=== PATIENT | male | born 1960 | race Caucasian/White ===

== ENCOUNTER 2017-01-04 20:50 | Inpatient (IN) | payer BC ==
[~2017-01-04] VITALS: Ht 182.9 cm; Wt 79.7 kg
[~2017-01-04 20:50] MED LIST: AMIODARONE 360MG / 200ML D5W IV STA
[2017-01-04] MEDS ORDERED: FENTANYL CITRATE INJ 50 MCG/1 ML 2 ML VIAL ONE (21:02)
[2017-01-04] MEDS ORDERED: MIDAZOLAM HCL 1 MG/ML 2ML VIAL ONE (21:02)
[2017-01-04] MEDS ORDERED: HEPARIN SOD (PORCINE) 1000 UNIT/ML 10 ML VIAL ONE (21:02)
[2017-01-04] MEDS ORDERED: ONDANSETRON INJ 2 MG/ML 2 ML VIAL IV STA (21:03)
[2017-01-04] MEDS ORDERED: NiCARDipine HCL INJ 2.5 MG/ML 10 ML AMP ONE (21:03)
[2017-01-04] MEDS ORDERED: NITROGLYCERIN/D5W 100MCG/ML 20ML SYR ONE (21:03)
--- NOTE | 2017-01-04 21:03 | EMERGENCY ROOM VISIT NOTE ---
History Report prepared by Chris: Elton Dueñas Under the Supervision of: Dr. Naresh Huffman D.O. First contact with patient: 20:33 Stated Complaint: HEART ALERT History of Present Illness The patient is a 56 year old male who presents to the Emergency Room via [facility] with complaints of intermittent chest pain that started 4 days ago. Per EMS, the patient was having chest pain, so he called an ambulance. The patient was found sitting outside on his porch a bit short of breath and lightheaded. On the way in, the patient developed v-tach with a pulse, and then v-fib. He was shocked back to normal and had CPR. The patient was given 150 mg Amiodarone in the ambulance. He took 4 baby aspirin at home so EMS did not give the patient any aspirin. Per the patient, his current chest pain is a 3 out of 10 in severity, and not as bad as it was earlier today. He states that his current chest pain is a bit different than it was earlier, and feels like heartburn. He also currently feels nauseated. His chest pain started 4 days ago, and has been coming and going. The patient was seen at [facility] this morning, and had an EKG done. He denies any radiation of pain, abdominal pain, vomiting, neck pain, or current shortness of breath. He has never had a heart catheterization before. The patient did work out at the gym today. He takes daily medication for hypertension. He does have a family history of heart disease, with the earlier age of onset being 53 years of age. He does not use tobacco products, drink alcohol, or use any drugs. The patient is scheduled for a stress test here in 2 days. Source of History: patient, EMS Onset: 4 days ago Position: chest Symptom Intensity: currently a 3/10 in severity Timing: intermittent Modifying Factors (Relieving): other (Amiodarone 150 mg) Associated Symptoms: + SOB (denies current), + nausea, No neck pain, No vomiting Note: Associated symptoms: Lightheaded earlier. Denies any radiation of pain. Review of Systems See HPI for pertinent positives & negatives. A total of 10 systems reviewed and were otherwise negative. Past Medical & Surgical Medical Problems: (1) Acute IL, anterior wall (2) HTN (hypertension) Family History Heart disease Social History Smoking Status: Never Smoker Smokeless Tobacco Use: No Alcohol Use: none Drug Use: none Marital Status: Housing Status: lives with family Current/Historical Medications Scheduled Lansoprazole (Prevacid), 30 MG PO QPM Lisinopril (Zestril), 10 MG PO DAILY Scheduled PRN Aspirin (Aspirin Ec), 81 MG PO UD PRN for Pain Allergies Coded Allergies: No Known Allergies (Unverified , 01/04/17) Physical Exam Vital Signs Date Time Temp Pulse Resp B/P Pulse Ox O2 Delivery O2 Flow Rate FiO2 01/04/17 22:44 79 18 104/62 96 Mask 10 01/04/17 22:35 83 18 94/61 93 Mask 10 01/04/17 22:25 82 16 114/75 94 Mask 10 01/04/17 22:20 79 18 102/75 95 Mask 10 01/04/17 21:09 87 20 158/94 99 Nasal Cannula 3.0 01/04/17 21:04 100 Non-Rebreather 15.0 01/04/17 20:58 87 01/04/17 20:53 36.5 89 18 130/83 100 Non-Rebreather 15.0 01/04/17 20:53 100 Non-Rebreather 15.0 01/04/17 20:52 100 Non-Rebreather 15.0 Physical Exam GENERAL: Patient is awake, alert, very anxious appearing but does not appear uncomfortable. EYES: The conjunctivae are clear. The pupils are round and reactive. EARS, NOSE, MOUTH AND THROAT: The nose is without any evidence of any deformity. Mucous membranes are moist tongue is midline NECK: The neck is nontender and supple. RESPIRATORY: Normal respiratory effort is noted there is no evidence of wheezing rhonchi or rales CARDIOVASCULAR: Regular rate and rhythm noted there no murmurs rubs or gallops normal S1 normal S2 GASTROINTESTINAL: The abdomen is soft. Bowel sounds are present in all quadrants. Abdomen is nontender MUSCULOSKELETAL/EXTREMITIES: There is no evidence of gross deformity full range of motion is noted in the hips and shoulders SKIN: There is no obvious evidence of any rash. There are no petechiae, pallor or cyanosis noted. NEUROLOGIC: Patient is awake alert and oriented x3. Medical Decision & Procedures ER Provider Diagnostic Interpretation: X-ray results as stated below per interpretation by me and the radiologist. CHEST ONE VIEW PORTABLE CLINICAL HISTORY: CHEST PAIN dyspnea COMPARISON STUDY: No previous studies for comparison. FINDINGS: Interstitial change throughout both hemithoraces. This potentially is chronic although the absence of prior films and interstitial inflammatory process is not excluded. Diaphragms are smooth. No evidence for cardiac enlargement. IMPRESSION: Nonspecific interstitial prominence throughout both hemithoraces. Possibility of early interstitial edema, interstitial infiltrative change, versus chronic interstitial fibrotic change must be considered Electronically signed by: Yan Subramanian M.D. 01/04/2017 9:09 PM Dictated Date/Time: 01/04/2017 9:08 PM Laboratory Results Test 01/04/17 20:59 01/04/17 21:01 01/04/17 21:39 01/04/17 22:48 RDW Standard Deviation 40.7 fL (36.4-46.3) RDW Coefficient of Variation 12.7 % (11.5-14.5) White Blood Count 16.00 K/uL (4.8-10.8) Red Blood Count 5.09 M/uL (4.7-6.1) Hemoglobin 15.8 g/dL (14.0-18.0) Hematocrit 44.7 % (42-52) Mean Corpuscular Volume 87.8 fL (80-100) Mean Corpuscular Hemoglobin 31.0 pg (25-34) Mean Corpuscular Hemoglobin Concent 35.3 g/dl (32-36) Platelet Count 243 K/uL (130-400) Mean Platelet Volume 8.8 fL (7.4-10.4) Neutrophils (%) (Auto) 64.8 % Lymphocytes (%) (Auto) 22.9 % Monocytes (%) (Auto) 7.8 % Eosinophils (%) (Auto) 3.8 % Basophils (%) (Auto) 0.3 % Neutrophils # (Auto) 10.40 K/uL (1.4-6.5) Lymphocytes # (Auto) 3.66 K/uL (1.2-3.4) Monocytes # (Auto) 1.24 K/uL (0.11-0.59) Eosinophils # (Auto) 0.60 K/uL (0-0.5) Basophils # (Auto) 0.04 K/uL (0-0.2) Immature Granulocyte % (Auto) 0.4 % Immature Granulocyte # (Auto) 0.06 K/uL (0.00-0.02) Prothrombin Time 10.8 SECONDS (9.0-12.0) Prothromb Time International Ratio 1.0 (0.9-1.1) Activated Partial Thromboplast Time 29.8 SECONDS (21.0-31.0) Partial Thromboplastin Ratio 1.1 Est Creatinine Clear Calc Drug Dose 90.6 ml/min Magnesium Level 2.0 mg/dl (1.8-2.4) Total Bilirubin 0.4 mg/dl (0.2-1) Direct Bilirubin < 0.1 mg/dl (0-0.2) Aspartate Amino Transf (AST/SGOT) 28 U/L (15-37) Alanine Aminotransferase (ALT/SGPT) 35 U/L (12-78) Alkaline Phosphatase 65 U/L (45-117) Total Protein 7.0 gm/dl (6.4-8.2) Albumin 3.7 gm/dl (3.4-5.0) Lipase 151 U/L (73-393) Bedside Hemoglobin 16.0 g/dl (14.0-18.0) Bedside Hematocrit 47 % (42-52) Bedside Sodium 137 mEq/L (135-144) Bedside Potassium 3.5 mEq/L (3.3-5.0) Bedside Chloride 101 mEq/L (101-112) Bedside Total CO2 23 mEq/l (24-31) Bedside Blood Urea Nitrogen 25 mg/dl (7-18) Bedside Creatinine 0.8 mg/dl (0.6-1.3) Bedside Glucose (other) 134 mg/dl (70-99) Bedside Ionized Calcium (Ethel) 1.04 mmol/l (1.12-1.32) Kaolin Activated Coagulation Time 353 SECONDS (94-140) Creatine Kinase MB Ratio (0-3.0) Laboratory results per my review. Medications Administered Medications (Trade) Dose Ordered Sig/Matt Route Start Time Stop Time Status Last Admin Dose Admin Amiodarone HCL/ Dextrose (Nexterone / D5w) 360 mg UD STAT IV 01/04/17 20:45 01/04/17 20:47 DC 01/04/17 21:08 360 MG Heparin Sodium (Porcine) (Heparin Iv Bolus) 10,000 unit STK-MED ONCE .ROUTE 01/04/17 21:02 01/04/17 21:03 DC 01/04/17 21:02 10,000 UNIT Midazolam HCl (Versed Inj) 2 mg STK-MED ONCE .ROUTE 01/04/17 21:02 01/04/17 21:03 DC 01/04/17 21:02 1 MG Fentanyl Citrate (Fentanyl Inj) 100 mcg STK-MED ONCE .ROUTE 01/04/17 21:02 01/04/17 21:03 DC 01/04/17 21:02 50 MCG Ondansetron HCl (Zofran Inj) 4 mg NOW STAT IV 01/04/17 21:03 01/04/17 21:04 DC 01/04/17 21:05 4 MG Eptifibatide (Integrilin Inj) 75 mg STK-MED ONCE IV 01/04/17 21:37 01/04/17 21:38 DC 01/04/17 21:37 75 MG Eptifibatide (Integrilin Inj) 20 mg STK-MED ONCE IV 01/04/17 21:37 01/04/17 21:38 DC 01/04/17 21:37 20 MG Eptifibatide (Integrilin Inj) 20 mg STK-MED ONCE IV 01/04/17 21:49 01/04/17 21:50 DC 01/04/17 21:49 20 MG Clopidogrel Bisulfate (plAVix TAB) 600 mg STK-MED ONCE PO 01/04/17 22:43 01/04/17 22:44 DC 01/04/17 22:43 600 MG ECG Indication: chest pain Rate (beats per minute): 78 Rhythm: normal sinus Findings: no ectopy, other (apical ST segment elevation with peaked T wave) Comparison ECG Date: no prior available Change: Second ECG: Normal sinus rhythm at 78 bpm, frequent PVC's noted, minimal improved of previously noted ST elevation abnormalities. ECG here: Normal sinus rhythm at 83 bpm, no acute ST segment abnormalities, hyperacute T waves still noted in apical leads. ED Course 2044: Ordered Nexterone/D5w 360 mg IV. 2049: The patient was evaluated in room B1. A complete history and physical examination were performed. 2053: I discussed the patient with Dr. Schofield - [facility] cardiology - he is currently in the room with me. He will take the patient to the laborer brush clearing. The patient will be evaluated for further treatment. 2102: Ordered Zofran Inj 4 mg IV. Medical Decision Additional history obtained from EMS. The patient's history was concerning for chest pain. Differential diagnosis: Etiologies such as cardiac ischemia, aortic dissection, pulmonary embolism, pneumonia, pneumothorax, musculoskeletal, infections, pericarditis, myocarditis , esophageal rupture, gastrointestinal, as well as others were entertained. The patient is a 56-year-old male who presented to the emergency department by ambulance for an evaluation of chest pain. The patient has been noticing intermittent chest pain over the last few days. The patient was seen at the clinic this morning and was advised to schedule a stress test. He went to the gym this evening and afterward started having similar chest discomfort. He took 4 baby aspirin and then called the ambulance. I was alerted by the booker because the patient had an episode of ventricular tachycardia followed by ventricular fibrillation and was cardioverted into normal sinus rhythm. He did receive CPR. He was given a dose of amiodarone prior to arrival. The patient arrives in the emergency Department awake and alert with continued chest pain which is significantly improved. His prehospital EKG appeared to show apical ST segment and T-wave abnormalities consistent with acute process and ischemia. The patient was made a heart alert prior to arrival. He was felt to be a good candidate for cardiac catheterization. He was agreeable to this procedure and was evaluated by the original midwife and birth center owner. He was taken to cardiac Info Specialist. His EKG did reveal some improvement from his prehospital EKGs. I discussed the patient's presentation with himself as well as his significant other. They are aware of the severity of his disease process at this time. The patient was started on amiodarone drip while in the emergency department. He had some episodes of PVCs but no sustained ventricular dysrhythmia at this time. Consults Time Called: 2049 Consulting Physician: Dr. Chandu ELIAS cardiology Returned Call: -- I discussed the patient with Dr. Chandu ELIAS cardiology - he is currently in the room with me. He will take the patient to the laborer brush clearing. The patient will be evaluated for further treatment. Impression Primary Impression: Acute myocardial infarction of apical-lateral wall Additional Impressions: Chest pain Ventricular tachycardia Critical Care I have personally spent greater than 45 minutes of critical care time in the direct management of this patient. This includes bedside care, interpretation of diagnostic studies, and testing, discussion with consultants, patient, and family members, and other required patient management activities. This 45 minutes is in excess of all separately billable procedures. Scribe Attestation The scribe's documentation has been prepared under my direction and personally reviewed by me in its entirety. I confirm that the note above accurately reflects all work, treatment, procedures, and medical decision making performed by me. Departure Information Dispostion Being Evaluated By Hospitalist (to laborer brush clearing) Problem Qualifiers Additional Impressions: Chest pain Chest pain type: unspecified Qualified Codes: R07.9 - Chest pain, unspecified
[2017-01-04 21:09] LABS: HEMATOCRIT 44.7 % (42-52); MEAN CELL VOLUME 87.8 fL (80-100); MEAN CORPUSCULAR HGB CONC 35.3 g/dl (32-36); MEAN PLATELET VOLUME 8.8 fL (7.4-10.4); PLATELET COUNT 243 K/uL (130-400); RED BLOOD COUNT 5.09 M/uL (4.7-6.1)
[2017-01-04] MEDS ORDERED: ONDANSETRON INJ 2 MG/ML 2 ML VIAL ONE (21:10)
[2017-01-04] MEDS ORDERED: ASPI81TA28 PO (21:11)
[2017-01-04] MEDS ORDERED: LISI-461 PO (21:11)
[2017-01-04] MEDS ORDERED: LANS30CA12 PO (21:11)
--- NOTE | 2017-01-04 21:11 | DIAGNOSTIC IMAGING REPORT ---
CHEST ONE VIEW PORTABLE CLINICAL HISTORY: CHEST PAIN dyspnea COMPARISON STUDY: No previous studies for comparison. FINDINGS: Interstitial change throughout both hemithoraces. This potentially is chronic although the absence of prior films and interstitial inflammatory process is not excluded. Diaphragms are smooth. No evidence for cardiac enlargement. IMPRESSION: Nonspecific interstitial prominence throughout both hemithoraces. Possibility of early interstitial edema, interstitial infiltrative change, versus chronic interstitial fibrotic change must be considered Electronically signed by: Yan Subramanian M.D. 01/04/2017 9:09 PM Dictated Date/Time: 01/04/2017 9:08 PM
[2017-01-04 21:15] LABS: ISTAT CREATININE 0.8 mg/dl (0.6-1.3); ISTAT IONIZED CALCIUM 1.04 mmol/l (1.12-1.32)
[2017-01-04 21:17] LABS: PARTIAL THROMBOPLASTIN RATIO 1.1; PROTHROMBIN TIME (PATIENT) 10.8 SECONDS (9.0-12.0)
[2017-01-04 21:25] LABS: ALT/SGPT 35 U/L (12-78); BLOOD UREA NITROGEN 22 mg/dl (7-18); BUN/CREATININE RATIO 22.3 (10-20); CARBON DIOXIDE 24 mmol/L (21-32); CHLORIDE 102 mmol/L (98-107); GLUCOSE 133 mg/dl (70-99); POTASSIUM 3.4 mmol/L (3.5-5.1); SODIUM 137 mmol/L (136-145)
[2017-01-04 21:29] LABS: BASO % 0.3 %; BASO ABS # 0.04 K/uL (0-0.2); COMPLETE YES; EOS % 3.8 %; IG% 0.4 %; LYMPH % 22.9 %; LYMPH ABS # 3.66 K/uL (1.2-3.4); MONO % 7.8 %; NEUT % 64.8 %
[2017-01-04] MEDS ORDERED: EPTIFIBATIDE 2 MG/ML 10 ML VIAL IV ONE ×2 (21:37→21:49)
[2017-01-04] MEDS ORDERED: EPTIFIBATIDE 0.75 MG/ML 75MG VIAL IV ONE (21:37)
[2017-01-04 21:44] LABS: ALKALINE PHOSPHATASE 65 U/L (45-117); AST/SGOT 28 U/L (15-37); CKMB/CK RATIO 2.4 (0-3.0)
[2017-01-04 22:01] LABS: CALCIUM 8.9 mg/dl (8.5-10.1)
[2017-01-04] MEDS ORDERED: CLOPIDOGREL BISULFATE 300 MG TAB PO ONE (22:43)
[2017-01-04] MEDS ORDERED: LORAZEPAM INJ 0.5 MG in SYRINGE 0 ML IV PRN (23:00)
[2017-01-04] MEDS ORDERED: ATROPINE SULFATE 0.1 MG/ML 5ML SYR IV PRN (23:00)
[2017-01-04] MEDS ORDERED: ONDANSETRON INJ 2 MG/ML 2 ML VIAL IV PRN (23:00)
[2017-01-04] MEDS ORDERED: EPTIFIBATIDE BOLUS / DRIP IV ONE (23:00)
[2017-01-04] MEDS ORDERED: MoRPHine SULFATE 2 MG/ML CARP IV PRN (23:00)
[2017-01-04] MEDS ORDERED: ALUMINUM/MAGNESIUM/SIMETH (MAALOX MAX) 30 ML UDC PO PRN (23:00)
[2017-01-04] MEDS ORDERED: NITROGLYCERIN 0.4 MG SL PER TAB CHARGE SL PRN (23:00)
[2017-01-04] MEDS ORDERED: MAGNESIUM HYDROXIDE SUSP 30 ML UDC PO PRN (23:00)
[2017-01-04] MEDS ORDERED: ACETAMINOPHEN 325 MG TAB PO PRN (23:00)
[2017-01-04] MEDS ORDERED: SODIUM CHLORIDE 0.9% 1000ML 1,000 ML IV SCH (23:00)
--- NOTE | 2017-01-04 23:07 | Procedure Note ---
Pre-Mod Sedation Assessment General Date of Moderate Sedation: Jan 04, 2017. Vital Signs: Vital Signs Past 12 Hours Date Time Temp Pulse Resp B/P Pulse Ox O2 Delivery O2 Flow Rate FiO2 01/04/17 22:44 79 18 104/62 96 Mask 10 01/04/17 22:35 83 18 94/61 93 Mask 10 01/04/17 22:25 82 16 114/75 94 Mask 10 01/04/17 22:20 79 18 102/75 95 Mask 10 01/04/17 21:09 87 20 158/94 99 Nasal Cannula 3.0 01/04/17 21:04 100 Non-Rebreather 15.0 01/04/17 20:58 87 01/04/17 20:53 36.5 89 18 130/83 100 Non-Rebreather 15.0 01/04/17 20:53 100 Non-Rebreather 15.0 01/04/17 20:52 100 Non-Rebreather 15.0 Review Cardiovascular: regular rate, rhythm, no edema, no gallop, no JVD, no murmur, normal peripheral pulses Abdomen: non tender, soft, no organomegaly, no pulsatile mass Lungs: lungs clear Pre-Sedation Airway Assessment Oral Cavity: WNL Able to Visualize Vocal Cords: No Short Thick Neck: No Hx of Sleep Apnea: No Smoking Status: Never Smoker Mallampati Classification: Class III Procedure Planning Contraindications-for Mod Sed: None Yes Notes The planned sedation has been discussed with the patient and consent obtained. I have identified the patient, determined the appropriateness of sedation and have assessed the patient immediately prior to the procedure. All medicine(s) and interventions are by my order.
--- NOTE | 2017-01-04 23:08 | Procedure Note ---
Post-Mod Sedation Assessment General Date of Moderate Sedation Jan 04, 2017. Vital Signs: Vital Signs Past 12 Hours Date Time Temp Pulse Resp B/P Pulse Ox O2 Delivery O2 Flow Rate FiO2 01/04/17 22:44 79 18 104/62 96 Mask 10 01/04/17 22:35 83 18 94/61 93 Mask 10 01/04/17 22:25 82 16 114/75 94 Mask 10 01/04/17 22:20 79 18 102/75 95 Mask 10 01/04/17 21:09 87 20 158/94 99 Nasal Cannula 3.0 01/04/17 21:04 100 Non-Rebreather 15.0 01/04/17 20:58 87 01/04/17 20:53 36.5 89 18 130/83 100 Non-Rebreather 15.0 01/04/17 20:53 100 Non-Rebreather 15.0 01/04/17 20:52 100 Non-Rebreather 15.0 Review - Discharge Criteria Vital Signs Stable: Yes Alert/Oriented/Conversant: Yes Returned to Baseline Mental St: Yes Nausea Absent/Minimal: Yes Pain/Discomfort/Absent/Minimal: Yes Normal/Baseline Respirations: Yes Active Bleeding?: No Pt Received D/C Instructions: N/A Prescriptions Given: None Specific Proced. D/C Criteria Distal Pulses Present (Cardiac: Yes Groin site assessed-Card Cath: N/A Voided Prior To Discharge: N/A Discharged Patients Adult Escort/Transportation: N/A
[2017-01-04] MEDS ORDERED: ASPIRIN 81 MG ECTAB PO PRN (23:15)
--- NOTE | 2017-01-04 23:24 | Cardiac Catheterization ---
Procedure Note Procedure Date Jan 04, 2017. Pre-Procedure Diagnosis STEMI AUC Score 9 Post-Procedure Diagnosis Severe CAD, Successful PCI, Decreased LV Systolic Function, Elevated Intracardiac Pressures Procedure(s) Performed Coronary Angiography, Left Heart Cath, LV Angiography, PTCA, Drug Eluting Stent Book Jacket Cover Machine Operator Dr. Schofield Bone Cooking Operator(s) Klaudia Kearney RTArchana Estimated Blood Loss 35 ml Medication(s) Clopidogrel, Fentanyl, Heparin, Integrilin, Nicardipine, Versed, Lidocaine 1% Summary of Findings HISTORY, PROTOCOL, FINDINGS: The patient is a 56-year-old white male. No prior history of heart disease. CAD risk factors include hypertension, dyslipidemia, and family history of coronary artery disease. His father underwent CABG surgery when he was in his 50s. The patient presented with a 4-day history of intermittent chest discomfort. This evening while at home, he developed a severe episode of retrosternal pressure and burning, associated diaphoresis, nausea, weakness and dyspnea. He called 911. An electrocardiogram performed in the field revealed evidence of an anteroapical myocardial infarction. A heart alert was called based on this electrocardiogram. While being transported to [facility], he had an episode of ventricular tachycardia with a pulse. He then lost consciousness and had ventricular fibrillation. He was successfully defibrillated with 1 shock. He was also given 150 mg of amiodarone. The patient had taken 324 mg of aspirin at home. On arrival to the Emergency Department, the patient was still complaining of chest discomfort. However, the intensity had decreased compared to the intensity that he had experienced earlier at home. He was evaluated in the Emergency Department promptly after arrival by Dr. Naresh Huffman. He was then evaluated by me. After acquisition of informed consent, he was brought emergently to the cardiac catheterization laboratory for cardiac catheterization and probable coronary intervention. On arrival to the catheterization lab, he was still complaining of chest discomfort. However, it was of decreased intensity compared to earlier in the evening. His initial blood pressure was 121/82/100. Catheterization was performed via a 6-Uzbek Glidesheath Slender in the right radial artery. 6 Fr EBU 3.75 guide cathheter. This revealed a codominant circulation. There were mild coronary calcifications present. There was a total early mid LAD occlusion. There was collateral flow to an LAD diagonal from a small caliber first LAD diagonal as well as from a left circumflex marginal artery. GISELLE 0 flow in the LAD. Following passage of a [place] guidewire into the LAD, GISELLE 2 flow was established into the distal LAD. Following balloon angioplasty ( Medtronic Sprinter 2.5 X 12 mm balloon ) to the early mid LAD, GISELLE 3 flow was present in the distal LAD. Also, there was GISELLE 3 flow into the LAD diagonal which arose from the mid LAD. Following deployment of the stent ( kSARIAtronic Integrity Resolute 2.75 X 18 mm BENEDICTO) in the early mid LAD, the residual stenosis at the stent site was 0-10%. There was no evidence of dissection, thrombus, perforation, or distal embolic event. The proximal LAD had a 20-30% stenosis. The latter portion of the mid LAD had a 20-30% stenosis. There was GISELLE 3 flow in the LAD and the diagonal artery. The left circumflex had mild atherosclerotic disease. The right coronary artery was a small caliber codominant vessel giving rise to a long, small caliber posterior descending artery. The distal RCA had a 70% stenosis. The mid RCA had a 30% stenosis. Upon further review of the coronary angiograms, the mid left circumflex gave rise to a long medium caliber marginal artery which appeared to have at least a 50% ostial stenosis. Left ventricular angiography performed following completion of coronary intervention and coronary angiography revealed the posterior basal and diaphragmatic segments contracted normally. The anterobasal segments contracted normally. The anterolateral segment was severely hypokinetic. The apex was akinetic. Left ventricular angiography performed from the 44-degree SWAZI projection revealed the septum to be hypokinetic. The apex was akinetic. The lower posterolateral segment was hypokinetic. The estimated LV ejection fraction was 40%. No significant mitral regurgitation present. The patient was treated with intravenous Integrilin and heparin during the procedure. He was given 600 mg of oral clopidogrel at the completion of the procedure. He had no complaints of chest discomfort following completion of procedure. His final blood pressure was 89/61/75 mmHg. The left ventricular end-diastolic pressure was 21 mmHg. Hemostasis was obtained at the right radial catheterization site with application of a TerumTouchSpin Gaming AG TR band. Hemodynamics Rest Ao: 121/82/100 mm Hg Final Ao: 89/61/75 mm Hg LV: 86/21 mm Hg Recommendations Medical therapy and/or Counseling, PCI without planned CABG Specimens None Radiation Exposure (mGy) 1842 Contrast (mls) 290 ml Visipaque Fluids (cc crystalloids) 205 Drains none Anesthesia IV versed,fentanyl. Lidocaine 1% local Procedural Complication(s) None Disposition ICU ACC Data Cardiac Status Clinical evaluation leading to the procedure CAD Presntation: STEMI STEMI or Non-STEMI: Thrombolytics: No Anginal Classification: CCS IV Heart Failure: No Cardiogenic Shock w/in 24Hrs: No Cardiac Arrest w/in 24Hrs: Yes Imaging studies past 6 months: No Stress studies past 6 months: No Standard Exercise Stress Test: No Stress Echocardiogram: No Stress Testing w/SPECT MPI: No Cardiac CTA: No Coronary Anatomy Dominant: Co-dominant Left Main (% Stenosis): Normal LAD (% Stenosis): Proximal (30), Mid (100), Distal (20) RCA (% Stenosis): Distal (70) Left Ventricular Angiography EF (%): 45 Wall Motion: Inferior (Normal), Apical (Akinetic), Anterior (Hypokinetic) Mitral Regurgitation: None Diagnostic Physician's Name: Isidro Schofield M.D. Status: Emergency Closure Device Percutaneous Entry Location: Radial Closure Device: Radial Band Recommendations: Medical therapy and/or Counseling, PCI without planned CABG PCI Indication: Immediate PCI for STEMI First Noted: First EKG Lesion Segment Name: Early mid LAD Culprit Artery: Yes Stenosis Prior to Rx (%): 100 Chronic Total Occlusion: No IVUS: No FFR: No Pre-Procedure GISELLE Flow: 0 Previously Treated Lesion: No Lesion Complexity: Non-High/Non-C Lesion Length (mm): 12 Thrombus Present: Yes Bifurcation Lesion: No Guidewire Across Lesion: Yes Guidewire: Stenosis Post-Procedure (%): 0 Post-Procedure GISELLE Flow: 3 Device(s) Deployed: Yes Type of Device(s): Medtronic Resolute 2.75 X 18 mm BENEDICTO Intraprocedure Events Significant Dissection: No Perforation: No
[2017-01-04] MEDS ORDERED: ATORVASTATIN 40 MG TAB PO STA (23:29)
[2017-01-04 23:30] VITALS: PULSE 69; O2SAT 91
[2017-01-04] MEDS ORDERED: VANCOMYCIN INJ 1,000 MG in SODIUM CHLORIDE 0.9% 250ML 250 ML IV STA (23:32)
[2017-01-04 23:45] VITALS: BP 82/87; PULSE 65; O2SAT 90
[2017-01-04] MEDS ORDERED: PIPERACILL/TAZOBAC CONSULT ACTIVE PRN (23:45)
[2017-01-04] MEDS ORDERED: LEVALBUTEROL 1.25MG/0.5ML NEB INH PRN (23:45)
[2017-01-04] MEDS ORDERED: LORAZEPAM 2 MG/ML 1 ML VIAL IV PRN (23:45)
[2017-01-04] MEDS ORDERED: IPRATROPIUM BROMIDE NEB SOLN 0.02% 2.5 ML VIAL INH PRN (23:45)
[2017-01-04] MEDS ORDERED: PANTOprazole INJ 40 MG in SYRINGE 0 ML IV STA (23:50)
[2017-01-04 23:55] LABS: HEMATOCRIT 42.4 % (42-52); MEAN CELL VOLUME 87.4 fL (80-100); MEAN CORPUSCULAR HEMOGLOBIN 30.9 pg (25-34); MEAN PLATELET VOLUME 8.8 fL (7.4-10.4); PLATELET COUNT 260 K/uL (130-400); RED BLOOD COUNT 4.85 M/uL (4.7-6.1); WHITE BLOOD COUNT 20.67 K/uL (4.8-10.8)
[2017-01-05] VITALS (28 sets, daily range): BP systolic 82–123; BP diastolic 57–85; PULSE 62–84; TEMP 36.3–37.5; O2SAT 86–100; Ht 182.9 cm; Wt 79.7 kg
[2017-01-05] MEDS ORDERED: PIPERACILL/TAZOBAC IV 3.375 GM in DEXTROSE 5% 100ML IV ONE ×2
[2017-01-05 00:02] LABS: MEAN CORPUSCULAR HGB CONC 35.4 g/dl (32-36)
[2017-01-05] MEDS: NSS + 20MEQ KCL 1000ML 1,000 ML IV SCH ×2 (00:06→00:28)
[2017-01-05] MEDS: LEVOFLOXACIN / D5W 500 MG in PREMIXED IN D5W 100 ML IV SCH ×2 (00:07→23:47)
[2017-01-05 00:16] LABS: BASO % 0.1 %; BASO ABS # 0.03 K/uL (0-0.2); COMPLETE YES; ECHINOCYTES 1+; EOS % 0.2 %; IG% 0.4 %; LYMPH % 10.2 %; MONO % 6.7 %; NEUT % 82.4 %
[2017-01-05 00:19] LABS: BLOOD UREA NITROGEN 18 mg/dl (7-18); BUN/CREATININE RATIO 24.7 (10-20); CALCIUM 8.2 mg/dl (8.5-10.1); CARBON DIOXIDE 23 mmol/L (21-32); CHLORIDE 103 mmol/L (98-107); CREATININE 0.74 mg/dl (0.60-1.40); GLUCOSE 125 mg/dl (70-99); POTASSIUM 3.8 mmol/L (3.5-5.1); SODIUM 136 mmol/L (136-145)
[2017-01-05] MEDS ORDERED: CALCIUM GLUCONATE 10% 2,000 MG in SODIUM CHLORIDE 0.9% 50ML 50 ML IV STA (00:23)
[2017-01-05 00:36] LABS: CHOLESTEROL 141 mg/dl (0-200); CHOLESTEROL/HDL RATIO 4.4; CKMB/CK RATIO 8.4 (0-3.0); HDL CHOLESTEROL 32 mg/dl; TRIGLYCERIDES 55 mg/dl (0-150); VERY LOW DENSITY LIPOPROT CALC 11 mg/dl
--- NOTE | 2017-01-05 00:40 | HISTORY & PHYSICAL EXAMINATION ---
DATE OF ADMISSION: 01/04/2017 PRIMARY PHYSICIAN: Roseann Murphy MD. ADMITTING AND ATTENDING PHYSICIAN: Isidro Schofield MD. HISTORY: The patient is a 56-year-old white male. No prior history of heart disease. CAD risk factors include hypertension, dyslipidemia, and family history of coronary artery disease. His father underwent CABG surgery when he was in his 50s. The patient presented with a 4-day history of intermittent chest discomfort. This evening while at home, he developed a severe episode of retrosternal pressure and burning, associated diaphoresis, nausea, weakness and dyspnea. He called 911. An electrocardiogram performed in the field revealed evidence of an anteroapical myocardial infarction. A heart alert was called based on this electrocardiogram. While being transported to [facility], he had an episode of ventricular tachycardia with a pulse. He then lost consciousness and had ventricular fibrillation. He was successfully defibrillated with 1 shock. He was also given 150 mg of amiodarone. The patient had taken 324 mg of aspirin at home. On arrival to the Emergency Department, the patient was still complaining of chest discomfort. However, the intensity had decreased compared to the intensity that he had experienced earlier at home. He was evaluated in the Emergency Department promptly after arrival by Dr. Naresh Huffman. He was then evaluated by mo. After acquisition of informed consent, he was brought emergently to the cardiac catheterization laboratory for cardiac catheterization and probable coronary intervention. On arrival to the catheterization lab, he was still complaining of chest discomfort. However, it was of decreased intensity compared to earlier in the evening. His initial blood pressure was 121/82/100. Catheterization was performed via a 6-Ghanaian sheath in the right radial artery. This revealed a codominant circulation. There were mild coronary calcifications present. There was a total early mid LAD occlusion. There was collateral flow to an LAD diagonal from a small caliber first LAD diagonal as well as from a left circumflex marginal artery. GISELLE 0 flow in the LAD. Following passage of a guidewire into the LAD, GISELLE 2 flow was established into the distal LAD. Following balloon angioplasty to the early mid LAD, GISELLE 3 flow was present in the distal LAD. Also, there was GISELLE 3 flow into the LAD diagonal which arose from the mid LAD. Following deployment of the stent ( [employer] Integrity Resolute 2.75 X 18 mm BENEDICTO) in the early mid LAD, the residual stenosis at the stent site was 0-10%. There was no evidence of dissection, thrombus, perforation, or distal embolic event. The proximal LAD had a 20-30% stenosis. The latter portion of the mid LAD had a 20-30% stenosis. There was GISELLE 3 flow in the LAD and the diagonal artery. The left circumflex had mild atherosclerotic disease. The right coronary artery was a small caliber codominant vessel giving rise to a long, small caliber posterior descending artery. The distal RCA had a 70% stenosis. The mid RCA had a 30% stenosis. Upon further review of the coronary angiograms, the mid left circumflex gave rise to a long medium caliber marginal artery which appeared to have at least a 50% ostial stenosis. Left ventricular angiography performed following completion of coronary intervention and coronary angiography revealed the posterior basal and diaphragmatic segments contracted normally. The anterobasal segments contracted normally. The anterolateral segment was severely hypokinetic. The apex was akinetic. Left ventricular angiography performed from the 44-degree KYRGYZ projection revealed the septum to be hypokinetic. The apex was akinetic. The lower posterolateral segment was hypokinetic. The estimated LV ejection fraction was 40%. No significant mitral regurgitation present. The patient was treated with intravenous Integrilin and heparin during the procedure. He was given 600 mg of oral clopidogrel at the completion of the procedure. He had no complaints of chest discomfort following completion of procedure. His final blood pressure was 89/61/75 mmHg. The left ventricular end-diastolic pressure was 21 mmHg. Hemostasis was obtained at the right radial catheterization site with application of a Terumo TR band. PAST MEDICAL HISTORY: 1. Hypertension. 2. Dyslipidemia. PAST SURGICAL HISTORY: Status post umbilical hernia repair. SOCIAL HISTORY: The patient is and lives with his . 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 He has not smoked cigarettes. He does chew snuff. He does not drink alcohol. The patient and his have 3 daughters. FAMILY HISTORY: His father underwent CABG surgery in his early 50s. MEDICATIONS AT TIME OF ADMISSION: Prevacid 30 mg daily and lisinopril 10 mg daily. ALLERGIES: No known drug allergies. REVIEW OF SYSTEMS: 1. As above. 2. Nonproductive cough developing in the catheterization laboratory. 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 3. No bleeding complaints prior to cardiac catheterization. 4. No cerebrovascular or peripheral vascular complaints. 5. No urinary complaints. 6. He has recently had sensation of cold hands and feet. PHYSICAL EXAMINATION: VITAL SIGNS: On arrival to the farm laborer, his noninvasive blood pressure was 138/99 mmHg. His pulse rate was 86 beats per minute. Oxygen saturation was 98%. HEAD: Normal. EYES: Pupils equal and round. Anicteric. Conjunctivae normal. NECK: No jugular venous distension. Carotids 2/2 bilaterally. Normal upstroke. No bruits. LUNGS: Normal respiratory effort. Clear. No rales or wheezes. HEART: Regular rate and rhythm. S1, S2 normal. No S3 or S4. No murmur or rub. ABDOMEN: Soft. Nontender. No palpable masses or organomegaly. No bruits. EXTREMITIES: No pretibial edema. PULSES: Distal pulses in all extremities strongly palpable. NEUROLOGIC: Alert and oriented x3. Motor grossly intact. PSYCHIATRIC: Affect normal. DATA: Electrocardiogram performed in the Emergency Department revealed sinus rhythm, poor R-wave progression V1-V6. Predominantly Q-waves in V1-V6. Peaked T-waves in leads V3, V4 and V5. Chest x-ray performed in the Emergency Department revealed interstitial prominence in both lung barrios. Initial labs with WBC 16.0, hemoglobin 15.8, hematocrit 44.7, platelet count 243. INR 1.0. PTT 29.8. Metabolic profile with sodium 137, potassium 3.4, chloride 102, carbon dioxide 24, BUN 22, creatinine 1.0. Random glucose 133. Troponin I 0.172. CK total 219 with MB of 5.3. Magnesium 2.0. Calcium 8.9. Albumin 3.7. Lipase 151. ASSESSMENT: 1. Acute anteroapical myocardial infarction secondary to total early mid left anterior descending artery occlusion. 2. Successful intervention to left anterior descending artery occlusion with deployment of a 2.75 x 18 mm drug-eluting stent. Residual stenosis 0%. GISELLE 3 flow in the left anterior descending artery and left anterior descending artery diagonal arising from the mid left anterior descending artery following intervention. Mild atherosclerotic disease of the proximal left anterior descending artery and latter mid left anterior descending artery. 3. Moderate stenosis of left circumflex marginal. Moderate distal right coronary artery stenosis. Mild mid right coronary artery stenosis. 4. Moderate left ventricular systolic dysfunction. Anteroapical wall motion abnormalities of the left ventricle. 5. Moderately elevated left ventricular end-diastolic pressure. 6. Coronary artery disease risk factors include history of dyslipidemia, hypertension, and family history of premature coronary artery disease. PLAN: 1. Admit to intensive care unit. 2. Intravenous Integrilin for 18 hours. 3. Post-Integrilin CBC. Post-procedure metabolic profile. 4. Serial cardiac enzymes and electrocardiograms. 5. Echocardiogram on 01/05/2017. 6. Start beta ryan therapy with metoprolol tartrate 25 mg b.i.d. Continue lisinopril; however, we will reduce dose to 5 mg daily in light of the low pressure post-intervention. Aspirin and clopidogrel. We will start atorvastatin 80 mg daily. 7. Check lipid profile and direct LDL. Check hemoglobin A1c. 8. Medical consultation with Dr. Pj Kelly. 9. Hydrostatic Tester consultation with Dr. Karolina Quick. 10. Refer to cardiac rehabilitation. 11. Ranitidine 150 mg b.i.d. MTDD
[2017-01-05 00:48] LABS: IPAP 12; ISTAT ALLEN TEST Pass; ISTAT ARTERIAL BLOOD GAS HCO3 22 meq/L (19-24); ISTAT ARTERIAL BLOOD GAS PCO2 32 mmHg (35-46); ISTAT ARTERIAL BLOOD GAS PO2 104 mmHg (80-95); ISTAT ARTERIAL BLOOD GAS pH 7.45 (7.35-7.45); ISTAT CARBON DIOXIDE 23 mEq/l (24-31); ISTAT DELIVERY SYSTEM BIPAP; ISTAT FIO2 70 %; ISTAT RATE 10; ISTAT SITE L Radial
[2017-01-05] MEDS: POTASSIUM CHLR 10 MEQ / WTR 10 MEQ in PREMIXED WATER 100 ML IV SCH ×3 (01:00→02:18)
[2017-01-05] MEDS ORDERED: VANCOMYCIN INJ 2,100 MG in SODIUM CHLORIDE 0.9% 500ML 500 ML IV SCH (02:00)
[2017-01-05] MEDS ORDERED: AMIODARONE / D5W 200 ML IV SCH (02:30)
[2017-01-05] MEDS ORDERED: NURSING VERBAL MED ORDER ONE (02:30)
[2017-01-05] MEDS: IPRATROPIUM BROMIDE NEB SOLN 0.02% 2.5 ML VIAL INH SCH ×4 (02:32→20:14)
[2017-01-05] MEDS: LEVALBUTEROL 1.25MG/0.5ML NEB INH SCH ×4 (02:32→20:14)
[2017-01-05] MEDS ORDERED: LEVALBUTEROL/IPRATROPIUM NEB INH SCH (03:00)
[2017-01-05] MEDS ORDERED: VANCOMYCIN CONSULT ACTIVE PRN (03:30)
[2017-01-05] MEDS ORDERED: PIPERACILL/TAZOBAC IV 3.375 GM in DEXTROSE 5% 100ML 100 ML IV SCH (06:00)
[2017-01-05 06:14] LABS: BASO % 0.1 %; BASO ABS # 0.01 K/uL (0-0.2); COMPLETE YES; EOS % 0.1 %; IG% 0.2 %; LYMPH % 11.9 %; LYMPH ABS # 1.55 K/uL (1.2-3.4); MEAN CELL VOLUME 87.6 fL (80-100); MEAN CORPUSCULAR HEMOGLOBIN 31.2 pg (25-34); MEAN CORPUSCULAR HGB CONC 35.6 g/dl (32-36); MEAN PLATELET VOLUME 8.6 fL (7.4-10.4); MONO % 7.3 %; NEUT % 80.4 %; PLATELET COUNT 220 K/uL (130-400); RED BLOOD COUNT 4.68 M/uL (4.7-6.1); WHITE BLOOD COUNT 12.99 K/uL (4.8-10.8)
[2017-01-05] MEDS: PIPERACILL/TAZOBAC IV 3.375 GM in DEXTROSE 5% 100ML IV SCH ×3 (06:45→22:06)
[2017-01-05 06:56] LABS: BUN/CREATININE RATIO 18.6 (10-20); CALCIUM 8.4 mg/dl (8.5-10.1); CREATININE 0.73 mg/dl (0.60-1.40); POTASSIUM 4.4 mmol/L (3.5-5.1)
[2017-01-05 07:26] LABS: CKMB/CK RATIO 10.3 (0-3.0)
[2017-01-05 07:27] LABS: ESTIMATED AVERAGE GLUCOSE 108 mg/dl; HA1C FLAG Normal (Normal)
[2017-01-05] MEDS ORDERED: PERFLUTREN LIPID MICROSPHERE (DEFINITY) IV ONE (07:36)
--- NOTE | 2017-01-05 07:49 | DIAGNOSTIC IMAGING REPORT ---
CHEST ONE VIEW PORTABLE CLINICAL HISTORY: thornton dyspnea COMPARISON STUDY: 01/04/2017 FINDINGS: Slightly progressive interstitial changes throughout both hemithoraces. Diaphragms smooth. Calcific angles remain sharp. IMPRESSION: Mildly progressive interstitial edema. Electronically signed by: Yan Subraamnian M.D. 01/05/2017 7:47 AM Dictated Date/Time: 01/05/2017 7:46 AM
--- NOTE | 2017-01-05 08:17 | ECHOCARDIOGRAM REPORT ---
*NOTICE TO RECEIVING [employer] This information is strictly Confidential and protected under [place] law. [place] law prohibits you from making any further disclosure of this information unless further disclosure is expressly permitted by the written consent of the person to whom it pertains or is authorized by law. A general authorization for the release of medical or other information is not sufficient for this purpose. Hospital accepts no responsibility if the information is made available to any other person, INCLUDING THE PATIENT. Interpretation Summary * Name: BARB PAGAN Study Date: 01/05/2017 06:50 AM BP: 109/70 mmHg * Patient Location: .MSICU\S\E109\S\1 HR: 74 * : 1960 (M/d/yyyy) Gender: Male Height: 72 in * Age: 56 yrs Ethnicity: CA Weight: 187 lb * Ordering Physician: Isidro Schofield MD, [facility] * Performed By: Stacy Baxter * * Reason For Study: AMI * BSA: 2.1 m2 * -- Conclusions -- * There is borderline concentric left ventricular hypertrophy. * Left ventricular systolic function is moderate to severely reduced. * Grade I diastolic dysfunction, (abnormal relaxation pattern). * Apical echoes consistent with trabeculae are noted. Cannot rule out associated thrombi. * There are regional wall motion abnormalities as specified. * The inferior vena cava is mildly dilated. Procedure Details * A complete two-dimensional transthoracic echocardiogram was performed (2D, M-mode, Doppler and color flow Doppler). * A contrast injection of Definity was performed to improve assessment of LV function. * Contrast was injected into an intravenous site in the left arm. * One vial of Definity ultrasound contrast was diluted in normal saline to a total volume of 10 ml. A total of '4' ml of solution was administered during imaging. * Lot # [id number] of Definity utilized for procedure. * Expiration date 01/03. * The attending nurse who injected the contrast agent was PURNIMA ZUNIGA RN. Left Ventricle * The left ventricle is normal in size. * Apical echoes consistent with trabeculae are noted. Cannot rule out associated thrombi. * There is borderline concentric left ventricular hypertrophy. * Ejection Fraction = 25-30%. * Left ventricular systolic function is moderate to severely reduced. * Grade I diastolic dysfunction, (abnormal relaxation pattern). * There are regional wall motion abnormalities as specified. * The entire apex is akinetic. The entire septum appears akinetic. The remaining basilar segements are hyperkinetic. Right Ventricle * The right ventricle is grossly normal size. * The right ventricular systolic function is normal as assessed by tricuspid annular plane systolic excursion (TAPSE) (normal >1.5 cm). Atria * The left atrial size is normal. * Right atrial size is normal. Mitral Valve * The mitral valve anatomy is normal. * Significant mitral regurgitation is absent. Tricuspid Valve * The tricuspid valve is not well visualized, but is grossly normal. * Significant tricuspid regurgitation is absent. Aortic Valve * The aortic valve is normal in structure and function. * No hemodynamically significant valvular aortic stenosis. Pericardium/Pleural * There is no pericardial effusion. Great Vessels * The inferior vena cava is mildly dilated. MMode 2D Measurements and Calculations IVSd 1.2 cm IVSs 1.6 cm LVIDd 4.6 cm LVIDs 3.3 cm LVPWd 1.1 cm LVPWs 1.4 cm IVS/LVPW 1.1 FS 29.0 % EDV(Teich) 96.3 ml ESV(Teich) 42.5 ml EF(Teich) 55.8 % EDV(cubed) 96.0 ml ESV(cubed) 34.3 ml EF(cubed) 64.2 % % IVS thick 39.0 % % LVPW thick 26.4 % LV mass(C)d 187.9 grams LV mass(C)dI 90.7 grams/m\S\2 LV mass(C)s 176.7 grams LV mass(C)sI 85.4 grams/m\S\2 SV(Teich) 53.7 ml SI(Teich) 25.9 ml/m\S\2 SV(cubed) 61.6 ml SI(cubed) 29.8 ml/m\S\2 ACS 1.8 cm asc Aorta Diam 3.1 cm LVOT diam 1.7 cm LVOT area 2.4 cm\S\2 LVAd ap4 37.7 cm\S\2 LVLd ap4 8.6 cm EDV(MOD-sp4) 137.9 ml EDV(sp4-el) 140.4 ml LVAs ap4 26.9 cm\S\2 LVLs ap4 7.8 cm ESV(MOD-sp4) 75.1 ml ESV(sp4-el) 79.4 ml EF(MOD-sp4) 45.6 % EF(sp4-el) 43.4 % LVAd ap2 38.0 cm\S\2 LVLd ap2 9.1 cm EDV(MOD-sp2) 130.5 ml EDV(sp2-el) 135.0 ml LVAs ap2 25.6 cm\S\2 LVLs ap2 7.9 cm ESV(MOD-sp2) 68.1 ml ESV(sp2-el) 70.1 ml EF(MOD-sp2) 47.8 % EF(sp2-el) 48.1 % LVLd %diff 4.9 % EDV(MOD-bp) 136.8 ml LVLs %diff 2.3 % ESV(MOD-bp) 71.4 ml EF(MOD-bp) 47.8 % SV(MOD-sp4) 62.9 ml SI(MOD-sp4) 30.4 ml/m\S\2 SV(MOD-sp2) 62.4 ml SI(MOD-sp2) 30.1 ml/m\S\2 SV(MOD-bp) 65.4 ml SI(MOD-bp) 31.6 ml/m\S\2 SV(sp4-el) 60.9 ml SI(sp4-el) 29.4 ml/m\S\2 SV(sp2-el) 64.9 ml SI(sp2-el) 31.4 ml/m\S\2 Doppler Measurements and Calculations MV A max aretha 61.7 cm/sec MV dec time 0.31 sec Ao V2 max 100.4 cm/sec Ao max PG 4.0 mmHg Ao max PG (full) 1.7 mmHg JON(V,A) 1.8 cm\S\2 JON(V,D) 1.8 cm\S\2 LV V1 max PG 2.4 mmHg LV V1 max 76.7 cm/sec PA V2 max 100.8 cm/sec PA max PG 4.1 mmHg
[2017-01-05] MEDS ORDERED: LISINOPRIL 10 MG TAB PO SCH (09:00)
[2017-01-05] MEDS ORDERED: FUROSEMIDE INJ 20 MG in SYRINGE 0 ML IV ONE (09:00)
[2017-01-05] MEDS ORDERED: FUROSEMIDE INJ 40 MG in SYRINGE 0 ML IV ONE (09:00)
[2017-01-05] MEDS ORDERED: RANITIDINE HCL 150 MG TAB PO SCH (09:00)
[2017-01-05] MEDS: METOPROLOL TARTRATE 25 MG TAB PO SCH ×2 (09:09→21:06)
[2017-01-05] MEDS: LISINOPRIL 5 MG TAB PO SCH (09:09)
[2017-01-05] MEDS: RANITIDINE HCL 150 MG TAB PO SCH ×2 (09:10→21:04)
[2017-01-05] MEDS: CLOPIDOGREL BISULFATE 75 MG TAB PO SCH (09:10)
[2017-01-05] MEDS: ASPIRIN 81 MG ECTAB PO SCH (09:10)
[2017-01-05] MEDS: PANTOprazole INJ 40 MG in SYRINGE 0 ML IV SCH ×2 (09:12→21:03)
--- NOTE | 2017-01-05 09:26 | Medical Consult ---
Consultation Date of Consultation: Jan 05, 2017. Attending Physician: Isidro Schofield M.D. 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 The chest pain worsened and was associated with SOB, diaphoresis and nausea. EMS was called and EKG had revealed GA. En route to the hospital he had an episode of V tach followed by V fib and a brief loss of consciousness. He received a shock with the defibrillator and received amiodarone. while in the ER, he complained about chest pain which felt like a heart burn but was decreased in intensity as earlier. He had taken 4 baby aspirins at home. He was emergently taken to the cardiac catheterization lab. He underwent PCI which revealed Left Main (% Stenosis): Normal LAD (% Stenosis) : Proximal (30), Mid (100), Distal (20) RCA (% Stenosis): Distal (70). He had a drug eluting stent placed in the LAD. After the procedure , the patient coughed up moderate bloody sputum after which Integrilin was stopped and he was given a bolus of 250 cc fluid. He complained about nausea and was diaphoretic , he received zofran for nausea and was put on a BIPAP Past Medical/Surgical History Medical Problems: (1) Acute myocardial infarction of apical-lateral wall Status: Acute (2) Chest pain Status: Acute (3) Ventricular tachycardia Status: Acute Social History Smoking Status: Never Smoker Smokeless Tobacco Use: No Drug Use: none Marital Status: Housing Status: lives with family Allergies Coded Allergies: No Known Allergies (Unverified , 01/04/17) Current Inpatient Medications Current Inpatient Medications Medications (Trade) Dose Ordered Sig/Matt Route Start Time Stop Time Status Last Admin Dose Admin Atropine Sulfate (Atropine Sulfate 0.1MG/Ml Inj) 0.5 mg ONE PRN IV 01/04/17 23:00 02/03/17 22:59 Ondansetron HCl (Zofran Inj) 4 mg Q6H PRN IV 01/04/17 23:00 Aspirin (Ecotrin Tab) 81 mg QAM PO 01/05/17 09:00 02/04/17 08:59 Clopidogrel Bisulfate (plAVix TAB) 75 mg QAM PO 01/05/17 09:00 02/04/17 08:59 Atorvastatin Calcium (Lipitor Tab) 80 mg QAM PO 01/06/17 09:00 02/05/17 08:59 Metoprolol Tartrate (Lopressor Tab) 25 mg Q12 PO 01/05/17 09:00 02/04/17 08:59 Lisinopril (Zestril Tab) 5 mg QAM PO 01/05/17 09:00 02/04/17 08:59 Acetaminophen (Tylenol Tab) 650 mg Q4H PRN PO 01/04/17 23:00 02/03/17 22:59 Morphine Sulfate 2 mg 2 mg Q5M PRN IV 01/04/17 23:00 01/18/17 22:59 Lorazepam/Syringe (Ativan Inj/ Syringe) 0.25 ml @ 1 mls/min Q6H PRN IV 01/04/17 23:00 02/03/17 22:59 Nitroglycerin (Nitrostat Tab) 0.4 mg UD PRN SL 01/04/17 23:00 02/03/17 22:59 Al Hydrox/Mg Hydrox/Simethicone (Maalox Max Susp) 15 ml Q4H PRN PO 01/04/17 23:00 02/03/17 22:59 Magnesium Hydroxide (Milk Of Magnesia Susp) 30 ml Q12H PRN PO 01/04/17 23:00 02/03/17 22:59 Ranitidine HCl 150 mg 150 mg BID PO 01/05/17 09:00 02/04/17 08:59 Levofloxacin/Prmx (Levaquin / D5W/ Premixed D5W) 100 ml @ 100 mls/hr Q24H IV 01/05/17 00:00 01/12/17 00:00 01/05/17 00:07 100 MLS/HR Lorazepam 0.5 mg 0.5 mg Q6H PRN IV 01/04/17 23:45 02/03/17 23:44 Pantoprazole Sodium/Syringe (Protonix Inj/ Syringe) 10 ml @ 5 mls/min BID IV 01/05/17 09:00 02/04/17 08:59 Ipratropium [place] (Atrovent 0.02% 0.5MG/2.5ML Neb) 0.5 mg Q6R INH 01/05/17 03:00 02/04/17 02:59 01/05/17 07:27 0.5 MG Levalbuterol (Xopenex 1.25MG/ 0.5ML [facility]) 1.25 mg Q6R INH 01/05/17 03:00 02/04/17 02:59 01/05/17 07:28 1.25 MG Ipratropium [place] (Atrovent 0.02% 0.5MG/2.5ML [facility]) 0.5 mg Q2H PRN INH 01/04/17 23:45 02/03/17 23:44 01/05/17 00:30 0.5 MG Levalbuterol 1.25 mg 1.25 mg Q2H PRN INH 01/04/17 23:45 02/03/17 23:44 01/05/17 00:30 1.25 MG Piperacillin Sod/ Tazobactam Sod/ Dextrose (Zosyn Iv/D5 100ml) 115 ml @ 28.75 mls/ hr Q8H IV 01/05/17 06:00 01/12/17 05:59 01/05/17 06:45 28.75 MLS/HR Piperacillin Sod/ Tazobactam Sod 1 ea 1 ea UD PRN N/A 01/04/17 23:45 02/03/17 23:44 Amiodarone HCL/ Dextrose 200 ml @ 16.7 mls/hr [id number] IV 01/05/17 02:30 02/04/17 02:29 01/05/17 06:41 16.7 MLS/HR Furosemide/Syringe (Lasix Inj/ Syringe) 2 ml @ 4 mls/min TODAY@0900 ONCE IV 01/05/17 09:00 01/05/17 09:01 Review of Systems Constitutional: No chills, No fever Eyes: No worsening of vision ENT: No hearing loss Respiratory: + cough, + hemoptysis, No shortness of breath Abdomen: + nausea, No pain Musculoskeletal: No joint pain Genitourinary - Male: No hematuria Neurologic: No memory loss Psychiatric: No depression symptoms Endocrine: No fatigue Physical Exam Date Time Temp Pulse Resp B/P Pulse Ox O2 Delivery O2 Flow Rate FiO2 01/05/17 07:28 72 20 90 Nasal Cannula 5.0 01/05/17 05:30 36.5 70 17 108/67 92 Nasal Cannula 5.0 01/05/17 04:32 74 19 109/70 93 Nasal Cannula 5.0 01/05/17 04:17 73 19 109/73 94 Nasal Cannula 5.0 01/05/17 04:02 73 18 112/72 93 Nasal Cannula 5.0 01/05/17 04:00 Nasal Cannula 5.0 01/05/17 03:47 72 16 110/68 94 Nasal Cannula 5.0 01/05/17 03:32 70 16 100/66 92 Nasal Cannula 5.0 01/05/17 03:17 71 18 105/72 91 Nasal Cannula 5.0 01/05/17 03:02 74 19 102/66 89 Nasal Cannula 4.0 01/05/17 02:47 77 27 104/60 90 Nasal Cannula 4.0 01/05/17 02:32 71 20 96 Nasal Cannula 4.0 01/05/17 02:32 78 19 104/72 95 Nasal Cannula 4.0 01/05/17 02:15 72 18 116/83 100 BiPAP 70 01/05/17 01:45 36.7 69 18 123/85 100 BiPAP 70 01/05/17 00:52 36.3 84 26 90/57 90 BiPAP 10.0 01/05/17 00:31 71 96 70 01/05/17 00:30 71 14 89 Diffusion Mask 10.0 01/05/17 00:30 62 14 91/65 100 BiPAP 50 01/05/17 00:15 67 26 90/57 89 Mask 10.0 01/05/17 00:15 67 26 84/59 89 Mask 10.0 01/05/17 00:01 70 27 94/64 86 Mask 10.0 01/05/17 00:01 68 26 82/57 90 Mask 10.0 01/04/17 23:45 65 26 82/87 90 Mask 01/04/17 23:45 65 26 90 01/04/17 23:30 69 17 91 01/04/17 22:44 79 18 104/62 96 Mask 10 01/04/17 22:35 83 18 94/61 93 Mask 10 01/04/17 22:25 82 16 114/75 94 Mask 10 01/04/17 22:20 79 18 102/75 95 Mask 10 01/04/17 21:09 87 20 158/94 99 Nasal Cannula 3.0 01/04/17 21:04 100 Non-Rebreather 15.0 01/04/17 20:58 87 01/04/17 20:53 36.5 89 18 130/83 100 Non-Rebreather 15.0 01/04/17 20:53 100 Non-Rebreather 15.0 01/04/17 20:52 100 Non-Rebreather 15.0 Head: normocephalic Eyes: normal inspection ENT: hearing grossly normal Neck: supple Respiratory/Chest: chest non-tender, lungs clear Cardiovascular: regular rate, rhythm Abdomen/GI: normal bowel sounds, non tender, soft Extremities/Musculoskelatal: no pedal edema Neurologic/Psych: alert, normal mood/affect, oriented x 3 Laboratory Results Last 24 Hours Test 01/04/17 20:59 01/04/17 21:01 01/04/17 21:39 01/04/17 23:46 White Blood Count 16.00 K/uL 20.67 K/uL Red Blood Count 5.09 M/uL 4.85 M/uL Hemoglobin 15.8 g/dL 15.0 g/dL Hematocrit 44.7 % 42.4 % Mean Corpuscular Volume 87.8 fL 87.4 fL Mean Corpuscular Hemoglobin 31.0 pg 30.9 pg Mean Corpuscular Hemoglobin Concent 35.3 g/dl 35.4 g/dl Platelet Count 243 K/uL 260 K/uL Mean Platelet Volume 8.8 fL 8.8 fL Neutrophils (%) (Auto) 64.8 % 82.4 % Lymphocytes (%) (Auto) 22.9 % 10.2 % Monocytes (%) (Auto) 7.8 % 6.7 % Eosinophils (%) (Auto) 3.8 % 0.2 % Basophils (%) (Auto) 0.3 % 0.1 % Neutrophils # (Auto) 10.40 K/uL 17.02 K/uL Lymphocytes # (Auto) 3.66 K/uL 2.10 K/uL Monocytes # (Auto) 1.24 K/uL 1.39 K/uL Eosinophils # (Auto) 0.60 K/uL 0.05 K/uL Basophils # (Auto) 0.04 K/uL 0.03 K/uL RDW Standard Deviation 40.7 fL 40.9 fL RDW Coefficient of Variation 12.7 % 12.7 % Immature Granulocyte % (Auto) 0.4 % 0.4 % Immature Granulocyte # (Auto) 0.06 K/uL 0.08 K/uL Prothrombin Time 10.8 SECONDS Prothromb Time International Ratio 1.0 Activated Partial Thromboplast Time 29.8 SECONDS Partial Thromboplastin Ratio 1.1 Sodium Level 137 mmol/L 136 mmol/L Potassium Level 3.4 mmol/L 3.8 mmol/L Chloride Level 102 mmol/L 103 mmol/L Carbon Dioxide Level 24 mmol/L 23 mmol/L Anion Gap 11.0 mmol/L 18.0 mmol/L 10.0 mmol/L Blood Urea Nitrogen 22 mg/dl 18 mg/dl Creatinine 1.00 mg/dl 0.74 mg/dl Est Creatinine Clear Calc Drug Dose 90.6 ml/min 122.4 ml/min Estimated GFR () 97.1 119.5 Estimated GFR (Non- 83.8 103.1 BUN/Creatinine Ratio 22.3 24.7 Random Glucose 133 mg/dl 125 mg/dl Estimated Average Glucose 108 mg/dl Hemoglobin A1c 5.4 % Calcium Level 8.9 mg/dl 8.2 mg/dl Magnesium Level 2.0 mg/dl Total Bilirubin 0.4 mg/dl Direct Bilirubin < 0.1 mg/dl Aspartate Amino Transf (AST/SGOT) 28 U/L Alanine Aminotransferase (ALT/SGPT) 35 U/L Alkaline Phosphatase 65 U/L Total Creatine Kinase 219 U/L 3837 U/L Creatine Kinase MB 5.3 ng/ml 324.0 ng/ml Creatine Kinase MB Ratio 2.4 8.4 Troponin I 0.172 ng/ml 114.000 ng/ml Total Protein 7.0 gm/dl Albumin 3.7 gm/dl Lipase 151 U/L Bedside Hemoglobin 16.0 g/dl Bedside Hematocrit 47 % Bedside Sodium 137 mEq/L Bedside Potassium 3.5 mEq/L Bedside Chloride 101 mEq/L Bedside Total CO2 23 mEq/l Bedside Blood Urea Nitrogen 25 mg/dl Bedside Creatinine 0.8 mg/dl Bedside Glucose (other) 134 mg/dl Bedside Ionized Calcium (Ethel) 1.04 mmol/l Kaolin Activated Coagulation Time 353 SECONDS Echinocytes 1+ Triglycerides Level 55 mg/dl Cholesterol Level 141 mg/dl HDL Cholesterol 32 mg/dl LDL Cholesterol Direct 100 mg/dl LDL Cholesterol, Calculated mg/dl VLDL Cholesterol, Calculated 11 mg/dl Cholesterol/HDL Ratio 4.4 Chemistry Specimen Hemolysis Test 01/04/17 23:47 01/05/17 00:34 01/05/17 06:00 Bedside Glucose 116 mg/dl Blood Gas Sample Site L Radial Bedside Blood Gas pH (LAB) 7.45 Bedside Blood Gas pCO2 (LAB) 32 mmHg Bedside Blood Gas pO2 (LAB) 104 mmHg Bedside Blood Gas HCO3 (LAB) 22 meq/L Bedside Blood Gas Total CO2 23 mEq/l Bedside Blood Gas Base Excess (LAB) -2.0 meq/L Bedside Blood Gas O2 Saturation 98.0 % [place] Test Pass Oxygen Delivery Device BIPAP Bedside Oxygen Rate (breaths/min) 10 Bedside FiO2 70 % Blood Gas IPAP 12 White Blood Count 12.99 K/uL Red Blood Count 4.68 M/uL Hemoglobin 14.6 g/dL Hematocrit 41.0 % Mean Corpuscular Volume 87.6 fL Mean Corpuscular Hemoglobin 31.2 pg Mean Corpuscular Hemoglobin Concent 35.6 g/dl Platelet Count 220 K/uL Mean Platelet Volume 8.6 fL Neutrophils (%) (Auto) 80.4 % Lymphocytes (%) (Auto) 11.9 % Monocytes (%) (Auto) 7.3 % Eosinophils (%) (Auto) 0.1 % Basophils (%) (Auto) 0.1 % Neutrophils # (Auto) 10.45 K/uL Lymphocytes # (Auto) 1.55 K/uL Monocytes # (Auto) 0.95 K/uL Eosinophils # (Auto) 0.01 K/uL Basophils # (Auto) 0.01 K/uL RDW Standard Deviation 41.6 fL RDW Coefficient of Variation 13.0 % Immature Granulocyte % (Auto) 0.2 % Immature Granulocyte # (Auto) 0.02 K/uL Sodium Level 139 mmol/L Potassium Level 4.4 mmol/L Chloride Level 106 mmol/L Carbon Dioxide Level 23 mmol/L Anion Gap 10.0 mmol/L Blood Urea Nitrogen 14 mg/dl Creatinine 0.73 mg/dl Est Creatinine Clear Calc Drug Dose 124.0 ml/min Estimated GFR () 120.2 Estimated GFR (Non- 103.7 BUN/Creatinine Ratio 18.6 Random Glucose 120 mg/dl Calcium Level 8.4 mg/dl Total Creatine Kinase 3320 U/L Creatine Kinase MB 343.1 ng/ml Creatine Kinase MB Ratio 10.3 Troponin I 137.000 ng/ml Assessment & Plan 56 y/o M with PMH of HLD , HTN and a f/h of CAD in father in 50s presented to the ER with c/o intermittent chest discomfort 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 The chest pain worsened and was associated with SOB, diaphoresis and nausea. EMS was called and EKG had revealed GA. En route to the hospital he had an episode of V tach followed by V fib and a brief loss of consciousness. He received a shock with the defibrillator and received amiodarone. while in the ER, he complained about chest pain which felt like a heart burn but was decreased in intensity as earlier. He had taken 4 baby aspirins at home. He was emergently taken to the cardiac catheterization lab. He underwent PCI which revealed Left Main (% Stenosis): Normal LAD (% Stenosis) : Proximal (30), Mid (100), Distal (20) RCA (% Stenosis): Distal (70). He had a drug eluting stent placed in the LAD. After the procedure , the patient coughed up moderate bloody sputum after which Integrilin was stopped and he was given a bolus of 250 cc fluid. He complained about nausea and was diaphoretic , he received zofran for nausea and was put on a BIPAP STEMI s/p Cardiac cath with stent in LAD - Integrilin held sec to hempotysis - trend cardiac enzymes until peak - Echo - Start metoprolol 25 mg BID, lisinopril, atorvastatin, aspirin and plavix - amiodarone drip - Fasting lipid profile - HBa1c - referral to cardiac rehab Hemoptysis post cath: Integrilin held - BIPAP - Empiric treatment with vanc and Zosyn. Continue Levaquin - Continue inhalers HTN; - lisinopril reduced to 5 mg for now considering low BP GERD: - Protonix IV BID given - continue ranitidine DVT proph: SCDS Full code Disposition: Monitor in ICU for further hemoptysis, Resident Tracking Resident Involvement: Resident Care Provided Care Provided: Adult [facility] Medicine Assessment and Plan Attending Addendum: I have physically seen and examined this patient, have directed their medical care, have supervised the medical residents activities, and agree with the H&P as noted above, with the following changes: Acute respiratory failure status post cardiac catheterization with interventions as noted. The patient became hypoxic into the mid 80s, and stat chest x-ray showed significant aspiration pneumonia bilaterally, which was consistent with his course breath sounds throughout. Patient had been known to have undergone an episode of vomiting shortly after his process began prior to arrival to the ED. Patient was placed on vancomycin IV, Zosyn IV, Levaquin IV, and Xopenex with Atrovent nebulizers every 6 hours while awake and every 2 hours when necessary. He was placed on BiPAP 12/6 with FiO2 75%, which was later able to be tapered back to nasal cannula as his symptoms improved. His systolic blood pressure dropped to a low in the mid 80s, and responded to fluid boluses back to the mid 90s. He was then placed on maintenance IV fluids of normal saline with KCl 20 mEq at 100 mils per hour. His calcium was mildly low at 8.2, and he was given calcium gluconate 2 g IV. His nausea was treated with Zofran IV and Protonix IV. His hemoptysis consisted of about 2 tablespoons of bright red blood, and then he continue to have a non-bloody cough for approximately 20 minutes, which improved with the addition of nebulizers and Protonix IV and Zofran IV. Phone consult was made with machine load clerk Dr. Karolina Quick. Direct conversation in the ICU was made with interventionalist Dr. Acosta. The patient was able to respond during the ICU stay, but was lethargic with the first several hours. His and daughter were in attendance early on in his ICU stay, and his was kept informed proceedings. Later on in the morning, the patient was awake, alert and oriented 3, smiling and communicative. The total critical care time involved with this patient was 2 hours and 10 minutes.
[2017-01-05] MEDS ORDERED: VANCOMYCIN INJ 1,200 MG in SODIUM CHLORIDE 0.9% 250ML 250 ML IV SCH (10:00)
--- NOTE | 2017-01-05 10:43 | CARDIOLOGY PROGRESS NOTE ---
DATE: 01/05/2017 SUBJECTIVE: The patient was seen by me this morning in his intensive care unit room. He states he is feeling well this morning. He has mild chest soreness. He received chest compressions yesterday in the ambulance when he had a cardiac arrest secondary to ventricular fibrillation. He was defibrillated successfully with 1 shock. He did transiently receive chest compressions. He denies any of the anginal type chest discomfort, which he experienced in the 4 days prior to admission. He notes that the chest pain, which he experienced last evening, precipitated his call to 911. He denies any orthopnea or PND overnight. Currently, no dyspnea. He has had no further coughing. 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 No further hemoptysis. No other symptoms of bleeding. He has no fevers or chills. No wheezing. No abdominal pain. No urinary complaints. No cerebrovascular or peripheral vascular complaints. No pain at his right radial catheterization site. No pain in his right hand. CURRENT MEDICATIONS: Intravenous amiodarone, ranitidine 150 mg b.i.d., pantoprazole 40 mg IV b.i.d., metoprolol tartrate 25 mg q. 12 hours, levofloxacin 500 mg IV daily, piperacillin/tazobactam 3.375 grams IV q. 8 hours, aspirin 81 mg daily, clopidogrel 75 mg daily, atorvastatin 80 mg daily, lisinopril 5 mg daily, and several p.r.n. medications. ALLERGIES AND ADVERSE DRUG REACTIONS: None. Monitor history since admission to the intensive care unit reviewed by me. Sinus rhythm. Occasional premature ventricular beats. No ventricular tachycardia. Intake and output today reported to be 2115 intake and output 1525. OBJECTIVE: VITAL SIGNS: Most recent vital signs with pulse 76, pulse oximetry 95% on supplemental nasal cannula oxygen, and blood pressure 123/71. NECK: Jugular venous pressure approximately 7-8 cm. LUNGS: Normal respiratory effort. Bibasilar rales. These are scant. HEART: Regular rate and rhythm. S1 and S2 normal. No S3 or S4. No murmur or rub. ABDOMEN: Normal bowel sounds. Soft. Nontender. No palpable masses or organomegaly. No bruits. EXTREMITIES: Right radial catheterization site without bleeding or hematoma. No evidence of arterial insufficiency in the right hand. No pretibial edema. No calf tenderness. NEUROLOGIC: Alert and oriented x3. Motor grossly intact. PSYCHIATRIC: Affect is normal. DIAGNOSTIC DATA: Electrocardiogram performed this morning with sinus rhythm, evolving anterior myocardial infarction. Persistent ST segment elevations in the anterior leads. Inverted T waves. Predominantly QS complexes in V1-V6. Very small R waves in V1-V3. QT interval (corrected) 412 milliseconds. Echocardiogram performed this morning with additional imaging with contrast showed LV ejection fraction by my observation approximately 40%. Anteroseptal and apical akinesis. No significant valvular abnormalities. Left ventricular diastolic dysfunction. Minimal concentric left ventricular hypertrophy. LABORATORY DATA TODAY: WBC 12.99, hemoglobin 14.6, hematocrit 41.0, and platelet count 220. Metabolic profile -- sodium 139, potassium 4.4, chloride 106, carbon dioxide 23, BUN 14, creatinine 0.73, and random glucose 120. CK peak was at 23:46 last evening, it was 2837. This morning at 06:00 a.m., it is 3320. Peak CK-MB at 06:00 a.m. today at 343.1. Troponin I's since he arrived into the Emergency Department have been 0.172, 114, and 137.000. The peak value was from 06:00 a.m. this morning. Lipid profile with triglycerides 55, total cholesterol 141, direct LDL 100, and HDL 32. Hemoglobin A1c 5.4. ASSESSMENT: 1. Status post anterior septal and apical myocardial infarction, secondary to total early mid left anterior descending occlusion. 2. Successful intervention to left anterior descending occlusion last evening. Deployment of 2.75 x 18-mm Resolute Integrity drug-eluting stent. The stent was expanded to rated burst ____ of the balloon. 0% residual stenosis at the stent site. No evidence of dissection, thrombus, perforation, or distal embolic event. GISELLE-3 flow in the LAD in its diagonal branches following completion of procedure. Coronary angiography also revealed 20%-30% proximal left anterior descending and 20%-30% latter mid left anterior descending stenosis. The left circumflex marginal had an ostial 50% stenosis. Distal RCA with a 70% stenosis. The coronary circulation was codominant. 3. Moderate left ventricular systolic dysfunction on LV angiography post- percutaneous coronary intervention last night. Similar findings on echo today. 4. No post-percutaneous coronary intervention angina. He does have chest wall tenderness. Likely secondary to chest compressions that administered at the time of this cardiac arrest in the ambulance. 5. Cough and hemoptysis last night. Cannot exclude that he had had aspiration. He did vomit prior to arrival to the hospital. The call may have also been secondary to pulmonary edema. At that time, he was on Integrilin. Following the hemoptysis. His Integrilin was discontinued. His cough has resolved since last night. He has had no further hemoptysis. No other bleeding. 6. Hemoglobin is relatively stable from admission. Platelet count slightly decreased from admission. Still very adequate. 7. Stable renal function post-percutaneous coronary intervention. 8. No arrhythmias of any significance since admission to the hospital and following percutaneous coronary intervention. Outpatient cardiac arrest secondary to ventricular fibrillation. Successful defibrillation by the EMS crew. 9. Dyslipidemia. He has a low HDL. The LDL is mildly elevated. 10. Normal hemoglobin A1c. PLAN: 1. Discontinue amiodarone. 2. Continue aspirin, clopidogrel, atorvastatin, metoprolol, and lisinopril. His outpatient lisinopril dose was 10 mg. The dose has been decreased to 5 mg. If necessary to control his blood pressure, the dose can be increased back to 10 mg. 3. Antibiotic management by the hospitalist and diamond die maker teams. 4. The patient received a dose of intravenous furosemide this morning. He does have rales on exam consistent of heart failure. Monitor oxygen saturations and respiratory status closely. 5. Out of bed to chair today. 6. Repeat cardiac enzymes until the troponin has peaked. He has a repeat troponin ordered for this afternoon.
--- NOTE | 2017-01-05 10:55 | CRITICAL CARE CONSULTATION ---
DATE OF CONSULTATION: 01/05/2017 DATE OF CONSULTATION: 01/05/2017. HISTORY OF PRESENT ILLNESS: This is a 56-year-old gentleman with a history of hypertension and hyperlipidemia as well as family history of coronary artery disease who presented to the Emergency Department last evening with chest pain which had been intermittent for 4 days. He was seen at an urgent care center in [place] yesterday at which time he had an EKG and was told that he was not having a myocardial infarction. He subsequently went to the gym and then home at which time he started to have chest pain which was persistent. He had nausea and was in the center of his chest and was worse than previously. He called EMS and had an episode of ventricular tachycardia with a pulse which deteriorated into ventricular fibrillation, so he was shocked and given amiodarone bolus. He was seen in the Emergency Department and per the notes his prehospital EKG had apical ST segment and T-wave abnormalities. A heart alert was called prior to his arrival in the Emergency Department and he was taken to the cardiac catheterization lab where an LAD drug-eluting stent was placed. He vomited once in the Emergency Department and was given heparin as well as Integrilin. He also had a 600 mg Plavix load. After arrival to the intensive care unit he reports he had "wheezing." He felt like he had some kind of sputum to cough up when he did so and it was about 2 teaspoons of bright red blood. This has not recurred and the Integrilin and heparin have been discontinued. I was informed about the hemoptysis prior to a full evaluation by Dr. Kelly. I checked on the patient via phone last night and he had not had any further hemoptysis. He was on 5 liters nasal cannula. At some point he was placed on BiPAP last evening. He did not wear it throughout the night and he was started on Zosyn as well as vancomycin and Levaquin for possible pneumonia. PAST MEDICAL HISTORY: Hypertension, hyperlipidemia. PAST SURGICAL HISTORY: Status post umbilical hernia repair. ALLERGIES: No known drug allergies. OUTPATIENT MEDICATIONS: Aspirin 81 mg daily, Prevacid 30 mg in the evening and lisinopril 10 mg daily. 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 He has never smoked and he does not drink alcohol. He has 3 daughters, one of whom is a nurse practitioner in [place]. FAMILY HISTORY: Significant for father who had open heart surgery in his 50s. REVIEW OF SYSTEMS: Was obtained and is as per the history of present illness. A 12-point review of systems was obtained and is as per the history of present illness and otherwise negative. PHYSICAL EXAMINATION: GENERAL: This is a well-nourished man sitting in bed in no distress. VITAL SIGNS: Temperature 36.5, heart rate 70, respiratory rate 20, blood pressure 108/67, oxygen saturation 92% on 5 liters nasal cannula. Fluid balance since admission is positive 590 mL. HEAD, EYES, EARS, NOSE, AND THROAT: Pupils equally round and reactive to light. No facial droop, mildly elevated jugular venous pressures. LUNGS: Rales about fci up bilaterally, no rhonchi or wheezes. HEART: Regular rate and rhythm. No murmur. ABDOMEN: Flat, soft, nontender. EXTREMITIES: Warm. No edema. LABORATORY DATA: White blood cell count 12.99, hemoglobin 14.6, hematocrit 41, platelets 220. Sodium 139, potassium 4.4, chloride 106, CO2 23, BUN 14, creatinine 0.73, blood sugar 120, calcium 8.4. Troponin 137. Echocardiogram preliminary results from this morning shows grade 1 diastolic dysfunction, moderate to severely reduced left ventricular systolic function with an estimated ejection fraction of 25-30%, the entire apex is akinetic as well as the septum. The remaining basilar segments are hyperkinetic. No significant valvular abnormalities noted. EKG from this morning was reviewed and shows normal sinus rhythm with some ST segment elevations in V2 through V6. Portable chest x-ray from today shows interstitial edema diffusely. IMPRESSION: 1. Status post acute ST segment elevation myocardial infarction. 2. Status post left anterior descending drug-eluting stent. 3. Moderately to severe reduced left ventricular ejection fraction 25-30%. Hopefully, this is stunned myocardium. 4. Hemoptysis, seems to be resolved at this point. May have been secondary to the heparin, Plavix and Integrilin. 5. Pulmonary edema, I doubt aspiration pneumonia based on his history and chest x-ray. 6. History of hypertension. 7. History of hyperlipidemia. 8. Acute hypoxemic respiratory failure secondary to pulmonary edema. PLAN: 1. Continue aspirin, Plavix, statin, beta ryan, МАРИЯ inhibitor. 2. Lasix 20 mg IV x1 was given. I will follow with I\\Os and he may benefit from another dose this afternoon. 3. Wean the oxygen. 4. Discontinue vancomycin, but continue Zosyn for the time being. 5. Follow-up chest x-ray tomorrow and consider discontinuing Zosyn at that time. 6. Watch for any further hemoptysis. 7. I believe if he continues to do well that he is a candidate for transfer to step down or telemetry later today. Thank you for asking me to see this nice gentleman. Please call me with any questions or concerns. SHONNA
[2017-01-05 15:20] LABS: BUN/CREATININE RATIO 12.7 (10-20); MAGNESIUM 2.5 mg/dl (1.8-2.4)
[2017-01-05 15:41] LABS: CKMB/CK RATIO 7.5 (0-3.0)
[2017-01-06] VITALS (15 sets, daily range): BP systolic 81–100; BP diastolic 50–62; PULSE 65–75; TEMP 36.5–37.3; O2SAT 91–98
[2017-01-06] MEDS ORDERED: VANCOMYCIN TROUGH SCH (01:30)
[2017-01-06] MEDS: LEVALBUTEROL 1.25MG/0.5ML NEB INH SCH ×2 (02:17→07:39)
[2017-01-06] MEDS: IPRATROPIUM BROMIDE NEB SOLN 0.02% 2.5 ML VIAL INH SCH ×2 (02:17→07:39)
[2017-01-06] MEDS: PIPERACILL/TAZOBAC IV 3.375 GM in DEXTROSE 5% 100ML IV SCH (05:43)
[2017-01-06 06:08] LABS: BASO % 0.4 %; BASO ABS # 0.04 K/uL (0-0.2); COMPLETE YES; EOS % 3.9 %; HEMATOCRIT 39.8 % (42-52); IG% 0.3 %; LYMPH % 30.6 %; LYMPH ABS # 3.01 K/uL (1.2-3.4); MEAN CELL VOLUME 89.2 fL (80-100); MEAN CORPUSCULAR HEMOGLOBIN 30.5 pg (25-34); MEAN CORPUSCULAR HGB CONC 34.2 g/dl (32-36); MEAN PLATELET VOLUME 8.9 fL (7.4-10.4); MONO % 12.5 %; NEUT % 52.3 %; PLATELET COUNT 223 K/uL (130-400); RED BLOOD COUNT 4.46 M/uL (4.7-6.1); WHITE BLOOD COUNT 9.84 K/uL (4.8-10.8)
[2017-01-06 06:58] LABS: BUN/CREATININE RATIO 13.7 (10-20); CALCIUM 8.5 mg/dl (8.5-10.1); CREATININE 0.98 mg/dl (0.60-1.40); MAGNESIUM 2.4 mg/dl (1.8-2.4); POTASSIUM 4.1 mmol/L (3.5-5.1)
--- NOTE | 2017-01-06 07:05 | DIAGNOSTIC IMAGING REPORT ---
CHEST ONE VIEW PORTABLE CLINICAL HISTORY: Bony edema COMPARISON STUDY: 01/04/2017 FINDINGS: The cardiac and mediastinal contours remain stable. There are improving bilateral airspace opacities/edema. There are no significant pleural effusions.[ IMPRESSION: Improving bilateral pulmonary airspace opacities/edema. Electronically signed by: Garrett Marcum M.D. 01/06/2017 7:03 AM Dictated Date/Time: 01/06/2017 7:02 AM
[2017-01-06] MEDS: RANITIDINE HCL 150 MG TAB PO SCH ×2 (07:52→19:51)
[2017-01-06] MEDS: LISINOPRIL 5 MG TAB PO SCH (07:52)
--- NOTE | 2017-01-06 07:52 | Medical Consult ---
History General Date of Service: Jan 06, 2017. Stated Complaint: Acute Mi, Anterior Wall HPI The patient is a 56 year old male who presents to [facility] with complaints of Acute Mi, Anterior Wall. The patient's primary care provider is Roseann Murphy MD. Pt was seen without complaints or problems, cath site is not painful Review of Systems Constitutional: reports: no symptoms, denies: chills, diaphoresis Cardiovascular: denies: chest pain, chest pressure Respiratory: denies: cough, orthopnea Gastrointestinal: denies: abdominal pain, constipation Genitourinary - Male: denies: dysuria, hematuria Social History Smoking Status: Never Smoker Marital status: History of MDRO History of MDRO: No Allergies Coded Allergies: No Known Allergies (Unverified , 01/04/17) Current Medications Reported Home Medications Medications Dose Route/Sig Max Daily Dose Days Date Category Aspirin Ec (Aspirin) 81 Mg Tab 81 Mg PO UD PRN 01/04/17 Reported Prevacid (Lansoprazole) 30 Mg Capcr 30 Mg PO QPM 01/04/17 Reported Zestril (Lisinopril) 10 Mg Tab 10 Mg PO DAILY 01/04/17 Reported Physical Physical Exam Vital Signs: Date Time Temp Pulse Resp B/P Pulse Ox O2 Delivery O2 Flow Rate FiO2 01/06/17 07:39 65 16 94 Room Air 01/06/17 06:00 69 18 81/51 95 Nasal Cannula 2.0 01/06/17 04:00 36.7 70 20 100/59 94 Nasal Cannula 2.0 01/06/17 04:00 Nasal Cannula 2.0 01/06/17 02:17 68 18 98 Room Air 01/06/17 02:00 67 18 84/50 98 Nasal Cannula 2.0 01/06/17 00:01 36.6 71 18 90/57 92 Nasal Cannula 2.0 01/05/17 23:59 Nasal Cannula 2.0 01/05/17 22:00 72 20 86/61 95 Nasal Cannula 2.0 01/05/17 20:14 71 20 96 Room Air 01/05/17 20:00 36.8 75 12 105/57 93 Nasal Cannula 2.0 01/05/17 20:00 Nasal Cannula 2.0 01/05/17 16:30 93 Nasal Cannula 2.0 01/05/17 16:20 37.5 79 18 90/63 93 Nasal Cannula 1.5 01/05/17 14:23 67 20 93 Nasal Cannula 1.0 01/05/17 14:00 66 17 92/58 96 Nasal Cannula 1.5 01/05/17 12:00 93 Nasal Cannula 3.0 01/05/17 12:00 36.7 72 20 106/74 95 Nasal Cannula 3.0 01/05/17 10:00 36.7 72 20 121/75 95 Nasal Cannula 3.0 01/05/17 08:00 93 Nasal Cannula 5.0 01/05/17 08:00 37.2 76 24 106/78 93 Nasal Cannula 5.0 General Appearance: WELL-APPEARING, NO APPARENT DISTRESS Eyes: PERRLA, EOMI Respiratory: BREATH SOUNDS NORMAL, CLEAR TO AUSCULTATION, CLEAR TO PERCUSSION Cardiovasular: REGULAR RATE/RHYTHM, NORMAL S1S2 Abdomen: NON TENDER, NORMAL BOWEL SOUNDS, NO REBOUND Upper Extremities: NO EDEMA, NORMAL ROM Lower Extremities: NO EDEMA, NORMAL ROM Diagnostics Labs Results Past 24 Hours Test 01/05/17 11:26 01/05/17 14:40 01/05/17 21:11 01/06/17 05:53 Range/Units Bedside Glucose 127 102 70-99 mg/dl Sodium Level 139 139 136-145 mmol/L Potassium Level 4.0 4.1 3.5-5.1 mmol/L Chloride Level 102 104 98-107 mmol/L Carbon Dioxide Level 32 25 21-32 mmol/L Anion Gap 5.0 10.0 3-11 mmol/L Blood Urea Nitrogen 13 13 7-18 mg/dl Creatinine 1.00 0.98 0.60-1.40 mg/dl Est Creatinine Clear Calc Drug Dose 90.6 92.4 ml/min Estimated GFR () 97.1 99.5 Estimated GFR (Non- 83.8 85.8 BUN/Creatinine Ratio 12.7 13.7 10-20 Random Glucose 77 100 70-99 mg/dl Calcium Level 9.0 8.5 8.5-10.1 mg/dl Magnesium Level 2.5 2.4 1.8-2.4 mg/dl Total Creatine Kinase 2048 39-308 U/L Creatine Kinase MB 153.8 0.5-3.6 ng/ml Creatine Kinase MB Ratio 7.5 0-3.0 Troponin I 71.800 0-0.045 ng/ml White Blood Count 9.84 4.8-10.8 K/uL Red Blood Count 4.46 4.7-6.1 M/uL Hemoglobin 13.6 14.0-18.0 g/dL Hematocrit 39.8 42-52 % Mean Corpuscular Volume 89.2 80-100 fL Mean Corpuscular Hemoglobin 30.5 25-34 pg Mean Corpuscular Hemoglobin Concent 34.2 32-36 g/dl Platelet Count 223 130-400 K/uL Mean Platelet Volume 8.9 7.4-10.4 fL Neutrophils (%) (Auto) 52.3 % Lymphocytes (%) (Auto) 30.6 % Monocytes (%) (Auto) 12.5 % Eosinophils (%) (Auto) 3.9 % Basophils (%) (Auto) 0.4 % Neutrophils # (Auto) 5.15 1.4-6.5 K/uL Lymphocytes # (Auto) 3.01 1.2-3.4 K/uL Monocytes # (Auto) 1.23 0.11-0.59 K/uL Eosinophils # (Auto) 0.38 0-0.5 K/uL Basophils # (Auto) 0.04 0-0.2 K/uL RDW Standard Deviation 43.0 36.4-46.3 fL RDW Coefficient of Variation 13.1 11.5-14.5 % Immature Granulocyte % (Auto) 0.3 % Immature Granulocyte # (Auto) 0.03 0.00-0.02 K/uL Impression Assessment and Plan 56 y/o M s/p emergent left heart cath with LAD stent deployed, did have pre cath V fib with Defibrillation and post cath hemoptysis prompting antibiotic start for consideration of pneumonia( does have negative cxr currently) STEMI s/p Cardiac cath with stent in LAD - Integrilin held sec to hempotysis, metoprolol 25 mg BID, lisinopril, atorvastatin, aspirin and plavix - amiodarone drip fir V Fib, cardiology preference to convert to po or not Hemoptysis post cath:- BIPAP wss required temporarily for acute respiratory failure and cxr suggested some pulmonary edema from acute systolic heart failure - Empiric treatment with vanc and Zosyn. Continue Levaquin - Continue inhalers HTN;- lisinopril reduced to 5 mg for low BP GERD:- Protonix IV BID given, continue ranitidine DVT proph: SCDS Full code Disposition: Monitor in ICU for further hemoptysis,
[2017-01-06] MEDS: ATORVASTATIN 40 MG TAB PO SCH (07:53)
[2017-01-06] MEDS: CLOPIDOGREL BISULFATE 75 MG TAB PO SCH (07:53)
[2017-01-06] MEDS: ASPIRIN 81 MG ECTAB PO SCH (07:53)
[2017-01-06] MEDS: METOPROLOL TARTRATE 25 MG TAB PO SCH ×2 (07:53→19:51)
--- NOTE | 2017-01-06 09:39 | CARDIOLOGY PROGRESS NOTE ---
DATE: 01/06/2017 SUBJECTIVE: The patient was seen by me this morning in his intensive care unit room. He is feeling very well. He has been up and out of bed. He is walking in his room. He denies any chest pain of any sort. The musculoskeletal chest discomfort, which he had just this morning, has resolved. No anginal type pains. No orthopnea or PND overnight. No dyspnea walking about the room. No palpitations, lightheadedness, or syncope. No coughing. No further hemoptysis. He had the hemoptysis when he first arrived back from the cardiac catheterization lab after his emergency intervention. His appetite is good. No abdominal pain or nausea. He had a bowel movement this morning. No abnormalities reported by him. No symptoms of GI bleeding. No other bleeding complaints. No myalgias or muscle weakness. No skin rash complaints. No fevers or chills. No urinary, cerebrovascular, or peripheral vascular complaints. No pain at his right radial catheterization site. No right hand discomfort. CURRENT MEDICATIONS: Atorvastatin 80 mg daily, clopidogrel 75 mg daily, lisinopril 5 mg daily, aspirin 81 mg daily, metoprolol tartrate 25 mg b.i.d., ranitidine 150 mg b.i.d., and several p.r.n. medications. ALLERGIES: No known drug allergies. Intake and output yesterday 3841/6475. INR today is 560/950. Today's weight 80.9 kg. Yesterday's weight was 85.1 kg. Monitor history reviewed by me. Sinus rhythm. Rare premature ventricular beats. No ventricular tachycardia. PHYSICAL EXAMINATION: VITAL SIGNS: This morning with oral temperature 36.5, pulse 72, blood pressure 98/52, and pulse oximetry on room air 94%. GENERAL APPEARANCE: Shows him to be well. No distress. NECK: No jugular venous distention. LUNGS: Normal respiratory effort. Clear. No rales or wheezes. HEART: Regular rate and rhythm. S1 and S2 normal. No S3 or S4. No murmur or rub. ABDOMEN: Soft. Nontender. No palpable masses or organomegaly. No bruits. EXTREMITIES: Right radial catheterization site without bleeding. No hematoma. No evidence for arterial insufficiency in right hand. No pretibial edema. NEUROLOGIC: Alert and oriented x3. Motor grossly intact. PSYCHIATRIC: Affect is normal. Chest x-ray today reviewed by me reveals resolving alveolar infiltrates compared to last chest x-ray performed in late 01/04/2017. Electrocardiogram today with sinus rhythm, evolving anterolateral myocardial infarction. Deepening T-wave inversions in leads V2-V6. T-wave inversions in leads 2, 3, and aVF. Also, [address] segment elevations in the anterior leads compared to yesterday's electrocardiogram. Echocardiogram performed yesterday and reviewed by me shows anterior septal and apical akinesis. The calculated LV ejection fraction was 43%. LABORATORY DATA: Today with hemoglobin 13.6, hematocrit 39.8, platelet count 223, and WBC 9.84. Metabolic profile with sodium 139, potassium 4.1, chloride 104, carbon dioxide 25, BUN 13, creatinine 0.98, random glucose 100, and magnesium 2.4. Peak troponin I was 137.000. It was done on January 05 at 6 a.m. Repeat troponin I yesterday afternoon was 71.800. Peak CK-MB was 343.1. ASSESSMENT: 1. Status post anterior septal and apical myocardial infarction in January 04. Secondary to total early mid LAD occlusion. Prior to arrival to the Emergency Department, episode of ventricular fibrillation in the ambulance. Treated successfully with defibrillation. No further significant ventricular arrhythmias. 2. Hemoptysis immediately following arrival to the ICU after his intervention. He was coughing. At that time, he was on Integrilin and heparin. Suspect that the cough was secondary to development of pulmonary edema. He has had no further hemoptysis. His temperature is normal. His white blood cell count is normal today. There was a concern that he may have aspirated prior to admission. At this time, it does not appear that he has any evidence of aspiration pneumonia. Antibiotics were discontinued yesterday. He is afebrile. No current signs or symptoms of infection. 3. Asymptomatic borderline low blood pressure. 4. No vascular complications at the right radial catheterization site. 5. Minimally decreased hemoglobin today compared to yesterday. Platelet count is stable. 6. Stable renal function. 7. Dyslipidemia. PLAN: 1. Transfer to telemetry unit. 2. Increase activity. 3. Start spironolactone 25 mg daily. 4. Continue other medications as above. Prior to discharge, we will switch him to metoprolol succinate ER 50 mg daily. The above assessment and plan were discussed with the patient and nursing staff. Also with Dr. Karolina Quick.
--- NOTE | 2017-01-06 10:08 | CRITICAL CARE PROGRESS NOTE ---
DATE: 01/06/2017 SUBJECTIVE: There were no acute events overnight: The patient denies chest pain or shortness of breath. He had Lasix 20 mg IV x1 yesterday and had a 6.5 liter output of urine and 24-hour fluid balance is -2.6 liters. He denies cough, hemoptysis and nausea. He is eating well and is having bowel movements. PHYSICAL EXAMINATION: VITAL SIGNS: He has been afebrile, heart rate 65-70, respiratory rate 16-20, and blood pressure 86-100/50s-60s. Oxygen saturation 94% on room air. GENERAL: He is awake and alert, talkative and sitting in bed comfortably. LUNGS: Have some very faint bibasilar rales. No rhonchi or wheezes. HEART: Regular rate and rhythm. No murmurs. ABDOMEN: Benign. EXTREMITIES: No edema. LABORATORY DATA: White blood cell count 9.84, hemoglobin 13.6, hematocrit 39.8, and platelets 223. Sodium 139, potassium 4.1, chloride 104, CO2 of 25, BUN 13, creatinine 0.98, and blood sugar 100. Troponin peak at 137. Magnesium 2.4. MEDICATIONS: Acetaminophen, Maalox, aspirin, Lipitor, atropine, Plavix, Xopenex, Atrovent, lisinopril, Ativan, Lopressor, morphine, Nitrostat, Zofran, Zantac, spironolactone, Zosyn and Levaquin. IMAGING STUDIES: Portable chest x-ray from this morning shows improving bilateral pulmonary airspace opacities/edema. This film was reviewed by me. EKG this morning shows normal sinus rhythm with the corrected QT interval of 505 milliseconds. There were T-wave inversions in leads 1 2, V2 through V6. ASSESSMENT: 1. Status post acute ST segment elevation myocardial infarction, LAD stent was placed. 2. Moderately to severe reduced left ventricular ejection fraction 25%-30%. 3. Hemoptysis, resolved. 4. Concern for aspiration, this is less concerning to me given his history and the fact that he is not developing an infiltrate, he has not been febrile and he is not coughing. 5. Pulmonary edema secondary to #2, improved after Lasix yesterday. 6. History of hypertension. 7. History of hyperlipidemia. 8. Hypoxemia, improved with diuresis. PLAN: 1. Vancomycin was discontinued yesterday and I will discontinue both Levaquin and Zosyn today. 2. Continue aspirin, Plavix, statin, МАРИЯ inhibitor, and beta ryan. 3. Discontinue scheduled bronchodilators. 4. Discontinue IV Protonix. 5. Spironolactone has been added by Dr. Schofield. 6. Cardiopulmonary rehabilitation has been consulted. 7. Transfer to telemetry unit today. Please call me with any questions or concerns.
[2017-01-06] MEDS: SPIRONOLACTONE 25 MG TAB PO SCH (10:22)
[2017-01-06] MEDS ORDERED: LEVALBUTEROL 1.25MG/0.5ML NEB INH PRN (15:00)
[2017-01-07 03:30] VITALS: BP 95/57; PULSE 68; TEMP 36.7; O2SAT 95
[2017-01-07 06:52] LABS: BASO % 0.4 %; BASO ABS # 0.04 K/uL (0-0.2); COMPLETE YES; EOS % 5.7 %; HEMATOCRIT 40.5 % (42-52); IG% 0.4 %; LYMPH % 25.1 %; LYMPH ABS # 2.43 K/uL (1.2-3.4); MEAN CELL VOLUME 89.4 fL (80-100); MEAN CORPUSCULAR HEMOGLOBIN 29.8 pg (25-34); MEAN CORPUSCULAR HGB CONC 33.3 g/dl (32-36); MONO % 12.3 %; NEUT % 56.1 %; PLATELET COUNT 220 K/uL (130-400); RED BLOOD COUNT 4.53 M/uL (4.7-6.1)
[2017-01-07 07:20] LABS: BUN/CREATININE RATIO 16.2 (10-20); CALCIUM 8.8 mg/dl (8.5-10.1); CREATININE 0.87 mg/dl (0.60-1.40); POTASSIUM 4.1 mmol/L (3.5-5.1)
[2017-01-07 08:13] VITALS: BP 96/55; PULSE 66; TEMP 36.7; O2SAT 92
[2017-01-07] MEDS: METOPROLOL TARTRATE 25 MG TAB PO SCH (09:04)
[2017-01-07] MEDS: ATORVASTATIN 40 MG TAB PO SCH (09:04)
[2017-01-07] MEDS: ASPIRIN 81 MG ECTAB PO SCH (09:04)
[2017-01-07] MEDS: SPIRONOLACTONE 25 MG TAB PO SCH (09:04)
[2017-01-07] MEDS: LISINOPRIL 5 MG TAB PO SCH (09:04)
[2017-01-07] MEDS: CLOPIDOGREL BISULFATE 75 MG TAB PO SCH (09:04)
[2017-01-07] MEDS: RANITIDINE HCL 150 MG TAB PO SCH (10:01)
[2017-01-07 10:58] VITALS: BP 100/66; PULSE 62; TEMP 36.6; O2SAT 95
[2017-01-07] MEDS ORDERED: LSN5 PO (12:29)
[2017-01-07] MEDS ORDERED: SPR25 PO (12:29)
[2017-01-07] MEDS ORDERED: LPR25 PO (12:29)
[2017-01-07] MEDS ORDERED: NTRSLP4 SL (12:29)
[2017-01-07] MEDS ORDERED: LPT40 PO (12:29)
[2017-01-07] MEDS ORDERED: PLV75 PO (12:29)
--- NOTE | 2017-01-07 12:34 | Discharge Instructions ---
Discharge Instructions Date of Service Jan 07, 2017. Admission Reason for Admission: Acute Mi, Anterior Wall Discharge Discharge Diagnosis / Problem: Coronary artery disease, Anterior myocardial infarction. Discharge Goals Goal(s): Improve function, Improve disease control, Improve nutritional status , Learn about illness Activity Recommendations Activity Limitations: as noted below Lifting Limitations: no more than 25 pounds Exercise/Sports Limitations: gradually increase as tolerated May Resume Sexual Activity: after one week Shower/Bathe: may shower/bathe in 3 days Driving or Machine Use: no limitations . Instructions / Follow-Up Instructions / Follow-Up Home Care: * Take your medications exactly as directed. Don't skip doses. * Remember that recovery after a heart attack takes time. Plan to rest for at lease 4-8 weeks while you recover. Then return to normal activity when your doctor says it's okay. * Ask your doctor about joining a heart rehabilitation program. * Tell your doctor if you are feeling depressed. Feelings of sadness are common after a heart attack, but it is important that you speak to someone if you are feeling overwhelmed by these feelings. * If you are having chest pain, call 911 for an ambulance. Do NOT drive yourself to the hospital. * Ask your family members to learn CPR. * Learn to take your own blood pressure and pulse. Keep a record of your results. Ask your doctor when you should seek emergency medical attention. He or she will tell you which blood pressure reading is dangerous. Lifestyle Changes: * Maintain a healthy weight. Get help to lose any extra pounds. * Cut back on salt. * Limit canned, dried, packaged, and fast foods. * Don't add salt to your food. * Season foods with herbs instead of salt when you cook. * Break the smoking habit. Enroll in a stop-smoking program to improve your chances of success. * Limit fatty foods. * Check your lipid levels regularly. (Your doctor can show you how to do this.) * Build up your activity according to your doctor's recommendation. * Ask your doctor when it's okay to resume sexual activity. * Tell your doctor about any erectile dysfunction (ED) medication you are taking. Some ED medications are not safe if you take certain heart medications. * Try to manage stress. Follow Up: It is important for you to keep your follow up appointments with your medical provider. Follow-up with Dr. Schofield on January 19. Current Hospital Diet Patient's current hospital diet: AHA Diet (Heart Healthy) Discharge Diet Recommended Diet: AHA Diet (Heart Healthy) Procedures Procedures Performed: Cardiac catheterization Percutaneous Coronary intervention with stenting Pending Studies Studies pending at discharge: no Laboratory Results Hemoglobin A1c Test 01/04/17 20:59 Range/Units Estimated Average Glucose 108 mg/dl Hemoglobin A1c 5.4 4.5-5.6 % Lipid Panel Test 01/04/17 23:46 Range/Units Triglycerides Level 55 0-150 mg/dl Cholesterol Level 141 0-200 mg/dl HDL Cholesterol 32 mg/dl LDL Cholesterol Direct 100 mg/dl Cholesterol/HDL Ratio 4.4 LDL Cholesterol, Calculated mg/dl Work Instructions Return To Work: 3 days Lifting Limitations: no more than 20 pounds Medical Emergencies . Who to Call and When: Medical Emergencies: If at any time you feel your situation is an emergency, please call 911 immediately. Call 911 immediately or go to your nearest Emergency Room if you experience any of the following: Warning Signs and Symptoms of a Heart Attack * Chest pain that is not relieved by medication * Shortness of breath . Non-Emergent Contact Non-Emergency issues call your: Primary Care Provider, Surgical Dental Assistant Call Non-Emergent contact if: temperature is above 101.5, your pain is concerning you, wound has increased redness . . "Provider Documentation" section prepared by Won López. . AMI Core Measures Reason no ASA as I/P: Treatment provided - N/A Reason no ASA at D/C: Treatment provided - N/A Reason no statin as I/P: Treatment provided - N/A Reason no statin at D/C: Treatment provided - N/A VTE Core Measure Inpt VTE Proph given/why not?: SCD's
[2017-01-07] MEDS ORDERED: METO-452 PO (12:39)
--- NOTE | 2017-01-11 20:11 | DISCHARGE SUMMARY ---
PRIMARY PHYSICIAN: Roseann Murphy MD. ATTENDING PHYSICIAN: Isidro Schofield MD. DISCHARGE DIAGNOSES: 1. Status post anteroseptal and apical myocardial infarction 01/04/2017. Secondary to total early mid left anterior descending artery occlusion. 2. Successful intervention to left anterior descending artery occlusion with deployment of 2.75 x 18 mm Resolute Integrity drug-eluting stent. 0% residual stenosis at stent site. No dissection, thrombus, perforation, or distal embolic event. GISELEL 3 flow in left anterior descending artery and its diagonal branches following completion of the procedure. 3. Coronary artery disease. Cardiac catheterization also revealed 20-30% proximal left anterior descending artery stenosis and 20-30% latter mid left anterior descending artery stenosis. Left circumflex marginal with 50% ostial stenosis. Distal right coronary artery with 70% stenosis. Codominant coronary circulation. 4. Moderate left ventricular systolic dysfunction on LV angiography and echocardiography. The angiography revealed apical akinesis and anterior hypokinesis. LV ejection fraction 45%. Echocardiogram on 01/05/2017 revealed anteroseptal and apical akinesis. LV ejection fraction 40%. No significant valvular abnormalities. Left ventricular diastolic dysfunction. Minimal concentric LVH. 5. No post-procedure or MN angina or congestive heart failure. No significant arrhythmias post-coronary intervention. 6. Ventricular fibrillation complicating preadmission course. Successful defibrillation by the EMS crew. 7. Dyslipidemia. Direct LDL 100, HDL 32. 8. No history of diabetes mellitus. Hemoglobin A1c on this admission 5.4. 9. Coronary artery disease risk factors include dyslipidemia, hypertension, and family history of premature coronary artery disease. His father underwent CABG surgery in his early 50s. The patient does not smoke cigarettes. ALLERGIES AND ADVERSE DRUG REACTIONS: None. DISCHARGE CONDITION: Good. DISCHARGE ACTIVITY: No heavy or strenuous exertion for 1 week. DISCHARGE DIET: Low fat and low cholesterol. Low sodium. DISCHARGE FOLLOWUP: The patient will have followup in [facility] within 1-2 weeks of discharge. DISCHARGE MEDICATIONS: Atorvastatin 80 mg daily, clopidogrel 75 mg daily, aspirin 81 mg daily, lisinopril 5 mg daily, metoprolol succinate ER 50 mg daily, sublingual nitroglycerin 0.4 mg p.r.n. chest pain, spironolactone 25 mg daily, Prevacid 30 mg daily. HISTORY AND HOSPITAL COURSE: For history, please see dictated history and physical exam performed by Dr. Isidro Schofield on 01/04/2017. The patient presented to Emergency Room by emergency medical services with an acute anteroapical myocardial infarction on electrocardiogram. Subsequent emergency cardiac catheterization with total early mid LAD occlusion. Successful intervention to the LAD occlusion with a 2.75 x 18 mm drug-eluting stent. Residual stenosis at the stent site 0%. GISELLE 3 flow in the LAD and its branches. Moderate stenosis of left circumflex marginal. Moderate distal RCA stenosis. Mild mid RCA stenosis. Mild atherosclerotic disease in the proximal LAD and the latter mid LAD. Following admission and performance of successful coronary intervention, he had no further angina. He had no post-infarct congestive heart failure. Preadmission, he had an episode of ventricular fibrillation in the ambulance. This was treated successfully with defibrillation. He briefly received chest compressions. Following admission, he had mild chest discomfort which had resolved by the time of discharge. Following the procedure, he had no vascular complications at the right radial catheterization site. During the interventional procedure, the patient received heparin and Integrilin intravenously. On admission in the intensive care unit, he had an episode of coughing with associated hemoptysis. The Integrilin was discontinued. Thereafter, he had no further hemoptysis. In the intensive care unit, he had no significant ventricular arrhythmias. He had occasional premature ventricular beat. Within the first 24 hours of admission, he did have rales on exam. These were at the bases. Resolution with 1 dose of intravenous furosemide. His chest x-ray on admission did reveal evidence of increased interstitial edema consistent with congestive heart failure. Chest x-ray on 01/06/2017 revealed improvement in the interstitial edema. He received only 1 dose of intravenous furosemide during the admission. He had no symptoms of heart failure during the admission. He had no complaints of dyspnea. No orthopnea or PND. Good oxygen saturation on supplemental oxygen following admission. The patient was ultimately transferred from the Intensive Care Unit to the telemetry unit. With ambulation, he had no anginal symptoms. No symptoms of heart failure. No arrhythmias. His electrocardiogram on 01/07/2017 revealed normal sinus rhythm, evolving anterior myocardial infarction, T-wave inversions leads I, aVL, V2-V6. Labs on 01/07/2017 revealed hemoglobin 13.5, hematocrit 40.5, platelet count 220. Metabolic profile: Sodium 140, potassium 4.1, chloride 105, carbon dioxide 28, BUN 14, creatinine 0.87, random glucose 90. Magnesium on 01/06/2017 was 2.4. Hemoglobin A1c during admission was 5.4. Lipid profile revealed triglycerides 55, total cholesterol 141, direct LDL 100, HDL 32. The peak troponin I was 137. The peak CK total was 3837. The peak CK-MB was 343.1. DISCHARGE PLAN: The patient was discharged home. He will follow up with Dr. Isidro Schofield. He will be maintained on dual antiplatelet therapy for at least 1 year. Statin, beta ryan, МАРИЯ inhibitor, and aldosterone antagonist therapy. Repeat echocardiogram in approximately 45 days to reassess left ventricular systolic function ejection fraction. At this time, we will treat the RCA stenosis with medical therapy. If he has anginal symptoms despite medical therapy, would consider intervention to the RCA stenosis. Before intervention to the stenosis will be performed, would assess the physiologic significance of the lesion with FFR.
[2017-03-24] MEDS ORDERED: LISI-729 PO (13:42)
[2017-03-27] MEDS ORDERED: NTRGSL/4 UT (13:40)
[2017-03-27] MEDS ORDERED: CLOP1TAB15 PO (13:40)
[2017-03-27] MEDS ORDERED: METO25TA3 PO (13:40)
[2017-03-27] MEDS ORDERED: ATOR-26 PO (13:40)
[2017-03-27] MEDS ORDERED: SPIR25TA PO (13:40)
[2017-04-25] MEDS ORDERED: HYDR-5688 PO (08:21)
[2017-04-25] MEDS ORDERED: CIPR-255 PO (08:21)
[2017-04-25] MEDS ORDERED: PHEN-775 PO (08:21)
== END 2017-01-07 13:30 | disposition home or self-care (01) | DRG 246 ==
LOC: ENRESERVDT → ENRESERVTM → C.EDB 20:51 → C.MSICU 23:04 → C.2T 01-06 13:19
PROVIDERS: ADMIT Internal Medicine Cardiovascular Disease; ATTEND Internal Medicine Cardiovascular Disease
PROC: 4A023N7 Measurement of Cardiac Sampling and Pressure, Left Heart, Percutaneous Approach (ICD-10-PCS; principal; 2017-01-04 20:54)
PROC: 027034Z Dilation of Coronary Artery, One Artery with Drug-eluting Intraluminal Device, Percutaneous Approach (ICD-10-PCS; principal; 2017-01-04 20:54)
DX: I21.29 ST elevation (STEMI) myocardial infarction involving other sites (principal); J96.01 Acute respiratory failure with hypoxia; I50.21 Acute systolic (congestive) heart failure; R04.2 Hemoptysis; I10 Essential (primary) hypertension; E78.5 Hyperlipidemia, unspecified; K21.9 Gastro-esophageal reflux disease without esophagitis; I65.22 Occlusion and stenosis of left carotid artery; Z79.899 Other long term (current) drug therapy

== ENCOUNTER 2017-01-13 12:06 | Emergency (ER) | payer BC ==
[~2017-01-13] VITALS: Ht 182.9 cm; Wt 82.0 kg
[~2017-01-13 12:06] MED LIST changes: -AMIODARONE 360MG / 200ML D5W IV STA; +ASPI81TA28 PO; +LANS30CA12 PO; +LPT40 PO; +LSN5 PO; +METO-452 PO; +NTRSLP4 SL; +PLV75 PO; +SPR25 PO
[2017-01-13 12:12] VITALS: TEMP 36.6; Ht 182.9 cm; Wt 82.0 kg
[2017-01-13] MEDS ORDERED: SODIUM CHLORIDE 0.9% 500ML 500 ML IV STA (13:05)
[2017-01-13 13:26] LABS: BASO % 0.5 %; BASO ABS # 0.04 K/uL (0-0.2); COMPLETE YES; EOS % 3.4 %; HEMATOCRIT 38.2 % (42-52); IG% 0.4 %; LYMPH % 34.7 %; LYMPH ABS # 2.97 K/uL (1.2-3.4); MEAN CELL VOLUME 88.4 fL (80-100); MEAN CORPUSCULAR HEMOGLOBIN 30.8 pg (25-34); MEAN CORPUSCULAR HGB CONC 34.8 g/dl (32-36); MEAN PLATELET VOLUME 9.2 fL (7.4-10.4); MONO % 11.5 %; NEUT % 49.5 %; PLATELET COUNT 330 K/uL (130-400); RED BLOOD COUNT 4.32 M/uL (4.7-6.1); WHITE BLOOD COUNT 8.55 K/uL (4.8-10.8)
[2017-01-13 13:37] LABS: BUN/CREATININE RATIO 13.2 (10-20); CALCIUM 9.3 mg/dl (8.5-10.1); CREATININE 0.9 mg/dl (0.60-1.40); POTASSIUM 4.2 mmol/L (3.5-5.1)
[2017-01-13 14:00] LABS: URINE APPEARANCE CLEAR (CLEAR); URINE BILIRUBIN NEG (NEG); URINE COLOR YELLOW; URINE NITRITE NEG (NEG); UROBILINOGEN NEG (NEG)
[2017-01-13 14:06] LABS: MANUAL MICROSCOPIC REQUIRED? NO; REVIEW REQ? NO
[2017-01-13 15:05] VITALS: BP 95/65; PULSE 59; O2SAT 96
--- NOTE | 2017-01-13 15:47 | EMERGENCY ROOM VISIT NOTE ---
History Report prepared by Chris: Radha Redman Under the Supervision of: Dr. Lauren Medina D.O. First contact with patient: 12:30 Chief Complaint: CARDIAC ASSESSMENT Stated Complaint: BOTH ARMS ARE TINGLY - HEART ATTACK A WEEK AGO Nursing Triage Summary: Patient reports he was here on 01/04/17 with an acute IL and had a stent placed, patient went home on Monday and has felt well until today states that his hands felt cold and both arms tingly, patient denies any chest pain or shortness of breath. Patient also denies diaphoresis or nausea but states he did feel dizzy and then both arms felt heavy prior to arrival. History of Present Illness The patient is a 56 year old male who presents to the Emergency Room with complaints of an episode of lightheadedness PADDER. He has an IL 1 week ago and was discharged 6 days ago. He had 1 stent put in and placed on new medications. He had been feeling well since. He was being careful not to overexert himself. This morning he was driving to the hospital for his appointment when he noticed his hands were cold. Upon arrival here he started to feel off. His arms felt heavy and his hands were cold. While he was talking to the tile erector he began to get lightheaded. He decided to present to the ED over cardiac concerns. He denies any back pain or chest pain. He feels better now that he is lying down. He has been drinking a lot of water. He has been monitoring his blood pressure at home and it has been around 90/60. Source of History: patient Onset: PADDER Position: other (global) Quality: other (lightheadedness) Timing: other (episodic) Associated Symptoms: No chest pain Note: Pt reports cold hands, heavy arms. Pt denies back pain. Review of Systems See HPI for pertinent positives & negatives. A total of 10 systems reviewed and were otherwise negative. Past Medical & Surgical Medical Problems: (1) Acute IL, anterior wall (2) HTN (hypertension) Family History No pertinent family history stated. Social History Smoking Status: Never Smoker Alcohol Use: none Drug Use: none Marital Status: Housing Status: lives with family Current/Historical Medications Scheduled Atorvastatin (Atorvastatin Calcium), 80 MG PO QAM Clopidogrel Bisulfate (Clopidogrel), 75 MG PO QAM Lansoprazole (Prevacid), 30 MG PO QPM Lisinopril (Lisinopril), 5 MG PO QAM Metoprolol Succinate (Toprol Xl), 1 TAB PO DAILY Spironolactone (Spironolactone), 25 MG PO QAM Scheduled PRN Aspirin (Aspirin Ec), 81 MG PO UD PRN for Pain Nitroglycerin (Nitrostat), 0.4 MG SL UD PRN for Chest Pain Allergies Coded Allergies: No Known Allergies (Unverified , 01/13/17) Physical Exam Vital Signs Date Time Temp Pulse Resp B/P Pulse Ox O2 Delivery O2 Flow Rate FiO2 01/13/17 15:05 59 95/65 96 01/13/17 14:34 58 93 01/13/17 14:32 63 01/13/17 14:29 95/62 01/13/17 14:14 92/60 01/13/17 14:04 56 17 96 01/13/17 13:59 92/62 01/13/17 13:44 92/61 01/13/17 13:34 59 15 97 01/13/17 13:29 94/60 01/13/17 13:26 60 10 96 01/13/17 13:15 89/63 01/13/17 13:11 57 14 96 01/13/17 13:06 59 18 96 01/13/17 12:59 90/66 01/13/17 12:51 59 14 94 01/13/17 12:49 Room Air 01/13/17 12:44 98/67 01/13/17 12:43 62 01/13/17 12:36 95/63 01/13/17 12:35 66 15 90/59 94 Room Air 72 96/63 72 95/63 01/13/17 12:32 66 14 99/59 95 Room Air 01/13/17 12:24 98 Room Air 01/13/17 12:12 36.6 72 20 108/72 99 Room Air Physical Exam HEENT: Head - normocephalic and atraumatic Pupils are equal, round, and reactive to light. Extraocular eye muscles are intact, and sclera are anicteric. Nose - moist nasal mucosa without discharge. Mouth - moist buccal mucosa. Oropharynx is nonerythematous and there is no tonsillar exudate or edema noted. Neck: Supple; no JVD, nuchal rigidity, cervical lymphadenopathy, or auscultated bruits. Heart: Regular rate and rhythm. There is a normal S1 and S2 with no murmurs, clicks, or gallops appreciated. Lungs: Clear to auscultation bilaterally with no wheezes, rales, or rhonchi. Abdomen: Soft, completely nontender, nondistended, with good bowel sounds. There are no palpable pulsatile masses or hepatosplenomegaly. There is no guarding, rigidity, or rebound noted. Extremities: No evidence of cyanosis, clubbing, or edema. There are easily palpable peripheral pulses. Skin: warm and dry with good turgor and no rashes. Medical Decision & Procedures Laboratory Results 01/13/17 12:20 Red Blood Count 4.32, Mean Corpuscular Volume 88.4, Mean Corpuscular Hemoglobin 30.8, Mean Corpuscular Hemoglobin Concent 34.8, Mean Platelet Volume 9.2, Neutrophils (%) (Auto) 49.5, Lymphocytes (%) (Auto) 34.7, Monocytes (%) (Auto) 11.5, Eosinophils (%) (Auto) 3.4, Basophils (%) (Auto) 0.5, Neutrophils # (Auto ) 4.24, Lymphocytes # (Auto) 2.97, Monocytes # (Auto) 0.98, Eosinophils # (Auto ) 0.29, Basophils # (Auto) 0.04 01/13/17 12:20 Test 01/13/17 12:20 01/13/17 13:20 White Blood Count 8.55 K/uL (4.8-10.8) Red Blood Count 4.32 M/uL (4.7-6.1) Hemoglobin 13.3 g/dL (14.0-18.0) Hematocrit 38.2 % (42-52) Mean Corpuscular Volume 88.4 fL (80-100) Mean Corpuscular Hemoglobin 30.8 pg (25-34) Mean Corpuscular Hemoglobin Concent 34.8 g/dl (32-36) Platelet Count 330 K/uL (130-400) Mean Platelet Volume 9.2 fL (7.4-10.4) Neutrophils (%) (Auto) 49.5 % Lymphocytes (%) (Auto) 34.7 % Monocytes (%) (Auto) 11.5 % Eosinophils (%) (Auto) 3.4 % Basophils (%) (Auto) 0.5 % Neutrophils # (Auto) 4.24 K/uL (1.4-6.5) Lymphocytes # (Auto) 2.97 K/uL (1.2-3.4) Monocytes # (Auto) 0.98 K/uL (0.11-0.59) Eosinophils # (Auto) 0.29 K/uL (0-0.5) Basophils # (Auto) 0.04 K/uL (0-0.2) RDW Standard Deviation 41.6 fL (36.4-46.3) RDW Coefficient of Variation 12.9 % (11.5-14.5) Immature Granulocyte % (Auto) 0.4 % Immature Granulocyte # (Auto) 0.03 K/uL (0.00-0.02) Anion Gap 7.0 mmol/L (3-11) Est Creatinine Clear Calc Drug Dose 100.6 ml/min Estimated GFR () 110.3 Estimated GFR (Non- 95.1 BUN/Creatinine Ratio 13.2 (10-20) Calcium Level 9.3 mg/dl (8.5-10.1) Total Bilirubin 0.9 mg/dl (0.2-1) Direct Bilirubin 0.2 mg/dl (0-0.2) Aspartate Amino Transf (AST/SGOT) 26 U/L (15-37) Alanine Aminotransferase (ALT/SGPT) 59 U/L (12-78) Alkaline Phosphatase 66 U/L (45-117) Total Protein 7.0 gm/dl (6.4-8.2) Albumin 3.7 gm/dl (3.4-5.0) Urine Color YELLOW Urine Appearance CLEAR (CLEAR) Urine pH 7.0 (4.5-7.5) Urine Specific [place] 1.010 (1.000-1.030) Urine Protein NEG (NEG) Urine Glucose (UA) NEG (NEG) Urine Ketones NEG (NEG) Urine Occult Blood NEG (NEG) Urine Nitrite NEG (NEG) Urine Bilirubin NEG (NEG) Urine Urobilinogen NEG (NEG) Urine Leukocyte Esterase NEG (NEG) Laboratory results per my review. Medications Administered Medications (Trade) Dose Ordered Sig/Matt Route Start Time Stop Time Status Last Admin Dose Admin Sodium Chloride (Nss 500ml) 500 ml @ 999 mls/hr Q31M STAT IV 01/13/17 13:05 01/13/17 13:35 DC 01/13/17 13:09 999 MLS/HR Procedure Medications: NSS 500 ml @ 999 mls/hr IV. ECG Indication: weakness Rate (beats per minute): 67 Rhythm: normal sinus Findings: no ectopy, other (T-wave inversion in anterior and lateral leads) Comparison ECG Date: 07-Jan-2017 Change: no significant change ED Course 1230: The patient was evaluated in room A1. A complete history and physical examination were performed. Nursing notes and previous electronic medical records were reviewed. IV lock was established and labs were drawn as above. The patient was observed on the ekg monitor tech and pulse oximeter. He had orthostatic vital signs as described above. 1305: NSS 500 ml @ 999 mls/hr IV. 1320: I reevaluated the patient. He is resting comfortably. He informed me that nurses have been checking in on him by phone everyday and monitoring his vitals. They told him to call Dr. Schofield regarding his low blood pressure for the past 3 days, but he did not. 1423: I discussed the patient's case with Dr. Schofield, [facility] - cardiology. He suggest the patient decrease his lisinopril to 2.5 mg. 1441: Upon reevaluation, the patient is resting comfortably. I discussed findings and results with him. I told him to decrease his lisinopril to 2.[address] Schofield said. He verbalized agreement of the treatment plan. He was discharged home. Medical Decision The patient is a 56 year old male who presents to the ED with lightheadedness. Differential diagnosis includes hypotension, medication side effect, cardial ischemia, dehydration. Lab results show: no leukocytosis, mild anemia with hemoglobin 13.3, normal LFTs and glucose, normal renal function, negative urinalysis. This is a 56 her old male patient presents emergency department with lightheadedness and near-syncope approximate one week after having an IL with stent placement. The patient did remain moderately hypotensive while here in the emergency department. This was thought to be secondary to medications. I felt it necessary to reduce the patient's dosage of antihypertensives. I discussed with his electronics scale tester on plan to bring the lisinopril down to 2.5 mg daily. The patient will keep a close log of his blood pressures and follow up via phone with Dr. Eisenberg on Monday. Consults Time Called: 1418 Consulting Physician: Dr. Schofield, [facility] - cardiology Returned Call: [phone] I discussed the patient's case with him. He suggest the patient decrease his lisinopril to 2.5 mg. Impression Primary Impression: Hypotension Additional Impression: Medication side effects Scribe Attestation The scribe's documentation has been prepared under my direction and personally reviewed by me in its entirety. I confirm that the note above accurately reflects all work, treatment, procedures, and medical decision making performed by me. Departure Information Dispostion Home / Self-Care Referrals Roseann Murphy MD (PCP) Forms IMPORTANT VISIT INFORMATION Patient Instructions My [facility] Additional Instructions Decrease Lisinopril down to 2.5mg a day. Keep a BP log and follow up with Dr. Schofield on Monday Move slowly. Return to the ER if you have worsening symptoms Keep yourself well-hydrated Problem Qualifiers
[2017-03-24] MEDS ORDERED: LISI-729 PO (13:42)
[2017-03-27] MEDS ORDERED: SPIR25TA PO (13:40)
[2017-03-27] MEDS ORDERED: NTRGSL/4 UT (13:40)
[2017-03-27] MEDS ORDERED: CLOP1TAB15 PO (13:40)
[2017-03-27] MEDS ORDERED: ATOR-26 PO (13:40)
[2017-03-27] MEDS ORDERED: METO25TA3 PO (13:40)
[2017-04-25] MEDS ORDERED: PHEN-775 PO (08:21)
[2017-04-25] MEDS ORDERED: HYDR-5688 PO (08:21)
[2017-04-25] MEDS ORDERED: CIPR-255 PO (08:21)
== END 2017-01-13 15:06 | disposition home or self-care (01) ==
LOC: C.EDB 12:08 → C.ED 15:06
DX: I95.2 Hypotension due to drugs (principal); T50.905A Adverse effect of unspecified drugs, medicaments and biological substances, initial encounter; I10 Essential (primary) hypertension; I25.2 Old myocardial infarction; Z98.61 Coronary angioplasty status; Z79.02 Long term (current) use of antithrombotics/antiplatelets; Z79.899 Other long term (current) drug therapy

== ENCOUNTER → 2017-01-31 | Outpatient (CLI) | payer BC ==
[~2017-01-31] MED LIST changes: +ATOR-26 PO; +CIPR-255 PO; +CLOP1TAB15 PO; +DOCU-94 PO; +DTRSR5 PO; +FLM4 PO; +HYDR-5688 PO; +LISI-729 PO; +METO25TA3 PO; +NTRGSL/4 UT; +PHEN-775 PO; +SPIR25TA PO
== END | disposition home or self-care (01) ==
LOC: C.PATHSPEC 17:24
PROVIDERS: ATTEND Nurse Practitioner Adult Health
DX: R31.0 Gross hematuria (principal)

== ENCOUNTER → 2017-02-14 | Outpatient (CLI) | payer BC ==
[2017-02-14 17:45] LABS: CHOLESTEROL/HDL RATIO 2.6
== END | disposition home or self-care (01) ==
LOC: C.LABPBG 14:50
PROVIDERS: ATTEND Physician Assistant
DX: E78.5 Hyperlipidemia, unspecified (principal); I25.10 Atherosclerotic heart disease of native coronary artery without angina pectoris

== ENCOUNTER → 2017-03-06 | Outpatient (CLI) | payer BC ==
[~2017-03-06] MED LIST changes: +OPTIRAY 320 IV PRN
--- NOTE | 2017-03-06 13:16 | DIAGNOSTIC IMAGING REPORT ---
ABDOMEN AND PELVIS CT WITH AND WITHOUT IV CONTRAST, UROGRAM PROTOCOL CT DOSE: 1200.78 mGycm HISTORY: Gross hematuria. TECHNIQUE: Multiaxial CT images of the abdomen and pelvis were performed both before and after the use of intravenous contrast to evaluate the urinary system. Maximal intensity projection images were performed at the workstation by the radiologist. COMPARISON STUDY: None. FINDINGS: No renal or ureteral calculi. No hydronephrosis. The distal right ureter is not opacified. Otherwise, no suspicious filling defects seen within the bilateral renal collecting systems or ureters. There is 1.7 cm filling defect seen within the left posterior bladder. This favors a blood clot. However, a bladder mass could also have a similar appearance. Mild diffuse bladder wall thickening. Prostate gland is mildly enlarged. Left L5 pars defect. No bowel wall thickening or obstruction. Normal appendix. The liver, gallbladder, spleen, adrenal glands, pancreas are unremarkable. The left kidney enhances normally. There are 2 hypodense lesions within the right kidney with the largest measuring 9 mm. These are too small to characterize. No retroperitoneal lymphadenopathy. A single mildly enlarged mesenteric lymph node measuring 9 mm in short axis diameter. No bowel wall thickening or obstruction. Normal appendix. IMPRESSION: 1. No renal or ureteral stones. No hydronephrosis. 2. No suspicious filling defects seen within the opacified bilateral renal collecting systems or ureters. 3. Mild diffuse bladder wall thickening. 4. There is 1.7 cm filling defect within the left posterior bladder lumen. This favors a blood clot. However, a bladder mass could also have a similar appearance. Follow-up cystoscopy is recommended for further evaluation. 5. Additional findings as described above. Electronically signed by: Eliseo Mckinley M.D. 03/06/2017 1:14 PM Dictated Date/Time: 03/06/2017 1:04 PM
== END | disposition home or self-care (01) ==
LOC: C.CTS 11:59
PROVIDERS: ATTEND Nurse Practitioner Adult Health
DX: R31.0 Gross hematuria (principal); N32.9 Bladder disorder, unspecified

== ENCOUNTER → 2017-04-25 | Day surgery (SDC) | payer BC ==
[2017-03-27 13:42] VITALS: BMI 24.0
--- NOTE | 2017-03-27 14:17 | PAT Medication Instructions ---
Service Date Mar 27, 2017. Current Home Medication List Aspirin (Aspirin Ec), 81 MG PO QAM Atorvastatin (Lipitor), 80 MG PO QAM Clopidogrel (Plavix), 75 MG PO QAM Lansoprazole (Prevacid), 30 MG PO QPM Lisinopril (Zestril), 2.5 MG PO QAM Metoprolol Succ (Toprol Xl) (Toprol-Xl), 25 MG PO QAM Nitroglycerin (Nitrostat), 0.4 MG UT PRN Spironolactone (Aldactone), 25 MG PO QAM Medication Instructions For Your Scheduled Surgery - Hold the following medications the morning of surgery: Spironolactone (Aldactone), 25 MG PO QAM Lisinopril (Zestril), 2.5 MG PO QAM - Take the following medications the morning of surgery with a sip of water: Metoprolol Succ (Toprol Xl) (Toprol-Xl), 25 MG PO QAM Clopidogrel (Plavix), 75 MG PO QAM (okay to continue per surgeon/sql database developer) Aspirin (Aspirin Ec), 81 MG PO QAM (okay to continue per surgeon/sql database developer) Nitroglycerin (Nitrostat), 0.4 MG UT PRN (if needed) Atorvastatin (Lipitor), 80 MG PO QAM - Take the following medications as scheduled the night before surgery: Lansoprazole (Prevacid), 30 MG PO QPM Nitroglycerin (Nitrostat), 0.4 MG UT PRN (if needed) If you have any questions please call us at [phone] or [phone] or [phone]
[2017-03-27 14:50] LABS: BASO % 0.2 %; BASO ABS # 0.02 K/uL (0-0.2); COMPLETE YES; EOS % 2.6 %; HEMATOCRIT 44.2 % (42-52); IG% 0.2 %; LYMPH % 36.4 %; LYMPH ABS # 3.05 K/uL (1.2-3.4); MEAN CELL VOLUME 86.7 fL (80-100); MEAN CORPUSCULAR HEMOGLOBIN 29.8 pg (25-34); MEAN CORPUSCULAR HGB CONC 34.4 g/dl (32-36); MEAN PLATELET VOLUME 8.7 fL (7.4-10.4); MONO % 10.2 %; NEUT % 50.4 %; PLATELET COUNT 242 K/uL (130-400); WHITE BLOOD COUNT 8.37 K/uL (4.8-10.8)
[2017-03-27 14:53] LABS: MANUAL MICROSCOPIC REQUIRED? NO; REVIEW REQ? NO; URINE APPEARANCE CLEAR (CLEAR); URINE BILIRUBIN NEG (NEG); URINE COLOR YELLOW; URINE NITRITE NEG (NEG); URINE SPECIFIC GRAVITY 1.007 (1.000-1.030); UROBILINOGEN NEG (NEG)
[2017-03-27 15:59] LABS: BUN/CREATININE RATIO 12.8 (10-20); CALCIUM 9.2 mg/dl (8.5-10.1); CREATININE 0.91 mg/dl (0.60-1.40)
[~2017-04-25] VITALS: Ht 182.9 cm; Wt 80.4 kg
[~2017-04-25] MED LIST changes: +ACETAMINOPHEN 325 MG TAB PO PRN; +ATROPINE SULFATE 0.1 MG/ML 5ML SYR IV PRN; +CIPROFLOXACIN / D5W 400 MG IV SCH; +DEXAMETHASONE SOD INJ 4 MG/ML VIAL ONE; +EpHEDrine SULFATE 50MG/5ML SYR ONE; +FENTANYL CITRATE INJ 50 MCG/1 ML 2 ML VIAL IV PRN; +FENTANYL CITRATE INJ 50 MCG/1 ML 2 ML VIAL ONE; +GLYCOPYRROLATE INJ 0.2 MG/ML VIAL ONE; +LABETALOL HCL IV 5 MG/ML 20ML IV PRN; +LACTATED RINGER'S 1000ML 1,000 ML IV SCH; +LIDOCAINE HCL 2% 2 ML VIAL (20MG/ML) ONE; -LPT40 PO; -LSN5 PO; -METO-452 PO; +MIDAZOLAM HCL 1 MG/ML 2ML VIAL ONE; +NEOSTIGMINE METHYLSULFATE 5 MG/5 ML SYR ONE; -NTRSLP4 SL; +ONDANSETRON INJ 2 MG/ML 2 ML VIAL IV PRN; +ONDANSETRON INJ 2 MG/ML 2 ML VIAL ONE; -OPTIRAY 320 IV PRN; +OXYCODONE/ACETAMINOPHEN 5-325 TAB PO PRN; +PHENYLEPHRINE HCL INJ 10 MG/ML VIAL ONE; -PLV75 PO; +PROPOFOL IV EMULSION 10 MG/ML 20 ML VIAL IV ONE; +ROCURONIUM BROMIDE 10 MG/ML 5 ML VIAL ONE; +SODIUM CHLORIDE 0.9% 1000ML 1,000 ML IV SCH; -SPR25 PO; +SUCCINYLCHOLINE 100MG/5ML SYR IV ONE
[2017-04-25 05:40] VITALS: BP 107/69; PULSE 53; TEMP 36.4; O2SAT 97; Ht 182.9 cm; Wt 80.4 kg
--- NOTE | 2017-04-25 07:23 | History & Physical Bridge Note ---
H&P Re-Evaluation Bridge Note: I have examined the patient, reviewed the History & Physical and in the interval since the performance of the History & Physical I have noted the following changes of clinical significance: No changes noted Pt with bladder tumor, but also with recent NH. Discussed risks/benefits of stopping anticoagulation/anti-platelet therapy. We have elected to move forward with treating his bladder tumor while maintaining his anti-platelet therapy. He has expressed excellent understanding of the risks of bleeding.
--- NOTE | 2017-04-25 08:20 | [facility] Operative Report ---
Operative Report Operative Date Apr 25, 2017. 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 Complication(s) None Disposition Recovery Room / PACU (stable) Indications Papillary appearing bladder tumor identified after anticoagulation was started secondary to an MN Description of Procedure Dion Fitzpatrick is a benefit in the preoperative holding area appropriate informed consents were reviewed and completed and the patient was transported to the operating suite. No the patient is maintained on Plavix and aspirin secondary to relatively recent heart attack and stent placement. We have extensively reviewed the risks and benefits of continuing with this procedure and simultaneously continuing his antiplatelet therapy. He has expressed excellent understanding of the potential risk of bleeding. Upon arrival in the operative suite he received appropriate preoperative antibiotics in the form of ciprofloxacin. Adequate general anesthesia was achieved, and the patient was placed in dorsal lithotomy position where he was sterilely prepped and draped in standard fashion. I was able to begin the case utilizing a 24 Sami resectoscope with 30 lens and visual obturator. Inspection of the urethra revealed no evidence of stricture disease, prostate was moderately enlarged without significant obstruction, bladder was fully inspected. Inspection of the bladder again confirmed the tumor arising from the left lateral wall, several centimeters from the left UO. This was papillary and appearance in approximately 3-4 cm across in largest dimension. It appeared to arise from a relatively narrow stalk. There were no satellite tumors or other tumors appreciated. Following my inspection I exchanged visual stone lathe operator for resecting loop begin the sequential resection. The most lateral portion of this resection we did elicit obturator response however was able to successfully complete the resection without paralyzing the patient. Inspection of the resection site revealed full-thickness resection on the fat visible. I spent several extra moments obtaining meticulous hemostasis. The tumor was irrigated out of the bladder and passed off the table as a specimen. I reconfirmed excellent hemostasis. As a precaution and secondary to full-thickness resection I left a Uriostegui catheter in place. I elected not to administer mitomycin secondary to the full-thickness resection. Patient was subsequently reversible anesthesia and taken to the PACU in stable condition. I attest to the content of the Intraoperative Record and any orders documented therein. Any exceptions are noted below.
--- NOTE | 2017-04-25 08:24 | Discharge Instructions ---
Discharge Instructions Date of Service Apr 25, 2017. Admission Reason for Admission: Bladder Tumor Discharge Discharge Diagnosis / Problem: treatment bladder tumor Discharge Goals Goal(s): Decrease discomfort, Improve function, Increase independence, Improve disease control, Prevent Disease Progression Activity Recommendations Activity Limitations: resume your previous activity Lifting Limitations: none Exercise/Sports Limitations: none May Resume Sexual Activity: when tolerated Shower/Bathe: no limitations Driving or Machine Use: resume 1 day after discharge . Instructions / Follow-Up Instructions / Follow-Up Please come to Dr. Jorgensen's office tomorrow at 9:30 to have your catheter removed Discharge Diet Recommended Diet: Regular Diet Procedures Procedures Performed: Transurethral Resection Bladder Tumor Pending Studies Studies pending at discharge: no Laboratory Results Lipid Panel Test 02/14/17 14:55 Range/Units Triglycerides Level 80 0-150 mg/dl Cholesterol Level 88 0-200 mg/dl HDL Cholesterol 34 mg/dl Cholesterol/HDL Ratio 2.6 LDL Cholesterol, Calculated 38 mg/dl Medical Emergencies . Who to Call and When: Medical Emergencies: If at any time you feel your situation is an emergency, please call 911 immediately. . Non-Emergent Contact Non-Emergency issues call your: Urologist Call Non-Emergent contact if: you have a fever, temperature is above 101.5, your pain is not controlled, your pain is worsening . . "Provider Documentation" section prepared by Won Vu. . VTE Core Measure Inpt VTE Proph given/why not?: Treatment not indicated [place] Drug Monitoring Program Search Results: patient reviewed within database, no issues identified
--- NOTE | 2017-04-25 09:10 | Anesthesiology Progress Note ---
Anesthesia Post Op Note Date & Time Apr 25, 2017 at 09:10 Vital Signs Pain Intensity: 0 Vital Signs Past 12 Hours Date Time Temp Pulse Resp B/P (MAP) Pulse Ox O2 Delivery O2 Flow Rate FiO2 04/25/17 09:00 36.2 66 18 103/53 95 Room Air 04/25/17 08:50 71 18 102/43 (75) 96 Room Air 04/25/17 08:40 71 20 114/68 99 Mask 10 04/25/17 08:30 68 21 103/67 99 Mask 10 04/25/17 08:23 36.8 69 12 102/64 98 Mask 10 04/25/17 05:40 36.4 53 18 107/69 (82) 97 Room Air Notes Mental Status: alert / awake / arousable, participated in evaluation Pt Amnestic to Procedure: Yes Nausea / Vomiting: adequately controlled Pain: adequately controlled Airway Patency, RR, SpO2: stable & adequate BP & HR: stable & adequate Hydration State: stable & adequate Anesthetic Complications: no major complications apparent
[2017-04-25 09:12] VITALS: BP 120/60; PULSE 62; TEMP 36.4; O2SAT 94
[2017-04-25 09:42] VITALS: BP 117/58; PULSE 64; O2SAT 97
[2017-04-25 10:12] VITALS: BP 125/62; PULSE 60; O2SAT 97
== END | disposition home or self-care (01) ==
LOC: C.ACU 05:16
PROVIDERS: ATTEND Urology
DX: C67.9 Malignant neoplasm of bladder, unspecified (principal); N40.0 Benign prostatic hyperplasia without lower urinary tract symptoms; I25.10 Atherosclerotic heart disease of native coronary artery without angina pectoris; K21.9 Gastro-esophageal reflux disease without esophagitis; R31.0 Gross hematuria; Z85.828 Personal history of other malignant neoplasm of skin; E78.5 Hyperlipidemia, unspecified; I10 Essential (primary) hypertension; Z80.8 Family history of malignant neoplasm of other organs or systems; Z83.49 Family history of other endocrine, nutritional and metabolic diseases; Z82.49 Family history of ischemic heart disease and other diseases of the circulatory system; Z83.3 Family history of diabetes mellitus; Z79.82 Long term (current) use of aspirin; Z79.899 Other long term (current) drug therapy

== ENCOUNTER 2017-04-27 16:48 | Inpatient (IN) | payer BC ==
[~2017-04-27] VITALS: Ht 182.9 cm; Wt 81.0 kg
[~2017-04-27 16:48] MED LIST changes: -ACETAMINOPHEN 325 MG TAB PO PRN; -ATROPINE SULFATE 0.1 MG/ML 5ML SYR IV PRN; -CIPROFLOXACIN / D5W 400 MG IV SCH; -DEXAMETHASONE SOD INJ 4 MG/ML VIAL ONE; -DOCU-94 PO; -DTRSR5 PO; -EpHEDrine SULFATE 50MG/5ML SYR ONE; -FENTANYL CITRATE INJ 50 MCG/1 ML 2 ML VIAL IV PRN; -FENTANYL CITRATE INJ 50 MCG/1 ML 2 ML VIAL ONE; -FLM4 PO; -GLYCOPYRROLATE INJ 0.2 MG/ML VIAL ONE; -LABETALOL HCL IV 5 MG/ML 20ML IV PRN; -LACTATED RINGER'S 1000ML 1,000 ML IV SCH; -LIDOCAINE HCL 2% 2 ML VIAL (20MG/ML) ONE; -MIDAZOLAM HCL 1 MG/ML 2ML VIAL ONE; -NEOSTIGMINE METHYLSULFATE 5 MG/5 ML SYR ONE; -ONDANSETRON INJ 2 MG/ML 2 ML VIAL IV PRN; -ONDANSETRON INJ 2 MG/ML 2 ML VIAL ONE; -OXYCODONE/ACETAMINOPHEN 5-325 TAB PO PRN; -PHENYLEPHRINE HCL INJ 10 MG/ML VIAL ONE; -PROPOFOL IV EMULSION 10 MG/ML 20 ML VIAL IV ONE; -ROCURONIUM BROMIDE 10 MG/ML 5 ML VIAL ONE; -SODIUM CHLORIDE 0.9% 1000ML 1,000 ML IV SCH; -SUCCINYLCHOLINE 100MG/5ML SYR IV ONE
[2017-04-27] MEDS ORDERED: SODIUM CHLORIDE 0.9% 1000ML 1,000 ML IV STA ×2 (17:18→17:46)
[2017-04-27] MEDS ORDERED: ONDANSETRON INJ 2 MG/ML 2 ML VIAL IV STA (17:18)
[2017-04-27] MEDS ORDERED: HYDROmorphone INJ 1 MG/ML SYR IV STA ×2 (17:18→19:08)
--- NOTE | 2017-04-27 17:21 | EMERGENCY ROOM VISIT NOTE ---
History Report prepared by Chris: Martha Duran Under the Supervision of: Dr. Beka Scott M.D. First contact with patient: 17:06 Chief Complaint: UNABLE TO VOID Stated Complaint: S/P TUMOR REMOVAL FROM BLADDER,UNABLE TO VOID,WEAK History of Present Illness The patient is a 56 year old male who presents to the Emergency Room with complaints of persistent difficulty voiding for the past day. He had a bladder tumor removed by Dr. Jorgensen approximately 2 days ago and had his Uriostegui catheter removed yesterday. The patient reports he has still been voiding small amounts of urine since then. He complains of severe abdominal pain and nausea for the past day, rating his discomfort as a 9/10. He also notes he feels weak and has not had a bowel movement since Monday, 5 days ago. The patient has a history of an NM approximately 4 months ago, in December 2016. Source of History: patient Onset: yesterday Position: pelvis (urinary system) Timing: other (persistent) Associated Symptoms: + nausea, + abdominal pain, + weakness Review of Systems See HPI for pertinent positives & negatives. A total of 10 systems reviewed and were otherwise negative. Past Medical & Surgical Medical Problems: (1) Acute NM, anterior wall (2) HTN (hypertension) (3) Kidney stones Family History Cancer Diabetes mellitus Heart disease Hypertension Kidney stones Social History Smoking Status: Former Smoker Alcohol Use: none Drug Use: none Marital Status: Housing Status: lives with family Occupation Status: employed Current/Historical Medications Scheduled Aspirin (Aspirin Ec), 81 MG PO QAM Atorvastatin (Lipitor), 80 MG PO QAM Ciprofloxacin Hcl (Cipro), 500 MG PO BID Clopidogrel (Plavix), 75 MG PO QAM Lansoprazole (Prevacid), 30 MG PO QPM Lisinopril (Zestril), 2.5 MG PO QAM Metoprolol Succ (Toprol Xl) (Toprol-Xl), 25 MG PO QAM Nitroglycerin (Nitrostat), 0.4 MG UT PRN Phenazopyridine Hcl (Pyridium), 200 MG PO TID Spironolactone (Aldactone), 25 MG PO QAM Scheduled PRN Hydrocodone/Acetaminophen 5MG/325MG ([place] 5MG/325MG), 2 TABLETS PO Q6 PRN for Pain Allergies Coded Allergies: No Known Allergies (Unverified , 04/25/17) Physical Exam Vital Signs Date Time Temp Pulse Resp B/P (MAP) Pulse Ox O2 Delivery O2 Flow Rate FiO2 04/27/17 21:40 73 16 103/62 100 Mask 10 04/27/17 21:30 36 69 16 145/76 98 Mask 10 04/27/17 19:05 149/100 Room Air 04/27/17 18:30 69 17 134/89 95 04/27/17 17:51 73 20 115/74 93 Room Air 04/27/17 17:50 75 04/27/17 16:59 36.8 78 16 110/80 96 Room Air Physical Exam GENERAL: Patient is a healthy-appearing well-nourished 56 year old male HEAD: Normocephalic atraumatic EYES: Ocular movements intact pupils equal and react to light OROPHARYNX mucous membranes are moist no exudates present no erythema or edema present NECK: Supple no nuchal rigidity CHEST: Good equal expansion LUNGS: Clear and equal to auscultation CARDIAC: Normal S1 and S2 ABDOMEN: Abdomen is distended and diffusely tender, exquisitely tender to touch BACK: No CVA tenderness EXTREMITIES: No pain upon palpation normal muscle strength in all groups no clubbing cyanosis or edema NEURO: Patient is following commands is answering questions appropriately. Alert and oriented x3 Cranial Nerves 2-12 grossly intact Medical Decision & Procedures ER Provider Diagnostic Interpretation: Radiology results as stated below per my review and radiologist interpretation: ABD/PELVIS NO IV OR ORAL CONT CT DOSE: 444.71 mGy.cm HISTORY: Pain Pt c/o diffuse abd pain TECHNIQUE: Multiaxial CT images of the abdomen and pelvis were performed without contrast. A dose lowering technique was utilized adhering to the principles of ALARA. COMPARISON STUDY: 03/06/2017 FINDINGS: Mild bibasilar parenchymal infiltrative/atelectatic change. Interval development of upper abdominal ascites considered mild in terms of volume. Kidneys negative for hydronephrosis. Pancreas is uniform. Mild ascites within the paracolic gutter regions. significant free fluid within the soft tissue pelvis, primarily in a pericystic distribution. Given the patient's surgical history of the possibility of a bladder leak must be considered. There are no signs of free air.. This includes fluid within the cul-de-sac. Moderate bladder wall thickening. No signs of free air. Bowel pattern is nonobstructive. IMPRESSION: 1. Interval development of significant pelvic and to a lesser extent abdominal ascites. 2. Nonobstructive bowel pattern. 3. Considerable infiltrative and free fluid change surrounding the bladder. 4. Correlation with clinical and/or surgical history is required to evaluate the possibility of possible bladder or other structure perforation. 5. No evidence for free air.. 6. Bibasilar infiltrative/atelectatic change. The above report was generated using voice recognition software. It may contain grammatical, syntax or spelling errors. Electronically signed by: Yan Subramanian M.D. 04/27/2017 5:45 PM CHEST ONE VIEW PORTABLE CLINICAL HISTORY: Pt c/o diffuse abd pain HISTORY OF BLADDER TUMOR REMOVAL COMPARISON STUDY: 01/06/2017 FINDINGS: The heart is normal in size. There is no failure. There are increased basilar markings likely atelectatic. There is no lobar consolidation. There are no pleural effusions. There is no free intraperitoneal air.[ IMPRESSION: Increased basilar markings likely atelectatic. No evidence of free intraperitoneal air Electronically signed by: Garrett Marcum M.D. 04/27/2017 5:32 PM Laboratory Results Test 04/27/17 17:20 04/27/17 17:26 Urine Color ORANGE Urine Appearance CLEAR (CLEAR) Urine pH (4.5-7.5) Urine Specific [place] 1.014 (1.000-1.030) Urine Protein (NEG) Urine Glucose (UA) (NEG) Urine Ketones (NEG) Urine Occult Blood (NEG) Urine Nitrite (NEG) Urine Bilirubin (NEG) Urine Urobilinogen (NEG) Urine Leukocyte Esterase (NEG) Urine RBC >30 /hpf (0-4) Urine WBC >30 /hpf (0-5) Urine Epithelial Cells 0-5 /lpf (0-5) Urine Bacteria NEG (NEG) Total Bilirubin 1.9 mg/dl (0.2-1) Direct Bilirubin 0.3 mg/dl (0-0.2) Aspartate Amino Transf (AST/SGOT) 19 U/L (15-37) Alanine Aminotransferase (ALT/SGPT) 52 U/L (12-78) Alkaline Phosphatase 71 U/L (45-117) Total Creatine Kinase 84 U/L (39-308) Creatine Kinase MB 2.7 ng/ml (0.5-3.6) Creatine Kinase MB Ratio 3.2 (0-3.0) Troponin I < 0.015 ng/ml (0-0.045) Total Protein 7.8 gm/dl (6.4-8.2) Albumin 3.9 gm/dl (3.4-5.0) Lipase 113 U/L (73-393) Bedside Hemoglobin 17.7 g/dl (14.0-18.0) Bedside Hematocrit 52 % (42-52) Bedside Sodium 129 mEq/L (135-144) Bedside Potassium 4.2 mEq/L (3.3-5.0) Bedside Chloride 92 mEq/L (101-112) Bedside Total CO2 25 mEq/l (24-31) Bedside Blood Urea Nitrogen 36 mg/dl (7-18) Bedside Creatinine 3.4 mg/dl (0.6-1.3) Bedside Glucose (other) 122 mg/dl (70-99) Bedside Ionized Calcium (Ethel) 1.14 mmol/l (1.12-1.32) Labs reviewed by ED physician. Medications Administered Medications (Trade) Dose Ordered Sig/Matt Route Start Time Stop Time Status Last Admin Dose Admin Sodium Chloride 1,000 ml @ 999 mls/hr Q1H1M STAT IV 04/27/17 17:18 04/27/17 18:18 DC 04/27/17 17:45 999 MLS/HR Hydromorphone HCl (Dilaudid Inj) 1 mg NOW STAT IV 04/27/17 17:18 04/27/17 17:20 DC 04/27/17 17:46 1 MG Ondansetron HCl (Zofran Inj) 4 mg NOW STAT IV 04/27/17 17:18 04/27/17 17:20 DC 04/27/17 17:45 4 MG Piperacillin Sod/ Tazobactam Sod (Zosyn Iv) 4.5 gm NOW STAT IV 04/27/17 17:39 04/27/17 17:41 DC 04/27/17 17:47 4.5 GM Vancomycin HCl 1000 mg/Sodium Chloride 270 ml @ 125 mls/hr NOW STAT IV 04/27/17 17:39 04/27/17 19:48 DC 04/27/17 19:05 125 MLS/HR Sodium Chloride 1,000 ml @ 999 mls/hr Q1H1M STAT IV 04/27/17 17:46 04/27/17 18:46 DC 04/27/17 18:31 999 MLS/HR Hydromorphone HCl (Dilaudid Inj) 1 mg NOW STAT IV 04/27/17 19:08 04/27/17 19:09 DC 04/27/17 19:14 1 MG Bupivacaine HCl (Marcaine 0.5% MPF Inj) 30 ml STK-MED ONCE .ROUTE 04/27/17 19:53 04/27/17 19:54 DC 04/27/17 21:10 10 ML ECG Indication: abdominal pain Rate (beats per minute): 70 Rhythm: normal sinus Findings: no acute ischemic change, no ectopy, other (old anteriolateral infarct) ED Course 1714: Past medical records reviewed. The patient was evaluated in room B12. A complete history and physical examination was performed. 1718: Zofran 4 mg IV, Dilaudid 1 mg IV, NSS 1000 ml @ 999 mls/hr IV. 1739: Vancomycin HCl 1000 mg/NSS 270 ml @ 125 mls/hr IV, Zosyn 4.5 gm IV. 1745: I discussed the patients case with [facility]. The patient will be further evaluated. 1746: NSS 1000 ml @ 999 mls/hr IV. Medical Decision Prior records/ancillary studies reviewed. Triage Nursing notes reviewed. The patient's history was concerning for abdominal pain. Differential diagnosis: Etiologies such as appendicitis, diverticulitis, PUD, biliary pathology, UTI, pancreatitis, obstruction, mesenteric ischemia, aortic pathology, infections, inflammatory bowel disease, renal colic, as well as others were entertained. This is a 56-year-old male that presents emergency Department with a concerning abdominal examination. The patient recently had an operation on his bladder. He has free fluid on his CAT scan and is in acute renal failure. For this reason IV was established, the patient given normal saline bolus 2. The patient was started on broad-spectrum antibiotics. He was also given Dilaudid 2. I did discuss the case with urology who agreed to take the patient to the operating room. Medication Reconcilliation Current Medication List: was personally reviewed by me Blood Pressure Screening Patient's blood pressure: Normal blood pressure Blood pressure disposition: Did not require urgent referral Consults Time Called: 173 Consulting Physician: [facility] Returned Call: [phone] I discussed the patients case with Dr. Baxter, [facility]. The patient will be further evaluated. Impression Primary Impression: Abdominal pain Additional Impression: Perforation of bladder Critical Care I have personally spent greater than 90 minutes of critical care time in the direct management of this patient. This includes bedside care, interpretation of diagnostic studies, and testing, discussion with consultants, patient, and family members, and other required patient management activities. This 90 minutes is in excess of all separately billable procedures. Scribe Attestation The scribe's documentation has been prepared under my direction and personally reviewed by me in its entirety. I confirm that the note above accurately reflects all work, treatment, procedures, and medical decision making performed by me. Departure Information Dispostion Being Evaluated By Surgeon Referrals No Doctor, Assigned (PCP) Patient Instructions My [facility] Problem Qualifiers Primary Impression: Abdominal pain Abdominal location: generalized Qualified Codes: R10.84 - Generalized abdominal pain
[2017-04-27] MEDS ORDERED: OPTIRAY 320 IV PRN (17:30)
--- NOTE | 2017-04-27 17:34 | DIAGNOSTIC IMAGING REPORT ---
CHEST ONE VIEW PORTABLE CLINICAL HISTORY: Pt c/o diffuse abd pain HISTORY OF BLADDER TUMOR REMOVAL COMPARISON STUDY: 01/06/2017 FINDINGS: The heart is normal in size. There is no failure. There are increased basilar markings likely atelectatic. There is no lobar consolidation. There are no pleural effusions. There is no free intraperitoneal air.[ IMPRESSION: Increased basilar markings likely atelectatic. No evidence of free intraperitoneal air Electronically signed by: Garrett Marcum M.D. 04/27/2017 5:32 PM Dictated Date/Time: 04/27/2017 5:31 PM
[2017-04-27 17:37] LABS: BASO % 0.1 %; BASO ABS # 0.02 K/uL (0-0.2); COMPLETE YES; EOS % 0.7 %; HEMATOCRIT 47.7 % (42-52); IG% 0.5 %; LYMPH % 16.4 %; MEAN CELL VOLUME 86.7 fL (80-100); MEAN CORPUSCULAR HEMOGLOBIN 30.9 pg (25-34); MEAN CORPUSCULAR HGB CONC 35.6 g/dl (32-36); MEAN PLATELET VOLUME 8.9 fL (7.4-10.4); MONO % 11.5 %; NEUT % 70.8 %; PLATELET COUNT 276 K/uL (130-400); WHITE BLOOD COUNT 17.63 K/uL (4.8-10.8)
[2017-04-27 17:39] LABS: ISTAT CREATININE 3.4 mg/dl (0.6-1.3); ISTAT HEMOGLOBIN 17.7 g/dl (14.0-18.0); ISTAT IONIZED CALCIUM 1.14 mmol/l (1.12-1.32)
[2017-04-27] MEDS ORDERED: PIPERACILLIN/TAZOBACTAM 4.5 GM/100ML D5W IV STA (17:39)
[2017-04-27] MEDS ORDERED: VANCOMYCIN INJ 1,000 MG in SODIUM CHLORIDE 0.9% 250ML 250 ML IV STA (17:39)
--- NOTE | 2017-04-27 17:46 | DIAGNOSTIC IMAGING REPORT ---
ABD/PELVIS NO IV OR ORAL CONT CT DOSE: 444.71 mGy.cm HISTORY: Pain Pt c/o diffuse abd pain TECHNIQUE: Multiaxial CT images of the abdomen and pelvis were performed without contrast. A dose lowering technique was utilized adhering to the principles of ALARA. COMPARISON STUDY: 03/06/2017 FINDINGS: Mild bibasilar parenchymal infiltrative/atelectatic change. Interval development of upper abdominal ascites considered mild in terms of volume. Kidneys negative for hydronephrosis. Pancreas is uniform. Mild ascites within the paracolic gutter regions. significant free fluid within the soft tissue pelvis, primarily in a pericystic distribution. Given the patient's surgical history of the possibility of a bladder leak must be considered. There are no signs of free air.. This includes fluid within the cul-de-sac. Moderate bladder wall thickening. No signs of free air. Bowel pattern is nonobstructive. IMPRESSION: 1. Interval development of significant pelvic and to a lesser extent abdominal ascites. 2. Nonobstructive bowel pattern. 3. Considerable infiltrative and free fluid change surrounding the bladder. 4. Correlation with clinical and/or surgical history is required to evaluate the possibility of possible bladder or other structure perforation. 5. No evidence for free air.. 6. Bibasilar infiltrative/atelectatic change. The above report was generated using voice recognition software. It may contain grammatical, syntax or spelling errors. Electronically signed by: Yan Subramanian M.D. 04/27/2017 5:45 PM Dictated Date/Time: 04/27/2017 5:38 PM
[2017-04-27 17:53] LABS: ALT/SGPT 52 U/L (12-78); BLOOD UREA NITROGEN 34 mg/dl (7-18); BUN/CREATININE RATIO 9.7 (10-20); CALCIUM 9.2 mg/dl (8.5-10.1); CARBON DIOXIDE 25 mmol/L (21-32); CHLORIDE 93 mmol/L (98-107); GLUCOSE 118 mg/dl (70-99); POTASSIUM 4.1 mmol/L (3.5-5.1); SODIUM 129 mmol/L (136-145)
[2017-04-27 17:59] LABS: ALKALINE PHOSPHATASE 71 U/L (45-117); AST/SGOT 19 U/L (15-37); CKMB/CK RATIO 3.2 (0-3.0)
[2017-04-27 18:04] LABS: MANUAL MICROSCOPIC REQUIRED? YES; REVIEW REQ? NO
[2017-04-27 18:05] LABS: SULFASALICYLIC ACID NEG (NEG); URINE APPEARANCE CLEAR (CLEAR); URINE COLOR ORANGE; URINE SPECIFIC GRAVITY 1.014 (1.000-1.030)
[2017-04-27 18:07] LABS: URINE RBC >30 /hpf (0-4); URINE WBC >30 /hpf (0-5)
[2017-04-27 18:08] LABS: URINE BACTERIA NEG (NEG)
[2017-04-27] MEDS ORDERED: FENTANYL CITRATE INJ 50 MCG/1 ML 2 ML VIAL IV PRN (19:15)
[2017-04-27] MEDS ORDERED: EpHEDrine SULFATE INJ 50 MG/ML AMP IV PRN (19:15)
[2017-04-27] MEDS ORDERED: ONDANSETRON INJ 2 MG/ML 2 ML VIAL IV PRN ×2 (19:15→21:45)
[2017-04-27] MEDS ORDERED: ATROPINE SULFATE 0.1 MG/ML 5ML SYR IV PRN (19:15)
[2017-04-27] MEDS ORDERED: HYDROmorphone INJ 1 MG/ML SYR IV PRN (19:15)
[2017-04-27] MEDS ORDERED: LABETALOL HCL IV 5 MG/ML 20ML IV PRN (19:15)
--- NOTE | 2017-04-27 19:42 | Urology Consultation ---
History General Date of Service: Apr 27, 2017. Chief Complaint: Abdominal distension after TURBT Primary Care Physician: Roseann Murphy MD Pt seen a urologist before?: Yes If yes, why?: Dr. Jorgensen for CAB History of Present Illness 56 yo male POD#2 s/p TURBT for CAB. His history of CAD and MN on antiplatelet therapy is noted. He underwent a TOV 1 day postop and subsequently noted malaise , anorexia, abdominal distension and poor UOP. Due to his worsening symptoms he presented to the ER for evaluation, showing that he was in renal failure. CT scan shows intraperitoneal fluid, no hydro, no bladder distension. Clinically his presentation is consistent with intraperitoneal bladder rupture. Patient NPO since breakfast. Care discussed with Dr. Jorgensen, findings reviewed, urgent urology consultation sought out. Inpatient and outpatient records reviewed. Imaging Imaging: CT Laboratory Last 24 Hours Test 04/27/17 17:20 04/27/17 17:26 White Blood Count 17.63 K/uL Red Blood Count 5.50 M/uL Hemoglobin 17.0 g/dL Hematocrit 47.7 % Mean Corpuscular Volume 86.7 fL Mean Corpuscular Hemoglobin 30.9 pg Mean Corpuscular Hemoglobin Concent 35.6 g/dl Platelet Count 276 K/uL Mean Platelet Volume 8.9 fL Neutrophils (%) (Auto) 70.8 % Lymphocytes (%) (Auto) 16.4 % Monocytes (%) (Auto) 11.5 % Eosinophils (%) (Auto) 0.7 % Basophils (%) (Auto) 0.1 % Neutrophils # (Auto) 12.48 K/uL Lymphocytes # (Auto) 2.90 K/uL Monocytes # (Auto) 2.02 K/uL Eosinophils # (Auto) 0.12 K/uL Basophils # (Auto) 0.02 K/uL RDW Standard Deviation 42.6 fL RDW Coefficient of Variation 13.3 % Immature Granulocyte % (Auto) 0.5 % Immature Granulocyte # (Auto) 0.09 K/uL Urine Color ORANGE Urine Appearance CLEAR Urine pH Urine Specific [place] 1.014 Urine Protein Urine Glucose (UA) Urine Ketones Urine Occult Blood Urine Nitrite Urine Bilirubin Urine Urobilinogen Urine Leukocyte Esterase Urine RBC >30 /hpf Urine WBC >30 /hpf Urine Epithelial Cells 0-5 /lpf Urine Bacteria NEG Sodium Level 129 mmol/L Potassium Level 4.1 mmol/L Chloride Level 93 mmol/L Carbon Dioxide Level 25 mmol/L Anion Gap 11.0 mmol/L 18.0 mmol/L Blood Urea Nitrogen 34 mg/dl Creatinine 3.50 mg/dl Est Creatinine Clear Calc Drug Dose 25.9 ml/min Estimated GFR () 21.3 Estimated GFR (Non- 18.4 BUN/Creatinine Ratio 9.7 Random Glucose 118 mg/dl Calcium Level 9.2 mg/dl Total Bilirubin 1.9 mg/dl Direct Bilirubin 0.3 mg/dl Aspartate Amino Transf (AST/SGOT) 19 U/L Alanine Aminotransferase (ALT/SGPT) 52 U/L Alkaline Phosphatase 71 U/L Total Creatine Kinase 84 U/L Creatine Kinase MB 2.7 ng/ml Creatine Kinase MB Ratio 3.2 Troponin I < 0.015 ng/ml Total Protein 7.8 gm/dl Albumin 3.9 gm/dl Lipase 113 U/L Bedside Hemoglobin 17.7 g/dl Bedside Hematocrit 52 % Bedside Sodium 129 mEq/L Bedside Potassium 4.2 mEq/L Bedside Chloride 92 mEq/L Bedside Total CO2 25 mEq/l Bedside Blood Urea Nitrogen 36 mg/dl Bedside Creatinine 3.4 mg/dl Bedside Glucose (other) 122 mg/dl Bedside Ionized Calcium (Ethel) 1.14 mmol/l Problem List Medical Problems: (1) Abdominal pain Status: Acute (2) Acute myocardial infarction of apical-lateral wall Status: Acute (3) Hypotension Status: Acute (4) Medication side effects Status: Acute (5) Perforation of bladder Status: Acute (6) Ventricular tachycardia Status: Acute Past History BPH, cancer, coronary artery disease, GERD, hypertension, kidney stones Past Surgical History: cardiac catheterization (stent placed), colonoscopy, tonsillectomy, other (hernia repair, TURBT) Family History Cancer Diabetes mellitus Heart disease Hypertension Kidney stones Social History Hx Tobacco Use In Past Year?: No Smoking: other (smokeless tobacco) Alcohol: occasional Marital status: Occupation status: employed History of MDRO No Allergies Coded Allergies: No Known Allergies (Unverified , 04/25/17) Medications Home Medications: Home Meds and Scripts Medications Dose Route/Sig Max Daily Dose Days Date Category Pyridium (Phenazopyridine Hcl) 200 Mg Tab 200 Mg PO TID 04/25/17 Rx [place] 5MG/325MG (Acetaminophen/Hydrocodone Bitart) Tab 2 Tablets PO Q6 PRN 04/25/17 Rx Cipro (Ciprofloxacin Hcl) 500 Mg Tab 500 Mg PO BID 04/25/17 Rx Plavix (Clopidogrel Bisulfate) 75 Mg Tab 75 Mg PO QAM 03/27/17 Reported Toprol-Xl (Metoprolol Succinate) 25 Mg Tabcr 25 Mg PO QAM 03/27/17 Reported Aldactone (Spironolactone) 25 Mg Tab 25 Mg PO QAM 03/27/17 Reported Lipitor (Atorvastatin Calcium) 80 Mg Tab 80 Mg PO QAM 03/27/17 Reported Nitrostat (Nitroglycerin) 0.4 Mg Tab 0.4 Mg UT PRN 03/27/17 Reported Zestril (Lisinopril) 5 Mg Tab 2.5 Mg PO QAM 03/24/17 Reported Aspirin Ec (Aspirin) 81 Mg Tab 81 Mg PO QAM 01/04/17 Reported Prevacid (Lansoprazole) 30 Mg Capcr 30 Mg PO QPM 01/04/17 Reported Inpatient Medications: Current Inpatient Medications Medications (Trade) Dose Ordered Sig/Matt Route Start Time Stop Time Status Last Admin Dose Admin Ioversol (Optiray 320) 100 ml UD PRN IV 04/27/17 17:30 05/01/17 17:29 Vancomycin HCl 1000 mg/Sodium Chloride 270 ml @ 125 mls/hr NOW STAT IV 04/27/17 17:39 04/27/17 19:48 04/27/17 19:05 125 MLS/HR Fentanyl Citrate (Fentanyl Inj) 25 mcg Q5M PRN IV 04/27/17 19:15 04/27/17 23:59 Hydromorphone HCl (Dilaudid Inj) 0.25 mg Q5M PRN IV 04/27/17 19:15 04/28/17 19:14 UNV Ondansetron HCl (Zofran Inj) 4 mg ONE PRN IV 04/27/17 19:15 04/27/17 23:59 Labetalol HCl (Normodyne IV) 5 mg Q5M PRN IV 04/27/17 19:15 04/27/17 23:59 Ephedrine Sulfate (EpHEDrine SULFATE INJ) 5 mg Q5M PRN IV 04/27/17 19:15 04/27/17 23:59 Atropine Sulfate (Atropine Sulfate 0.1MG/Ml Inj) 0.5 mg Q1M PRN IV 04/27/17 19:15 04/28/17 19:14 UNV Review of Systems Review of Systems Constitutional: No fever, No chills Eyes: No double vision, No eye pain Neurological: + dizzy, No passing out Endocrine: + tired/sluggish Gastrointestinal: + abdominal pain, + nausea, + constipation Cardiovascular: No irregular heartbeat, No palpitations Respiratory: No coughing up blood Skin: No boils Musculoskeletal: + back pain Ears / Nose / Throat: No hearing loss, No hoarse voice Psychologic / Mental: + trouble remembering (somnolent) Male : + see HPI Physical Exam Vital Signs: Vital Signs Past 12 Hours Date Time Temp Pulse Resp B/P (MAP) Pulse Ox O2 Delivery O2 Flow Rate FiO2 04/27/17 19:05 149/100 Room Air 04/27/17 18:30 69 17 134/89 95 04/27/17 17:51 73 20 115/74 93 Room Air 04/27/17 17:50 75 04/27/17 16:59 36.8 78 16 110/80 96 Room Air Physical Exam: General Appearance: WD/WN, no apparent distress ENT: hearing grossly normal Neck: supple, no adenopathy Respiratory/Chest: no respiratory distress Cardiovascular: no JVD Gastrointestinal: Abdomen: pertinent finding (firmly distended, mildly tender) Renal: normal renal Hernia: absent hernia Liver: normal liver Spleen: normal spleen Extremities: non-tender Neurologic/Psychiatric: + pertinent finding (somnolent) Skin: normal color Assessment & Plan Assessment & Plan A/P 56 yo male with suspected intraperitoneal bladder rupture. Findings reviewed, discussed with Dr. Jorgensen. We will bring the patient urgently to the OR for ex lap, drainage and attempt a bladder repair. Risks and benefits reviewed, consent obtained. Vanco provided by hospitalists.
--- NOTE | 2017-04-27 19:46 | Progress Note ---
Progress Note Date of Service Apr 27, 2017. Progress Note Discussed Mr. Fitzpatrick's current status with his and daughters, explaining that he appears to have a perforation of his bladder. I have reviewed our anticipated surgical plan and expected recovery, as well as the risks. They have expressed excellent understanding of the situation.
[2017-04-27] MEDS ORDERED: BUPIVACAINE 0.5 % 5 MG/1 ML MPF 30ML VIAL ONE (19:53)
[2017-04-27] MEDS ORDERED: MoRPHine SULFATE 2 MG/ML CARP IV PRN (21:45)
[2017-04-27] MEDS ORDERED: OXYCODONE/ACETAMINOPHEN 5-325 TAB PO PRN (21:45)
[2017-04-27] MEDS ORDERED: NITROGLYCERIN 0.4 MG SL PER TAB CHARGE UT SCH (21:45)
[2017-04-27] MEDS ORDERED: ACETAMINOPHEN 325 MG TAB PO PRN (21:45)
--- NOTE | 2017-04-27 21:54 | [facility] Operative Report ---
Operative Report Operative Date Apr 27, 2017. Pre-Operative Diagnosis suspected bladder perforation Post-Operative Diagnosis bladder perforation Procedure(s) Performed Exploratory Laparotomy, Bladder repair, peritoneal drainage Surgeon Dr. Rick Jorgensen [employer] Professional Surgeon(s) Dr. Casey Baxter Estimated Blood Loss 50ml Findings Perforation of the bladder at the site of the prior TURBT Specimens #1 Micro: Intraperitoneal Urine-gram stain, culture and sensitivity, anaerobic Drains DONNIE 2; Uriostegui catheter Anesthesia Gen. 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 He went home with a Uriostegui catheter data surgery but shortly after removal of Uriostegui catheter started to experience significant abdominal pain. He presented back to the emergency room with acute change in creatinine and CT evidence of bladder perforation with signs of mixed intra-and extra peritoneal fluid. Description of Procedure Dion Fitzpatrick was identified in the preoperative holding area, appropriate informed consents were reviewed and completed, and the patient was transported to the operating suite. Upon arrival he received appropriate preoperative antibiotics the form of vancomycin as ordered by the ED. Gen. anesthesia was achieved and he was placed in supine position with that slightly flexed. A low midline incision was made beginning at the pubic symphysis extending two thirds of the way towards the umbilicus. Incision was carried through skin and Ivon' s fascia for identifying midline splitting the bellies of the rectus muscle. Incision was carried down to the pubic symphysis itself in the extraperitoneal space of Retzius was opened. There is significant fluid in this area with saturated tissues. As his fluid was drained, we are better able to clarify anatomy and identified the bladder as well as the superior aspect of her incision the peritoneum. Peritoneum seem to be filled with fluid, but was not leaking actively into our field. We focused our attention first on the bladder. Catheter was palpable through the wall of the bladder. A stay suture was placed distal to our anticipated opening site. A Second stay suture was placed adjacent to this, and between the 2 we opened the bladder using Bovie electrocautery. This anterior cystotomy was initially approximately 4 cm in length, and we inspected through it and were able to easily identify the site of TURBT on the left lateral bladder wall. After examining this area, I extended the incision slightly towards the dome and further explored and identified the area of the TURBT. Full inspection of the remaining aspects of the bladder revealed no other defects concerning for perforation. The TURBT defect was approximately 1 cm x 1 cm. I was able to dissect the extravesical space around the lateral aspect of the bladder and by palpating both intra-and extravesically I was able to define the exact location of the injury. A right angle clamp was passed through the injury. Utilizing this to help marked exact location of injury, we' re able to close the detrusor muscle utilizing 2 [id number] 0 Vicryl stitches. A second layer was then imbricated over this. Turning attention back to the intravesical aspect of the injury, I was able to reapproximate the mucosa utilizing a 3-0 chromic stitch in [id number] fashion. Visual inspection revealed a good closure. Ureteral orifice was located adjacent to the closure but not involved with the closure. Immediately upon our closure we' re able to visualize excellent urine flow from the left ureteral orifice. Before closing the bladder we turned our attention to the peritoneal collection of fluid. Above the dome of the bladder we entered the peritoneum sharply. We drained approximately 1 L of yellow urine from the abdomen. We then position a DONNIE drain within the peritoneum and parotid through the skin and a separate stab incision to the right and our main incision. The peritoneum was closed utilizing a 0 Vicryl stitch. The drain was sutured in place utilizing a 3-0 silk stitch. Then turned our attention back to closure of the bladder. Our anterior cystotomy was closed in 2 layers. The first layer was closed utilizing a 2-0 chromic stitch in running fashion. A second layer was an imbricating layer of 0 Vicryl over the top of the previously closed mucosa. We then inspected for hemostasis. Hemostasis was excellent. For beginning her fascial closure, a DONNIE drain was placed in the extravesical space of Retzius. This was brought through separate skin incision to the left of our midline incision. We then closed the fascia utilizing a running 0 Vicryl stitch. This fascia and subcutaneous tissues were reapproximated using a second 0 Vicryl. Fascia, muscle, and skin were all anesthetized with half percent Marcaine. Skin was then closed utilizing percy. Dressings were placed, and the patient was extubated. He was taken to the PACU with a Uriostegui catheter and [address] I attest to the content of the Intraoperative Record and any orders documented therein. Any exceptions are noted below.
[2017-04-27 22:08] LABS: HEMATOCRIT 42.7 % (42-52); MEAN CELL VOLUME 87.5 fL (80-100); MEAN CORPUSCULAR HEMOGLOBIN 29.7 pg (25-34); MEAN PLATELET VOLUME 8.5 fL (7.4-10.4); PLATELET COUNT 220 K/uL (130-400); RED BLOOD COUNT 4.88 M/uL (4.7-6.1); WHITE BLOOD COUNT 19.91 K/uL (4.8-10.8)
--- NOTE | 2017-04-27 22:14 | Anesthesiology Progress Note ---
Anesthesia Post Op Note Date & Time Apr 27, 2017 at 22:14 Vital Signs Pain Intensity: 1 Vital Signs Past 12 Hours Date Time Temp Pulse Resp B/P (MAP) Pulse Ox O2 Delivery O2 Flow Rate FiO2 04/27/17 22:00 36.2 67 16 100/65 97 Nasal Cannula 2 04/27/17 21:50 72 16 105/64 97 Mask 10 04/27/17 21:40 73 16 103/62 100 Mask 10 04/27/17 21:30 36 69 16 145/76 98 Mask 10 04/27/17 19:05 149/100 Room Air 04/27/17 18:30 69 17 134/89 95 04/27/17 17:51 73 20 115/74 93 Room Air 04/27/17 17:50 75 04/27/17 16:59 36.8 78 16 110/80 96 Room Air Notes Mental Status: alert / awake / arousable, participated in evaluation Pt Amnestic to Procedure: Yes Nausea / Vomiting: adequately controlled Pain: adequately controlled Airway Patency, RR, SpO2: stable & adequate BP & HR: stable & adequate Hydration State: stable & adequate Anesthetic Complications: no major complications apparent
[2017-04-27 22:28] LABS: BUN/CREATININE RATIO 10.8 (10-20); CALCIUM 7.9 mg/dl (8.5-10.1); CREATININE 3.1 mg/dl (0.60-1.40); POTASSIUM 4.6 mmol/L (3.5-5.1)
[2017-04-27 22:40] VITALS: BP 105/68; PULSE 69; TEMP 37; O2SAT 93
[2017-04-27] MEDS ORDERED: LACTATED RINGER'S 1000ML 1,000 ML IV SCH (22:45)
[2017-04-27 22:53] LABS: BASO % 0.1 %; BASO ABS # 0.01 K/uL (0-0.2); COMPLETE YES; EOS % 0.4 %; IG% 0.5 %; LYMPH % 8.7 %; LYMPH ABS # 1.73 K/uL (1.2-3.4); MONO % 5.4 %; NEUT % 84.9 %
[2017-04-27 23:15] VITALS: BP 109/68; PULSE 72; TEMP 37; O2SAT 96
[2017-04-27 23:45] VITALS: BP 108/66; PULSE 72; TEMP 36.4; O2SAT 99
[2017-04-28] VITALS (8 sets, daily range): BP systolic 99–144; BP diastolic 67–93; PULSE 66–97; TEMP 36.5–37.4; O2SAT 93–97; Ht 182.9 cm; Wt 81.0 kg
[2017-04-28] MEDS: CEFAZOLIN IV 1,000 MG in DEXTROSE 5% 50ML 50 ML IV SCH ×2 (00:23→08:01)
[2017-04-28 08:17] LABS: COMPLETE YES; HEMATOCRIT 43.4 % (42-52); IG% 0.3 %; LYMPH % 11.9 %; LYMPH ABS # 1.82 K/uL (1.2-3.4); MEAN CORPUSCULAR HEMOGLOBIN 30.2 pg (25-34); MEAN CORPUSCULAR HGB CONC 34.3 g/dl (32-36); MEAN PLATELET VOLUME 8.8 fL (7.4-10.4); MONO % 9.3 %; NEUT % 78.5 %; PLATELET COUNT 233 K/uL (130-400); RED BLOOD COUNT 4.93 M/uL (4.7-6.1); WHITE BLOOD COUNT 15.29 K/uL (4.8-10.8)
[2017-04-28 08:24] LABS: BUN/CREATININE RATIO 12.1 (10-20); CALCIUM 8.8 mg/dl (8.5-10.1); CREATININE 1.3 mg/dl (0.60-1.40); POTASSIUM 4.7 mmol/L (3.5-5.1)
--- NOTE | 2017-04-28 08:51 | Progress Note ---
Subjective Date of Service: Apr 28, 2017. Subjective Pt evaluation today including: conversation w/ patient, physical exam, lab review Voiding: ortiz catheter in place Progressing very well - pain is very tolerable, far better than when he came in - tolerating a diet - some GERD like symptoms - no nausea Vital Signs Past 12 Hours Date Time Temp Pulse Resp B/P (MAP) Pulse Ox O2 Delivery O2 Flow Rate FiO2 04/28/17 07:50 36.9 66 16 114/72 (86) 95 Nasal Cannula 04/28/17 07:50 95 Nasal Cannula 2.0 04/28/17 03:15 36.8 76 20 124/74 (91) 96 Nasal Cannula 2.0 04/28/17 01:45 36.5 71 16 99/67 (78) 95 Nasal Cannula 4.0 04/28/17 00:45 36.6 76 16 105/67 (80) 96 Nasal Cannula 4.0 04/28/17 00:13 Nasal Cannula 3.0 04/28/17 00:00 Nasal Cannula 3.0 04/27/17 23:45 36.4 72 14 108/66 (80) 99 Room Air 04/27/17 23:15 37.0 72 18 109/68 (82) 96 Nasal Cannula 4.0 04/27/17 23:15 Nasal Cannula 3.0 04/27/17 22:40 37.0 69 16 105/68 (80) 93 Nasal Cannula 3.0 04/27/17 22:15 36.2 73 16 100/66 96 Nasal Cannula 2 04/27/17 22:00 36.2 67 16 100/65 97 Nasal Cannula 2 04/27/17 21:50 72 16 105/64 97 Mask 10 04/27/17 21:40 73 16 103/62 100 Mask 10 04/27/17 21:30 36 69 16 145/76 98 Mask 10 04/28/17 07:36 Red Blood Count 4.93, Mean Corpuscular Volume 88.0, Mean Corpuscular Hemoglobin 30.2, Mean Corpuscular Hemoglobin Concent 34.3, Mean Platelet Volume 8.8, Neutrophils (%) (Auto) 78.5, Lymphocytes (%) (Auto) 11.9, Monocytes (%) (Auto) 9.3, Eosinophils (%) (Auto) 0.0, Basophils (%) (Auto) 0.0, Neutrophils # (Auto) 12.00, Lymphocytes # (Auto) 1.82, Monocytes # (Auto) 1.42, Eosinophils # (Auto) 0.00, Basophils # (Auto) 0.00 04/28/17 07:36 Test 04/27/17 17:20 04/27/17 17:26 04/28/17 07:36 Urine Color ORANGE Urine Appearance CLEAR (CLEAR) Urine pH (4.5-7.5) Urine Specific [place] 1.014 (1.000-1.030) Urine Protein (NEG) Urine Glucose (UA) (NEG) Urine Ketones (NEG) Urine Occult Blood (NEG) Urine Nitrite (NEG) Urine Bilirubin (NEG) Urine Urobilinogen (NEG) Urine Leukocyte Esterase (NEG) Urine RBC >30 /hpf (0-4) Urine WBC >30 /hpf (0-5) Urine Epithelial Cells 0-5 /lpf (0-5) Urine Bacteria NEG (NEG) Total Bilirubin 1.9 mg/dl (0.2-1) Direct Bilirubin 0.3 mg/dl (0-0.2) Aspartate Amino Transf (AST/SGOT) 19 U/L (15-37) Alanine Aminotransferase (ALT/SGPT) 52 U/L (12-78) Alkaline Phosphatase 71 U/L (45-117) Total Creatine Kinase 84 U/L (39-308) Creatine Kinase MB 2.7 ng/ml (0.5-3.6) Creatine Kinase MB Ratio 3.2 (0-3.0) Troponin I < 0.015 ng/ml (0-0.045) Total Protein 7.8 gm/dl (6.4-8.2) Albumin 3.9 gm/dl (3.4-5.0) Lipase 113 U/L (73-393) Bedside Hemoglobin 17.7 g/dl (14.0-18.0) Bedside Hematocrit 52 % (42-52) Bedside Sodium 129 mEq/L (135-144) Bedside Potassium 4.2 mEq/L (3.3-5.0) Bedside Chloride 92 mEq/L (101-112) Bedside Total CO2 25 mEq/l (24-31) Bedside Blood Urea Nitrogen 36 mg/dl (7-18) Bedside Creatinine 3.4 mg/dl (0.6-1.3) Bedside Glucose (other) 122 mg/dl (70-99) Bedside Ionized Calcium (Ethel) 1.14 mmol/l (1.12-1.32) White Blood Count 15.29 K/uL (4.8-10.8) Red Blood Count 4.93 M/uL (4.7-6.1) Hemoglobin 14.9 g/dL (14.0-18.0) Hematocrit 43.4 % (42-52) Mean Corpuscular Volume 88.0 fL (80-100) Mean Corpuscular Hemoglobin 30.2 pg (25-34) Mean Corpuscular Hemoglobin Concent 34.3 g/dl (32-36) Platelet Count 233 K/uL (130-400) Mean Platelet Volume 8.8 fL (7.4-10.4) Neutrophils (%) (Auto) 78.5 % Lymphocytes (%) (Auto) 11.9 % Monocytes (%) (Auto) 9.3 % Eosinophils (%) (Auto) 0.0 % Basophils (%) (Auto) 0.0 % Neutrophils # (Auto) 12.00 K/uL (1.4-6.5) Lymphocytes # (Auto) 1.82 K/uL (1.2-3.4) Monocytes # (Auto) 1.42 K/uL (0.11-0.59) Eosinophils # (Auto) 0.00 K/uL (0-0.5) Basophils # (Auto) 0.00 K/uL (0-0.2) RDW Standard Deviation 43.2 fL (36.4-46.3) RDW Coefficient of Variation 13.3 % (11.5-14.5) Immature Granulocyte % (Auto) 0.3 % Immature Granulocyte # (Auto) 0.05 K/uL (0.00-0.02) Anion Gap 5.0 mmol/L (3-11) Est Creatinine Clear Calc Drug Dose 69.7 ml/min Estimated GFR () 70.7 Estimated GFR (Non- 61.0 BUN/Creatinine Ratio 12.1 (10-20) Calcium Level 8.8 mg/dl (8.5-10.1) NAD AAOx3 no resp distress RRR abd soft - drains appropriate (Peritoneal drain - clear/yellow; ortiz clear; extra-peritoneal drain serosang) A/P: POD #1 s/p ex-lap abd bladder closure for iatrogenic perforation during TURBT - recovering well - cont drains until outputs substantially decreased - HL IVF - continue ortiz catheter for 10d - cystogram prior to voiding trial Problem List Medical Problems: (1) Abdominal pain Status: Acute (2) Acute myocardial infarction of apical-lateral wall Status: Acute (3) Hypotension Status: Acute (4) Medication side effects Status: Acute (5) Perforation of bladder Status: Acute (6) Ventricular tachycardia Status: Acute Objective Vital Signs Date Time Temp Pulse Resp B/P (MAP) Pulse Ox O2 Delivery O2 Flow Rate FiO2 04/28/17 07:50 36.9 66 16 114/72 (86) 95 Nasal Cannula 04/28/17 07:50 95 Nasal Cannula 2.0 04/28/17 03:15 36.8 76 20 124/74 (91) 96 Nasal Cannula 2.0 04/28/17 01:45 36.5 71 16 99/67 (78) 95 Nasal Cannula 4.0 04/28/17 00:45 36.6 76 16 105/67 (80) 96 Nasal Cannula 4.0 04/28/17 00:13 Nasal Cannula 3.0 04/28/17 00:00 Nasal Cannula 3.0 04/27/17 23:45 36.4 72 14 108/66 (80) 99 Room Air 04/27/17 23:15 37.0 72 18 109/68 (82) 96 Nasal Cannula 4.0 04/27/17 23:15 Nasal Cannula 3.0 04/27/17 22:40 37.0 69 16 105/68 (80) 93 Nasal Cannula 3.0 04/27/17 22:15 36.2 73 16 100/66 96 Nasal Cannula 2 04/27/17 22:00 36.2 67 16 100/65 97 Nasal Cannula 2 04/27/17 21:50 72 16 105/64 97 Mask 10 04/27/17 21:40 73 16 103/62 100 Mask 10 04/27/17 21:30 36 69 16 145/76 98 Mask 10 04/27/17 19:05 149/100 Room Air 04/27/17 18:30 69 17 134/89 95 04/27/17 17:51 73 20 115/74 93 Room Air 04/27/17 17:50 75 04/27/17 16:59 36.8 78 16 110/80 96 Room Air Laboratory Results Last 24 Hours Test 04/27/17 17:20 04/27/17 17:26 04/27/17 21:56 04/28/17 07:36 White Blood Count 17.63 K/uL 19.91 K/uL 15.29 K/uL Red Blood Count 5.50 M/uL 4.88 M/uL 4.93 M/uL Hemoglobin 17.0 g/dL 14.5 g/dL 14.9 g/dL Hematocrit 47.7 % 42.7 % 43.4 % Mean Corpuscular Volume 86.7 fL 87.5 fL 88.0 fL Mean Corpuscular Hemoglobin 30.9 pg 29.7 pg 30.2 pg Mean Corpuscular Hemoglobin Concent 35.6 g/dl 34.0 g/dl 34.3 g/dl Platelet Count 276 K/uL 220 K/uL 233 K/uL Mean Platelet Volume 8.9 fL 8.5 fL 8.8 fL Neutrophils (%) (Auto) 70.8 % 84.9 % 78.5 % Lymphocytes (%) (Auto) 16.4 % 8.7 % 11.9 % Monocytes (%) (Auto) 11.5 % 5.4 % 9.3 % Eosinophils (%) (Auto) 0.7 % 0.4 % 0.0 % Basophils (%) (Auto) 0.1 % 0.1 % 0.0 % Neutrophils # (Auto) 12.48 K/uL 16.94 K/uL 12.00 K/uL Lymphocytes # (Auto) 2.90 K/uL 1.73 K/uL 1.82 K/uL Monocytes # (Auto) 2.02 K/uL 1.07 K/uL 1.42 K/uL Eosinophils # (Auto) 0.12 K/uL 0.07 K/uL 0.00 K/uL Basophils # (Auto) 0.02 K/uL 0.01 K/uL 0.00 K/uL RDW Standard Deviation 42.6 fL 42.5 fL 43.2 fL RDW Coefficient of Variation 13.3 % 13.3 % 13.3 % Immature Granulocyte % (Auto) 0.5 % 0.5 % 0.3 % Immature Granulocyte # (Auto) 0.09 K/uL 0.09 K/uL 0.05 K/uL Urine Color ORANGE Urine Appearance CLEAR Urine pH Urine Specific [place] 1.014 Urine Protein Urine Glucose (UA) Urine Ketones Urine Occult Blood Urine Nitrite Urine Bilirubin Urine Urobilinogen Urine Leukocyte Esterase Urine RBC >30 /hpf Urine WBC >30 /hpf Urine Epithelial Cells 0-5 /lpf Urine Bacteria NEG Sodium Level 129 mmol/L 134 mmol/L 137 mmol/L Potassium Level 4.1 mmol/L 4.6 mmol/L 4.7 mmol/L Chloride Level 93 mmol/L 103 mmol/L 104 mmol/L Carbon Dioxide Level 25 mmol/L 25 mmol/L 28 mmol/L Anion Gap 11.0 mmol/L 18.0 mmol/L 6.0 mmol/L 5.0 mmol/L Blood Urea Nitrogen 34 mg/dl 33 mg/dl 16 mg/dl Creatinine 3.50 mg/dl 3.10 mg/dl 1.30 mg/dl Est Creatinine Clear Calc Drug Dose 25.9 ml/min 29.2 ml/min 69.7 ml/min Estimated GFR () 21.3 24.7 70.7 Estimated GFR (Non- 18.4 21.3 61.0 BUN/Creatinine Ratio 9.7 10.8 12.1 Random Glucose 118 mg/dl 137 mg/dl 118 mg/dl Calcium Level 9.2 mg/dl 7.9 mg/dl 8.8 mg/dl Total Bilirubin 1.9 mg/dl Direct Bilirubin 0.3 mg/dl Aspartate Amino Transf (AST/SGOT) 19 U/L Alanine Aminotransferase (ALT/SGPT) 52 U/L Alkaline Phosphatase 71 U/L Total Creatine Kinase 84 U/L Creatine Kinase MB 2.7 ng/ml Creatine Kinase MB Ratio 3.2 Troponin I < 0.015 ng/ml Total Protein 7.8 gm/dl Albumin 3.9 gm/dl Lipase 113 U/L Bedside Hemoglobin 17.7 g/dl Bedside Hematocrit 52 % Bedside Sodium 129 mEq/L Bedside Potassium 4.2 mEq/L Bedside Chloride 92 mEq/L Bedside Total CO2 25 mEq/l Bedside Blood Urea Nitrogen 36 mg/dl Bedside Creatinine 3.4 mg/dl Bedside Glucose (other) 122 mg/dl Bedside Ionized Calcium (Ethel) 1.14 mmol/l
[2017-04-28] MEDS ORDERED: MAGNESIUM HYDROXIDE SUSP 30 ML UDC PO PRN (09:00)
[2017-04-28] MEDS: SPIRONOLACTONE 25 MG TAB PO SCH (09:25)
[2017-04-28] MEDS: OXYBUTYNIN CHLORIDE 5 MG TABCR PO SCH (09:26)
[2017-04-28] MEDS: ASPIRIN 81 MG ECTAB PO SCH (09:29)
[2017-04-28] MEDS: ATORVASTATIN 40 MG TAB PO SCH (09:30)
[2017-04-28] MEDS: CLOPIDOGREL BISULFATE 75 MG TAB PO SCH (09:30)
[2017-04-28] MEDS ORDERED: NURSING VERBAL MED ORDER ONE (09:30)
[2017-04-28] MEDS: LISINOPRIL 2.5 MG TAB PO SCH (09:33)
[2017-04-28] MEDS: METOPROLOL SUCC 25MG EXT REL TAB PO SCH (09:33)
[2017-04-28] MEDS: OXYCODONE/ACETAMINOPHEN 5-325 TAB PO PRN ×2 (12:10→16:48)
[2017-04-28] MEDS: MoRPHine SULFATE 2 MG/ML CARP IV PRN ×2 (15:16→23:27)
[2017-04-28] MEDS: BELLADONNA/OPIUM SUPP 60 MG SUPP PR PRN (18:40)
[2017-04-28] MEDS ORDERED: PANTOprazole SOD 40 MG TAB PO SCH (21:00)
[2017-04-29] MEDS: BELLADONNA/OPIUM SUPP 60 MG SUPP PR PRN ×2 (00:50→07:13)
[2017-04-29] MEDS: OXYCODONE/ACETAMINOPHEN 5-325 TAB PO PRN ×2 (03:55→13:27)
[2017-04-29] MEDS: MoRPHine SULFATE 2 MG/ML CARP IV PRN (05:49)
[2017-04-29 06:59] VITALS: BP 134/94; PULSE 104; TEMP 36.6; O2SAT 92
[2017-04-29 08:00] VITALS: PULSE 90
[2017-04-29] MEDS: CLOPIDOGREL BISULFATE 75 MG TAB PO SCH (08:48)
[2017-04-29] MEDS: OXYBUTYNIN CHLORIDE 5 MG TABCR PO SCH (08:48)
[2017-04-29] MEDS: ASPIRIN 81 MG ECTAB PO SCH (08:49)
[2017-04-29] MEDS: METOPROLOL SUCC 25MG EXT REL TAB PO SCH (08:49)
[2017-04-29] MEDS: SPIRONOLACTONE 25 MG TAB PO SCH (08:49)
[2017-04-29] MEDS: LISINOPRIL 2.5 MG TAB PO SCH (08:49)
[2017-04-29] MEDS: ATORVASTATIN 40 MG TAB PO SCH (08:50)
[2017-04-29] MEDS ORDERED: NURSING VERBAL MED ORDER ONE ×4 (10:30→22:00)
[2017-04-29] MEDS ORDERED: PROMETHAZINE HCL INJ 25 MG in SODIUM CHLORIDE 0.9% 50ML 50 ML IV PRN ×2 (10:30→17:30)
--- NOTE | 2017-04-29 10:46 | Progress Note ---
Subjective Date of Service: Apr 29, 2017. Subjective Pt evaluation today including: conversation w/ patient Pain: Improved with B&O suppository PO Intake: Low desire for food. Has been belching and distended Patient POD2 s/p urgent bladder repair. Pain improved with medication. No BM since admission with low appetite. Patient has had some mild gas pains and belching. Also feels distended. Problem List Medical Problems: (1) Abdominal pain Status: Acute (2) Acute myocardial infarction of apical-lateral wall Status: Acute (3) Hypotension Status: Acute (4) Medication side effects Status: Acute (5) Perforation of bladder Status: Acute (6) Ventricular tachycardia Status: Acute Review of Systems All Other Systems: Reviewed and Negative (See HPI for pertinent positives and negatives. ) Objective Vital Signs Date Time Temp Pulse Resp B/P (MAP) Pulse Ox O2 Delivery O2 Flow Rate FiO2 04/29/17 08:00 90 04/29/17 06:59 36.6 104 17 134/94 (107) 92 Room Air 04/28/17 23:30 Room Air 04/28/17 23:15 36.9 97 18 140/93 (109) 94 Room Air 04/28/17 15:30 Room Air 04/28/17 14:56 37.4 85 18 144/87 (106) 93 Room Air 04/28/17 12:00 36.7 70 14 130/78 (95) 97 Nasal Cannula 2.0 Physical Exam General Appearance: WD/WN, no apparent distress Eyes: normal inspection ENT: normal ENT inspection Neck: no JVD Respiratory/Chest: no accessory muscle use Cardiovascular: regular rate, rhythm Abdomen: + distended Extremities: normal range of motion 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 Draining well with no clots. DONNIE#1 has scant serosang fluid. DONNIE#2 has approx 100cc of straw yellow serous fluid. Assessment and Plan 1POD 2 s/p Repair 2 Questionable development of Ileus 3 Abd pain Will monitor closely. Discussed ileus with patient and oral intake. Will take patient to clears and patient will hold back. Will continue IV hydration. Patient has been OOB, but not ambulating in mathur. encouraged walking and activity. Will monitor output. Continue all drains. Will have antiemetics PRN.
[2017-04-29 15:02] VITALS: BP 119/82; PULSE 97; TEMP 36.6; O2SAT 93
--- NOTE | 2017-04-29 18:26 | DIAGNOSTIC IMAGING REPORT ---
ABDOMINAL SERIES CLINICAL HISTORY: Vomiting stool. Status post exploratory laparotomy for bladder perforation. COMPARISON STUDY: CT of the abdomen and pelvis April 27, 2017. FINDINGS: Skin percy of the lower abdomen and a surgical drain are in place. There is no free air. There has been interval development of moderate dilatation of numerous small bowel loops, measuring up to 5.5 cm in caliber. The ascending colon and transverse colon are not collapsed. There is a paucity of gas within the descending colon, sigmoid colon and rectum. IMPRESSION: Interval development of moderate small bowel dilatation with gas within the ascending and transverse colon. Paucity of gas within the descending colon, sigmoid colon and rectum. Given recent surgery, the findings favor an ileus. A bowel obstruction could appear similar although is considered less likely. Electronically signed by: Alban Emmanuel M.D. 04/29/2017 6:25 PM Dictated Date/Time: 04/29/2017 6:18 PM
[2017-04-29] MEDS ORDERED: NURSING VERBAL MED ORDER SCH (19:00)
[2017-04-29] MEDS ORDERED: D5W AND 1/2NSS + 20MEQ KCL 1000 ML IV SCH (19:30)
[2017-04-29 20:19] LABS: HEMATOCRIT 51.5 % (42-52); MEAN CELL VOLUME 86.4 fL (80-100); MEAN CORPUSCULAR HGB CONC 33.6 g/dl (32-36); PLATELET COUNT 336 K/uL (130-400); RED BLOOD COUNT 5.96 M/uL (4.7-6.1); WHITE BLOOD COUNT 18.18 K/uL (4.8-10.8)
[2017-04-29] MEDS ORDERED: PIPERACILL/TAZOBAC CONSULT ACTIVE PRN (20:30)
[2017-04-29] MEDS ORDERED: PIPERACILL/TAZOBAC IV 3.375 GM in DEXTROSE 5% 100ML IV ONE (20:30)
--- NOTE | 2017-04-29 20:57 | DIAGNOSTIC IMAGING REPORT ---
ABDOMEN 2 VIEWS CLINICAL HISTORY: Confirm NG placement COMPARISON STUDY: Abdominal series performed April 29, 2017 5:39 PM. FINDINGS: Skin percy and surgical drains within the lower abdomen and pelvis are noted. The tip of the nasogastric tube is within the mid body of the stomach. There is no free air. Moderate small bowel dilatation persists. There is gas and stool within the ascending and transverse colon. IMPRESSION: 1. Tip of nasogastric tube within the body of the stomach. 2. No free air. 3. Persistent small bowel dilatation. Given recent surgery, the findings likely reflect an ileus although a bowel obstruction could appear similar. Electronically signed by: Alban Emmanuel M.D. 04/29/2017 8:56 PM Dictated Date/Time: 04/29/2017 8:55 PM
[2017-04-29 21:08] LABS: ALB/GLOB RATIO 0.8 (0.9-2); BUN/CREATININE RATIO 27.7 (10-20); CALCIUM 8.9 mg/dl (8.5-10.1); CREATININE 0.83 mg/dl (0.60-1.40); POTASSIUM 4.4 mmol/L (3.5-5.1)
[2017-04-29] MEDS ORDERED: BISACODYL 10 MG SUPP PR PRN (21:30)
[2017-04-29] MEDS: SODIUM CHLORIDE 0.9% 1000ML 1,000 ML IV SCH (21:57)
[2017-04-29] MEDS: PANTOprazole INJ 40 MG in SYRINGE 0 ML IV SCH (22:10)
[2017-04-29 23:00] VITALS: BP 100/64; PULSE 105; TEMP 36.4; O2SAT 93
[2017-04-30] MEDS: PIPERACILL/TAZOBAC IV 3.375 GM in DEXTROSE 5% 100ML 100 ML IV SCH ×3 (02:15→18:54)
[2017-04-30] MEDS: SODIUM CHLORIDE 0.9% 1000ML 1,000 ML IV SCH ×3 (05:29→21:35)
[2017-04-30 06:40] LABS: HEMATOCRIT 46.9 % (42-52); MEAN CORPUSCULAR HEMOGLOBIN 30.4 pg (25-34); MEAN PLATELET VOLUME 8.9 fL (7.4-10.4); PLATELET COUNT 313 K/uL (130-400); RED BLOOD COUNT 5.39 M/uL (4.7-6.1); WHITE BLOOD COUNT 14.22 K/uL (4.8-10.8)
[2017-04-30 06:52] VITALS: BP 120/77; PULSE 100; TEMP 36.7; O2SAT 93
--- NOTE | 2017-04-30 07:08 | Progress Note ---
Subjective Date of Service: Apr 30, 2017. Subjective Pt evaluation today including: conversation w/ patient, conversation w/ family Pain: Improved. Did not require pain meds since yesterday PO Intake: NPO with NG in place to intermittent suction Voiding: ortiz catheter in place Patient improved since NG placement. Developed significant ileus with N/V. NG in place confirmed on xray No flatus this AM. Amb yesterday AM. Tolerating Ice chips. Drain output decreased from JP1. Continued dark hematuria from ortiz. Problem List Medical Problems: (1) Abdominal pain Status: Acute (2) Acute myocardial infarction of apical-lateral wall Status: Acute (3) Hypotension Status: Acute (4) Medication side effects Status: Acute (5) Perforation of bladder Status: Acute (6) Ventricular tachycardia Status: Acute Review of Systems All Other Systems: Reviewed and Negative (All reviewed. Pertinent postives and negatives in HPI) Objective Vital Signs Date Time Temp Pulse Resp B/P (MAP) Pulse Ox O2 Delivery O2 Flow Rate FiO2 04/30/17 06:52 36.7 100 16 120/77 (91) 93 Room Air 04/30/17 00:05 Room Air 04/29/17 23:00 36.4 105 18 100/64 (76) 93 Room Air 04/29/17 16:00 Room Air 04/29/17 15:02 36.6 97 16 119/82 (94) 93 Room Air 04/29/17 08:00 90 04/29/17 07:35 Room Air 04/29/17 06:59 36.6 104 17 134/94 (107) 92 Room Air Physical Exam General Appearance: WD/WN, no apparent distress Eyes: normal inspection ENT: normal ENT inspection (NG in place draining dark bilious fluid) Neck: no JVD Respiratory/Chest: no respiratory distress, no accessory muscle use Cardiovascular: regular rate, rhythm Abdomen: + distended (distension less since yesterday NG placement) Extremities: normal range of motion 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 Decreased overnight. DONNIE Left - scant serosang fluid 50cc overnight Ortiz - dark red urine with mild clot. draining well. Laboratory Results Last 24 Hours Test 04/29/17 19:58 04/30/17 06:02 White Blood Count 18.18 K/uL 14.22 K/uL Red Blood Count 5.96 M/uL 5.39 M/uL Hemoglobin 17.3 g/dL 16.4 g/dL Hematocrit 51.5 % 46.9 % Mean Corpuscular Volume 86.4 fL 87.0 fL Mean Corpuscular Hemoglobin 29.0 pg 30.4 pg Mean Corpuscular Hemoglobin Concent 33.6 g/dl 35.0 g/dl RDW Standard Deviation 41.9 fL 42.9 fL RDW Coefficient of Variation 13.2 % 13.5 % Platelet Count 336 K/uL 313 K/uL Mean Platelet Volume 9.0 fL 8.9 fL Sodium Level 129 mmol/L Potassium Level 4.4 mmol/L Chloride Level 95 mmol/L Carbon Dioxide Level 27 mmol/L Anion Gap 7.0 mmol/L Blood Urea Nitrogen 23 mg/dl Creatinine 0.83 mg/dl Est Creatinine Clear Calc Drug Dose 109.1 ml/min Estimated GFR () 114.0 Estimated GFR (Non- 98.4 BUN/Creatinine Ratio 27.7 Random Glucose 143 mg/dl Calcium Level 8.9 mg/dl Total Bilirubin 0.9 mg/dl Aspartate Amino Transf (AST/SGOT) 17 U/L Alanine Aminotransferase (ALT/SGPT) 31 U/L Alkaline Phosphatase 57 U/L Total Protein 6.8 gm/dl Albumin 3.0 gm/dl Globulin 3.8 gm/dl Albumin/Globulin Ratio 0.8 Assessment and Plan 1POD 2 s/p Repair 2 Ileus 3 Abd pain, improved NPO except ice chips and meds. NG in place to intermittent low suction. Tolerating well. Patient to ambulate today. monitor for flatus or bowel function. Long discussion of monitoring and observation. Medications as need, but avoiding narcotics and anticholenergics as possible. Discussed need for ambulation. Continued management with drains and ortiz. Decreased output from right DONNIE drain, which had been increased. Continued minimal drainage from Left DONNIE. Patient pain and distension significantly improved. Will monitor closely and await return of bowel function. Continued [facility] stay due to: other (Ileus development)
[2017-04-30 07:20] LABS: BUN/CREATININE RATIO 25.7 (10-20); CALCIUM 8.7 mg/dl (8.5-10.1); CREATININE 0.95 mg/dl (0.60-1.40); POTASSIUM 4.2 mmol/L (3.5-5.1)
[2017-04-30] MEDS ORDERED: NURSING VERBAL MED ORDER ONE (08:00)
[2017-04-30] MEDS: OXYBUTYNIN CHLORIDE 5 MG TABCR PO SCH (09:00)
[2017-04-30] MEDS: SPIRONOLACTONE 25 MG TAB PO SCH (09:00)
[2017-04-30] MEDS: ATORVASTATIN 40 MG TAB PO SCH (09:00)
[2017-04-30] MEDS: LISINOPRIL 2.5 MG TAB PO SCH (09:00)
[2017-04-30] MEDS: ASPIRIN 81 MG ECTAB PO SCH (09:00)
[2017-04-30] MEDS: PANTOprazole INJ 40 MG in SYRINGE 0 ML IV SCH (11:21)
[2017-04-30] MEDS: METOPROLOL SUCC 25MG EXT REL TAB PO SCH (12:57)
[2017-04-30] MEDS: CLOPIDOGREL BISULFATE 75 MG TAB PO SCH (12:57)
[2017-04-30 14:50] VITALS: BP 114/74; PULSE 96; TEMP 36.7; O2SAT 94
--- NOTE | 2017-04-30 16:16 | CARDIOLOGY CONSULTATION ---
DATE OF CONSULTATION: 04/30/2017 PERTINENT HISTORY: Mr. Fitzpatrick is a 56-year-old male admitted on 04/27/2017 for an emergent surgery because of a perforated bladder. This consultation was ordered to assist in his management. Of note, he typically follows with Dr. Schofield in our office. The patient was in his usual state of health until 04/25/2017 when he underwent transurethral resection of a bladder tumor. Unfortunately, following the surgery, the patient became quite ill, had abdominal distention and minimal urine output. It was discovered that he had a perforated bladder he was emergently taken to the operating room on 04/27/2017 for exploratory laparotomy and closure of an iatrogenic perforated bladder. There have been no cardiac issues during the patient's postoperative period. He was restarted on his cardiac medications today. The patient's cardiac history began on 01/04/2017 when he was admitted to this institution with an acute anterior myocardial infarction, complicated by sudden cardiac . Dr. Schofield placed a 2.75 x 18 mm Resolute drug-eluting stent in the mid LAD. Other disease included a 30% proximal LAD, 20% distal LAD, 70% distal right coronary, 30% mid right coronary, and 30% obtuse marginal branch stenosis. The patient also carries a history of ischemic cardiomyopathy. Ejection fraction on an echocardiogram performed in February 2017 ejection fraction of 40-45% with an anteroapical wall motion abnormality. The patient participated in cardiac rehabilitation following his event. He has done well since that time and has not experienced any exertional anginal pectoris or limiting dyspnea. He further denies syncope, presyncope, PND, orthopnea, palpitations, lower extremity edema, and claudication. PAST MEDICAL HISTORY: 1. Coronary artery disease - see above. 2. Acute anterior myocardial infarction with sudden cardiac - 12/2016. 3. Drug-eluting stent in the mid LAD - 12/2016. 4. Hypertension. 5. Hypercholesterolemia. 6. Left ventricular hypertrophy. 7. GERD. 8. Ischemic cardiomyopathy - 40-45%. 9. BPH. 10. Nephrolithiasis. 11. Tonsillectomy. 12. Inguinal hernia repair. MEDICATIONS: 1. Toprol-XL 25 mg b.i.d. 2. Zestril 2.5 mg daily. 3. Spironolactone 25 mg daily. 4. Aspirin 81 mg per day. 5. Plavix 75 mg per day. 6. Lipitor 80 mg at bedtime. 7. Ditropan XL 5 mg daily. 8. Piperacillin/tazobactam 3.375 g IV q. 8 hours. 9. Protonix 40 mg IV daily. ALLERGIES: None. SOCIAL HISTORY: The patient is and lives with his and children. 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 Admits to chewing smokeless tobacco. Does not use alcohol. FAMILY HISTORY: Father had bypass surgery performed at the age of 49. Another brother had an SC at age 42. REVIEW OF SYSTEMS: A 10-point review of systems is negative except for that described above. PHYSICAL EXAMINATION: GENERAL: This is a well-developed, well-nourished, white male lying supine in bed without complaints. VITAL SIGNS: Blood pressure 120/77 with a regular pulse of 90. Respiratory rate is 16. The patient is afebrile at 36.7 degrees Celsius. Saturation is 93% on room air. HEENT: Significant for an NG tube in place. NECK: Supple with full carotid upstrokes. No carotid bruits. Jugular venous pressure is flat at 90 degrees. There is no thyromegaly. CARDIOVASCULAR: Reveals a regular rhythm with normal S1 and S2. No S3, S4, or murmurs are noted. LUNGS: Clear without rales, rhonchi, or wheezes. ABDOMEN: Soft with is a dressing across the lower abdomen. EXTREMITIES: Reveal intact radial artery and posterior tibial pulses bilaterally. There is no peripheral edema. LABORATORY DATA: CBC notes hemoglobin of 16.4, hematocrit 46.9, white count 14.2, and platelet count 313,000. Electrolytes note a sodium of 130, potassium 4.2, chloride 95, bicarbonate 27, BUN 24, creatinine 0.95, and glucose 132. EKG notes a subacute pattern of anteroseptal myocardial infarction. Chest x-ray shows no acute disease. IMPRESSION: Mr. Fitzpatrick is recovering well from his emergent surgical procedure. There have been no cardiac issues, and he is now back on his usual cardiac medications. PLAN: 1. Agree with restarting all cardiac medications. 2. Follow laboratories closely as you are. 3. Further recommendation pending on his clinical course. SHONNA
[2017-04-30 23:17] VITALS: BP 102/67; PULSE 85; TEMP 36.9; O2SAT 93
[2017-05-01] MEDS: PIPERACILL/TAZOBAC IV 3.375 GM in DEXTROSE 5% 100ML 100 ML IV SCH ×2 (02:06→10:07)
[2017-05-01] MEDS: SODIUM CHLORIDE 0.9% 1000ML 1,000 ML IV SCH ×3 (05:21→21:25)
[2017-05-01 06:46] VITALS: BP 108/66; PULSE 81; TEMP 36.8; O2SAT 92
--- NOTE | 2017-05-01 08:20 | Progress Note ---
Subjective Date of Service: May 01, 2017. Subjective Pt evaluation today including: conversation w/ patient, physical exam, chart review, lab review Voiding: ortiz catheter in place Doing ok overall - maintaining a good demeanor - NG in place - bowel movement this AM - no abdominal pain Problem List Medical Problems: (1) Abdominal pain Status: Acute (2) Acute myocardial infarction of apical-lateral wall Status: Acute (3) Hypotension Status: Acute (4) Medication side effects Status: Acute (5) Perforation of bladder Status: Acute (6) Ventricular tachycardia Status: Acute Review of Systems Constitutional: No see HPI, No fever, No chills, No sweats, No weight loss, No weakness, No fatigue, No problem reported Eyes: No see HPI, No worsening of vision, No eye pain, No redness, No discharge , No diplopia, No problem reported ENT: No see HPI, No hearing loss, No unusual epistaxis, No nasal symptoms, No sore throat, No tinnitus, No dental problems, No trouble swallowing, No problem reported Respiratory: No see HPI, No cough, No sputum, No wheezing, No shortness of breath, No dyspnea on exertion, No dyspnea at rest, No hemoptysis, No problem reported Abdomen: No pain, No nausea Male : + hematuria Neurologic: No see HPI, No memory loss, No paralysis, No weakness, No numbness/ tingling, No vertigo, No balance problems, No problem reported Psychiatric: No see HPI, No depression symptoms, No anhedonism, No anxiety, No insomnia, No substance abuse, No problem reported Objective Vital Signs Date Time Temp Pulse Resp B/P (MAP) Pulse Ox O2 Delivery O2 Flow Rate FiO2 05/01/17 06:46 36.8 81 18 108/66 (80) 92 Room Air 04/30/17 23:50 Room Air 04/30/17 23:17 36.9 85 18 102/67 (79) 93 Room Air 04/30/17 19:35 Room Air 04/30/17 14:50 36.7 96 18 114/74 (87) 94 Room Air Physical Exam General Appearance: no apparent distress (NG in place; moderately uncomfortable appearing) Eyes: normal inspection ENT: hearing grossly normal Neck: no adenopathy Respiratory/Chest: no respiratory distress, no accessory muscle use Cardiovascular: regular rate, rhythm Abdomen: soft (no rebound, no guarding - NG with dark/output; incision without evidence of infection. Drains - serosang) Extremities: normal inspection, no pedal edema Neurologic/Psychiatric: alert, normal mood/affect, oriented x 3 Skin: warm/dry Lymphatic: no adenopathy Assessment and Plan s/p open bladder repair - ng in place after severe nausea/vomiting over the weekend - BM this AM - try to clamp NG tube now - if he tolerates this well through the morning - pull tube later today - DONNIE outputs decreasing appropriately - potential drain removal tomorrow morning - ortiz for several more days (modest hematuria now) - will check cystogram prior to removal Continued [facility] stay due to: other (Ileus development)
[2017-05-01] MEDS: ASPIRIN 81 MG ECTAB PO SCH (08:32)
[2017-05-01] MEDS: ATORVASTATIN 40 MG TAB PO SCH (08:32)
[2017-05-01] MEDS: LISINOPRIL 2.5 MG TAB PO SCH (08:33)
[2017-05-01] MEDS: CLOPIDOGREL BISULFATE 75 MG TAB PO SCH (08:33)
[2017-05-01] MEDS: OXYBUTYNIN CHLORIDE 5 MG TABCR PO SCH (08:33)
[2017-05-01] MEDS: METOPROLOL SUCC 25MG EXT REL TAB PO SCH (08:33)
[2017-05-01] MEDS: SPIRONOLACTONE 25 MG TAB PO SCH (08:34)
--- NOTE | 2017-05-01 10:33 | PROGRESS NOTE ---
DATE: 05/01/2017 HISTORY: The patient was seen in his surgical unit room today. He is lying in bed. No distress. He denies any chest pain or other anginal-type pains. No dyspnea, orthopnea, or PND. No palpitations, lightheadedness, syncope, or leg pain. He had 2 bowel movements since yesterday. He has mild abdominal discomfort. His appetite is improving. He tolerated clear liquids this morning well. No nausea. His NG tube is now clamped. CURRENT MEDICATIONS: Piperacillin/tazobactam 3.375 g IV q. 8 hours, pantoprazole 40 mg IV daily, aspirin 81 mg daily, atorvastatin 80 mg daily, clopidogrel 75 mg daily, lisinopril 2.5 mg daily, metoprolol succinate ER 25 mg daily, spironolactone 25 mg daily, oxybutynin 5 mg daily, and several p.r.n. medications. ALLERGIES AND ADVERSE DRUG REACTIONS: None. PHYSICAL EXAMINATION: GENERAL: The patient is lying in his bed. No distress. VITAL SIGNS: Oral temperature this morning 36.8, pulse 81, blood pressure 108/66, and pulse oximetry on room air 92%. NECK: No jugular venous distention. LUNGS: Normal respiratory effort. Clear. No rales or wheezes. HEART: Regular rate and rhythm. S1 and S2 normal. No S3 or S4. No murmur or rub. ABDOMEN: Weak bowel sounds. Mild tenderness. EXTREMITIES: No pretibial edema. No calf tenderness. NEUROLOGIC: Alert and oriented x3. Motor grossly intact. PSYCHIATRIC: Affect is normal. LABORATORY DATA: No new labs today. Yesterday, BUN was 24 and creatinine 0.95. Yesterday, hemoglobin was 16.4 with hematocrit of 46.9. ASSESSMENT: 1. Status post exploratory laparotomy, bladder repair, and peritoneal drainage in April 27. Performed for bladder perforation. This occurred at the site of prior transurethral resection of a bladder tumor. 2. History of coronary artery disease, status post acute anterior myocardial infarction, 01/04/2017. Initial presentation complicated by cardiac arrest. Successful resuscitation. Subsequent 2.75 x 18 mm drug-eluting stent in the mid LAD. No other significant coronary artery disease other than a 70% distal right coronary artery stenosis. Left ventricular ejection fraction on echocardiogram, February 2017 with the EF 40%-45%. Anteroapical wall motion abnormality. The patient is doing well from a cardiac standpoint since his interventional procedure. No anginal-type symptoms. No signs or symptoms of congestive heart failure or arrhythmia. 3. Blood pressure and heart rate well controlled. RECOMMENDATIONS: 1. Continue current cardiac medications. 2. Continue dual antiplatelet therapy. I feel, he should be on dual antiplatelet therapy for at least 1 year following his acute event in December. 3. Resume cardiac rehabilitation when he has recovered from his recent surgical procedure. We will leave this up to urology when he can return to perform in cardiac rehab. Cardiac rehabilitation involves treadmill exercise as well as light weight lifting.
[2017-05-01] MEDS: PANTOprazole INJ 40 MG in SYRINGE 0 ML IV SCH (11:18)
[2017-05-01 15:28] VITALS: BP 98/63; PULSE 81; TEMP 36.9; O2SAT 92
[2017-05-01 23:50] VITALS: BP 108/63; PULSE 72; TEMP 36.8; O2SAT 94
[2017-05-02] MEDS: SODIUM CHLORIDE 0.9% 1000ML 1,000 ML IV SCH ×2 (04:45→14:00)
[2017-05-02 07:46] VITALS: BP 130/72; PULSE 76; TEMP 36.7; O2SAT 95
[2017-05-02 07:50] VITALS: O2SAT 95
--- NOTE | 2017-05-02 08:16 | Progress Note ---
Subjective Date of Service: May 02, 2017. (Anne Marie Underwood CRNP) Subjective Pt evaluation today including: conversation w/ patient, chart review, lab review Voiding: ortiz catheter in place (patent, draining dark bills colored urine ) 56 yo male s/p ex lap and bladder repair. Clinical course complicated with post-op ileus. Pt has had several BMs since yesterday. Denies n/v. Tolerating full liquids. Cr has normalized since surgery. White count remains elevated at 14.22. I&Os acceptable. DONNIE output trending down. (Anne Marie Underwood CRNP) Problem List Medical Problems: (1) Abdominal pain Status: Acute (2) Acute myocardial infarction of apical-lateral wall Status: Acute (3) Hypotension Status: Acute (4) Medication side effects Status: Acute (5) Perforation of bladder Status: Acute (6) Ventricular tachycardia Status: Acute (Anne Marie Underwood CRNP) Review of Systems Constitutional: No fever, No chills Respiratory: No shortness of breath Cardiac: No chest pain Abdomen: No pain, No nausea, No vomiting Male : + hematuria Heme: No abnormal bleeding/bruising (Anne Marie Underwood CRNP) Objective Vital Signs Date Time Temp Pulse Resp B/P (MAP) Pulse Ox O2 Delivery O2 Flow Rate FiO2 05/02/17 07:50 95 Room Air 05/02/17 07:46 36.7 76 14 130/72 (91) 95 Room Air 05/02/17 00:30 Room Air 05/01/17 23:50 36.8 72 16 108/63 (78) 94 Room Air 05/01/17 15:30 Room Air 05/01/17 15:28 36.9 81 18 98/63 (75) 92 Room Air 05/01/17 08:30 Room Air (Anne Marie Underwood CRNP) Physical Exam General Appearance: no apparent distress Eyes: normal inspection ENT: hearing grossly normal Neck: no JVD Respiratory/Chest: no respiratory distress, no accessory muscle use Cardiovascular: no JVD Abdomen: + pertinent finding (abdominal incision c/d/i; JPs draining serosanguinous fluid) Extremities: normal inspection Neurologic/Psychiatric: alert, normal mood/affect, oriented x 3 Skin: normal color (Anne Marie Underwood CRNP) Assessment and Plan POD #5 s/p ex lap with bladder repair AFVSS. Pt clinically improving. Will try advancing to a soft mechanical diet today as tolerated. Encourage ambulation to hallway. Continue ASA and Plavix per cardiology. Will resume cardiac rehab as an outpatient when able; hopefully 3-4 weeks. Possible drain removal and d/c home later this afternoon once seen by Dr. Jorgensen if the pt continues to do well. Continued [facility] stay due to: other (Ileus development) (Anne Marie Underwood CRNP) Addendum: Clinically improving. Tolerated a solid diet this morning. Drain outputs appropriate. Plan for drain removal this a.m. Continue ambulation. If all goes well home after lunch, with Ortiz catheter. (Rick Jorgensen
[2017-05-02] MEDS ORDERED: DOCU-94 PO (08:22)
[2017-05-02] MEDS ORDERED: DTRSR5 PO (08:22)
[2017-05-02] MEDS ORDERED: HYDR-5688 PO (08:22)
[2017-05-02] MEDS ORDERED: CIPR-255 PO (08:22)
--- NOTE | 2017-05-02 08:24 | Discharge Instructions ---
Discharge Instructions Date of Service May 02, 2017. Admission Reason for Admission: Perforation Of Bladder Discharge Discharge Diagnosis / Problem: Perforation of Bladder Discharge Goals Goal(s): Decrease discomfort, Increase independence, Improve disease control, Improve nutritional status, Therapeutic intervention Activity Recommendations Activity Limitations: as noted below Lifting Limitations: no more than 25 pounds (x 6 weeks) Exercise/Sports Limitations: until after follow-up appointment (Light activity x 4-6 weeks) May Resume Sexual Activity: after follow-up appointment (when cleared by Dr. Jorgensen) Shower/Bathe: tomorrow Driving or Machine Use: Do not drive x [address] while taking narcotics. . Current Hospital Diet Hospital Diet(s): Regular Diet Discharge Diet Recommended Diet: Regular Diet Procedures Procedures Performed: Exploratory Laparotomy, Bladder repair, peritoneal drainage Pending Studies Studies pending at discharge: no Laboratory Results Lipid Panel Test 02/14/17 14:55 Range/Units Triglycerides Level 80 0-150 mg/dl Cholesterol Level 88 0-200 mg/dl HDL Cholesterol 34 mg/dl Cholesterol/HDL Ratio 2.6 LDL Cholesterol, Calculated 38 mg/dl Medical Emergencies . Who to Call and When: Medical Emergencies: If at any time you feel your situation is an emergency, please call 911 immediately. . Non-Emergent Contact Non-Emergency issues call your: Urologist Call Non-Emergent contact if: temperature is above 101.5, your pain is not controlled, your pain is worsening, your pain is unusual for you, your pain is concerning you, you have any medication questions . . "Provider Documentation" section prepared by Anne Marie Underwood. . VTE Core Measure Inpt VTE Proph given/why not?: Other Anticoagulation, SCD's [place] Drug Monitoring Program Search Results: patient reviewed within database, no issues identified
[2017-05-02] MEDS: SPIRONOLACTONE 25 MG TAB PO SCH (08:31)
[2017-05-02] MEDS: OXYBUTYNIN CHLORIDE 5 MG TABCR PO SCH (08:31)
[2017-05-02] MEDS: ATORVASTATIN 40 MG TAB PO SCH (08:33)
[2017-05-02] MEDS: ASPIRIN 81 MG ECTAB PO SCH (08:33)
[2017-05-02] MEDS: METOPROLOL SUCC 25MG EXT REL TAB PO SCH (08:40)
[2017-05-02] MEDS: LISINOPRIL 2.5 MG TAB PO SCH (08:41)
[2017-05-02] MEDS: CLOPIDOGREL BISULFATE 75 MG TAB PO SCH (08:45)
[2017-05-02] MEDS: PANTOprazole INJ 40 MG in SYRINGE 0 ML IV SCH (10:40)
--- NOTE | 2017-05-02 11:56 | Progress Note ---
Progress Note Date of Service May 02, 2017. Progress Note Pt continues to do relatively well after his drain removal. No pain Some flatus. Has not yet ambulated. Plan for ambulation now. If he tolerates lunch and feels well - I will offer d/c home today.
[2017-05-02 12:16] VITALS: BP 130/72; PULSE 76; TEMP 36.7; O2SAT 95
--- NOTE | 2017-05-11 09:07 | Discharge Summary ---
Discharge Summary Date of Service May 11, 2017. Discharge Summary Admission Date: Apr 27, 2017 at 21:41 Discharge Date: May 02, 2017 Discharge Disposition: Home Principal Diagnosis: Bladder perforation Secondary Diagnoses/Problems: Bladder cancer Procedures: Exploratory laparotomy with repair of bladder Consultations: Cardiology Medication Reconciliation New Medications: Docusate Sodium (Colace) 100 Mg Cap 1 CAP PO BID PRN for Constipation for 30 Days, #60 CAP Oxybutynin Chloride (Oxybutynin Chloride ER) 5 Mg Tabcr 5 MG PO BID PRN for bladder spasms, #20 0 Refills Continued Medications: Aspirin (Aspirin Ec) 81 Mg Tab 81 MG PO QAM Atorvastatin (Lipitor) 80 Mg Tab 80 MG PO QAM, TAB Ciprofloxacin Hcl (Cipro) 500 Mg Tab 500 MG PO BID, #14 TAB 0 Refills (This prescription has been renewed) Clopidogrel (Plavix) 75 Mg Tab 75 MG PO QAM, TAB Hydrocodone/Acetaminophen 5MG/325MG ([place] 5MG/325MG) Tab 2 TABLETS PO Q6 PRN for Pain, #30 TAB 0 Refills (This prescription has been renewed) Lansoprazole (Prevacid) 30 Mg Capcr 30 MG PO QPM, CAP Lisinopril (Zestril) 5 Mg Tab 2.5 MG PO QAM, TAB Metoprolol Succ (Toprol Xl) (Toprol-Xl) 25 Mg Tabcr 25 MG PO QAM, #30 TAB Nitroglycerin (Nitrostat) 0.4 Mg Tab 0.4 MG UT PRN, BTL Spironolactone (Aldactone) 25 Mg Tab 25 MG PO QAM, TAB Hospital Course Dion Fitzpatrick presented to the emergency room with acute discomfort 48 hours after recent TURBT. He was found have a perforated bladder at that time with urinary ascites - and CT imaging concerning for a combined intra an extraperitoneal bladder perforation. He was subsequently taken to the operating room for exploration and closure. Details of the procedure as dictated previously in operative report however in summary tolerated the procedure well and had adequate closure. He was sent to the floor with [address] 1 in the intraperitoneal cavity and 1 in the extraperitoneal space. He additionally had a Uriostegui catheter in place. He progressed well for the 1st 24 hours after the surgery, but then began to develop abdominal bloating and nausea and vomiting. An NG tube placed secondary to this postoperative ileus, this relieved his symptoms and over the course of the next 24-48 hours he had good improvement in his overall being. Laboratory examinations remain normal. His NG tube was removed 24 hours prior to her discharge home. He was gradually advanced on a diet, which he tolerated well. He was ambulatory, his drains were removed with exception of the Uriostegui catheter , and he was in stable condition for discharge home on May 02, 2017. He remained on his Plavix throughout with stable hemoglobin/hematocrit. Total time spent on discharge = This includes examination of the patient, discharge planning, medication reconciliation, and communication with other providers. Discharge Instructions Please see previously written discharge instructions
== END 2017-05-02 15:14 | disposition home or self-care (01) | DRG 908 ==
LOC: C.EDB 16:50 → C.MSW 21:41 → ENRESERV 22:07 → C.MSW 04-29 20:33
PROVIDERS: ADMIT Urology; ATTEND Urology
PROC: 0TBB8ZZ Excision of Bladder, Via Natural or Artificial Opening Endoscopic (ICD-10-PCS; 2017-04-25)
PROC: 0TQB0ZZ Repair Bladder, Open Approach (ICD-10-PCS; principal; 2017-04-27 19:30)
PROC: 0D9W00Z Drainage of Peritoneum with Drainage Device, Open Approach (ICD-10-PCS; principal; 2017-04-27 19:30)
DX: N99.71 Accidental puncture and laceration of a genitourinary system organ or structure during a genitourinary system procedure (principal); S37.29XA Other injury of bladder, initial encounter; R18.8 Other ascites; K91.3 Postprocedural intestinal obstruction; I25.2 Old myocardial infarction; I10 Essential (primary) hypertension; Z79.82 Long term (current) use of aspirin; I25.5 Ischemic cardiomyopathy; I25.10 Atherosclerotic heart disease of native coronary artery without angina pectoris; E78.5 Hyperlipidemia, unspecified; K21.9 Gastro-esophageal reflux disease without esophagitis; Z87.891 Personal history of nicotine dependence; Y83.8 Other surgical procedures as the cause of abnormal reaction of the patient, or of later complication, without mention of misadventure at the time of the procedure; Y92.234 Operating room of hospital as the place of occurrence of the external cause; Z83.3 Family history of diabetes mellitus; C67.9 Malignant neoplasm of bladder, unspecified; N40.0 Benign prostatic hyperplasia without lower urinary tract symptoms; R31.0 Gross hematuria; Z85.828 Personal history of other malignant neoplasm of skin; Z80.8 Family history of malignant neoplasm of other organs or systems; Z83.49 Family history of other endocrine, nutritional and metabolic diseases; Z82.49 Family history of ischemic heart disease and other diseases of the circulatory system; Z79.899 Other long term (current) drug therapy

== ENCOUNTER → 2017-05-10 | Outpatient (CLI) | payer BC ==
[~2017-05-10] MED LIST changes: +DOCU-94 PO; +DTRSR5 PO; +FLM4 PO; -PHEN-775 PO
--- NOTE | 2017-05-10 12:07 | DIAGNOSTIC IMAGING REPORT ---
Radiology CYSTOGRAM CLINICAL HISTORY: 56 years-old Male presenting with intraoperative bladder injury. TECHNIQUE: Video fluoroscopic evaluation of the bladder was performed with injection of 250 mL of Cysto-Conray contrast. 9 fluoroscopic spot image(s) were obtained during the dynamic evaluation. Pre and post void imaging was obtained. COMPARISON: CT from 04/27/2017. FINDINGS/IMPRESSION: Midline surgical percy in place. The bladder fills normally without evidence of leak, wall irregularity, or diverticular outpouching. No apparent intraluminal filling defect apart from the Uriostegui catheter. The bladder distends normally. No reflux into the distal ureters. Post void imaging demonstrates complete bladder emptying. Please see surgical report for further details. Fluoroscopy dosage (mGy): Not available. Fluoroscopy time: 1.3 minutes. Number of fluoroscopic spot images: 9. Electronically signed by: Damian Lechuga M.D. 05/10/2017 12:06 PM Dictated Date/Time: 05/10/2017 12:03 PM
== END | disposition home or self-care (01) ==
LOC: C.RAD 11:40
PROVIDERS: ATTEND Urology
DX: N99.81 Other intraoperative complications of genitourinary system (principal); Y84.9 Medical procedure, unspecified as the cause of abnormal reaction of the patient, or of later complication, without mention of misadventure at the time of the procedure

== ENCOUNTER 2017-05-24 17:53 | Inpatient (IN) | payer BC ==
[~2017-05-24] VITALS: Ht 182.9 cm; Wt 78.3 kg
[~2017-05-24 17:53] MED LIST changes: -FLM4 PO
--- NOTE | 2017-05-24 18:24 | EMERGENCY ROOM VISIT NOTE ---
History Report prepared by Chris: Becca Nuno Under the Supervision of: Dr. Cole Burr M.D. First contact with patient: 18:03 Chief Complaint: URINARY SYMPTOMS Stated Complaint: BLADDER BLEEDING, BLOOD CLOTS History of Present Illness The patient is a 56 year old male who presents to the Emergency Room with complaints of blood clots in his urine starting yesterday. The patient notes that he had a bladder tumor removed on April 25 and went home with Uriostegui catheter post surgery. The patient when to Dr. Jorgensen-Urology to get his Uriostegui removed on April 26 and his bladder ruptured. He was seen in the ED April 27 and his stomach was swollen and filled with urine. The patient had surgery on April 27 to repair his bladder. Yesterday morning, the patient had blood in his urine. Last night, the patient started to have blood clots in urine and was unable to urinate today. The patient was referred to the ED today by his PCP. The patient called EMS, and just prior to their arrival his blood clots broke loose and he was able to urinate. He denies any fevers or nausea. He notes some pain when peeing. The patient is on Plavix for heart attack and he has a stent in place. Source of History: patient, family, treating provider, spouse/significant other Onset: yesterday Timing: constant Associated Symptoms: + urinary symptoms, No fevers, No nausea Review of Systems See HPI for pertinent positives & negatives. A total of 10 systems reviewed and were otherwise negative. Past Medical & Surgical Medical Problems: (1) Acute PA, anterior wall (2) Bladder outlet obstruction (3) Hematuria (4) HTN (hypertension) (5) Kidney stones Old medical records were reviewed. Nurse's notes were reviewed and I agree with. Family History Cancer Diabetes mellitus Heart disease Hypertension Kidney stones Social History Smoking Status: Never Smoker Alcohol Use: none Drug Use: none Marital Status: Housing Status: lives with family Occupation Status: employed Current/Historical Medications Scheduled Aspirin (Aspirin Ec), 81 MG PO QAM Atorvastatin (Lipitor), 80 MG PO QAM Clopidogrel (Plavix), 75 MG PO QAM Lansoprazole (Prevacid), 30 MG PO QPM Lisinopril (Zestril), 2.5 MG PO QAM Metoprolol Succ (Toprol Xl) (Toprol-Xl), 25 MG PO QAM Nitroglycerin (Nitrostat), 0.4 MG UT PRN Spironolactone (Aldactone), 25 MG PO QAM Scheduled PRN Docusate Sodium (Colace), 1 CAP PO BID PRN for Constipation Allergies Coded Allergies: No Known Allergies (Unverified , 05/24/17) Physical Exam Vital Signs Date Time Temp Pulse Resp B/P (MAP) Pulse Ox O2 Delivery O2 Flow Rate FiO2 05/24/17 20:41 117 20 174/68 98 Room Air 05/24/17 18:00 36.6 81 18 106/72 97 Room Air Physical Exam General: Well developed well appearing middle aged male in no acute distress, breathing comfortably on room air. Normal speech HEENT: Normal cephalic atraumatic. Pupils are equal round and reactive to light. Extraocular movements are intact. Oropharynx is pink with moist mucous membranes. No swelling of the mouth lips or tongue. Neck: Supple with a midline trachea. No meningeal signs or stiffness, no JVD or bruits. No Stridor. Chest: Clear to auscultation bilaterally. No wheezes or rhonchi. No increased work of breathing. Heart: regular rate and rhythm. Abdomen: Soft nontender, nondistended without rebound guarding or rigidity. Well healing Suprapubic incision no erythema or warmth. Small blood at meatus. Extremities: No cyanosis clubbing or edema. No calf tenderness or assymetry Spine/Back. Non tender to palpation. No CVA tenderness Skin: Good turgor without rashes. Neurologic exam: Cranial nerves two through 12 are intact. Motor and sensation are intact and symmetrical throughout. Medical Decision & Procedures ER Provider Diagnostic Interpretation: Radiology results as stated below per my review and radiologist interpretation: CT OF THE ABDOMEN AND PELVIS WITHOUT CONTRAST, STONE PROTOCOL FINDINGS: No renal, ureteral or bladder calculi are present. There is no hydronephrosis or hydroureter. A Uriostegui balloon is noted within the bladder as well as a small amount of gas. A 6.5 x 5 cm hyperdensity within the left posterior aspect of the bladder reflects a blood clot. Evaluation for an underlying lesion is suboptimal on this unenhanced exam but no definite lesion is noted. There is mild bladder wall thickening. There is minimal adjacent infiltration. Postsurgical findings consistent with a recent laparotomy are noted. There is minimal infiltration within the operative bed without fluid collection to suggest hematoma or abscess. There is no significant ascites. There is no bowel obstruction. No lymphadenopathy is present. There are no suspicious osseous lesions. IMPRESSION: 1. 6.5 x 5 cm blood clot within the left posterior aspect of the bladder. Mild bladder wall thickening and minimal adjacent infiltration which may be postsurgical. Uriostegui balloon within the bladder. 2. No hydronephrosis. No urinary calculi. Electronically signed by: Alban Emmanuel M.D. Laboratory Results 05/24/17 18:28 Red Blood Count 4.73, Mean Corpuscular Volume 89.0, Mean Corpuscular Hemoglobin 29.2, Mean Corpuscular Hemoglobin Concent 32.8, Mean Platelet Volume 8.8, Neutrophils (%) (Auto) 53.4, Lymphocytes (%) (Auto) 30.2, Monocytes (%) (Auto) 12.7, Eosinophils (%) (Auto) 3.1, Basophils (%) (Auto) 0.2, Neutrophils # (Auto ) 5.27, Lymphocytes # (Auto) 2.98, Monocytes # (Auto) 1.25, Eosinophils # (Auto ) 0.31, Basophils # (Auto) 0.02 05/24/17 18:28 Test 05/24/17 18:28 05/24/17 18:40 White Blood Count 9.87 K/uL (4.8-10.8) Red Blood Count 4.73 M/uL (4.7-6.1) Hemoglobin 13.8 g/dL (14.0-18.0) Hematocrit 42.1 % (42-52) Mean Corpuscular Volume 89.0 fL (80-100) Mean Corpuscular Hemoglobin 29.2 pg (25-34) Mean Corpuscular Hemoglobin Concent 32.8 g/dl (32-36) Platelet Count 321 K/uL (130-400) Mean Platelet Volume 8.8 fL (7.4-10.4) Neutrophils (%) (Auto) 53.4 % Lymphocytes (%) (Auto) 30.2 % Monocytes (%) (Auto) 12.7 % Eosinophils (%) (Auto) 3.1 % Basophils (%) (Auto) 0.2 % Neutrophils # (Auto) 5.27 K/uL (1.4-6.5) Lymphocytes # (Auto) 2.98 K/uL (1.2-3.4) Monocytes # (Auto) 1.25 K/uL (0.11-0.59) Eosinophils # (Auto) 0.31 K/uL (0-0.5) Basophils # (Auto) 0.02 K/uL (0-0.2) RDW Standard Deviation 43.6 fL (36.4-46.3) RDW Coefficient of Variation 13.4 % (11.5-14.5) Immature Granulocyte % (Auto) 0.4 % Immature Granulocyte # (Auto) 0.04 K/uL (0.00-0.02) Anion Gap 6.0 mmol/L (3-11) Est Creatinine Clear Calc Drug Dose 119.1 ml/min Estimated GFR () 118.2 Estimated GFR (Non- 102.0 BUN/Creatinine Ratio 13.2 (10-20) Calcium Level 8.9 mg/dl (8.5-10.1) Urine Color RED Urine Appearance TURBID (CLEAR) Urine pH 7.0 (4.5-7.5) Urine Specific [place] 1.020 (1.000-1.030) Urine Protein 3+ (NEG) Urine Glucose (UA) NEG (NEG) Urine Ketones NEG (NEG) Urine Occult Blood 3+ (NEG) Urine Nitrite NEG (NEG) Urine Bilirubin NEG (NEG) Urine Urobilinogen NEG (NEG) Urine Leukocyte Esterase NEG (NEG) Urine RBC >30 /hpf (0-4) Urine WBC 10-30 /hpf (0-5) Urine Epithelial Cells 10-20 /lpf (0-5) Urine Bacteria NEG (NEG) Laboratory studies as stated above per my review. Medications Administered Medications (Trade) Dose Ordered Sig/Matt Route Start Time Stop Time Status Last Admin Dose Admin Morphine Sulfate (MoRPHine SULFATE INJ) 4 mg STK-MED ONCE .ROUTE 05/24/17 21:38 05/24/17 21:39 DC 05/24/17 21:42 4 MG Pantoprazole Sodium (Protonix Tab) 40 mg NOW STAT PO 05/24/17 21:50 05/24/17 21:58 DC 05/24/17 22:21 40 MG ED Course 1804: Past medical records reviewed. The patient was evaluated in room B7, and a complete history and physical examination were performed. 183: the patient just got blood work and is trying for urine. 1857: Discussed the patient's case with Dr. Jorgensen-Urology. He advised to put a Uriostegui catheter in the patient and gentle irrigate him. 1906: I updated the to nurse and patient on what Dr. Jorgensen advised regarding the Uriostegui. 1954: Uriostegui catheter is in place. The patient was able to pass urine. The urine was bloody. the patient feels better. 2120: Discussed the patient's case with Dr. Kelly-[facility] [place]. The patient will be evaluated for further management. 2129: Upon reevaluation, the patient is resting. I discussed the results and treatment plan with the patient. He verbalized agreement of the treatment plan. The patient will be evaluated for further management. Medical Decision Differential diagnosis includes but is not limited to: hematuria, urinary obstruction, infection, electrolyte metabolic abnormality. This patient comes in as described above. He started having hematuria yesterday said complicated history and lately he had a bladder rupture repair about a month ago he is on chronic anticoagulation due to having a cardiac stent earlier this year is had no chest pain or shortness of breath. No fever or chills or back pain. Prior to coming here, he was able urinate does feel a lot better. He still passing clots but feels better after he passes them. He looks well on exam. I did a bladder scan after he passed a small amount of urine and he had about 350 mL. He has no white count or fever to suggest infection. He has no significant anemic his urinalysis thus far does not suggest infection. I did discuss case with Dr. Jorgensen on the phone he does feel safe to place a catheter and recommended we try to use a larger catheter. The nurse was unable to pass a larger catheter initially and did get a 14 [place]. He was able to be irrigated and got some bloody urine out the patient felt better. It is grossly bloody. I did further discuss case with Dr. Jorgensen, the patient and his are concerned about going Home and feel he will likely clot. I spoke to Dr. Jorgensen who felt that the 14 [place] catheter will likely exacerbate the problem at this point because it's so small and will be harder to pass clots and recommended we remove it. This was removed in the ER. The patient was seen by Dr. Greene. If the patient is a further problems tonight, Dr. Jorgensen may need to come in and place a larger catheter or potentially three-way catheter. The patient will be admitted for further treatment and evaluation. Dr. Greene did want a CAT scan .I ordered it and he does have a large clot seen in the bladder with a Uriostegui catheter in place. He will be observed for further treatment and evaluation. Medication Reconcilliation Current Medication List: was personally reviewed by me Blood Pressure Screening Patient's blood pressure: Normal blood pressure Consults Time Called: 1856 Consulting Physician: Dr. Jorgensen-Urology Returned Call: 1857 Discussed the patient's case. He advised to put a Uriostegui catheter in the patient and gentle irrigate him. Additional Consults: Time Called: 2119 Consulted Physician: Dr. Kelly-[facility] [place] Returned Call: 2120 Additional Comments: Discussed the patient's case. The patient will be evaluated for further management. Impression Primary Impression: Urinary obstruction Additional Impressions: Hematuria Anticoagulated Scribe Attestation The scribe's documentation has been prepared under my direction and personally reviewed by me in its entirety. I confirm that the note above accurately reflects all work, treatment, procedures, and medical decision making performed by me. Departure Information Dispostion Being Evaluated By Hospitalist Referrals Roseann Murphy MD (PCP) Patient Instructions My [facility] Problem Qualifiers
[2017-05-24 18:43] LABS: BASO % 0.2 %; BASO ABS # 0.02 K/uL (0-0.2); COMPLETE YES; EOS % 3.1 %; HEMATOCRIT 42.1 % (42-52); IG% 0.4 %; LYMPH % 30.2 %; LYMPH ABS # 2.98 K/uL (1.2-3.4); MEAN CORPUSCULAR HEMOGLOBIN 29.2 pg (25-34); MEAN CORPUSCULAR HGB CONC 32.8 g/dl (32-36); MEAN PLATELET VOLUME 8.8 fL (7.4-10.4); MONO % 12.7 %; NEUT % 53.4 %; PLATELET COUNT 321 K/uL (130-400); RED BLOOD COUNT 4.73 M/uL (4.7-6.1); WHITE BLOOD COUNT 9.87 K/uL (4.8-10.8)
[2017-05-24 19:02] LABS: MANUAL MICROSCOPIC REQUIRED? YES; URINE APPEARANCE TURBID (CLEAR); URINE BILIRUBIN NEG (NEG); URINE COLOR RED; URINE NITRITE NEG (NEG); UROBILINOGEN NEG (NEG)
[2017-05-24 19:04] LABS: BUN/CREATININE RATIO 13.2 (10-20); CALCIUM 8.9 mg/dl (8.5-10.1); CREATININE 0.76 mg/dl (0.60-1.40); POTASSIUM 3.7 mmol/L (3.5-5.1)
[2017-05-24 19:05] LABS: REVIEW REQ? NO
[2017-05-24 19:07] LABS: URINE RBC >30 /hpf (0-4)
[2017-05-24 19:15] LABS: URINE BACTERIA NEG (NEG)
[2017-05-24] MEDS ORDERED: MoRPHine SULFATE 4 MG/ML 1 ML CARP\\VIAL ONE (21:38)
[2017-05-24] MEDS ORDERED: ONDANSETRON INJ 2 MG/ML 2 ML VIAL IV PRN (21:45)
[2017-05-24] MEDS ORDERED: MoRPHine SULFATE 2 MG/ML CARP IV PRN (21:45)
[2017-05-24] MEDS ORDERED: PANTOprazole SOD 40 MG TAB PO STA (21:50)
[2017-05-24] MEDS ORDERED: TAMSULOSIN HCL 0.4 MG CAP PO STA (21:58)
[2017-05-24] MEDS ORDERED: NITROGLYCERIN 0.4 MG SL PER TAB CHARGE UT PRN (22:00)
[2017-05-24] MEDS ORDERED: DOCUSATE SODIUM 100 MG CAP PO PRN (22:00)
[2017-05-24] MEDS ORDERED: ACETAMINOPHEN 325 MG TAB PO PRN (22:00)
--- NOTE | 2017-05-24 22:53 | DIAGNOSTIC IMAGING REPORT ---
CT OF THE ABDOMEN AND PELVIS WITHOUT CONTRAST, STONE PROTOCOL CLINICAL HISTORY: Hematuria. History of bladder perforation status post repair. History of bladder tumor. COMPARISON STUDY: CT of the abdomen and pelvis April 27, 2017 and cystogram May 10, 2017. TECHNIQUE: Helical axial images of the abdomen and pelvis were obtained without IV or oral contrast according to renal stone protocol. A dose lowering technique was utilized adhering to the principles of ALARA. FINDINGS: No renal, ureteral or bladder calculi are present. There is no hydronephrosis or hydroureter. A Uriostegui balloon is noted within the bladder as well as a small amount of gas. A 6.5 x 5 cm hyperdensity within the left posterior aspect of the bladder reflects a blood clot. Evaluation for an underlying lesion is suboptimal on this unenhanced exam but no definite lesion is noted. There is mild bladder wall thickening. There is minimal adjacent infiltration. Postsurgical findings consistent with a recent laparotomy are noted. There is minimal infiltration within the operative bed without fluid collection to suggest hematoma or abscess. There is no significant ascites. There is no bowel obstruction. No lymphadenopathy is present. There are no suspicious osseous lesions. IMPRESSION: 1. 6.5 x 5 cm blood clot within the left posterior aspect of the bladder. Mild bladder wall thickening and minimal adjacent infiltration which may be postsurgical. Uriostegui balloon within the bladder. 2. No hydronephrosis. No urinary calculi. Electronically signed by: Alban Emmanuel M.D. 05/24/2017 10:51 PM Dictated Date/Time: 05/24/2017 10:42 PM
[2017-05-24 22:55] VITALS: BP 102/69; PULSE 67; TEMP 36.8; O2SAT 96
[2017-05-24 23:15] VITALS: BP 102/69; PULSE 67; TEMP 36.8; O2SAT 96; Ht 182.9 cm; Wt 78.3 kg
--- NOTE | 2017-05-24 23:36 | History and Physical ---
History & Physical Date & Time of Service: May 24, 2017 at 23:36 Chief Complaint: Bladder Outlet Obstruction, Hematuria Primary Care Physician: Roseann Murphy MD History of Present Illness Source: patient, spouse The patient is a 56-year-old male with a past medical history significant for bladder tumor removal on April 25, discharged to home with Uriostegui catheter post surgery, removal of Uriostegui catheter on April 26 with subsequent bladder rupture, and then bladder repair surgery on April 27. Patient began developing blood clots in urine earlier in the day prior to arrival and was unable to urinate. He was then referred to the ED by his PCP, but upon arrival of EMS, it was reported the blood clots broke loose and he was able to urinate again. In the emergency department he's had episodes of severe paroxysmal bladder spasms and genitourinary pain. He presently is on Plavix and aspirin for history of [place] and coronary artery stent placement. Past Medical/Surgical History Medical Problems: (1) HTN (hypertension) Status: Chronic Family History Cancer Diabetes mellitus Heart disease Hypertension Kidney stones Social History Smoking Status: Never Smoker Smokeless Tobacco Use: No Alcohol Use: none Drug Use: none Marital Status: Housing status: lives with family Occupational Status: employed Immunizations History of Influenza Vaccine: Unknown History of Tetanus Vaccine?: Unknown History of Pneumococcal: Unknown History of Hepatitis B Vaccine: Unknown Multi-Drug Resistant Organisms History of MDRO: No Allergies Coded Allergies: No Known Allergies (Unverified , 05/24/17) Home Medications Scheduled Aspirin (Aspirin Ec), 81 MG PO QAM Atorvastatin (Lipitor), 80 MG PO QAM Clopidogrel (Plavix), 75 MG PO QAM Lansoprazole (Prevacid), 30 MG PO QPM Lisinopril (Zestril), 2.5 MG PO QAM Metoprolol Succ (Toprol Xl) (Toprol-Xl), 25 MG PO QAM Nitroglycerin (Nitrostat), 0.4 MG UT PRN Spironolactone (Aldactone), 25 MG PO QAM Scheduled PRN Docusate Sodium (Colace), 1 CAP PO BID PRN for Constipation Review of Systems The patient denies chest pain, palpitations, shortness of breath, cough, lower extremity swelling, vision change, hearing change, sore throat, fevers, chills, sweats, weight change, fatigue, nausea, vomiting, diarrhea or constipation, abdominal pain, pelvic pain, blood in stool, lightheadedness, dizziness, headache, memory loss, rash, abnormal bruising or bleeding, imbalance, focal or generalized weakness, numbness or tingling in arms or legs, generalized arthralgias or myalgias, neck pain, night sweats, or allergy symptoms. The review of systems is otherwise negative other than for that already noted above, and at least 10 systems have been reviewed. Physical Exam Vital Signs Date Time Temp Pulse Resp B/P (MAP) Pulse Ox O2 Delivery O2 Flow Rate FiO2 05/24/17 23:15 36.8 67 18 102/69 96 Room Air 05/24/17 22:55 36.8 67 18 102/69 (80) 96 Room Air 05/24/17 22:12 36.6 117 20 174/68 98 05/24/17 20:41 117 20 174/68 98 Room Air 05/24/17 18:00 36.6 81 18 106/72 97 Room Air The patient is awake, well-developed and adequately nourished, alert and oriented 3, normocephalic and atraumatic, lying in bed and in severe distress during episodes of bladder spasms and genitourinary pain. HEENT--PERRL, EOMI, mucous membranes and oropharynx normal. Neck--supple, no JVD or bruits, thyroid normal, trachea midline, no adenopathy. Heart--normal S1 and S2, no extra beats, no murmurs, rubs or gallops. Lungs--clear bilaterally with good air movement, no respiratory distress, no accessory muscle use. Abdomen--normal bowel sounds and soft, nontender and nondistended, no hernias or masses, no organomegaly. Extremities--no cyanosis, clubbing or edema. There are good distal pulses b/l. Dermatologic--normal skin turgor, normal color, warm and dry, no abnormal lymph nodes, no rash. Neurologic--cranial nerves II through XII grossly intact. Rheumatologic--normal range of motion, nontender, muscles and joints. Psychiatric--normal affect. Diagnostics Laboratory Results Results Past 24 Hours Test 05/24/17 18:28 05/24/17 18:40 Range/Units White Blood Count 9.87 4.8-10.8 K/uL Red Blood Count 4.73 4.7-6.1 M/uL Hemoglobin 13.8 14.0-18.0 g/dL Hematocrit 42.1 42-52 % Mean Corpuscular Volume 89.0 80-100 fL Mean Corpuscular Hemoglobin 29.2 25-34 pg Mean Corpuscular Hemoglobin Concent 32.8 32-36 g/dl Platelet Count 321 130-400 K/uL Mean Platelet Volume 8.8 7.4-10.4 fL Neutrophils (%) (Auto) 53.4 % Lymphocytes (%) (Auto) 30.2 % Monocytes (%) (Auto) 12.7 % Eosinophils (%) (Auto) 3.1 % Basophils (%) (Auto) 0.2 % Neutrophils # (Auto) 5.27 1.4-6.5 K/uL Lymphocytes # (Auto) 2.98 1.2-3.4 K/uL Monocytes # (Auto) 1.25 0.11-0.59 K/uL Eosinophils # (Auto) 0.31 0-0.5 K/uL Basophils # (Auto) 0.02 0-0.2 K/uL RDW Standard Deviation 43.6 36.4-46.3 fL RDW Coefficient of Variation 13.4 11.5-14.5 % Immature Granulocyte % (Auto) 0.4 % Immature Granulocyte # (Auto) 0.04 0.00-0.02 K/uL Sodium Level 139 136-145 mmol/L Potassium Level 3.7 3.5-5.1 mmol/L Chloride Level 106 98-107 mmol/L Carbon Dioxide Level 27 21-32 mmol/L Anion Gap 6.0 3-11 mmol/L Blood Urea Nitrogen 10 7-18 mg/dl Creatinine 0.76 0.60-1.40 mg/dl Est Creatinine Clear Calc Drug Dose 119.1 ml/min Estimated GFR () 118.2 Estimated GFR (Non- 102.0 BUN/Creatinine Ratio 13.2 10-20 Random Glucose 89 70-99 mg/dl Calcium Level 8.9 8.5-10.1 mg/dl Urine Color RED Urine Appearance TURBID CLEAR Urine pH 7.0 4.5-7.5 Urine Specific [place] 1.020 1.000-1.030 Urine Protein 3+ NEG Urine Glucose (UA) NEG NEG Urine Ketones NEG NEG Urine Occult Blood 3+ NEG Urine Nitrite NEG NEG Urine Bilirubin NEG NEG Urine Urobilinogen NEG NEG Urine Leukocyte Esterase NEG NEG Urine RBC >30 0-4 /hpf Urine WBC 10-30 0-5 /hpf Urine Epithelial Cells 10-20 0-5 /lpf Urine Bacteria NEG NEG Microbiology Results 05/24/17 Urine Culture, Received Pending Diagnostic Radiology Patient Name: BARB PAGAN JR Unit Number: [id number] Dictated: 05/24/172241 Transcribed: 05/24/172241 GEOVANNA Printed Date/Time: [~ rep prt dt]/[~ rep prt tm] [~ rep ct labl] - [~ rep ct ivnm] [facility] Radiology Department [place] [id number] Dictated: 05/24/172241 Transcribed: 05/24/172241 GEOVANNA Printed Date/Time: [~ rep prt dt]/[~ rep prt tm] [~ rep ct labl] - [~ rep ct ivnm] [~ rep ct add3]] CT OF THE ABDOMEN AND PELVIS WITHOUT CONTRAST, STONE PROTOCOL CLINICAL HISTORY: Hematuria. History of bladder perforation status post repair. History of bladder tumor. COMPARISON STUDY: CT of the abdomen and pelvis April 27, 2017 and cystogram May 10, 2017. TECHNIQUE: Helical axial images of the abdomen and pelvis were obtained without IV or oral contrast according to renal stone protocol. A dose lowering technique was utilized adhering to the principles of ALARA. FINDINGS: No renal, ureteral or bladder calculi are present. There is no hydronephrosis or hydroureter. A Uriostegui balloon is noted within the bladder as well as a small amount of gas. A 6.5 x 5 cm hyperdensity within the left posterior aspect of the bladder reflects a blood clot. Evaluation for an underlying lesion is suboptimal on this unenhanced exam but no definite lesion is noted. There is mild bladder wall thickening. There is minimal adjacent infiltration. Postsurgical findings consistent with a recent laparotomy are noted. There is minimal infiltration within the operative bed without fluid collection to suggest hematoma or abscess. There is no significant ascites. There is no bowel obstruction. No lymphadenopathy is present. There are no suspicious osseous lesions. IMPRESSION: 1. 6.5 x 5 cm blood clot within the left posterior aspect of the bladder. Mild bladder wall thickening and minimal adjacent infiltration which may be postsurgical. Uriostegui balloon within the bladder. 2. No hydronephrosis. No urinary calculi. Electronically signed by: Alban Emmanuel M.D. 05/24/2017 10:51 PM Dictated Date/Time: 05/24/2017 10:42 PM The status of this report is Signed. Draft = Not yet reviewed or approved by Radiologist. Signed = Reviewed and approved by Radiologist. <AttendingPhy>Pj Kelly M.D.</AttendingPhy> <FamilyPhy>Roseann Murphy MD</FamilyPhy> <PrimaryPhy>Roseann Murphy MD</PrimaryPhy> <UnitNumber> [id number]</UnitNumber> <VisitNumber>[id number]</VisitNumber> <PatientName> LATASHABARBEZEKIEL Nesbitt JR</PatientName> <DateOfBirth>1960</DateOfBirth> < Location>[facility]</Location> <ServiceDate>05/24/17</ServiceDate> <MNE>ESINDI</MNE> < OrderingPhy>Cole Burr M.D.</OrderingPhy> <OrderingPhyMNE>f rep ord dr xavier</OrderingPhyMNE> <DictatingPhyMNE>f rep dict dr xavier</DictatingPhyMNE> < CCListMNE>f rep ct duc</CCListMNE> <AdmittingPhyMNE>f pt admit dr xavier</ AdmittingPhyMNE> <AttendingPhyMNE>f pt attend dr xavier</AttendingPhyMNE> <ConsultingPhyMNE>f pt consult dr xavier</ConsultingPhyMNE> <FamilyPhyMNE>f pt fam dr xavier</FamilyPhyMNE> <OtherPhyMNE>f pt other dr xavier</OtherPhyMNE> < PrimaryPhyMNE>f pt prim care dr xavier</PrimaryPhyMNE> <ReferringPhyMNE>f pt referring dr xavier</ReferringPhyMNE> Impression Assessment and Plan Bladder tumor removal/status post bladder rupture/status post bladder rupture repair surgery/presentation to the ED with severe bladder spasms and passage of blood clots-- Patient is admitted to the medical surgical floor. A 14 Uriostegui catheter had been placed in the ED, which Dr. Jorgensen, his urologist , has requested be removed and is being done after 4 mg of IV morphine administered. Empiric ceftriaxone 1 g IV daily. Ordered CT of the abdomen and pelvis which shows a 6.5 x 5 cm area of blood clot in the bladder. We'll hold aspirin and Plavix. Start tamsulosin 0.4 mg by mouth at bedtime with first dose now. Nothing by mouth except medications for possible procedure. Morphine sulfate 2-4 mg IV every 4 hours when necessary moderate to severe pain. CAD/Hypertension--continue clopidogrel 75 mg by mouth every morning, metoprolol succinate 25 mg by mouth every morning. Continue spironolactone 25 mg by mouth every morning. Hold lisinopril 2.5 mg by mouth every morning. Hyperlipidemia--continue atorvastatin 80 mg by mouth every morning. GERD--change lansoprazole to pantoprazole Level of Care Med/Surg Advanced Directives Existing Advance Directive: No Existing Living Will: No Existing Power of Store Consultant: No Resuscitation Status FULL RESUSCITATION VTE Prophylaxis VTE Risk Assessment Done? Y/N: Yes Risk Level: Moderate Given or contraindicated: SCD's
[2017-05-25] MEDS ORDERED: FAMOTIDINE IV INJ 20 MG in DEXTROSE 5% 100ML 100 ML IV SCH ×2
[2017-05-25] MEDS: CEFTRIAXONE SOD INJ 1 GM in DEXTROSE 5% ADD-VANTAGE 50ML 50 ML IV SCH ×2 (00:05→23:36)
[2017-05-25] MEDS: MoRPHine SULFATE 4 MG/ML 1 ML CARP\\VIAL IV PRN ×3 (02:47→07:15)
[2017-05-25 07:52] LABS: BASO % 0.2 %; BASO ABS # 0.02 K/uL (0-0.2); COMPLETE YES; EOS % 1.9 %; HEMATOCRIT 37.6 % (42-52); IG% 0.5 %; LYMPH % 26.1 %; LYMPH ABS # 2.85 K/uL (1.2-3.4); MEAN CELL VOLUME 88.3 fL (80-100); MEAN CORPUSCULAR HEMOGLOBIN 30.5 pg (25-34); MEAN CORPUSCULAR HGB CONC 34.6 g/dl (32-36); MEAN PLATELET VOLUME 8.6 fL (7.4-10.4); MONO % 7.7 %; NEUT % 63.6 %; PLATELET COUNT 268 K/uL (130-400); RED BLOOD COUNT 4.26 M/uL (4.7-6.1); WHITE BLOOD COUNT 10.94 K/uL (4.8-10.8)
[2017-05-25] MEDS ORDERED: SPIRONOLACTONE 25 MG TAB PO SCH (08:00)
[2017-05-25] MEDS: METOPROLOL SUCC 25MG EXT REL TAB PO SCH (08:04)
[2017-05-25 08:06] VITALS: BP 104/66; PULSE 73
--- NOTE | 2017-05-25 08:13 | Urology Consultation ---
History General Date of Service: May 25, 2017. Chief Complaint: hematuria, clot retention Primary Care Physician: Roseann Murphy MD Pt seen a urologist before?: Yes History of Present Illness 56-year-old male well-known to our service status post recent bladder perforation and open repair He had an ME in the spring and is chronically on Plavix-unable stop her 1 year At the recovering very well from his open bladder repair until 4 days ago when he started to express mild hematuria This gradually progressed until yesterday when he started to experience clots passing and gradually became unable to urinate Was evaluated in the ER and 14 B[place]udian catheter inserted which immediately clotted He was admitted and able to urinate overnight This morning, he had increasing pressure was found to have 600+ cc in his bladder on ultrasound CT overnight revealed what appears to be a clot in the posterior aspect of the bladder; no evidence perforation or fluid within the abdomen Imaging Imaging: CT Laboratory Labs were reviewed and are within normal limits unless listed below. Labs are available in the chart and at [facility] Problem List Medical Problems: (1) Abdominal pain Status: Acute (2) Acute myocardial infarction of apical-lateral wall Status: Acute (3) Anticoagulated Status: Acute (4) Hypotension Status: Acute (5) Medication side effects Status: Acute (6) Perforation of bladder Status: Acute (7) Urinary obstruction Status: Acute (8) Ventricular tachycardia Status: Acute Past History BPH, cancer, coronary artery disease, GERD, hypertension, kidney stones Past Surgical History: cardiac catheterization, colonoscopy, tonsillectomy, other Family History Cancer Diabetes mellitus Heart disease Hypertension Kidney stones Social History Hx Tobacco Use In Past Year?: No Smoking: other Alcohol: occasional Marital status: Housing status: lives with family Occupation status: employed Immunizations History of Influenza Vaccine: Unknown History of Tetanus Vaccine?: Unknown History of Pneumococcal: Unknown History of Hepatitis B Vaccine: Unknown History of MDRO No Allergies Coded Allergies: No Known Allergies (Unverified , 05/24/17) Medications Home Medications: Home Meds and Scripts Medications Dose Route/Sig Max Daily Dose Days Date Category Colace (Docusate Sodium) 100 Mg Cap 1 Cap PO BID PRN 30 05/02/17 Rx Plavix (Clopidogrel Bisulfate) 75 Mg Tab 75 Mg PO QAM 03/27/17 Reported Toprol-Xl (Metoprolol Succinate) 25 Mg Tabcr 25 Mg PO QAM 03/27/17 Reported Aldactone (Spironolactone) 25 Mg Tab 25 Mg PO QAM 03/27/17 Reported Lipitor (Atorvastatin Calcium) 80 Mg Tab 80 Mg PO QAM 03/27/17 Reported Nitrostat (Nitroglycerin) 0.4 Mg Tab 0.4 Mg UT PRN 03/27/17 Reported Zestril (Lisinopril) 5 Mg Tab 2.5 Mg PO QAM 03/24/17 Reported Aspirin Ec (Aspirin) 81 Mg Tab 81 Mg PO QAM 01/04/17 Reported Prevacid (Lansoprazole) 30 Mg Capcr 30 Mg PO QPM 01/04/17 Reported Inpatient Medications: Current Inpatient Medications Medications (Trade) Dose Ordered Sig/Matt Route Start Time Stop Time Status Last Admin Dose Admin Ondansetron HCl (Zofran Inj) 4 mg Q6H PRN IV 05/24/17 21:45 06/23/17 21:44 Morphine Sulfate (MoRPHine SULFATE INJ) 2 mg Q2H PRN IV 05/24/17 21:45 06/07/17 21:44 Morphine Sulfate (MoRPHine SULFATE INJ) 4 mg Q2H PRN IV 05/24/17 21:45 06/07/17 21:44 05/25/17 07:15 4 MG Famotidine 20 mg/ Dextrose 102 ml @ 200 mls/hr Q12H IV 05/25/17 00:00 06/24/17 00:00 05/25/17 00:43 200 MLS/HR Tamsulosin HCl (Flomax Cap) 0.4 mg HS PO 05/25/17 21:00 06/24/17 20:59 Acetaminophen (Tylenol Tab) 650 mg Q4H PRN PO 05/24/17 22:00 06/23/17 21:59 Atorvastatin Calcium (Lipitor Tab) 80 mg QAM PO 05/25/17 08:00 06/24/17 08:59 Docusate Sodium (coLACE CAP) 100 mg BID PRN PO 05/24/17 22:00 06/23/17 21:59 Metoprolol Succinate (Toprol Xl Tab) 25 mg QAM PO 05/25/17 08:00 06/24/17 08:59 05/25/17 08:04 25 MG Nitroglycerin (Nitrostat Tab) 0.4 mg UD PRN UT 05/24/17 22:00 06/23/17 21:59 Spironolactone (Aldactone Tab) 25 mg QAM PO 05/25/17 08:00 06/24/17 08:59 05/25/17 08:05 25 MG Pantoprazole Sodium (Protonix Tab) 40 mg HS PO 05/25/17 21:00 06/24/17 20:59 Ceftriaxone Sodium 1 gm/ Dextrose 50 ml @ 100 mls/hr Q24H IV 05/24/17 23:00 06/03/17 22:59 05/25/17 00:05 100 MLS/HR Review of Systems Review of Systems Constitutional: No see HPI, No fever, No chills, No frequent headaches, No weight loss, No problem reported Eyes: No see HPI, No blurred vision, No double vision, No eye pain, No loss of night vision, No problem reported Neurological: No see HPI, No dizzy, No passing out, No numbness/tingling, No seizures, No problem reported Endocrine: No see HPI, No excessive thirst, No too hot, No too cold, No tired/ sluggish, No problem reported Gastrointestinal: + abdominal pain Cardiovascular: No see HPI, No heart murmur, No chest pain, No angina, No irregular heartbeat, No palpitations, No swelling ankles/feet, No problem reported Respiratory: No see HPI, No shortness of breath, No wheezing, No coughing up blood, No chronic cough, No problem reported Skin: No see HPI, No rash, No boils, No dry skin, No problem reported Musculoskeletal: No see HPI, No joint pain, No neck pain, No back pain, No arthritis, No problem reported Blood / Lymphatic: No see HPI, No bleed easily, No bruise easily, No swollen glands, No problem reported Ears / Nose / Throat: No see HPI, No hearing loss, No sinus, No hoarse voice, No sore throat, No problem reported Psychologic / Mental: No see HPI, No nervous, No trouble remembering, No difficulty sleeping, No problem reported Male : + blood in urine All Other Systems: Reviewed and Negative Physical Exam Vital Signs: Vital Signs Past 12 Hours Date Time Temp Pulse Resp B/P (MAP) Pulse Ox O2 Delivery O2 Flow Rate FiO2 05/25/17 08:06 73 104/66 (79) 9/6/17 23:59 Room Air 05/24/17 23:15 36.8 67 18 102/69 96 Room Air 05/24/17 22:55 36.8 67 18 102/69 (80) 96 Room Air 05/24/17 22:12 36.6 117 20 174/68 98 05/24/17 20:41 117 20 174/68 98 Room Air Physical Exam: General Appearance: WD/WN, no apparent distress ENT: normal ENT inspection, hearing grossly normal Neck: no adenopathy Respiratory/Chest: no respiratory distress, no accessory muscle use Cardiovascular: no edema Gastrointestinal: Abdomen: normal abdomen Bladder: palpable, tender Renal: normal renal Extremities: no pedal edema, no calf tenderness Neurologic/Psychiatric: alert, normal mood/affect, oriented x 3 Skin: warm/dry Lymphatic: no adenopathy Assessment & Plan Assessment & Plan Hematuria; clot retention; recent bladder repair secondary to perforation I suspect this is a simple rebleed secondary to his recent procedure and his Plavix use Unable to stop his Plavix secondary to his recent ME and stenting On CT it appears that he has a large clot within the bladder He 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
[2017-05-25 08:19] LABS: BUN/CREATININE RATIO 13.6 (10-20); CALCIUM 9.3 mg/dl (8.5-10.1); CREATININE 0.83 mg/dl (0.60-1.40); MAGNESIUM 1.9 mg/dl (1.8-2.4); POTASSIUM 3.8 mmol/L (3.5-5.1)
[2017-05-25] MEDS: ATORVASTATIN 40 MG TAB PO SCH (08:32)
--- NOTE | 2017-05-25 11:01 | Hospitalist Progress Note ---
Hospitalist Progress Note Date of Service May 25, 2017. (Ginger Pearl PA-C) Subjective Pt evaluation today including: conversation w/ patient, physical exam, chart review, lab review, review of studies Pain: None PO Intake: NPO Voiding: ortiz catheter in place The patient was seen and examined this morning. Pt reports doing fairly well currently. He states he's not having any bladder spasm or pain currently. Pt is expecting to have cystoscopy later today by Dr. Jorgensen for clot evacuation. Constitutional: No fever, No chills, No sweats Eyes: No redness, No diplopia ENT: No hearing loss, No nasal symptoms Respiratory: No cough, No sputum, No wheezing, No shortness of breath Cardiovascular: No chest pain, No edema Abdomen: No pain, No nausea Musculoskeletal: No joint pain, No muscle pain, No swelling Male : + hematuria Neurologic: No weakness, No numbness/tingling Endo: No fatigue Skin: No rash, No itch (Ginger Pearl PA-C) Objective Vital Signs Date Time Temp Pulse Resp B/P (MAP) Pulse Ox O2 Delivery O2 Flow Rate FiO2 05/25/17 09:20 Room Air 05/25/17 08:06 73 104/66 (79) 05/24/17 23:59 Room Air 05/24/17 23:15 36.8 67 18 102/69 96 Room Air 05/24/17 22:55 36.8 67 18 102/69 (80) 96 Room Air 05/24/17 22:12 36.6 117 20 174/68 98 05/24/17 20:41 117 20 174/68 98 Room Air 05/24/17 18:00 36.6 81 18 106/72 97 Room Air (Ginger Pearl PA-C) Physical Exam General Appearance: WD/WN, no apparent distress, + thin Eyes: PERRL, EOMI ENT: hearing grossly normal, pharynx normal Neck: supple, no JVD Respiratory/Chest: lungs clear, no respiratory distress, no accessory muscle use Cardiovascular: regular rate, rhythm, no murmur Abdomen: normal bowel sounds, non tender, + pertinent finding (tenderness in the suprapubic region, + ortiz catheter draining dark red urine + clots) Extremities: non-tender, no pedal edema, no calf tenderness Neurologic/Psychiatric: alert, normal mood/affect, oriented x 3 Skin: normal color, warm/dry (Ginger Pearl PA-C) Laboratory Results Last 24 Hours Test 05/24/17 18:28 05/24/17 18:40 05/25/17 07:34 05/25/17 07:39 White Blood Count 9.87 K/uL 10.94 K/uL Red Blood Count 4.73 M/uL 4.26 M/uL Hemoglobin 13.8 g/dL 13.0 g/dL Hematocrit 42.1 % 37.6 % Mean Corpuscular Volume 89.0 fL 88.3 fL Mean Corpuscular Hemoglobin 29.2 pg 30.5 pg Mean Corpuscular Hemoglobin Concent 32.8 g/dl 34.6 g/dl Platelet Count 321 K/uL 268 K/uL Mean Platelet Volume 8.8 fL 8.6 fL Neutrophils (%) (Auto) 53.4 % 63.6 % Lymphocytes (%) (Auto) 30.2 % 26.1 % Monocytes (%) (Auto) 12.7 % 7.7 % Eosinophils (%) (Auto) 3.1 % 1.9 % Basophils (%) (Auto) 0.2 % 0.2 % Neutrophils # (Auto) 5.27 K/uL 6.96 K/uL Lymphocytes # (Auto) 2.98 K/uL 2.85 K/uL Monocytes # (Auto) 1.25 K/uL 0.84 K/uL Eosinophils # (Auto) 0.31 K/uL 0.21 K/uL Basophils # (Auto) 0.02 K/uL 0.02 K/uL RDW Standard Deviation 43.6 fL 43.5 fL RDW Coefficient of Variation 13.4 % 13.5 % Immature Granulocyte % (Auto) 0.4 % 0.5 % Immature Granulocyte # (Auto) 0.04 K/uL 0.06 K/uL Sodium Level 139 mmol/L 139 mmol/L Potassium Level 3.7 mmol/L 3.8 mmol/L Chloride Level 106 mmol/L 104 mmol/L Carbon Dioxide Level 27 mmol/L 27 mmol/L Anion Gap 6.0 mmol/L 8.0 mmol/L Blood Urea Nitrogen 10 mg/dl 11 mg/dl Creatinine 0.76 mg/dl 0.83 mg/dl Est Creatinine Clear Calc Drug Dose 119.1 ml/min 109.1 ml/min Estimated GFR () 118.2 114.0 Estimated GFR (Non- 102.0 98.4 BUN/Creatinine Ratio 13.2 13.6 Random Glucose 89 mg/dl 111 mg/dl Calcium Level 8.9 mg/dl 9.3 mg/dl Urine Color RED Urine Appearance TURBID Urine pH 7.0 Urine Specific [place] 1.020 Urine Protein 3+ Urine Glucose (UA) NEG Urine Ketones NEG Urine Occult Blood 3+ Urine Nitrite NEG Urine Bilirubin NEG Urine Urobilinogen NEG Urine Leukocyte Esterase NEG Urine RBC >30 /hpf Urine WBC 10-30 /hpf Urine Epithelial Cells 10-20 /lpf Urine Bacteria NEG Magnesium Level 1.9 mg/dl Hepatitis C Antibody Screen NEG (Ginger Pearl PA-C) Assessment and Plan 56 yo M with PMHX of CAD/HTN s/p 1 BENEDICTO to LAD on January 04, 2017. Pt underwent blader tumor removal by Dr. Jorgensen Apr 27 2017, after procedure the pts ortiz was removed in office along with bladder irrigation, and subsequently had bladder rupture. He underwent bladder repair ~ 2 weeks ago, and now presents with dysuria/inability to urinate/hematuria and CT findings of large bladder clot formation. Bladder tumor removal/status post bladder rupture/status post bladder rupture repair surgery - Pathology from 04/25/17 reviewed: non-invasive low grade papillary urothelial carcinoma. - Urology on board- planning for cystoscopy and clot evacuation today. - Continue on ceftriaxone 1 g daily, day #2 - CT of the abd/pel reviewed which shows a 6.5 x 5 cm area of blood clot in the bladder. - Resume asa and Plavix - discussed with anesthesiology, Dr. Jorgensen and Dr. López was held and decided this was appropriate. Pt received ASA 81 preop, and Plavix 75 will be dosed in the PACU. - Cont tamsulosin 0.4 mg QHS - NPO- regular diet after procedure. Analgesia with MS 2-4 mg Q4H prn. CAD Hypertension - continue Plavix 75 mg QAM, metoprolol succinate 25 mg QAM, spironolactone 25 QAM - Hold lisinopril 2.5 mg QAM - Pt has lost ~ 20 lbs since heart attack with diet and exercise. Hyperlipidemia -continue atorvastatin 80 mg QAM GERD- -pantoprazole Hx Tobacco Abuse - Pt reports chewing tobacco x 40 years, stopped this past December with heart attack. DVT ppx: teds, scds, no chemical anticoagulation in anticipation of procedure later today FREDIS STATUS: Full CODE Disposition: From home, discharge when medically stable, likely within 1-2 days. (Ginger Pearl, LÓPEZ) PA Physician Supervision Note: I interviewed and examined the patient. Discussed with Gingre Pearl PAC and agree with findings and plan as documented in the note. Any exceptions or clarifications are listed here: None see attending note, patient taken to cystoscopy clot evacuated bleeding area stopped clear urine afterwards will anticipate discharge if no problems on 05/26 Documented By: Hugh Johnson (Hugh Johnson M.D.)
--- NOTE | 2017-05-25 11:53 | Clinical Documentation Query ---
Ms. VALDIVIAANA : CLINICAL DOCUMENTATION QUERY Patient is a 56 year old male admitted for evaluation and treatment of hematuria and clot retention in the setting of recent open bladder repair. H&P documentation includes "severe bladder spasms and passage of blood clots". Urologic progress note documentation includes "I suspect this is a simple rebleed secondary to his recent procedure and his Plavix use". Consider the diagnostic options as presented below and as appropriate, consider clarification so as to avoid leather tacker uncertainty at time of discharge. Thank you. In your clinical opinion is this patient being managed for: ( x ) Postoperative bleeding due to Plavix use, a complication of care ( ) Postoperative bleeding due to Plavix use, not a complication of care ( ) Not Agree ( ) Other explanation of clinical findings (Please Explain) ( ) Unable to determine (Please Define) ( ) Need to Discuss The medical record reflects the following clinical findings, treatment, and risk factors. Clinical Indicators: As above Treatment: Urologic consultation, CT abdomen, bladder irrigation, cystoscopy. Risk Factors: Please clarify and document your clinical opinion in the progress notes and discharge summary. Terms such as "probable", "suspected", "likely", "questionable", "possible", or "still to be ruled out" are acceptable. IF IN AGREEMENT, YOU MUST DOCUMENT ABOVE DIAGNOSTIC STATEMENT IN DAILY PROGRESS NOTES AND DISCHARGE SUMMARY. This document is not part of the patient's record. Thank You, Cole Sprague, LIGIA [phone]
[2017-05-25] MEDS ORDERED: FLUMAZENIL 0.1 MG/1 ML 10 ML VIAL IV PRN (12:45)
[2017-05-25] MEDS ORDERED: ONDANSETRON INJ 2 MG/ML 2 ML VIAL IV PRN (12:45)
[2017-05-25] MEDS ORDERED: NALOXONE HCL 0.4 MG/1 ML VIAL/CARP IV PRN (12:45)
[2017-05-25] MEDS ORDERED: HYDROmorphone INJ 2 MG/ML SYR/VIAL IV PRN (12:45)
[2017-05-25] MEDS ORDERED: LABETALOL HCL IV 5 MG/ML 20ML IV PRN (12:45)
[2017-05-25] MEDS ORDERED: PHENYLEPHRINE 100MCG/ML 5ML SYR IV PRN (12:45)
[2017-05-25] MEDS ORDERED: ATROPINE SULFATE 0.1 MG/ML 5ML SYR IV PRN (12:45)
[2017-05-25] MEDS ORDERED: EpHEDrine SULFATE INJ 50 MG/ML AMP IV PRN (12:45)
[2017-05-25] MEDS ORDERED: MEPERIDINE HCL 25 MG/ML CARP IV PRN (12:45)
[2017-05-25] MEDS ORDERED: FENTANYL CITRATE INJ 50 MCG/1 ML 2 ML VIAL IV PRN (12:45)
[2017-05-25] MEDS ORDERED: MIDAZOLAM HCL 1 MG/ML 2ML VIAL ONE (13:38)
[2017-05-25] MEDS ORDERED: FENTANYL CITRATE INJ 50 MCG/1 ML 2 ML VIAL ONE (13:38)
[2017-05-25] MEDS ORDERED: CIPROFLOXACIN 400MG / 200ML D5W ONE (13:46)
[2017-05-25] MEDS ORDERED: ASPIRIN 81 MG ECTAB PO ONE (13:51)
[2017-05-25] MEDS ORDERED: ASPIRIN 81 MG CHEW PO ONE (14:00)
[2017-05-25] MEDS ORDERED: PHENYLEPHRINE 100MCG/ML 5ML SYR ONE (14:14)
[2017-05-25] MEDS ORDERED: BELLADONNA/OPIUM SUPP 60 MG SUPP PR ONE ×2 (14:14→14:22)
[2017-05-25] MEDS ORDERED: LIDOCAINE HCL 2% 2 ML VIAL (20MG/ML) ONE (14:20)
[2017-05-25] MEDS ORDERED: PROPOFOL IV EMULSION 10 MG/ML 20 ML VIAL IV ONE (14:20)
[2017-05-25] MEDS ORDERED: ONDANSETRON INJ 2 MG/ML 2 ML VIAL ONE (14:20)
[2017-05-25] MEDS ORDERED: DEXAMETHASONE SOD INJ 4 MG/ML VIAL ONE (14:20)
[2017-05-25] MEDS ORDERED: CLOPIDOGREL BISULFATE 75 MG TAB PO ONE (14:30)
--- NOTE | 2017-05-25 14:53 | [facility] Operative Report ---
Operative Report Operative Date May 25, 2017. Pre-Operative Diagnosis Hematuria, clot retention, recent bladder repair Post-Operative Diagnosis Hematuria, clot retention, recent bladder repair Procedure(s) Performed Cystoscopy, Clot Evacuation, and Bladder Fulguration Surgeon Dr. Jorgensen Copy Center Specialist Surgeon(s) NONE Estimated Blood Loss 10 ml Findings 500cc+ of clot within the bladder - single bleeding vessel from the location of one his previously placed mucosal stitches Specimens NONE Drains 22F [address] ort[address] catheter Anesthesia Gen Complication(s) None Disposition Recovery Room / PACU (stable) Indications Gross hematuria; clot retention; prior bladder perforation and open repair Description of Procedure Patient was identified in the preoperative holding area, appropriate informed consents were reviewed and completed, and the patient was transported to the operating suite. Upon arrival he received appropriate preoperative antibiotics the form of ciprofloxacin. Adequate general anesthesia was achieved, and the patient was placed in dorsal lithotomy position where he was sterilely prepped and draped in standard fashion. Again the case by dilating his distal urethra as he has a known fossa navicularis narrowing I preferred to avoid traumatizing this. Using sequential male sound dilators, I was able to dilate 28 Bahamian without difficulty. I then passed a 24 Bahamian resectoscope inspected the urethra. There is no evidence of trauma to the urethra nor stricture disease. His prostate is moderately enlarged with lateral lobe hypertrophy. Upon entry into the bladder, visualization was immediately compromised secondary to copious amounts of clot. Utilizing an Ellik evacuator I was able to evacuate a significant amount of the clot. Between uses of the Ellik, I would inspect with the cystoscope and use a resecting loop to help free the clot from where it was adherent to the bladder wall. After proximally 20 minutes of intermittent Ellik use and manual evacuation utilizing the resectoscope, I was able to free the bladder of clot entirely. That time I performed a full inspection of the bladder. I noted one bleeding vessel at the most dependent portion of his previous bladder closure. It appeared to be bleeding from a single vessel at the site of a previous stitch. I touch this with a cautery loop and immediately controlled the bleeding. I did treat the surrounding areas were proximally half a centimeter in all directions to try to prevent rebleeding. I then proceeded to observe for several minutes and saw no active or continued bleeding. Of note his prior bladder closure appears to be healing completely appropriately. No mucosal stitches are still visible as I suspect that the previously placed chromic stitches have already dissolved. He has no evidence of recurrent tumor. Before concluding the case I left the bladder full and withdrew the cystoscope. I then placed a 22 Bahamian three-way Ortiz catheter and I will plan to run slow continuous bladder irrigation overnight to ensure adequate hemostasis. He was subsequently reversed from anesthesia and taken to the PACU in stable condition. Were no complications, he tolerated the procedure very well. I attest to the content of the Intraoperative Record and any orders documented therein. Any exceptions are noted below.
--- NOTE | 2017-05-25 15:03 | Anesthesiology Progress Note ---
Anesthesia Post Op Note Date & Time May 25, 2017 at 15:02 Vital Signs Pain Intensity: 3 Vital Signs Past 12 Hours Date Time Temp Pulse Resp B/P (MAP) Pulse Ox O2 Delivery O2 Flow Rate FiO2 05/25/17 14:51 36.4 74 16 110/69 100 Oxymask 10 05/25/17 09:20 Room Air 05/25/17 08:06 73 104/66 (79) Notes Mental Status: alert / awake / arousable, participated in evaluation Pt Amnestic to Procedure: Yes Nausea / Vomiting: adequately controlled Pain: adequately controlled Airway Patency, RR, SpO2: stable & adequate BP & HR: stable & adequate Hydration State: stable & adequate Anesthetic Complications: no major complications apparent The patient received ASA preoperatively and will receive Plavix in the PACU.
[2017-05-25 16:40] VITALS: BP 103/67; PULSE 62; TEMP 36.4; O2SAT 98
--- NOTE | 2017-05-25 19:30 | Progress Note ---
Subjective Date of Service: May 25, 2017. Subjective Patient is resting post procedure doing quite well bleeding had stopped after cystoscopy and fulguration of a bleeding bladder artery or vein Problem List Medical Problems: (1) Abdominal pain Status: Acute (2) Acute myocardial infarction of apical-lateral wall Status: Acute (3) Anticoagulated Status: Acute (4) Hypotension Status: Acute (5) Medication side effects Status: Acute (6) Perforation of bladder Status: Acute (7) Urinary obstruction Status: Acute (8) Ventricular tachycardia Status: Acute Review of Systems Constitutional: + weakness, No fever, No chills Respiratory: No cough, No shortness of breath, No dyspnea on exertion Cardiac: No chest pain, No orthopnea, No edema, No claudication Abdomen: No pain, No nausea, No vomiting, No diarrhea, No constipation Musculoskeletal: No joint pain, No muscle pain Male : + hematuria, No dysuria Neurologic: No memory loss, No paralysis Objective Vital Signs Date Time Temp Pulse Resp B/P (MAP) Pulse Ox O2 Delivery O2 Flow Rate FiO2 05/25/17 08:06 73 104/66 (79) 05/24/17 23:59 Room Air 05/24/17 23:15 36.8 67 18 102/69 96 Room Air 05/24/17 22:55 36.8 67 18 102/69 (80) 96 Room Air 05/24/17 22:12 36.6 117 20 174/68 98 05/24/17 20:41 117 20 174/68 98 Room Air 05/24/17 18:00 36.6 81 18 106/72 97 Room Air Physical Exam General Appearance: WD/WN, no apparent distress Neck: supple, no JVD Respiratory/Chest: chest non-tender, lungs clear, normal breath sounds Cardiovascular: regular rate, rhythm, no murmur Abdomen: normal bowel sounds, non tender, soft Extremities: no pedal edema, no calf tenderness Neurologic/Psychiatric: + pertinent finding (patient was slightly sedate post procedure he was able to be aroused and spontaneously move all extremities) Laboratory Results Last 24 Hours Test 05/24/17 18:28 05/24/17 18:40 05/25/17 07:34 05/25/17 07:57 White Blood Count 9.87 K/uL 10.94 K/uL Red Blood Count 4.73 M/uL 4.26 M/uL Hemoglobin 13.8 g/dL 13.0 g/dL Hematocrit 42.1 % 37.6 % Mean Corpuscular Volume 89.0 fL 88.3 fL Mean Corpuscular Hemoglobin 29.2 pg 30.5 pg Mean Corpuscular Hemoglobin Concent 32.8 g/dl 34.6 g/dl Platelet Count 321 K/uL 268 K/uL Mean Platelet Volume 8.8 fL 8.6 fL Neutrophils (%) (Auto) 53.4 % 63.6 % Lymphocytes (%) (Auto) 30.2 % 26.1 % Monocytes (%) (Auto) 12.7 % 7.7 % Eosinophils (%) (Auto) 3.1 % 1.9 % Basophils (%) (Auto) 0.2 % 0.2 % Neutrophils # (Auto) 5.27 K/uL 6.96 K/uL Lymphocytes # (Auto) 2.98 K/uL 2.85 K/uL Monocytes # (Auto) 1.25 K/uL 0.84 K/uL Eosinophils # (Auto) 0.31 K/uL 0.21 K/uL Basophils # (Auto) 0.02 K/uL 0.02 K/uL RDW Standard Deviation 43.6 fL 43.5 fL RDW Coefficient of Variation 13.4 % 13.5 % Immature Granulocyte % (Auto) 0.4 % 0.5 % Immature Granulocyte # (Auto) 0.04 K/uL 0.06 K/uL Sodium Level 139 mmol/L Potassium Level 3.7 mmol/L Chloride Level 106 mmol/L Carbon Dioxide Level 27 mmol/L Anion Gap 6.0 mmol/L Blood Urea Nitrogen 10 mg/dl Creatinine 0.76 mg/dl Est Creatinine Clear Calc Drug Dose 119.1 ml/min Estimated GFR () 118.2 Estimated GFR (Non- 102.0 BUN/Creatinine Ratio 13.2 Random Glucose 89 mg/dl Calcium Level 8.9 mg/dl Urine Color RED Urine Appearance TURBID Urine pH 7.0 Urine Specific [place] 1.020 Urine Protein 3+ Urine Glucose (UA) NEG Urine Ketones NEG Urine Occult Blood 3+ Urine Nitrite NEG Urine Bilirubin NEG Urine Urobilinogen NEG Urine Leukocyte Esterase NEG Urine RBC >30 /hpf Urine WBC 10-30 /hpf Urine Epithelial Cells 10-20 /lpf Urine Bacteria NEG Assessment and Plan Bladder tumor removal/status post bladder rupture/status post bladder rupture repair surgery/presentation to the ED with severe bladder spasms and passage of blood clots-- Bladder pain, retained clot, Urology has been consulted CT of the abdomen and pelvis which shows a 6.5 x 5 cm area of blood clot in the bladder. hold aspirin and Plavix, ceftriaxone 1 g IV daily..tamsulosin 0.4 mg Morphine sulfate 2-4 mg IV every 4 hours when necessary moderate to severe pain. CAD/Hypertension--, metoprolol succinate 25 mg spironolactone 25 mg by mouth every morning. Hold lisinopril 2.5 mg by mouth every morning. Hyperlipidemia--continue atorvastatin 80 mg by mouth every morning. GERD--change lansoprazole to pantoprazole
[2017-05-25] MEDS ORDERED: PANTOprazole SOD 40 MG TAB PO SCH (21:00)
[2017-05-25] MEDS ORDERED: TAMSULOSIN HCL 0.4 MG CAP PO SCH (21:00)
[2017-05-25 23:41] VITALS: BP 95/56; PULSE 70; TEMP 36.5; O2SAT 95
[2017-05-26 05:43] LABS: BASO % 0.1 %; BASO ABS # 0.01 K/uL (0-0.2); COMPLETE YES; HEMATOCRIT 31.2 % (42-52); IG% 0.4 %; LYMPH % 14.1 %; LYMPH ABS # 2.07 K/uL (1.2-3.4); MEAN CELL VOLUME 88.6 fL (80-100); MEAN CORPUSCULAR HEMOGLOBIN 30.7 pg (25-34); MEAN CORPUSCULAR HGB CONC 34.6 g/dl (32-36); MEAN PLATELET VOLUME 8.7 fL (7.4-10.4); MONO % 5.4 %; PLATELET COUNT 254 K/uL (130-400); RED BLOOD COUNT 3.52 M/uL (4.7-6.1); WHITE BLOOD COUNT 14.72 K/uL (4.8-10.8)
[2017-05-26 06:09] LABS: BUN/CREATININE RATIO 12.3 (10-20); CALCIUM 8.8 mg/dl (8.5-10.1); CREATININE 0.87 mg/dl (0.60-1.40); MAGNESIUM 2.1 mg/dl (1.8-2.4); POTASSIUM 4.2 mmol/L (3.5-5.1)
[2017-05-26 07:21] VITALS: BP 98/56; PULSE 68; TEMP 36.6; O2SAT 97
[2017-05-26] MEDS: ATORVASTATIN 40 MG TAB PO SCH (07:59)
[2017-05-26] MEDS: METOPROLOL SUCC 25MG EXT REL TAB PO SCH (07:59)
--- NOTE | 2017-05-26 08:05 | Anesthesiology Progress Note ---
Anesthesia Post Op Note Date & Time May 26, 2017 at 08:04 Vital Signs Pain Intensity: 0.0 Vital Signs Past 12 Hours Date Time Temp Pulse Resp B/P (MAP) Pulse Ox O2 Delivery O2 Flow Rate FiO2 05/26/17 07:21 36.6 68 18 98/56 (70) 97 Room Air 05/26/17 00:00 Room Air 05/25/17 23:41 36.5 70 20 95/56 (69) 95 Room Air Notes Mental Status: alert / awake / arousable, participated in evaluation Pt Amnestic to Procedure: Yes Nausea / Vomiting: adequately controlled Pain: adequately controlled Airway Patency, RR, SpO2: stable & adequate BP & HR: stable & adequate Hydration State: stable & adequate Anesthetic Complications: no major complications apparent
--- NOTE | 2017-05-26 08:20 | Hospitalist Progress Note ---
Hospitalist Progress Note Date of Service May 26, 2017. Subjective Pt evaluation today including: conversation w/ patient Objective Vital Signs Date Time Temp Pulse Resp B/P (MAP) Pulse Ox O2 Delivery O2 Flow Rate FiO2 05/26/17 07:21 36.6 68 18 98/56 (70) 97 Room Air 05/26/17 00:00 Room Air 05/25/17 23:41 36.5 70 20 95/56 (69) 95 Room Air 05/25/17 16:40 36.4 62 18 103/67 (79) 98 Room Air 05/25/17 15:40 64 16 93/58 96 Room Air 05/25/17 15:30 36.6 64 16 90/59 96 Room Air 05/25/17 15:20 61 16 100/57 96 Room Air 05/25/17 15:10 63 16 98/71 100 Oxymask 10 05/25/17 15:00 63 16 98/65 100 Oxymask 10 05/25/17 14:51 36.4 74 16 110/69 100 Oxymask 10 05/25/17 09:20 Room Air Laboratory Results Last 24 Hours Test 05/26/17 05:11 White Blood Count 14.72 K/uL Red Blood Count 3.52 M/uL Hemoglobin 10.8 g/dL Hematocrit 31.2 % Mean Corpuscular Volume 88.6 fL Mean Corpuscular Hemoglobin 30.7 pg Mean Corpuscular Hemoglobin Concent 34.6 g/dl Platelet Count 254 K/uL Mean Platelet Volume 8.7 fL Neutrophils (%) (Auto) 80.0 % Lymphocytes (%) (Auto) 14.1 % Monocytes (%) (Auto) 5.4 % Eosinophils (%) (Auto) 0.0 % Basophils (%) (Auto) 0.1 % Neutrophils # (Auto) 11.79 K/uL Lymphocytes # (Auto) 2.07 K/uL Monocytes # (Auto) 0.79 K/uL Eosinophils # (Auto) 0.00 K/uL Basophils # (Auto) 0.01 K/uL RDW Standard Deviation 41.9 fL RDW Coefficient of Variation 13.1 % Immature Granulocyte % (Auto) 0.4 % Immature Granulocyte # (Auto) 0.06 K/uL Sodium Level 136 mmol/L Potassium Level 4.2 mmol/L Chloride Level 102 mmol/L Carbon Dioxide Level 28 mmol/L Anion Gap 6.0 mmol/L Blood Urea Nitrogen 11 mg/dl Creatinine 0.87 mg/dl Est Creatinine Clear Calc Drug Dose 104.1 ml/min Estimated GFR () 111.8 Estimated GFR (Non- 96.5 BUN/Creatinine Ratio 12.3 Random Glucose 130 mg/dl Calcium Level 8.8 mg/dl Magnesium Level 2.1 mg/dl Assessment and Plan 56 yo M with PMHX of CAD/HTN s/p 1 BENEDICTO to LAD on January 04, 2017. Pt underwent blader tumor removal by Dr. Jorgensen Apr 27 2017, after procedure the pts ortiz was removed in office along with bladder irrigation, and subsequently had bladder rupture. He underwent bladder repair ~ 2 weeks ago, and now presents with dysuria/inability to urinate/hematuria and CT findings of large bladder clot formation. Bladder tumor removal/status post bladder rupture/status post bladder rupture repair surgery Rebleed secondary to Plavix, complication of care - Pathology from 04/25/17 reviewed: non-invasive low grade papillary urothelial carcinoma. - Urology on board- planning for cystoscopy and clot evacuation today. - Continue on ceftriaxone 1 g daily, day #2 - CT of the abd/pel reviewed which shows a 6.5 x 5 cm area of blood clot in the bladder. - Resume asa and Plavix - discussed with anesthesiology, Dr. Jorgensen and Dr. López was held and decided this was appropriate. Pt received ASA 81 preop, and Plavix 75 will be dosed in the PACU. - Cont tamsulosin 0.4 mg QHS - NPO- regular diet after procedure. Analgesia with MS 2-4 mg Q4H prn. CAD Hypertension - continue Plavix 75 mg QAM, metoprolol succinate 25 mg QAM, spironolactone 25 QAM - Hold lisinopril 2.5 mg QAM - Pt has lost ~ 20 lbs since heart attack with diet and exercise. Hyperlipidemia -continue atorvastatin 80 mg QAM GERD- -pantoprazole Hx Tobacco Abuse - Pt reports chewing tobacco x 40 years, stopped this past December with heart attack. DVT ppx: teds, scds, no chemical anticoagulation in anticipation of procedure later today FREDIS STATUS: Full CODE Disposition: From home, discharge when medically stable, likely within 1-2 days.
[2017-05-26] MEDS ORDERED: FLM4 PO (08:45)
--- NOTE | 2017-05-26 08:52 | Discharge Instructions ---
Discharge Instructions Date of Service May 26, 2017. Admission Reason for Admission: Bladder Outlet Obstruction, Hematuria Discharge Discharge Diagnosis / Problem: Bladder outlet obstruction, s/p clot evacuation Discharge Goals Goal(s): Decrease discomfort, Improve function, Increase independence, Improve disease control Activity Recommendations Activity Limitations: resume your previous activity Lifting Limitations: none Exercise/Sports Limitations: rest today, gradually increase as tolerated May Resume Sexual Activity: when tolerated Shower/Bathe: no limitations Driving or Machine Use: no limitations . Instructions / Follow-Up Instructions / Follow-Up You were admitted to [facility] with bladder outlet obstruction secondary to clot retention. During your stay here you were seen by Urology and underwent clot evacuation by Dr. Jorgensen on 05/25/17. Imaging studies which were completed include CT of abd/pelvis, and was abnormal showing a 6.5 x 5 cm blood clot within the left posterior aspect of the bladder. Mild bladder wall thickening and minimal adjacent infiltration which may be postsurgical. Uriostegui balloon within the bladder. No hydronephrosis. No urinary calculi. Medications: You should resume plavix and aspirin without any changes. This was started after urological procedure. A new prescription for flomax was given, take this as directed. Appointments: Follow up with your Primary Care Provider within 1 week. Follow up with urology within 1-2 weeks. Current Hospital Diet Patient's current hospital diet: Regular Diet Discharge Diet Recommended Diet: Regular Diet Procedures Procedures Performed: Cystoscopy, Clot Evacuation, and Bladder Fulguration Pending Studies Studies pending at discharge: no Medical Emergencies . Who to Call and When: Medical Emergencies: If at any time you feel your situation is an emergency, please call 911 immediately. . Non-Emergent Contact Non-Emergency issues call your: Primary Care Provider, Urologist Call Non-Emergent contact if: you have a fever, temperature is above 100.5, your pain is not controlled, your pain is worsening, your pain is unusual for you, your pain is concerning you, you have any medication questions other concerns with your health. Call 911 or go directly to the Emergency Department if you experience any of the following: Chest pain, chest tightness, shortness of breath, abdominal pain , lightheadedness, dizziness, gastrointestinal bleeding, or have any other concerns regarding your health. . Past History Medical & Surgical History: (1) Bladder outlet obstruction (2) Urinary obstruction (3) Anticoagulated (4) HTN (hypertension) (5) Kidney stones (6) Hematuria . "Provider Documentation" section prepared by Gaby Pearl. . VTE Core Measure Inpt VTE Proph given/why not?: Other Anticoagulation, SCD's
--- NOTE | 2017-05-26 08:58 | Progress Note ---
Subjective Date of Service: May 26, 2017. Subjective Pt evaluation today including: conversation w/ patient, physical exam, chart review, lab review Voiding: ortiz catheter in place No issues overnight He maintained clear urine output with extremely slow CBI No pain Problem List Medical Problems: (1) Abdominal pain Status: Acute (2) Acute myocardial infarction of apical-lateral wall Status: Acute (3) Anticoagulated Status: Acute (4) Hypotension Status: Acute (5) Medication side effects Status: Acute (6) Perforation of bladder Status: Acute (7) Urinary obstruction Status: Acute (8) Ventricular tachycardia Status: Acute Review of Systems Constitutional: No see HPI, No fever, No chills, No sweats, No weight loss, No weakness, No fatigue, No problem reported Abdomen: No see HPI, No pain, No nausea, No vomiting, No diarrhea, No constipation, No GI bleeding, No problem reported Musculoskeletal: No see HPI, No joint pain, No muscle pain, No swelling, No calf pain, No problem reported Objective Vital Signs Date Time Temp Pulse Resp B/P (MAP) Pulse Ox O2 Delivery O2 Flow Rate FiO2 05/26/17 07:21 36.6 68 18 98/56 (70) 97 Room Air 05/26/17 00:00 Room Air 05/25/17 23:41 36.5 70 20 95/56 (69) 95 Room Air 05/25/17 16:40 36.4 62 18 103/67 (79) 98 Room Air 05/25/17 15:40 64 16 93/58 96 Room Air 05/25/17 15:30 36.6 64 16 90/59 96 Room Air 05/25/17 15:20 61 16 100/57 96 Room Air 05/25/17 15:10 63 16 98/71 100 Oxymask 10 05/25/17 15:00 63 16 98/65 100 Oxymask 10 05/25/17 14:51 36.4 74 16 110/69 100 Oxymask 10 05/25/17 09:20 Room Air Physical Exam General Appearance: no apparent distress Eyes: normal inspection ENT: hearing grossly normal Respiratory/Chest: no respiratory distress Cardiovascular: no edema Extremities: no pedal edema Neurologic/Psychiatric: alert, normal mood/affect, oriented x 3 Laboratory Results Last 24 Hours Test 05/26/17 05:11 White Blood Count 14.72 K/uL Red Blood Count 3.52 M/uL Hemoglobin 10.8 g/dL Hematocrit 31.2 % Mean Corpuscular Volume 88.6 fL Mean Corpuscular Hemoglobin 30.7 pg Mean Corpuscular Hemoglobin Concent 34.6 g/dl Platelet Count 254 K/uL Mean Platelet Volume 8.7 fL Neutrophils (%) (Auto) 80.0 % Lymphocytes (%) (Auto) 14.1 % Monocytes (%) (Auto) 5.4 % Eosinophils (%) (Auto) 0.0 % Basophils (%) (Auto) 0.1 % Neutrophils # (Auto) 11.79 K/uL Lymphocytes # (Auto) 2.07 K/uL Monocytes # (Auto) 0.79 K/uL Eosinophils # (Auto) 0.00 K/uL Basophils # (Auto) 0.01 K/uL RDW Standard Deviation 41.9 fL RDW Coefficient of Variation 13.1 % Immature Granulocyte % (Auto) 0.4 % Immature Granulocyte # (Auto) 0.06 K/uL Sodium Level 136 mmol/L Potassium Level 4.2 mmol/L Chloride Level 102 mmol/L Carbon Dioxide Level 28 mmol/L Anion Gap 6.0 mmol/L Blood Urea Nitrogen 11 mg/dl Creatinine 0.87 mg/dl Est Creatinine Clear Calc Drug Dose 104.1 ml/min Estimated GFR () 111.8 Estimated GFR (Non- 96.5 BUN/Creatinine Ratio 12.3 Random Glucose 130 mg/dl Calcium Level 8.8 mg/dl Magnesium Level 2.1 mg/dl Assessment and Plan Hematuria Stop CBI this morning remove catheter this morning Presuming he voids without too much blood in his urine, recommend discharge home Follow-up as outpatient
[2017-05-26 09:43] VITALS: BP 98/56; PULSE 68; TEMP 36.6; O2SAT 97
--- NOTE | 2017-05-26 12:59 | Discharge Summary ---
Discharge Summary Date of Service May 26, 2017. (Ginger Pearl PA-C) Discharge Summary Admission Date: May 24, 2017 at 21:54 Discharge Date: May 26, 2017 Discharge Disposition: Home Principal Diagnosis: Acute bladder outlet obstruction, hematuria Problems/Secondary Diagnoses: CAD s/p 1 BENEDICTO to LAD on January 04, 2017 HTN non-invasive low grade papillary urothelial carcinoma bladder tumor removal by Dr. Jorgensen Apr 27 2017 bladder rupture s/p repair Large bladder clot s/p cystoscopy and evacuation on 05/25/17 Immunizations: Have You Had Influenza Vaccine: Unknown History of Tetanus Vaccine?: Unknown History of Pneumococcal: Unknown History of Hepatitis B Vaccine: Unknown Procedures: CT OF THE ABDOMEN AND PELVIS WITHOUT CONTRAST, STONE PROTOCOL 05/24/17 IMPRESSION: 1. 6.5 x 5 cm blood clot within the left posterior aspect of the bladder. Mild bladder wall thickening and minimal adjacent infiltration which may be postsurgical. Ortiz balloon within the bladder. 2. No hydronephrosis. No urinary calculi. Consultations: Urology (Ginger Pearl PA-C) Medication Reconciliation New Medications: Tamsulosin HCl (Tamsulosin HCl) 0.4 Mg Cap 0.4 MG PO HS for 30 Days, #30 CAP Continued Medications: Aspirin (Aspirin Ec) 81 Mg Tab 81 MG PO QAM Atorvastatin (Lipitor) 80 Mg Tab 80 MG PO QAM, TAB Clopidogrel (Plavix) 75 Mg Tab 75 MG PO QAM, TAB Docusate Sodium (Colace) 100 Mg Cap 1 CAP PO BID PRN for Constipation for 30 Days, #60 CAP Lansoprazole (Prevacid) 30 Mg Capcr 30 MG PO QPM, CAP Lisinopril (Zestril) 5 Mg Tab 2.5 MG PO QAM, TAB Metoprolol Succ (Toprol Xl) (Toprol-Xl) 25 Mg Tabcr 25 MG PO QAM, #30 TAB Nitroglycerin (Nitrostat) 0.4 Mg Tab 0.4 MG UT PRN, BTL Spironolactone (Aldactone) 25 Mg Tab 25 MG PO QAM, TAB Discharge Exam The patient was seen and examined this morning. Pt reports doing very well today , he has no acute complaints. He had ortiz removed this morning, which was nonpainful. He is anticipating discharge today. Review of Systems: Constitutional: No fever, No chills, No sweats Eyes: No redness ENT: No nasal symptoms, No trouble swallowing Respiratory: No cough, No shortness of breath, No dyspnea on exertion Cardiovascular: No chest pain, No orthopnea, No edema, No claudication Abdomen: No pain, No nausea, No vomiting, No diarrhea, No constipation Musculoskeletal: No joint pain, No swelling Genitourinary - Male: + hematuria, + dysuria, No urinary frequency, No urinary urgency, No urinary hesitancy, No urinary retention Neurologic: No weakness, No numbness/tingling Psychiatric: No depression symptoms Endocrine: No fatigue Integumentary: No rash, No itch (Ginger Pearl, LÓPEZ) Hospital Course History of Present Illness Source: patient, spouse The patient is a 56-year-old male with a past medical history significant for bladder tumor removal on April 25, discharged to home with Ortiz catheter post surgery, removal of Ortiz catheter on April 26 with subsequent bladder rupture, and then bladder repair surgery on April 27. Patient began developing blood clots in urine earlier in the day prior to arrival and was unable to urinate. He was then referred to the ED by his PCP, but upon arrival of EMS, it was reported the blood clots broke loose and he was able to urinate again. In the emergency department he's had episodes of severe paroxysmal bladder spasms and genitourinary pain. He presently is on Plavix and aspirin for history of PA and coronary artery stent placement. Physical Exam Vital Signs The patient is awake, well-developed and adequately nourished, alert and oriented 3, normocephalic and atraumatic, lying in bed and in severe distress during episodes of bladder spasms and genitourinary pain. HEENT--PERRL, EOMI, mucous membranes and oropharynx normal. Neck--supple, no JVD or bruits, thyroid normal, trachea midline, no adenopathy. Heart--normal S1 and S2, no extra beats, no murmurs, rubs or gallops. Lungs--clear bilaterally with good air movement, no respiratory distress, no accessory muscle use. Abdomen--normal bowel sounds and soft, nontender and nondistended, no hernias or masses, no organomegaly. Extremities--no cyanosis, clubbing or edema. There are good distal pulses b/l. Dermatologic--normal skin turgor, normal color, warm and dry, no abnormal lymph nodes, no rash. Neurologic--cranial nerves II through XII grossly intact. Rheumatologic--normal range of motion, nontender, muscles and joints. Psychiatric--normal affect. Hospital Course: 56 yo M with PMHX of CAD/HTN s/p 1 BENEDICTO to LAD on January 04, 2017. Pt underwent blader tumor removal by Dr. Jorgensen Apr 27 2017, after procedure the pts ortiz was removed in office along with bladder irrigation, and subsequently had bladder rupture. He underwent bladder repair ~ 2 weeks ago, and now presents with dysuria/inability to urinate/hematuria and CT findings of large bladder clot formation. Bladder tumor removal/status post bladder rupture/status post bladder rupture repair surgery Rebleed secondary to Plavix, complication of care - Pathology from 04/25/17 reviewed: non-invasive low grade papillary urothelial carcinoma. - Urology consulted- underwent cystoscopy and clot evacuation on 05/[address] Jorgensen - Was on IV ceftriaxone 1 g daily prophylactically x 48 hours. - Resume asa and Plavix - discussed with anesthesiology, Dr. Jorgensen and Dr. López was held and decided this was appropriate. Pt received ASA 81 preop, and Plavix 75 will be dosed in the PACU. - Cont tamsulosin 0.4 mg QHS - Analgesia with MS 2-4 mg Q4H prn. CAD Hypertension - continue Plavix 75 mg QAM, metoprolol succinate 25 mg QAM, spironolactone 25 QAM - Hold lisinopril 2.5 mg QAM - Pt has lost ~ 20 lbs since heart attack with diet and exercise. Hyperlipidemia -continue atorvastatin 80 mg QAM GERD- -pantoprazole Hx Tobacco Abuse - Pt reports chewing tobacco x 40 years, stopped this past December with heart attack. DVT ppx: teds, scds, plavix/asa FREDIS STATUS: Full CODE Disposition: From home, discharge today Total Time Spent: Greater than 30 minutes This includes examination of the patient, discharge planning, medication reconciliation, and communication with other providers. (Ginger Pearl, LÓPEZ) PA Physician Supervision Note: I interviewed and examined the patient. Discussed with Ginger Pearl PAC and agree with findings and plan as documented in the note. Any exceptions or clarifications are listed here: None Patient with bladder clot after being on aspirin and Plavix. Was taken to cystoscopy as he's recently had a TURB. A small vessel was cauterized by Dr. Jorgensen no recurrence of bleeding even after restarting aspirin and Plavix patient is discharged home after being able to urinate once Ortiz removed Vitals have been stable his exam is unremarkable he is awake alert and appropriate and agreeable to go home he will follow up Dr. Jorgnesen Documented By: Hugh Johnson (Hugh Johnson M.D.) Discharge Instructions Please refer to the electronic Patient Visit Report (Discharge Instructions) for additional information. (Ginger Pearl PA-C) Follow-Up Follow up with your Primary Care Provider within 1 week. Follow up with urology within 1-2 weeks. (Ginger Pearl PA-C) Additional Copies To Roseann Murphy M.D.
[2017-05-27] MEDS ORDERED: ASPIRIN 81 MG ECTAB PO SCH (08:00)
[2017-05-27] MEDS ORDERED: CLOPIDOGREL BISULFATE 75 MG TAB PO SCH (08:00)
== END 2017-05-26 11:42 | disposition home or self-care (01) | DRG 988 ==
LOC: C.EDB 17:56 → C.4E 21:54 → ENRESERV 22:04
PROVIDERS: ADMIT Hospitalist; ATTEND Internal Medicine
PROC: 0T5B8ZZ Destruction of Bladder, Via Natural or Artificial Opening Endoscopic (ICD-10-PCS; principal; 2017-05-25 14:15)
DX: N99.820 Postprocedural hemorrhage of a genitourinary system organ or structure following a genitourinary system procedure (principal); D68.9 Coagulation defect, unspecified; K21.9 Gastro-esophageal reflux disease without esophagitis; E78.5 Hyperlipidemia, unspecified; I10 Essential (primary) hypertension; Z79.82 Long term (current) use of aspirin; Z80.9 Family history of malignant neoplasm, unspecified; Z83.3 Family history of diabetes mellitus; Z82.49 Family history of ischemic heart disease and other diseases of the circulatory system; I25.2 Old myocardial infarction

== ENCOUNTER → 2017-06-02 | Outpatient (CLI) | payer BC ==
[~2017-06-02] MED LIST changes: -CIPR-255 PO; -DTRSR5 PO; +FLM4 PO; -HYDR-5688 PO
[2017-06-02 17:48] LABS: URINE APPEARANCE CLEAR (CLEAR); URINE BILIRUBIN NEG (NEG); URINE COLOR YELLOW; URINE NITRITE NEG (NEG); URINE SPECIFIC GRAVITY 1.011 (1.000-1.030); UROBILINOGEN NEG (NEG)
[2017-06-02 17:51] LABS: MANUAL MICROSCOPIC REQUIRED? NO; REVIEW REQ? NO
== END | disposition home or self-care (01) ==
LOC: C.LABSPEC 17:04
PROVIDERS: ATTEND Nurse Practitioner Family
DX: R31.9 Hematuria, unspecified (principal); R35.0 Frequency of micturition

== ENCOUNTER 2017-10-31 15:53 | Emergency (ER) | payer BC ==
[~2017-10-31] VITALS: Ht 182.9 cm; Wt 89.4 kg
[~2017-10-31 15:53] MED LIST changes: -ASPI81TA28 PO; -DOCU-94 PO; -LANS30CA12 PO
[2017-10-31 16:13] VITALS: TEMP 36.4; Ht 182.9 cm; Wt 89.4 kg
[2017-10-31 17:20] LABS: BASO % 0.3 %; BASO ABS # 0.03 K/uL (0-0.2); EOS % 4.5 %; EOS ABS # 0.44 K/uL (0-0.5); HEMATOCRIT 40.9 % (42-52); HEMOGLOBIN 14.4 g/dL (14.0-18.0); IG# 0.03 K/uL (0.00-0.02); LYMPH % 39.1 %; LYMPH ABS # 3.82 K/uL (1.2-3.4); MEAN CELL VOLUME 85.6 fL (80-100); MEAN CORPUSCULAR HEMOGLOBIN 30.1 pg (25-34); MEAN CORPUSCULAR HGB CONC 35.2 g/dl (32-36); MEAN PLATELET VOLUME 8.5 fL (7.4-10.4); MONO % 10.8 %; MONO ABS # 1.06 K/uL (0.11-0.59); NEUT ABS # 4.39 K/uL (1.4-6.5); PLATELET COUNT 238 K/uL (130-400); RED CELL DISTRIBUTION WIDTH CV 13.5 % (11.5-14.5); RED CELL DISTRIBUTION WIDTH SD 42.5 fL (36.4-46.3); WHITE BLOOD COUNT 9.77 K/uL (4.8-10.8)
--- NOTE | 2017-10-31 17:37 | DIAGNOSTIC IMAGING REPORT ---
ABD/PELVIS WITHOUT FOR STONE HISTORY: 56 years-old Male left sided pain eval for stone/divertic acute left-sided abdominal pain with concern for possible acute diverticulitis COMPARISON: CT abdomen and pelvis 05/24/2017. TECHNIQUE: Multiple axial CT images of the abdomen and pelvis were obtained without contrast. A dose lowering technique was used consistent with the principals of VALENT[facility]N. FINDINGS: Mild dependent bibasilar atelectasis. 4 mm fissural lymph node is seen adjacent to the lingula. No pneumatosis or pneumoperitoneum identified. Coronary arterial disease. Gallbladder is contracted. Liver, spleen, pancreas and adrenal glands are within normal limits. Minimal nonspecific bilateral perinephric stranding. No renal calculi or obstructive uropathy. Ureters are within normal limits. There is mild wall thickening about the bladder. Prostate is unremarkable. Mild atherosclerosis of the aorta without aneurysm. No pathologic adenopathy identified. Minimal sliding type hiatal hernia. There is nonspecific mild stranding of the mesenteric root. No bowel structure. Moderate stool volume of the rectosigmoid. There is an ovoid fatty attenuating 1.2 x 0.8 cm structure seen on image 346 series 3 adjacent to the distal portion of the descending colon which demonstrates mild surrounding inflammatory stranding and mild wall thickening of the adjacent colon. There is mild colonic diverticulosis without definite inflamed diverticulum identified. No evidence of perforation or abscess. No evidence of acute appendicitis. Left gynecomastia. Bones appear intact 6 mm sclerotic focus of the right inferior pubic ramus suggests bone island. IMPRESSION: 1. Mild wall thickening of the distal descending colon with mild surrounding inflammatory stranding and adjacent ovoid inflamed centrally fatty attenuating structure suggests acute epiploic appendagitis. There is also mild colonic diverticulosis without definite evidence of acute diverticulitis. No evidence of perforation or abscess. 2. No renal calculi or hydronephrosis. 3. Additional findings as above. The above report was generated using voice recognition software. It may contain grammatical, syntax or spelling errors. Electronically signed by: James Ochoa M.D. 10/31/2017 5:36 PM Dictated Date/Time: 10/31/2017 5:26 PM
[2017-10-31 17:40] LABS: CALCIUM 9.5 mg/dl (8.5-10.1); CREATININE 1.02 mg/dl (0.60-1.40); POTASSIUM 3.7 mmol/L (3.5-5.1)
[2017-10-31 17:43] LABS: TOTAL PROTEIN 7.5 gm/dl (6.4-8.2)
[2017-10-31] MEDS ORDERED: TAMS0.4C38 PO (17:59)
[2017-10-31 18:25] VITALS: BP 105/76; PULSE 56; O2SAT 98
--- NOTE | 2017-10-31 19:36 | EMERGENCY ROOM VISIT NOTE ---
History Report prepared by Chris: Gibran Davis Under the Supervision of: Dr. Hugh Mott M.D. First contact with patient: 16:43 Chief Complaint: ABDOMINAL PAIN Stated Complaint: ABDOMINAL PAIN L SIDE Nursing Triage Summary: Patient ambulatory to triage with an upright and steady gait, states "I have a pain in my left lower abdomen. In April, I had my bladder rupture. The pain is similar. I had to have surgery. I started having dull pain on Monday evening. The pain was hardly noticeable yesterday. Today, the pain is much worse. I thought it was a kidney stone but the pain is all in the front." History of Present Illness The patient is a 56 year old male who presents to the Emergency Room with complaints of worsening LLQ abdominal pain beginning two days ago. He has a history of bladder rupture occurring six months ago due to bladder cancer. The rupture was surgically repaired by Dr. Jorgensen. The patient's current pain became more prominent yesterday which he described as feeling "dull". His pain became "sharp" today. He denies fevers, vomiting, diarrhea, bloody stool, hematuria, or pain with urination. The patient notes that his current pain is along his previous surgical site. He notes that he had a myocardial infarction last year as well. Source of History: patient Onset: two days ago Position: abdomen (LLQ) Quality: sharp (today), dull (yesterday) Timing: worsening Associated Symptoms: No fevers, No chest pain, No vomiting, No hematochezia , No diarrhea, No urinary symptoms (hematuria, or pain with urination) Review of Systems See HPI for pertinent positives & negatives. A total of 10 systems reviewed and were otherwise negative. Past Medical & Surgical Medical Problems: (1) Acute [place], anterior wall (2) Bladder outlet obstruction (3) Hematuria (4) HTN (hypertension) (5) Kidney stones Family History Cancer Diabetes mellitus Heart disease Hypertension Kidney stones Social History Smoking Status: Never Smoker Alcohol Use: none Drug Use: none Marital Status: Housing Status: lives with family Occupation Status: employed Current/Historical Medications Scheduled Aspirin (Aspirin Ec), 81 MG PO QAM Atorvastatin (Lipitor), 80 MG PO QAM Clopidogrel (Plavix), 75 MG PO QAM Lansoprazole (Prevacid), 30 MG PO QPM Lisinopril (Zestril), 2.5 MG PO QAM Metoprolol Succ (Toprol Xl) (Toprol-Xl), 25 MG PO QAM Spironolactone (Aldactone), 25 MG PO QAM Tamsulosin Hcl (Flomax), 0.4 MG PO HS Scheduled PRN Nitroglycerin (Nitrostat), 0.4 MG UT UD PRN for Chest Pain Allergies Coded Allergies: No Known Allergies (Unverified , 10/31/17) Physical Exam Vital Signs Date Time Temp Pulse Resp B/P (MAP) Pulse Ox O2 Delivery O2 Flow Rate FiO2 10/31/17 18:25 56 18 105/76 98 Room Air 10/31/17 17:36 59 18 105/76 98 Room Air 10/31/17 17:07 59 10/31/17 16:13 36.4 61 18 116/73 96 Room Air Physical Exam Constitutional: Vital signs reviewed. Eyes: Pupils are equal round reactive to light. Conjunctiva are noninjected. ENT: Pharynx is clear without erythema or exudate. Mucous membranes are moist. Neck supple without meningeal signs. Respiratory: Clear to auscultation bilaterally. Breath sounds are equal bilaterally. Cardiovascular: Regular rate and rhythm. No rubs or gallops. GI: Soft, nondistended. Bowel sounds are present. LLQ tenderness. No guarding. Musculoskeletal: No peripheral edema. No lower extremity tenderness. No CVA tenderness. Integumentary: No cyanosis. Neurological: The patient is awake and alert. No focal deficits. Psychiatric: Normal affect. Medical Decision & Procedures ER Provider Diagnostic Interpretation: Radiology results as stated below per my review and the radiologist's interpretation: ABD/PELVIS WITHOUT FOR STONE FINDINGS: Mild dependent bibasilar atelectasis. 4 mm fissural lymph node is seen adjacent to the lingula. No pneumatosis or pneumoperitoneum identified. Coronary arterial disease. Gallbladder is contracted. Liver, spleen, pancreas and adrenal glands are within normal limits. Minimal nonspecific bilateral perinephric stranding. No renal calculi or obstructive uropathy. Ureters are within normal limits. There is mild wall thickening about the bladder. Prostate is unremarkable. Mild atherosclerosis of the aorta without aneurysm. No pathologic adenopathy identified. Minimal sliding type hiatal hernia. There is nonspecific mild stranding of the mesenteric root. No bowel structure. Moderate stool volume of the rectosigmoid. There is an ovoid fatty attenuating 1.2 x 0.8 cm structure seen on image 346 series 3 adjacent to the distal portion of the descending colon which demonstrates mild surrounding inflammatory stranding and mild wall thickening of the adjacent colon. There is mild colonic diverticulosis without definite inflamed diverticulum identified. No evidence of perforation or abscess. No evidence of acute appendicitis. Left gynecomastia. Bones appear intact 6 mm sclerotic focus of the right inferior pubic ramus suggests bone island. IMPRESSION: 1. Mild wall thickening of the distal descending colon with mild surrounding inflammatory stranding and adjacent ovoid inflamed centrally fatty attenuating structure suggests acute epiploic appendagitis. There is also mild colonic diverticulosis without definite evidence of acute diverticulitis. No evidence of perforation or abscess. 2. No renal calculi or hydronephrosis. 3. Additional findings as above. The above report was generated using voice recognition software. It may contain grammatical, syntax or spelling errors. Electronically signed by: James Ochoa M.D. 10/31/2017 5:36 PM Laboratory Results 10/31/17 17:05 Red Blood Count 4.78, Mean Corpuscular Volume 85.6, Mean Corpuscular Hemoglobin 30.1, Mean Corpuscular Hemoglobin Concent 35.2, Mean Platelet Volume 8.5, Neutrophils (%) (Auto) 45.0, Lymphocytes (%) (Auto) 39.1, Monocytes (%) (Auto) 10.8, Eosinophils (%) (Auto) 4.5, Basophils (%) (Auto) 0.3, Neutrophils # (Auto ) 4.39, Lymphocytes # (Auto) 3.82, Monocytes # (Auto) 1.06, Eosinophils # (Auto ) 0.44, Basophils # (Auto) 0.03 10/31/17 17:05 Test 10/31/17 17:05 White Blood Count 9.77 K/uL (4.8-10.8) Red Blood Count 4.78 M/uL (4.7-6.1) Hemoglobin 14.4 g/dL (14.0-18.0) Hematocrit 40.9 % (42-52) Mean Corpuscular Volume 85.6 fL (80-100) Mean Corpuscular Hemoglobin 30.1 pg (25-34) Mean Corpuscular Hemoglobin Concent 35.2 g/dl (32-36) Platelet Count 238 K/uL (130-400) Mean Platelet Volume 8.5 fL (7.4-10.4) Neutrophils (%) (Auto) 45.0 % Lymphocytes (%) (Auto) 39.1 % Monocytes (%) (Auto) 10.8 % Eosinophils (%) (Auto) 4.5 % Basophils (%) (Auto) 0.3 % Neutrophils # (Auto) 4.39 K/uL (1.4-6.5) Lymphocytes # (Auto) 3.82 K/uL (1.2-3.4) Monocytes # (Auto) 1.06 K/uL (0.11-0.59) Eosinophils # (Auto) 0.44 K/uL (0-0.5) Basophils # (Auto) 0.03 K/uL (0-0.2) RDW Standard Deviation 42.5 fL (36.4-46.3) RDW Coefficient of Variation 13.5 % (11.5-14.5) Immature Granulocyte % (Auto) 0.3 % Immature Granulocyte # (Auto) 0.03 K/uL (0.00-0.02) Urine Color YELLOW Urine Appearance CLEAR (CLEAR) Urine pH 7.0 (4.5-7.5) Urine Specific [place] 1.014 (1.000-1.030) Urine Protein NEG (NEG) Urine Glucose (UA) NEG (NEG) Urine Ketones NEG (NEG) Urine Occult Blood TRACE (NEG) Urine Nitrite NEG (NEG) Urine Bilirubin NEG (NEG) Urine Urobilinogen NEG (NEG) Urine Leukocyte Esterase NEG (NEG) Urine WBC (Auto) 0 /hpf (0-5) Urine RBC (Auto) 0-4 /hpf (0-4) Urine Hyaline Casts (Auto) 0 /lpf (0-5) Urine Epithelial Cells (Auto) 0-5 /lpf (0-5) Urine Bacteria (Auto) 1+ (NEG) Urine Crystals AMORPHOUS SEDIMENT (NONE Anion Gap 7.0 mmol/L (3-11) Est Creatinine Clear Calc Drug Dose 88.8 ml/min Estimated GFR () 94.8 Estimated GFR (Non- 81.8 BUN/Creatinine Ratio 16.3 (10-20) Calcium Level 9.5 mg/dl (8.5-10.1) Total Bilirubin 0.4 mg/dl (0.2-1) Direct Bilirubin 0.1 mg/dl (0-0.2) Aspartate Amino Transf (AST/SGOT) 17 U/L (15-37) Alanine Aminotransferase (ALT/SGPT) 35 U/L (12-78) Alkaline Phosphatase 71 U/L (45-117) Total Protein 7.5 gm/dl (6.4-8.2) Albumin 4.0 gm/dl (3.4-5.0) Lipase 175 U/L (73-393) Laboratory results as reviewed by me. ED Course 1645: The patient was evaluated in room A4B. A complete history and physical exam was performed. 1809: Upon reevaluation, the patient appeared to have improvement of his symptoms. I discussed milan's findings with him. He verbalized agreement of the treatment plan. The patient was discharged home. Medical Decision This is a 56-year-old male who presents with left-sided lower abdominal pain. Differential diagnosis includes renal colic, hydronephrosis, straining, diverticulitis, colitis, UTI. I did perform a limited focused review of portions of the patient's old chart on the electronic medical record. The patient was admitted in May 2017 for a bladder tumor with bladder rupture. Rupture was surgically repaired by Dr. Jorgensen. I did evaluate the patient as noted above. IV access was established. The patient declined any pain medication. I did order and personally review the patient's urine analysis as described above. A urine culture was sent. I did order and review the patient's blood work as noted in the electronic medical record. His white blood cell count is not elevated. I did order a CT of the abdomen and pelvis. I did review the images myself as well as the radiology report as described above. The patient has evidence of epiploic appendagitis. He does have colonic diverticulosis without signs of diverticulitis. Medication Reconcilliation Current Medication List: was personally reviewed by me Blood Pressure Screening Patient's blood pressure: Normal blood pressure Blood pressure disposition: Did not require urgent referral Impression Primary Impression: Epiploic appendagitis Additional Impression: Diverticulosis Scribe Attestation The scribe's documentation has been prepared under my direct and personally reviewed by me in its entirety. I confirm that the note above accurately reflects all work, treatment, procedures, and medical decision making performed by me. Departure Information Dispostion Home / Self-Care Referrals Roseann Murphy MD (PCP) Forms Call Back Authorization, HOME CARE DOCUMENTATION FORM, IMPORTANT VISIT INFORMATION Patient Instructions ED Diverticulosis, My [facility] Additional Instructions You have been examined and treated today on an emergency basis only. This is not a substitute for, or an effort to provide, complete comprehensive medical care. It is impossible to recognize and treat all injuries or illnesses in a single emergency department visit. It is therefore important that you follow up closely with your physician. Call as soon as possible for an appointment. Return for worsening symptoms or if you develop fever, vomiting, rectal bleeding or any other concerning symptoms. Problem Qualifiers Additional Impression: Diverticulosis Diverticulosis site: unspecified location Diverticulosis bleeding: diverticulosis without bleeding Qualified Codes: K57.90 - Diverticulosis of intestine, part unspecified, without perforation or abscess without bleeding
[2017-10-31] MEDS ORDERED: ASPI81TA28 PO (21:11)
[2017-10-31] MEDS ORDERED: LANS30CA12 PO (21:11)
== END 2017-10-31 18:36 | disposition home or self-care (01) ==
LOC: C.EDB 15:56 → C.EDA 18:36
DX: K63.89 Other specified diseases of intestine (principal); Q43.8 Other specified congenital malformations of intestine; K57.90 Diverticulosis of intestine, part unspecified, without perforation or abscess without bleeding; I25.2 Old myocardial infarction; Z85.51 Personal history of malignant neoplasm of bladder; I10 Essential (primary) hypertension; Z87.442 Personal history of urinary calculi; Z80.9 Family history of malignant neoplasm, unspecified; Z83.3 Family history of diabetes mellitus; Z82.49 Family history of ischemic heart disease and other diseases of the circulatory system; Z84.1 Family history of disorders of kidney and ureter; Z79.82 Long term (current) use of aspirin; Z79.02 Long term (current) use of antithrombotics/antiplatelets; Z79.899 Other long term (current) drug therapy

== ENCOUNTER → 2017-12-02 | Outpatient (CLI) | payer BC ==
[~2017-12-02] MED LIST changes: +ASPI81TA28 PO; -FLM4 PO; +LANS30CA12 PO; +TAMS0.4C38 PO
[2017-12-02 09:14] LABS: ALT/SGPT 41 U/L (12-78); AST/SGOT 20 U/L (15-37); BLOOD UREA NITROGEN 15 mg/dl (7-18); CALCIUM 8.9 mg/dl (8.5-10.1); CARBON DIOXIDE 29 mmol/L (21-32); CHOLESTEROL 110 mg/dl (0-200); CREATININE 0.88 mg/dl (0.60-1.40); GLUCOSE 89 mg/dl (70-99); POTASSIUM 4.2 mmol/L (3.5-5.1); SODIUM 139 mmol/L (136-145)
[2017-12-02 09:17] LABS: LDL CHOLESTEROL CALCULATED 49 mg/dl
== END | disposition home or self-care (01) ==
LOC: C.LAB 07:56
PROVIDERS: ATTEND Physician Assistant
DX: Z72.0 Tobacco use (principal); E78.5 Hyperlipidemia, unspecified

== ENCOUNTER → 2018-04-18 | Outpatient (CLI) | payer BC ==
[~2018-04-18] MED LIST changes: -TAMS0.4C38 PO
== END | disposition home or self-care (01) ==
LOC: C.PATHSPEC 11:41
PROVIDERS: ATTEND Plastic Surgery
DX: D23.5 Other benign neoplasm of skin of trunk (principal)

== ENCOUNTER 2018-11-16 10:13 | Observation (INO) ==
[2018-11-16] MEDS ORDERED: ASPIRIN CHEW 324 MG PO STA (10:33)
[2018-11-16] MEDS ORDERED: NITROGLYCERIN SL 0.4 MG/TAB TAB SL PRN ×2 (10:33→12:39)
--- NOTE | 2018-11-16 10:35 | Emergency Department Note ---
Entered by Steph Valverde acting as a scribe for Naresh Huffman DO History of Present Illness General Chief complaint: Cardiac Assessment Stated complaint: NUMBNESS IN LT ARM, PAIN IN ARM AND NECK, HX OF [place] Time Seen by Provider: 11/16/18 10:27 Source: patient Mode of arrival: ambulatory Limitations: no limitations History of Present Illness Maximum Pain Intensity: 4 The patient is a 58 year old male with a history of heart attack and stent who presents to the ED with complaints of an episode of numbness in his left arm that onset this morning. 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 He notes that the nurse said that his blood pressure was elevated. The patient states that he then developed pain in his left arm and a feeling of heaviness in his right arm. He notes that he took his normal baby aspirin this morning. Home Medications Home Medications Medication Instructions Recorded Confirmed Type aspirin 81 mg PO QAM 10/30/18 11/16/18 History clopidogrel 75 mg PO QAM 10/30/18 11/16/18 History lansoprazole 30 mg PO HS 10/30/18 11/16/18 History lisinopril 2.5 mg PO QAM 10/30/18 11/16/18 History metoprolol succinate 25 mg PO QAM 10/30/18 11/16/18 History nitroglycerin 1 dose SUBLINGUAL UD PRN 10/30/18 11/16/18 History atorvastatin 80 mg PO DAILY 11/16/18 11/16/18 History spironolactone 25 mg PO QAM 11/16/18 11/16/18 History Allergies Allergy/AdvReac Type Severity Reaction Status Date / Time No Known Allergies Allergy Verified 11/16/18 11:55 Past Med/Surg History Medical History Cigar smoker Bladder cancer Presence of stent in LAD coronary artery HLD (hyperlipidemia) CAD (coronary artery disease), [place] coronary artery Chest pain (Acute) HTN (hypertension) (Chronic) Acute [place], anterior wall Basal cell carcinoma of nose GERD (gastroesophageal reflux disease) Hyperlipidemia Hypertension Myocardial Infarction 01/04/2017--follows with dr. fitzpatrick On anticoagulant therapy Surgical History History of bladder surgery repair after bladder tumor removal--bladder ruptured History of cardiac cath 12/2016 History of colonoscopy History of cystoscopy removal of benign bladder tumor History of heart artery stent 12/2016 History of tonsillectomy History of umbilical hernia repair History of wisdom tooth extraction Status post Mohs surgery for basal cell carcinoma x2 Family History Daughter Family history of diabetes mellitus Grandmother (Maternal) Family hx of colon cancer Brother Heart attack Sister Heart attack Father Heart attack Other No family history of adverse response to anesthesia Social History Preferred Language: [place] Communication Ability: Effective Maintenance Superintendent Required: No Beliefs That Will Affect Care: None Current Living Situation: Spouse Current Living Situation Comment: Lives with and special needs daughter Other Information That Helps Us Care for You: No Feels Safe at Home: Yes Safety Concerns: Feels Safe At This Time Smoking Status: Current some day smoker Hx Alcohol Use: No Hx Substance Use: No Review of Systems See HPI for pertinent positives & negatives. and A total of 10 systems reviewed and were otherwise negative Physical Exam Vital Signs Vital Signs - 24 hr 11/16/18 10:21 11/16/18 10:37 11/16/18 11:28 Temperature 36.8 C Temperature Source Oral Sepsis Recent Fever Within 48 Hours No Sepsis Action Taken by Nursing No Action Required Pulse Rate 63 Pulse Rate [Left Finger] 57 L Respiratory Rate 20 18 Respiratory Effort / Characteristics Non-Labored Spontaneous Respiratory Depth Normal Respiratory Pattern Regular Blood Pressure 116/73 Blood Pressure [Left Arm] 111/79 Blood Pressure Mean 87 Blood Pressure Mean [Left Arm] 89 Blood Pressure Position [Left Arm] Pulse Oximetry 96 96 95 Oxygen Delivery Method Room Air Room Air Room Air 11/16/18 12:55 11/16/18 14:00 11/16/18 16:00 Temperature 36.4 C L Temperature Source Oral Sepsis Recent Fever Within 48 Hours Sepsis Action Taken by Nursing Pulse Rate 57 L Pulse Rate [Left Finger] 57 L 63 Respiratory Rate 16 18 Respiratory Effort / Characteristics Respiratory Depth Respiratory Pattern Blood Pressure Blood Pressure [Left Arm] 127/91 119/70 Blood Pressure Mean Blood Pressure Mean [Left Arm] 103 86 Blood Pressure Position [Left Arm] Lying Pulse Oximetry 96 97 Oxygen Delivery Method Room Air Room Air 11/16/18 17:52 Temperature Temperature Source Sepsis Recent Fever Within 48 Hours Sepsis Action Taken by Nursing Pulse Rate 61 Pulse Rate [Left Finger] Respiratory Rate Respiratory Effort / Characteristics Respiratory Depth Respiratory Pattern Blood Pressure Blood Pressure [Left Arm] Blood Pressure Mean Blood Pressure Mean [Left Arm] Blood Pressure Position [Left Arm] Pulse Oximetry Oxygen Delivery Method GENERAL: Patient is awake alert in no acute distress patient is resting comfortably and showing no signs of anxiety EYES: The conjunctivae are clear. The pupils are round and reactive. EARS, NOSE, MOUTH AND THROAT: The nose is without any evidence of any deformity. Mucous membranes are moist tongue is midline NECK: The neck is nontender and supple. RESPIRATORY: Normal respiratory effort is noted there is no evidence of wheezing rhonchi or rales CARDIOVASCULAR: Regular rate and rhythm noted there no murmurs rubs or gallops normal S1 normal S2 GASTROINTESTINAL: The abdomen is soft. Bowel sounds are present in all quad rants. Abdomen is nontender MUSCULOSKELETAL/EXTREMITIES: There is no evidence of gross deformity full range of motion is noted in the hips and shoulders SKIN: There is no obvious evidence of any rash. There are no petechiae, pallor or cyanosis noted. NEUROLOGIC: Patient is awake alert and oriented x3. Course 1030: Past medical records reviewed. The patient was evaluated in room A9, and a complete history and physical examination were performed. 1208: I reviewed the patient's case with Gaby Pearl PA-C. She states that Dr. Husain will evaluate the patient. Administered Medications Enoxaparin Sodium (Lovenox) 40 mg SQ DAILY@1400 [facility] Stop: 12/16/18 14:14 Last Admin: 11/16/18 15:33 Dose: Not Given Documented by: [id number] Discontinued Medications Aspirin (Aspirin) 162 mg PO NOW STA Stop: 11/16/18 10:34 Last Admin: 11/16/18 11:22 Dose: 162 mg Documented by: [id number] Aspirin (Aspirin Chew) Confirm Administered Dose 243 mg .ROUTE .STK-MED ONE Stop: 11/16/18 11:21 Last Admin: 11/16/18 11:22 Dose: Not Given Documented by: [id number] Sodium Chloride (Nss) 500 mls @ 999 mls/hr IV .Q31M [facility] Stop: 11/16/18 11:15 Last Infusion: 11/16/18 12:00 Dose: 0 mls/hr Documented by: [id number] Admin: 11/16/18 11:23 Dose: 999 mls/hr Documented by: [id number] Perflutren Lipid Microsphere (Definity) 2 ml IV ONCE ONE Stop: 11/16/18 15:08 Last Admin: 11/16/18 15:07 Dose: 2 ml Documented by: [id number] Medical Decision Making Differential Diagnosis Differential diagnosis: Etiologies such as shingles, musculoskeletal pain, pericarditis, myocarditis, cardiac ischemia, pericardial tamponade, pneumonia, pneumothorax, pleural effu ambika, hemothorax, pleurisy, aortic pathology, pulmonary embolism, intra- abdominal process, as well as others were considered. Medical Records Attestation: I reviewed the patient's medical records. Home Medications Current Medication List: was personally reviewed by me Laboratory Data Attestation: I reviewed the patient's lab results. Result diagrams: 11/16/18 10:37 11/16/18 10:37 Lab Results 11/16/18 11/16/18 11/16/18 Range/Units 10:37 10:37 10:37 WBC 7.85 (4.8-10.8) K/uL RBC 5.59 (4.7-6.1) M/uL Hgb 17.3 (14.0-18.0) g/dL Hct 49.4 (42-52) % MCV 88.4 (80-100) fL MCH 30.9 (25-34) pg MCHC 35.0 (32-36) g/dL RDW Std Deviation 42.7 (36.4-46.3) fL RDW Coeff of Laura 13.2 (11.5-14.5) % Plt Count 229 (130-400) K/uL MPV 8.9 (7.4-10.4) fL Immature Gran % (Auto) 0.1 % Neut % (Auto) 55.6 % Lymph % (Auto) 30.8 % Angelina % (Auto) 8.8 % Eos % (Auto) 4.3 % Baso % (Auto) 0.4 % Immature Gran # (Auto) 0.01 (0.00-0.02) K/uL Neut # (Auto) 4.36 (1.4-6.5) K/uL Lymph # (Auto) 2.42 (1.2-3.4) K/uL Angelina # (Auto) 0.69 H (0.11-0.59) K/uL Eos # (Auto) 0.34 (0-0.5) K/uL Baso # (Auto) 0.03 (0-0.2) K/uL PT 10.5 (9.0-12.0) Seconds INR 1.0 (0.9-1.1) APTT 29.9 (21.0-31.0) Seconds PTT Ratio 1.1 Sodium 136 (136-145) mmol/L Potassium 3.9 (3.5-5.1) mmol/L Chloride 105 (98-107) mmol/L Carbon Dioxide 25 (21-32) mmol/L Anion Gap 6.0 (3-11) BUN 10 (7-18) mg/dl Creatinine 0.88 (0.6-1.4) mg/dl Est Cr Clr Drug Dosing 100.4 ml/min Est GFR ( Amer) 109.7 Est GFR (Non-Af Amer) 94.7 BUN/Creatinine Ratio 11.7 (10-20) Glucose 104 H (70-99) mg/dl Calcium 8.6 (8.5-10.1) mg/dl Total Bilirubin 0.6 (0.2-1) mg/dl AST 18 (15-37) U/L ALT 28 (12-78) U/L Alkaline Phosphatase 66 (45-117) U/L POC Troponin I (0-0.045) ng/ml Troponin I < 0.015 (0-0.045) ng/ml Total Protein 7.6 (6.4-8.2) gm/dl Albumin 3.9 (3.4-5.0) gm/dl Globulin 3.7 (2.5-4.0) gm/dl Albumin/Globulin Ratio 1.1 (0.9-2) Lipase 153 (73-393) U/L 11/16/18 Range/Units 11:28 WBC (4.8-10.8) K/uL RBC (4.7-6.1) M/uL Hgb (14.0-18.0) g/dL Hct (42-52) % MCV (80-100) fL MCH (25-34) pg MCHC (32-36) g/dL RDW Std Deviation (36.4-46.3) fL RDW Coeff of Laura (11.5-14.5) % Plt Count (130-400) K/uL MPV (7.4-10.4) fL Immature Gran % (Auto) % Neut % (Auto) % Lymph % (Auto) % Angelina % (Auto) % Eos % (Auto) % Baso % (Auto) % Immature Gran # (Auto) (0.00-0.02) K/uL Neut # (Auto) (1.4-6.5) K/uL Lymph # (Auto) (1.2-3.4) K/uL Angelina # (Auto) (0.11-0.59) K/uL Eos # (Auto) (0-0.5) K/uL Baso # (Auto) (0-0.2) K/uL PT (9.0-12.0) Seconds INR (0.9-1.1) APTT (21.0-31.0) Seconds PTT Ratio Sodium (136-145) mmol/L Potassium (3.5-5.1) mmol/L Chloride (98-107) mmol/L Carbon Dioxide (21-32) mmol/L Anion Gap (3-11) BUN (7-18) mg/dl Creatinine (0.6-1.4) mg/dl Est Cr Clr Drug Dosing ml/min Est GFR ( Amer) Est GFR (Non-Af Amer) BUN/Creatinine Ratio (10-20) Glucose (70-99) mg/dl Calcium (8.5-10.1) mg/dl Total Bilirubin (0.2-1) mg/dl AST (15-37) U/L ALT (12-78) U/L Alkaline Phosphatase (45-117) U/L POC Troponin I < 0.03 (0-0.045) ng/ml Troponin I (0-0.045) ng/ml Total Protein (6.4-8.2) gm/dl Albumin (3.4-5.0) gm/dl Globulin (2.5-4.0) gm/dl Albumin/Globulin Ratio (0.9-2) Lipase (73-393) U/L Imaging Data Radiologist's Impression: Radiology results as stated below per my review and the radiologist's interpretation: XR chest 1V portable CLINICAL HISTORY: Chest Pain COMPARISON STUDY: Chest radiograph April 27, 2017. FINDINGS: There is no pneumothorax or pleural effusion. Linear left basilar opacity favors atelectasis. There is no evidence for pulmonary edema. Cardiac size is normal. Mediastinal contours are normal. IMPRESSION: No acute cardiopulmonary findings. Electronically signed by: Alban Emmanuel M.D. 11/16/2018 11:01 AM Dictated: 11/16/18 1100 ECG Data Attestation: I personally reviewed and interpreted this ECG as follows: Indication: chest pain Rate (beats per minute): 57 Findings: + other (Poor R wave progression) and + T-wave inversion (Anterior T- wave inversion); no ectopy Comparison ECG Date: from (04/27/17) Change: no significant change Blood Pressure Blood Pressure Findings: Normal blood pressure MDM Narrative The patient is a 58-year-old male who presented to the emergency department for an evaluation of left-sided chest pain. The patient describes left-sided chest pain with went to his left arm. He does have a history of coronary artery disease which was treated with stenting in the past. The patient states that the pain was not completely exertional in nature. He was treated with aspirin and nitroglycerin in the emergency department with good results. I discussed the patient's laboratory and radiographic studies with him. He was reevaluated multiple times. Given the patient's history and comorbidities I discussed his case with the on-call [facility] hospitalist group. They have agreed to evaluate the patient in the emergency department for further management and disposition. Impression & Plan Chest pain, Abnormal EKG Discharge Plan Visit Data *Final* Discharge Date/Time: 11/16/18 13:20 Chief Complaint: Cardiac Assessment Stated Complaint: NUMBNESS IN LT ARM, PAIN IN ARM AND NECK, HX OF [place] ED Provider: Naresh Huffman Discharge Problem: Chest pain, Abnormal EKG Patient Disposition: Admitted As Inpatient Discharge Instructions Interventions: ED Discharge Assessment Last Done: 11/16/18 13:20 Discharge Problem: Chest pain Qualifiers: Chest pain type: unspecified Qualified Code(s): R07.9 - Chest pain, unspecified The scribe's documentation has been prepared under my direction and personally reviewed by me in its entirety. I confirm that the note above accurately reflects all work, treatment, procedures, and medical decision making performed by me.
[2018-11-16] MEDS ORDERED: SODIUM CHLORIDE 0.9% 500 ML IV SCH (10:45)
[2018-11-16 10:50] LABS: Basophils # (auto) 0.03 K/uL (0-0.2); Basophils % (auto) 0.4 %; Eosinophils # (auto) 0.34 K/uL (0-0.5); Eosinophils % (auto) 4.3 %; Hematocrit (blood only) 49.4 % (42-52); Hemoglobin 17.3 g/dL (14.0-18.0); Immature Granulocytes # (auto) 0.01 K/uL (0.00-0.02); Immature Granulocytes % (auto) 0.1 %; Lymphocytes # (auto) 2.42 K/uL (1.2-3.4); Lymphocytes % (auto) 30.8 %; Mean Corpuscular Volume 88.4 fL (80-100); Mean Platelet Volume 8.9 fL (7.4-10.4); Monocytes # (auto) 0.69 K/uL (0.11-0.59); Monocytes % (auto) 8.8 %; Neutrophils # (auto) 4.36 K/uL (1.4-6.5); Neutrophils % (auto) 55.6 %; Platelet Count 229 K/uL (130-400); RDW Coefficient of Variation 13.2 % (11.5-14.5); RDW Standard Deviation 42.7 fL (36.4-46.3); Red Blood Count 5.59 M/uL (4.7-6.1); White Blood Count 7.85 K/uL (4.8-10.8)
--- NOTE | 2018-11-16 11:02 | XRay Report ---
XR chest 1V portable CLINICAL HISTORY: Chest Pain COMPARISON STUDY: Chest radiograph April 27, 2017. FINDINGS: There is no pneumothorax or pleural effusion. Linear left basilar opacity favors atelectasi s. There is no evidence for pulmonary edema. Cardiac size is normal. Mediastinal contours are normal. IMPRESSION: No acute cardiopulmonary findings. Electronically signed by: Alban Emmanuel M.D. 11/16/2018 11:01 AM
[2018-11-16 11:09] LABS: Partial Thromboplastin Ratio 1.1; Partial Thromboplastin Time 29.9 Seconds (21.0-31.0); Prothrombin Time 10.5 Seconds (9.0-12.0)
[2018-11-16 11:10] LABS: Alanine Aminotransferase 28 U/L (12-78); Albumin Level 3.9 gm/dl (3.4-5.0); BUN Creatinine Ratio 11.7 (10-20); Blood Urea Nitrogen 10 mg/dl (7-18); Calcium 8.6 mg/dl (8.5-10.1); Carbon Dioxide 25 mmol/L (21-32); Chloride 105 mmol/L (98-107); Creatinine Clr Calc Pharmacy 100.4 ml/min; Est GFR (African American) 109.7; Est GFR (Non-African American) 94.7; Glucose 104 mg/dl (70-99); Potassium 3.9 mmol/L (3.5-5.1); Sodium 136 mmol/L (136-145)
[2018-11-16 11:15] LABS: Albumin Globulin Ratio 1.1 (0.9-2); Alkaline Phosphatase 66 U/L (45-117); Aspartate Aminotransferase 18 U/L (15-37); Bilirubin,Total 0.6 mg/dl (0.2-1); Globulin 3.7 gm/dl (2.5-4.0); Total Protein 7.6 gm/dl (6.4-8.2); Troponin I < 0.015 ng/ml (0-0.045)
[2018-11-16] MEDS ORDERED: ASPIRIN 81 MG CHEW ONE (11:20)
--- NOTE | 2018-11-16 12:54 | History & Physical Report ---
Date of Service November 16, 2018 Assessment & Plan (1) Chest pain: - Admit to tele for observation for r/o - Trend cardiac biomarkers, initial set was negative - Check fasting lipid profile and A1C - EKG reviewed as above - Check 2 D echo - Cardiology consult due to significant PMHx and family history. - If negative enzymes can consider a stress test - note stress test likely cannot be done over the weekend. - Pt educated on cigar smoking cessation. (2) CAD (coronary artery disease), [place] coronary artery: - Continue on plavix, asa, atorvastatin, metoprolol succinate, lisinopril, spironolactone (3) Acute [place], anterior wall: - Hx of such, January 04, 2017 - Checking echo as above - Follows with Dr. Schofield as an outpatinet, cardiology consulted (4) HTN (hypertension): - Continue antihypertensives as above, BP well controlled upon admission (5) HLD (hyperlipidemia): - Cont statin therapy (6) Presence of stent in LAD coronary artery: - Medtronic 2.75 x 18 mm BENEDICTO, placed due to total early mid LAD occlusion. (7) Bladder cancer: - Hx of such, stable (8) Cigar smoker: - Recently started smoking one cigar daily in the beginning of September. Pt denies the need for nicotine patch. He reports history of chewing tobacco use but that he quit this about 2 years ago after IL. - Cessation was encouraged, at bedside also supportive, pt is willing to quit. (9) DVT prophylaxis: - lovenox subq. History of Present Illness Primary Care Provider: Roseann Murphy MD This is a 58 yo M with PMHx of CAD, left eye/P anterior septal [place] on 01/04/17, 1 BENEDICTO to the LAD, HTN, HLD, GERD, BPH, bladder cancer, tobacco use. Patient presents with a feeling which occurred this morning around approximately 8:45 AM. 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 He then visited the school nurse because he felt somewhat lightheaded while he was standing up. BP was checked at that time was reportedly 117/78. She requested an EMS be called however patient refused this and brought him to the ER. Patient notes left-sided arm "hotness"as well as bilateral arm heaviness. This sensation in his arms lasted for approximately 1-1/2 hours. He chewed two baby aspirin once getting to the ER. Pt reports heaviness in arms is now gone. No hot/burning sensation in the left arm now. He denies any chest pain, shortness of breath, palpitations, flutter at any time today. No further lightheadedness. Pertinent Social Hx: Patient's notes he has recently starting to smoke cigars on a daily basis for the last 3 months. Patient gave up chewing tobacco about 2 years ago after his first heart attack. He cut out all soda from his diet on September 18 and has subsequently lost about ~17 lbs. Pt does not exercise routinely but leads a very active lifestyle. Patient typically drinks 5 cups of coffee every morning, and did so this morning. He has not had any alcohol for 3 years. Initial troponin is negative. EKG is reviewed and shows possible anterior T wave inversions however this is very similar to previous EKG done in December 2016. Allergies Allergy/AdvReac Type Severity Reaction Status Date / Time No Known Allergies Allergy Verified 11/16/18 11:55 Home Medications Home Medications Medication Instructions Recorded Confirmed Type aspirin 81 mg PO QAM 10/30/18 11/16/18 History clopidogrel 75 mg PO QAM 10/30/18 11/16/18 History lansoprazole 30 mg PO HS 10/30/18 11/16/18 History lisinopril 2.5 mg PO QAM 10/30/18 11/16/18 History metoprolol succinate 25 mg PO QAM 10/30/18 11/16/18 History nitroglycerin 1 dose SUBLINGUAL UD PRN 10/30/18 11/16/18 History atorvastatin 80 mg PO DAILY 11/16/18 11/16/18 History spironolactone 25 mg PO QAM 11/16/18 11/16/18 History Past Med/Surg History Medical History Cigar smoker Bladder cancer Presence of stent in LAD coronary artery HLD (hyperlipidemia) CAD (coronary artery disease), [place] coronary artery Chest pain (Acute) HTN (hypertension) (Chronic) Acute [place], anterior wall Basal cell carcinoma of nose GERD (gastroesophageal reflux disease) Hyperlipidemia Hypertension Myocardial Infarction 01/04/2017--follows with dr. schofield On anticoagulant therapy Surgical History History of bladder surgery repair after bladder tumor removal--bladder ruptured History of cardiac cath 12/2016 History of colonoscopy History of cystoscopy removal of benign bladder tumor History of heart artery stent 12/2016 History of tonsillectomy History of umbilical hernia repair History of wisdom tooth extraction Status post Mohs surgery for basal cell carcinoma x2 Family History Daughter Family history of diabetes mellitus Grandmother (Maternal) Family hx of colon cancer Brother Heart attack Sister Heart attack Father Heart attack Other No family history of adverse response to anesthesia Social History Preferred Language: Ethiopian Beliefs That Will Affect Care: None Current Living Situation: Spouse Current Living Situation Comment: Lives with and special needs daughter Other Information That Helps Us Care for You: No Feels Safe at Home: Yes Safety Concerns: Feels Safe At This Time Smoking Status: Current some day smoker Hx Alcohol Use: No Hx Substance Use: No Review of Systems Constitutional: No fever, sweats or chills Eyes: No diplopia, no worsening or blurred vision ENT: normal hearing, no trouble swallowing Respiratory: No cough, sputum, dyspnea at rest or on exertion Cardiovascular: No chest pain, no tightness or palpitations Abdomen: No pain, nausea, vomiting, diarrhea or constipation Musculoskeletal: No joint pain, calf pain, swelling Neurologic: Arm heaviness is described per HPI. No weakness, numbness/tingling, or balance problems Psychiatric: No anxiety or depression Skin: No rash or itch Physical Exam Vital Signs (Past 24 Hours): Last Vital Signs Temp 36.8 C 11/16/18 10:21 Pulse 57 L 11/16/18 11:28 Resp 18 11/16/18 11:28 BP 111/79 11/16/18 11:28 Pulse Ox 95 11/16/18 11:28 Physical Exam: General: awake, alert, no apparent distress Head: Normocephalic, atraumatic ENT: PERRL, EOMI, no pharyngeal exudate, mucous membranes moist Chest: Nontender to palpation, clear to auscultation, on room air, no adventitious breath sounds Cardiac: Regular rate and rhythm, no murmur, no JVD, normal peripheral pulses, good capillary refill Abdominal: NABS x 4 quadrants, soft, nontender to palpation, no rebound, guarding or tenderness Extremities: Normal inspection, no peripheral edema or erythema, calfs nontender to palpation Psych: Normal mood and affect Neuro: AAO x 3, strength intact bilaterally and related 5/5, no motor deficits, speech is clear, no peripheral sensory deficits Results & Data Diagnostic Findings XR chest 1V portable CLINICAL HISTORY: Chest Pain COMPARISON STUDY: Chest radiograph April 27, 2017. FINDINGS: There is no pneumothorax or pleural effusion. Linear left basilar opacity favors atelectasis. There is no evidence for pulmonary edema. Cardiac size is normal. Mediastinal contours are normal. IMPRESSION: No acute cardiopulmonary findings. ECG Additional Comments: 16-NOV-2018 10:30:46 [facility] Sinus bradycardia Anterior infarct (cited on or before 16-NOV-2018) Abnormal ECG When compared with ECG of 27-APR-2017 17:42, No significant change was found Vent. rate 57 BPM IN interval 168 ms QRS duration 90 ms QT/QTc 430/418 ms P-R-T axes 75 74 90 Code Status & VTE Plan Code Status Full code Supervising Physician Co-Signing Physician Notes Patient was seen and examined at bedside by myself. I examined and interrogated the patient. My physical exam and history did not defer from above. I answered all of the patient's questions. Will be admitted under OBS. Will recheck troponin. If negative, will discharge as chest pain does not appear to be cardiac in nature. (1) Chest pain Chest pain type: unspecified Qualified Code(s): R07.9 - Chest pain, unspecified
[2018-11-16] MEDS ORDERED: ACETAMINOPHEN 325 MG TAB PO PRN (13:53)
[2018-11-16] MEDS ORDERED: ONDANSETRON INJ 2 MG/ML 2 ML VIAL IV PRN (13:53)
[2018-11-16] MEDS ORDERED: ENOXAPARIN INJ 40 MG/0.4 ML SYR SQ SCH (14:15)
[2018-11-16] MEDS ORDERED: PERFLUTREN LIPID MICROSPHERE (DEFINITY) IV ONE (15:07)
--- NOTE | 2018-11-16 18:16 | Cardiology Consultation ---
Date of Consultation November 16, 2018 Assessment & Plan (1) Chest pain: The patient did not actually have symptoms of chest discomfort. The symptoms he experienced involve a sense of arm heaviness and dizziness. The symptoms were distinct from those he experienced during his acute NM in 2017. There is no evidence that this represented an acute coronary syndrome. He had an extended episode of symptoms without any current elevation in his biomarkers. I think we are waiting another set of markers and if those are normal I do not feel he requires any additional cardiovascular workup. In the presence of an abnormal troponin, additional evaluation will need to be considered. (2) CAD (coronary artery disease), [place] coronary artery: Patient has done very well since his anterior myocardial infarction and associated cardiac arrest in 2017. He is on aggressive medical regimen which includes beta blockade, Sergei inhibition, high-dose atorvastatin, aldosterone antagonist and dual anti-platelet therapy. He did seem to have an element of LV dysfunction associated with his anterior myocardial function 2017. However, echocardiogram today reveals overall preserved LV systolic function with regional wall motion abnormalities consistent with his infarct in 2017. History of Present Illness Reason for Consultation: Chest pain Requesting Physician: Lisha Attending Physician: Justin Husain History of Present Illness The patient is a 50-year-old gentleman with a history of coronary artery disease having suffered an acute anterior myocardial infarction in December 2016. Since that time the patient is actually done very well. He is generally an active individual who exercises regularly on a treadmill and performs moderate activity at work. He is not limited by symptoms of chest discomfort or dyspnea. This morning he began to experience some sensation of dizziness. This also involved a sense of arm heaviness. 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 Vital signs taken at that time were normal but given his history of cardiac disease in the symptoms he described he was advised to go to the emergency room. Event to the patient did present to [facility]. Around that time his symptoms resolved without any particular intervention. He has not had any recurrence of the symptoms since admission. Patient did not have associated dyspnea. He did not have symptoms of chest discomfort. The symptoms are distinctly different from those experienced during his myocardial infarction in 2017. At that time he had severe substernal chest discomfort. He did not report any recent palpitations. He did drink a large amount of coffee this morning on an empty stomach. Allergies Allergy/AdvReac Type Severity Reaction Status Date / Time No Known Allergies Allergy Verified 11/16/18 11:55 Home Medications Home Medications Medication Instructions Recorded Confirmed Type aspirin 81 mg PO QAM 10/30/18 11/16/18 History clopidogrel 75 mg PO QAM 10/30/18 11/16/18 History lansoprazole 30 mg PO HS 10/30/18 11/16/18 History lisinopril 2.5 mg PO QAM 10/30/18 11/16/18 History metoprolol succinate 25 mg PO QAM 10/30/18 11/16/18 History nitroglycerin 1 dose SUBLINGUAL UD PRN 10/30/18 11/16/18 History atorvastatin 80 mg PO DAILY 11/16/18 11/16/18 History spironolactone 25 mg PO QAM 11/16/18 11/16/18 History Patient History Medical History Cigar smoker Bladder cancer Presence of stent in LAD coronary artery HLD (hyperlipidemia) CAD (coronary artery disease), [place] coronary artery Chest pain (Acute) HTN (hypertension) (Chronic) Acute [place], anterior wall Basal cell carcinoma of nose GERD (gastroesophageal reflux disease) Hyperlipidemia Hypertension Myocardial Infarction 01/04/2017--follows with dr. fitzpatrick On anticoagulant therapy Surgical History History of bladder surgery repair after bladder tumor removal--bladder ruptured History of cardiac cath 12/2016 History of colonoscopy History of cystoscopy removal of benign bladder tumor History of heart artery stent 12/2016 History of tonsillectomy History of umbilical hernia repair History of wisdom tooth extraction Status post Mohs surgery for basal cell carcinoma x2 Family History Daughter Family history of diabetes mellitus Grandmother (Maternal) Family hx of colon cancer Brother Heart attack Sister Heart attack Father Heart attack Other No family history of adverse response to anesthesia Social History Preferred Language: Albanian Communication Ability: Effective Mat Weaver Required: No Beliefs That Will Affect Care: None Current Living Situation: Spouse Current Living Situation Comment: Lives with and special needs daughter Other Information That Helps Us Care for You: No Feels Safe at Home: Yes Safety Concerns: Feels Safe At This Time Smoking Status: Current some day smoker Hx Alcohol Use: No Hx Substance Use: No Review of Systems Complete. Pertinent positives known history of present illness. Patient did report some sinus headache at this time. He has not had a cold recently. He denies any recent fevers or chills. No changes in bowel or bladder habits. No swelling of lower extremities. He claims to sleep well without orthopnea or paroxysmal nocturnal dyspnea. Physical Exam Vital Signs (Past 24 Hours): Last Vital Signs Temp 36.4 C L 11/16/18 16:00 Pulse 61 11/16/18 17:52 Resp 18 11/16/18 16:00 BP 119/70 11/16/18 16:00 Pulse Ox 97 11/16/18 16:00 Physical Exam: The patient is alert and oriented. Mood and affect appeared normal. He answered all questions appropriately. HEENT: Pupils are equal and reactive to light and accommodation. Extraocular movements are intact. The sclerae are anicteric. Neuro: Cranial nerves intact Neck: Patient's neck is supple. He has palpable carotid pulses bilaterally without bruits on auscultation. There is no evidence of jugular venous distention. The thyroid is not enlarged. Lungs: Clear to auscultation bilaterally. He has good air movement without use of accessory muscles. No rales wheezes or rhonchi. Cardiac: Heart demonstrates a regular rate and rhythm. Normal S1 and S2. No murmurs on examination. Pulses: The patient has palpable radial pulses bilaterally that are equal in intensity Extremities: There was no evidence of hypoperfusion. There is no cyanosis or clubbing. There is no edema. Skin: I did not appreciate any rashes on examination today. Results & Data Laboratory Results Abnormal Lab Results 11/16/18 11/16/18 11/16/18 10:37 10:37 10:37 WBC 7.85 RBC 5.59 Hgb 17.3 Hct 49.4 MCV 88.4 MCH 30.9 MCHC 35.0 RDW Std Deviation 42.7 RDW Coeff of Laura 13.2 Plt Count 229 MPV 8.9 Immature Gran % (Auto) 0.1 Neut % (Auto) 55.6 Lymph % (Auto) 30.8 Long % (Auto) 8.8 Eos % (Auto) 4.3 Baso % (Auto) 0.4 Immature Gran # (Auto) 0.01 Neut # (Auto) 4.36 Lymph # (Auto) 2.42 Long # (Auto) 0.69 H Eos # (Auto) 0.34 Baso # (Auto) 0.03 PT 10.5 INR 1.0 APTT 29.9 PTT Ratio 1.1 Sodium 136 Potassium 3.9 Chloride 105 Carbon Dioxide 25 Anion Gap 6.0 BUN 10 Creatinine 0.88 Est Cr Clr Drug Dosing 100.4 Est GFR ( Amer) 109.7 Est GFR (Non-Af Amer) 94.7 BUN/Creatinine Ratio 11.7 Glucose 104 H Calcium 8.6 Total Bilirubin 0.6 AST 18 ALT 28 Alkaline Phosphatase 66 POC Troponin I Troponin I < 0.015 Total Protein 7.6 Albumin 3.9 Globulin 3.7 Albumin/Globulin Ratio 1.1 Lipase 153 11/16/18 11:28 WBC RBC Hgb Hct MCV MCH MCHC RDW Std Deviation RDW Coeff of Laura Plt Count MPV Immature Gran % (Auto) Neut % (Auto) Lymph % (Auto) Long % (Auto) Eos % (Auto) Baso % (Auto) Immature Gran # (Auto) Neut # (Auto) Lymph # (Auto) Long # (Auto) Eos # (Auto) Baso # (Auto) PT INR APTT PTT Ratio Sodium Potassium Chloride Carbon Dioxide Anion Gap BUN Creatinine Est Cr Clr Drug Dosing Est GFR ( Amer) Est GFR (Non-Af Amer) BUN/Creatinine Ratio Glucose Calcium Total Bilirubin AST ALT Alkaline Phosphatase POC Troponin I < 0.03 Troponin I Total Protein Albumin Globulin Albumin/Globulin Ratio Lipase Diagnostic Findings Echocardiogram performed today which revealed preserved LV systolic function without significant valvular heart disease. He did have regional wall motion abnormalities involving the apical anterior and septal segments. Chest x-ray obtained at the time of admission did not reveal any acute cardiopulmonary disease (1) Chest pain Chest pain type: unspecified Qualified Code(s): R07.9 - Chest pain, unspecified
[2018-11-16] MEDS ORDERED: PANTOprazole 40 MG TAB PO SCH (21:00)
[2018-11-17] MEDS ORDERED: ATORVASTATIN 40 MG TAB PO SCH (09:00)
[2018-11-17] MEDS ORDERED: LISINOPRIL 2.5 MG TAB PO SCH (09:00)
[2018-11-17] MEDS ORDERED: SPIRONOLACTONE 25 MG TAB PO SCH (09:00)
[2018-11-17] MEDS ORDERED: ASPIRIN 81 MG ECTAB PO SCH (09:00)
[2018-11-17] MEDS ORDERED: METOPROLOL SUCC 25MG EXT REL TAB PO SCH (09:00)
[2018-11-17] MEDS ORDERED: CLOPIDOGREL BISULFATE 75 MG TAB PO SCH (09:00)
--- NOTE | 2018-11-18 19:28 | Discharge Summary ---
Date of Service November 22, 2018 Admission HPI Per Admitting Provider This is a 58 yo M with PMHx of CAD, left eye/P anterior septal [place] on 01/04/17, 1 BENEDICTO to the LAD, HTN, HLD, GERD, BPH, bladder cancer, tobacco use. Patient presents with a feeling which occurred this morning around approximately 8:45 AM. 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 He then visited the school nurse because he felt somewhat lightheaded while he was standing up. BP was checked at that time was reportedly 117/78. She requested an EMS be called however patient refused this and brought him to the ER. Patient notes left-sided arm "hotness"as well as bilateral arm heaviness. This sensation in his arms lasted for approximately 1-1/2 hours. He chewed two baby aspirin once getting to the ER. Pt reports heaviness in arms is now gone. No hot/burning sensation in the left arm now. He denies any chest pain, shortness of breath, palpitations, flutter at any time today. No further lightheadedness. Pertinent Social Hx: Patient's notes he has recently starting to smoke cigars on a daily basis for the last 3 months. Patient gave up chewing tobacco about 2 years ago after his first heart attack. He cut out all soda from his diet on September 18 and has subsequently lost about ~17 lbs. Pt does not exercise routinely but leads a very active lifestyle. Patient typically drinks 5 cups of coffee every morning, and did so this morning. He has not had any alcohol for 3 years. Initial troponin is negative. EKG is reviewed and shows possible anterior T wave inversions however this is very similar to previous EKG done in December 2016. Discharge Data Consultations 11/16/18 12:24 ED Decision to Admit Stat 11/16/18 13:53 Consult Cardiology Routine Consult Case Management - Discharge Planning Routine
--- NOTE | 2018-11-21 07:58 | Discharge Summary ---
Date of Service November 16, 2018 Admission HPI Per Admitting Provider This is a 58 yo M with PMHx of CAD, left eye/P anterior septal NH on 01/04/17, 1 BENEDICTO to the LAD, HTN, HLD, GERD, BPH, bladder cancer, tobacco use. Patient presents with a feeling which occurred this morning around approximately 8:45 AM. 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 He then visited the school nurse because he felt somewhat lightheaded while he was standing up. BP was checked at that time was reportedly 117/78. She requested an EMS be called however patient refused this and brought him to the ER. Patient notes left-sided arm "hotness"as well as bilateral arm heaviness. This sensation in his arms lasted for approximately 1-1/2 hours. He chewed two baby aspirin once getting to the ER. Pt reports heaviness in arms is now gone. No hot/burning sensation in the left arm now. He denies any chest pain, shortness of breath, palpitations, flutter at any time today. No further lightheadedness. Pertinent Social Hx: Patient's notes he has recently starting to smoke cigars on a daily basis for the last 3 months. Patient gave up chewing tobacco about 2 years ago after his first heart attack. He cut out all soda from his diet on September 18 and has subsequently lost about ~17 lbs. Pt does not exercise routinely but leads a very active lifestyle. Patient typically drinks 5 cups of coffee every morning, and did so this morning. He has not had any alcohol for 3 years. Initial troponin is negative. EKG is reviewed and shows possible anterior T wave inversions however this is very similar to previous EKG done in December 2016. Principal Diagnosis Non cardiac chest pain Discharge Exam General: awake, alert, no apparent distress Head: Normocephalic, atraumatic ENT: PERRL, EOMI, no pharyngeal exudate, mucous membranes moist Chest: Nontender to palpation, clear to auscultation, on room air, no adventitious breath sounds Cardiac: Regular rate and rhythm, no murmur, no JVD, normal peripheral pulses, good capillary refill Abdominal: NABS x 4 quadrants, soft, nontender to palpation, no rebound, guarding or tenderness Extremities: Normal inspection, no peripheral edema or erythema, calfs nontender to palpation Psych: Normal mood and affect Neuro: AAO x 3, strength intact bilaterally and related 5/5, no motor deficits, speech is clear, no peripheral sensory deficits Discharge Data Allergies Allergy/AdvReac Type Severity Reaction Status Date / Time No Known Allergies Allergy Verified 11/16/18 11:55 Consultations 11/16/18 12:24 ED Decision to Admit Stat 11/16/18 13:53 Consult Cardiology Routine Consult Case Management - Discharge Planning Routine Hospital Course (1) Chest pain: - Admit to tele for observation for r/o - Trend cardiac biomarkers, initial set was negative - Check fasting lipid profile and A1C - EKG reviewed as above - Cardiology consult due to significant PMHx and family history. - If negative enzymes can consider a stress test - note stress test likely cannot be done over the weekend. - Pt educated on cigar smoking cessation. Later during hospital stay: Appreciate input from cardio. Chest pain: The patient did not actually have symptoms of chest discomfort. The symptoms he experienced involve a sense of arm heaviness and dizziness. The symptoms were distinct from those he experienced during his acute NH in 2017. There is no evidence that this represented an acute coronary syndrome. He had an extended episode of symptoms without any current elevation in his biomarkers. I think we are waiting another set of markers and if those are normal I do not feel he requires any additional cardiovascular workup. In the presence of an abnormal troponin, additional evaluation will need to be considered. (2) CAD (coronary artery disease), [place] coronary artery: Patient has done very well since his anterior myocardial infarction and associated cardiac arrest in 2017. He is on aggressive medical regimen which includes beta blockade, Sergei inhibition, high-dose atorvastatin, aldosterone antagonist and dual anti-platelet therapy. He did seem to have an element of LV dysfunction associated with his anterior myocardial function 2017. However, echocardiogram today reveals overall preserved LV systolic function with regional wall motion abnormalities consistent with his infarct in 2017. Second troponin was negative. Will discharge patient. (2) CAD (coronary artery disease), [place] coronary artery: - Continue on plavix, asa, atorvastatin, metoprolol succinate, lisinopril, spironolactone (3) Acute NH, anterior wall: - Hx of such, January 04, 2017 - Follows with Dr. Schofield as an outpatinet, cardiology consulted (4) HTN (hypertension): - Continue antihypertensives as above, BP well controlled upon admission (5) HLD (hyperlipidemia): - Cont statin therapy (6) Presence of stent in LAD coronary artery: - Medtronic 2.75 x 18 mm BENEDICTO, placed due to total early mid LAD occlusion. (7) Bladder cancer: - Hx of such, stable (8) Cigar smoker: - Recently started smoking one cigar daily in the beginning of September. Pt denies the need for nicotine patch. He reports history of chewing tobacco use but that he quit this about 2 years ago after NH. - Cessation was encouraged, at bedside also supportive, pt is willing to quit. (9) DVT prophylaxis: - lovenox subq. Total Time Total Time Spent Total Time Spent (In Minutes): 32 Total Time Includes: Examination of the Patient, Discharge Planning, Medication Reconciliation and Communication With Other Providers Discharge Plan Discharge Items Patient Disposition: Home - Self-Care Reason For Visit: CHEST PAIN Discharge Diagnosis: Chest pain Condition: Fair Discharge Goals: Decrease discomfort Activity: Resume your previous activity Non-emergency contact: Primary Care Provider Call non-emergency contact if: you have any medication questions Follow-up/Referrals: Roseann Murphy MD [Primary Care Provider] - Diet: Regular Addtl Provider Instructions: You were seen for chest pain. Given your history, this did not seem to be cardiac in nature. Your heart biomarkers were also negative. This pain seems u likely to be cardiac in nature. However, if you develop Shortness of breath on exertion, or more chest pain. Pleae call your provider. Prescriptions: Continued clopidogrel 75 mg Tablet 75 mg PO QAM RF: 0 aspirin 81 mg Tablet,Delayed Release (Dr/Ec) 81 mg PO QAM RF: 0 lansoprazole 30 mg Capsule,Delayed Release(Dr/Ec) 30 mg PO HS RF: 0 nitroglycerin 0.4 mg Tablet, Sublingual 1 dose Sublingual UD PRN (Reason: Angina) RF: 0 metoprolol succinate 25 mg Tablet Extended Release 24 Hr 25 mg PO QAM RF: 0 lisinopril 2.5 mg Tablet 2.5 mg PO QAM RF: 0 atorvastatin 80 mg tablet 80 mg PO DAILY RF: 0 spironolactone 25 mg tablet 25 mg PO QAM RF: 0 Stand-Alone Forms: My [facility] Discharge Orders: Discharge Order (Routine); Ordered 11/16/18 Ordered By: Justin Husain Admission Data Admit Date/Time: 11/16/18 12:41 Attending Provider: Justin Husain Admit Provider: Justin Husain Primary Care Provider: Roseann Murphy Other Providers: Justin Husain ; Won Salmon Service: Telemetry Other Interventions: Discharge Summary Assessment (RN) Last Done: 11/16/18 20:08 Pending Studies at Discharge: No DC Date/Time DO NOT enter until pt leaves facility: 11/16/18 20:52
== END 2018-11-16 20:52 | disposition home or self-care (01) ==
LOC: ED 10:13 → 2E 10:13

== ENCOUNTER 2020-06-10 15:31 | Inpatient (IN) ==
[2020-06-10] MEDS ORDERED: ONDANSETRON INJ 2 MG/ML 2 ML VIAL IV STA (16:33)
[2020-06-10] MEDS ORDERED: MoRPHine SULFATE 4 MG/ML 1 ML CARP\\VIAL IV STA (16:33)
[2020-06-10] MEDS ORDERED: SODIUM CHLORIDE 0.9% 1000ML 1,000 ML IV SCH (16:45)
[2020-06-10 17:10] LABS: Basophils # (auto) 0.03 K/uL (0-0.2); Basophils % (auto) 0.3 %; Eosinophils % (auto) 3.6 %; Hematocrit (blood only) 43.3 % (42-52); Hemoglobin 15.6 g/dL (14.0-18.0); Immature Granulocytes # (auto) 0.02 K/uL (0.00-0.02); Immature Granulocytes % (auto) 0.2 %; Lymphocytes # (auto) 2.73 K/uL (1.2-3.4); Lymphocytes % (auto) 24.7 %; Mean Corpuscular Hemoglobin 32.5 pg (25-34); Mean Corpuscular Volume 90.2 fL (80-100); Mean Platelet Volume 8.8 fL (7.4-10.4); Monocytes # (auto) 1.22 K/uL (0.11-0.59); Neutrophils # (auto) 6.65 K/uL (1.4-6.5); Neutrophils % (auto) 60.2 %; Platelet Count 248 K/uL (130-400); RDW Coefficient of Variation 12.7 % (11.5-14.5); RDW Standard Deviation 41.9 fL (36.4-46.3); White Blood Count 11.05 K/uL (4.8-10.8)
[2020-06-10 17:29] LABS: Alanine Aminotransferase 50 U/L (12-78); Albumin Level 4.1 gm/dl (3.4-5.0); Aspartate Aminotransferase 26 U/L (15-37); BUN Creatinine Ratio 15.6 (10-20); Blood Urea Nitrogen 13 mg/dl (7-18); Calcium 8.9 mg/dl (8.5-10.1); Carbon Dioxide 25 mmol/L (21-32); Chloride 103 mmol/L (98-107); Creatinine Clr Calc Pharmacy 108.6 ml/min; Est GFR (African American) 109.5; Est GFR (Non-African American) 94.5; Glucose 91 mg/dl (70-99); Lipase 260 U/L (73-393); Potassium 3.7 mmol/L (3.5-5.1); Sodium 137 mmol/L (136-145)
[2020-06-10 17:34] LABS: Albumin Globulin Ratio 1.1 (0.9-2); Alkaline Phosphatase 70 U/L (45-117); Bilirubin,Total 0.9 mg/dl (0.2-1); Globulin 3.9 gm/dl (2.5-4.0); Troponin I < 0.015 ng/ml (0-0.045)
[2020-06-10 18:00] LABS: Appearance Urine Clear (Clear); Bacteria Urine Automated Negative (Negative); Bilirubin Urine Negative (Negative); Blood Urine 1+ (Negative); Cast Urine Automated 0 /lpf (0-5); Color Urine Yellow; Epithelial Cell Urine Auto 0-5 /lpf (0-5); Glucose Urine UA Negative (Negative); Ketones Urine Negative (Negative); Leukocyte Esterase Urine Negative (Negative); Nitrite Urine Negative (Negative); Protein Urine 1+ (Negative); RBC Urine Automated 0-4 /hpf (0-4); Specific Gravity Urine 1.015 (1.000-1.030); Urobilinogen Urine Negative (Negative)
[2020-06-10] MEDS ORDERED: IOVERSOL 100ml IV ONE (18:17)
--- NOTE | 2020-06-10 18:24 | Emergency Department Note ---
Impression & Plan Acute pancreatitis, Abdominal pain ED Provider Note NAME: BARB PAGAN JR AGE: 59 SEX: M : 1960 ARRIVES VIA: Walk-In INFORMANT: Patient, ED PROVIDER(S): Francisco Peralta MD Chief Complaint: Abdominal pains HPI: Patient does present with concern for upper abdominal pain. Patient describes it is achy but occasionally sharp and radiating around his abdomen toward his back. The patient does have a history of kidney stones that this does not feel quite similar. The patient denies any vomiting but has had associated nausea. Last bowel movement on Monday. The patient has had a prior hernia repair and repair status post bladder rupture. Patient denies any fevers, chills, chest pains, shortness of breath. The patient is a non-smoker and quit using chewing tobacco for week years ago. The patient does admit to recent increased alcohol use as the patient's daughter had approximately 1 year ago. ROS: See HPI for pertinent positives and negatives. A total of 10 systems were reviewed and otherwise negative. Past medical history: See below Surgical history: See below Social history: See below Physical Exam: GENERAL: Wearing glasses and a mask. NAD, non-toxic. EYE EXAM: Normal conjunctiva. PERRL, no anisocoria and EOM's grossly intact w/o pain. NECK: Supple, no nuchal rigidity, no adenopathy, non-tender. No signs of meningismus. LUNGS: Clear to auscultation. Normal chest wall mechanics. HEART: NSR, no MRG. ABDOMEN: Abdomen soft, epigastric and right upper quadrant discomfort, negative Franks sign, negative obturator and psoas, normo-active bowel sounds, no masses, no rebound or guarding. BACK: No CVA TTP. SKIN: No rashes and no bruising. UPPER EXTREMITIES: Upper extremities are grossly normal. LOWER EXTREMITIES: Grossly normal, no edema. NEURO EXAM: A&O x3, cranial nerves II-XII grossly intact, normal speech, moves all 4 extremities on command w/o issue. Differential diagnoses: Appendicitis, testicular torsion, infections, diverticulitis, UTI, obstruction, mesenteric ischemia, aortic pathology, inflammatory bowel disease, renal colic, PUD, pancreatitis, biliary pathology, hernia, volvulus, constipation, as well as other pathologies. Course: Patient was seen and evaluated the bedside. Full history physical exam was performed. EKG: Indication: Prior VT with upper abdominal pain Normal sinus rhythm, 63, normal intervals, normal axis, T wave inversion in V2 and flattening in aVL, no significant change from comparison EKG November 16, 2018. Imaging Studies: Radiology results as stated below per my review in the radiologist's interpretation: ABDOMEN AND PELVIS CT WITH IV CONTRAST CT DOSE: 600.88 mGy.cm HISTORY: epigastric/RUQ pain TECHNIQUE: Multiaxial CT images of the abdomen and pelvis were performed following the use of intravenous contrast. A dose lowering technique was utilized adhering to the principles of ALARA. COMPARISON STUDY: Abdomen and pelvis CT 05/23/2018. FINDINGS: A few bibasilar linear densities consistent with subsegmental atelectasis. A 3 mm subpleural nodule along the left major fissure on image 31 remains stable. This is likely benign. No pneumoperitoneum. No pneumatosis. There is a left-sided L5 pars defect. No suspicious lytic or blastic osseous lesions. Hepatic steatosis. The main portal vein is patent. The gallbladder, spleen, and adrenal glands are within normal limits. There are few subcentimeter hypodense lesions within the kidneys. These are technically too small to characterize but statistically represent cysts. No hydronephrosis. There is mild inflammatory change surrounding the pancreatic head. This is consistent with acute pancreatitis. No abscess or pancreatic necrosis identified. No retr operitoneal lymphadenopathy. Normal caliber abdominal aorta. Mild anterior bladder wall thickening. The punctate focus of gas within the bladder lumen. Colonic diverticulosis. No evidence for acute diverticulitis. No bowel wall thickening or obstruction. Normal appendix. IMPRESSION: 1. Mild inflammatory change surrounding the pancreatic head consistent with acute pancreatitis. Recommend correlation with pancreatic enzymes. 2. Mild thickening within the anterior bladder wall, unchanged. Therefore, this is likely chronic. There is also a punctate focus of gas within the bladder lumen which could be due to recent catheterization or an infectious process. Correlation with urinalysis is recommended to assess for a cystitis. 3. Hepatic steatosis. 4. Additional findings as described above. ACT 112: Negative or not required by law. Electronically signed by: Eliseo Mckinley M.D. 06/10/2020 6:37 PM Dictated: 06/10/201830 Transcribed: 06/10/201830 Cardiac monitoring: An order was placed for continuous cardiac monitoring. The monitor shows a rate of 70 with sinus rhythm. MDM: Patient was seen due to concern for abdominal pains. The patient did have blood work completed along with an EKG troponin CT the abdomen pelvis. The patient was treated symptomatically. Patient's blood work shows a mild white count of 11. Patient does have a normal H&H and platelet count. The patient's kidney function is unremarkable. Troponin is not detectable with an unchanged EKG. Li pase and LFTs unremarkable. CT then pelvis that showed concern for pancreatitis. There are some bladder changes but this is likely consistent with the recent patient's recent cystoscopy completed with Dr. Jorgensen on Monday. I did update the patient. The patient is willing to stay in the hospital. Patient was admitted to the medicine service for further evaluation and treatment. I did speak with the on-call hospitalist Dr. Billings. The patient was admitted to the medicine service. I did discuss with the patient given his recent increase in alcohol this is a likely contributing factor. Past Med/Surg History Medical History Basal cell carcinoma of nose S/P MOH'S SURGERY Bladder cancer CAD (coronary artery disease) BENEDICTO TO MID LAD (2016) Cigar smoker Family history of colon cancer GERD (gastroesophageal reflux disease) CONTROLLED History of basal cell carcinoma History of smokeless tobacco use HLD (hyperlipidemia) Hypertension Hypotension Myocardial Infarction 2017 Surgical History History of bladder surgery REPAIR AFTER BLADDER TUMOR REMOVAL 2/2 BLADDER LACERATION History of cardiac cath 2017 X [address] URBAN History of colonoscopy 11/08/18: MAC SEDATION AT [facility] History of cystoscopy "BENIGN" BLADDER TUMOR REMOVAL History of tonsillectomy History of umbilical hernia repair History of wisdom tooth extraction S/P PTCA (percutaneous transluminal coronary angioplasty) Status post Mohs surgery for basal cell carcinoma X2 Family History Daughter Family history of diabetes mellitus Family history of spina bifida Grandmother (Maternal) Family hx of colon cancer Brother Myocardial infarction Sister Myocardial infarction Father Myocardial infarction Other No family history of adverse response to anesthesia Denies family history of Ovarian cancer Prostate cancer Breast cancer Colorectal cancer Social History Smoking Status: Never smoker Age Started Using Tobacco: 16; Age Quit Using Tobacco: 56; Number of Years Since Quit: 3; Second Hand Exposure: Yes; Hx Alcohol Use: No Hx Substance Use: No Preferred Language: Tongan Communication Ability: Effective Visual Impairment: No Limitations Hearing Ability: Normal Cashier Receptionist Required: No Beliefs That Will Affect Care: None marital status: Current Living Situation: Spouse Current Living Situation Comment: Lives with and special needs daughter current occupational status: employed current occupation: [employer] Feels Safe at Home: Yes Childhood Exposure to Second-Hand Smoke: Yes Dental Care, Regularly: Yes Physical Activity Frequency: Does not Exercise Seatbelt Use: always Sunscreen Use: Yes Assistive Devices: Glasses Allergies Allergies Allergy/AdvReac Type Severity Reaction Status Date / Time spironolactone AdvReac Unknown CHEST Verified 06/10/20 17:49 DISCOMFORT Home Meds Home Medications Medication Instructions Recorded Confirmed aspirin 81 mg tablet,delayed 81 mg PO QAM tab 05/29/19 06/10/20 release nitroglycerin 0.4 mg sublingual 0.4 mg SL DIRECTED PRN #30 tab 05/29/19 06/10/20 tablet tadalafil 10 mg tablet 10 mg PO DAILY PRN 05/29/19 06/10/20 clopidogrel 75 mg PO QAM 07/05/19 06/10/20 lansoprazole 30 mg PO HS 07/05/19 06/10/20 metoprolol succinate 25 mg PO QAM 07/05/19 06/10/20 rosuvastatin 5 mg PO 3XWK 06/10/20 06/10/20 Previous Rx's Medication Instructions Recorded lisinopril 2.5 mg tablet 2.5 mg PO QAM #90 tab 10/28/19 icosapent ethyl 1 gram capsule 2 gm PO BID #360 cap 03/25/20 Results & Data (ED) Vital Signs Vital Signs - 24 hr 06/10/20 15:55 06/10/20 17:30 06/10/20 17:34 Temperature 37.6 C H Temperature Source Oral Pulse Rate 78 68 Pulse Rate from SpO2 Sensor 68 Respiratory Rate 18 19 Respiratory Effort / Characteristics Non-Labored Spontaneous Respiratory Depth Normal Respiratory Pattern Regular Blood Pressure 124/72 136/84 Blood Pressure Mean 89 93 Blood Pressure Position Sitting Pulse Oximetry 95 95 99 Oxygen Delivery Method Room Air Room Air Sepsis Recent Fever Within 48 Hours No Sepsis New/Unexplained Change in Mental Status N/A Sepsis Action Taken by Nursing No Action Required 06/10/20 17:38 06/10/20 17:40 06/10/20 17:50 Temperature Temperature Source Pulse Rate 65 70 66 Pulse Rate from SpO2 Sensor 64 67 65 Respiratory Rate 17 18 17 Respiratory Effort / Characteristics Respiratory Depth Respiratory Pattern Blood Pressure Blood Pressure Mean Blood Pressure Position Pulse Oximetry 95 96 94 Oxygen Delivery Method Sepsis Recent Fever Within 48 Hours Sepsis New/Unexplained Change in Mental Status Sepsis Action Taken by Nursing 06/10/20 18:00 06/10/20 18:01 Temperature Temperature Source Pulse Rate 65 66 Pulse Rate from SpO2 Sensor 64 65 Respiratory Rate 17 16 Respiratory Effort / Characteristics Respiratory Depth Respiratory Pattern Blood Pressure 119/80 Blood Pressure Mean 87 Blood Pressure Position Pulse Oximetry 94 94 Oxygen Delivery Method Sepsis Recent Fever Within 48 Hours Sepsis New/Unexplained Change in Mental Status Sepsis Action Taken by [facility] Medications Current Medication List: was personally reviewed by me Laboratory Data Attestation: I reviewed the patient's lab results. Result diagrams: 06/10/20 16:47 06/10/20 16:47 Lab Results 06/10/20 06/10/20 06/10/20 Range/Units 16:24 16:47 16:47 WBC 11.05 H (4.8-10.8) K/uL RBC 4.80 (4.7-6.1) M/uL Hgb 15.6 (14.0-18.0) g/dL Hct 43.3 (42-52) % MCV 90.2 (80-100) fL MCH 32.5 (25-34) pg MCHC 36.0 (32-36) g/dL RDW Std Deviation 41.9 (36.4-46.3) fL RDW Coeff of Laura 12.7 (11.5-14.5) % Plt Count 248 (130-400) K/uL MPV 8.8 (7.4-10.4) fL Immature Gran % (Auto) 0.2 % Neut % (Auto) 60.2 % Lymph % (Auto) 24.7 % Morris % (Auto) 11.0 % Eos % (Auto) 3.6 % Baso % (Auto) 0.3 % Neut # (Auto) 6.65 H (1.4-6.5) K/uL Lymph # (Auto) 2.73 (1.2-3.4) K/uL Morris # (Auto) 1.22 H (0.11-0.59) K/uL Eos # (Auto) 0.40 (0-0.5) K/uL Baso # (Auto) 0.03 (0-0.2) K/uL Immature Gran # (Auto) 0.02 (0.00-0.02) K/uL Sodium 137 (136-145) mmol/L Potassium 3.7 (3.5-5.1) mmol/L Chloride 103 (98-107) mmol/L Carbon Dioxide 25 (21-32) mmol/L Anion Gap 9.0 (3-11) BUN 13 (7-18) mg/dl Creatinine 0.87 (0.6-1.4) mg/dl Est Cr Clr Drug Dosing 108.6 ml/min Est GFR ( Amer) 109.5 Est GFR (Non-Af Amer) 94.5 BUN/Creatinine Ratio 15.6 (10-20) Glucose 91 (70-99) mg/dl Calcium 8.9 (8.5-10.1) mg/dl Total Bilirubin 0.9 (0.2-1) mg/dl AST 26 (15-37) U/L ALT 50 (12-78) U/L Alkaline Phosphatase 70 (45-117) U/L Troponin I < 0.015 (0-0.045) ng/ml Total Protein 8.0 (6.4-8.2) gm/dl Albumin 4.1 (3.4-5.0) gm/dl Globulin 3.9 (2.5-4.0) gm/dl Albumin/Globulin Ratio 1.1 (0.9-2) Lipase 260 (73-393) U/L Urine Color Yellow Urine Appearance Clear (Clear) Urine pH 6.0 (4.5-7.5) Ur Specific [place] 1.015 (1.000-1.030) Urine Protein 1+ H (Negative) Urine Glucose (UA) Negative (Negative) Urine Ketones Negative (Negative) Urine Blood 1+ H (Negative) Urine Nitrite Negative (Negative) Urine Bilirubin Negative (Negative) Urine Urobilinogen Negative (Negative) Ur Leukocyte Esterase Negative (Negative) Urine WBC (Auto) 1-5 (0-5) /hpf Urine RBC (Auto) 0-4 (0-4) /hpf U Hyaline Cast (Auto) 0 (0-5) /lpf U Epithel Cells (Auto) 0-5 (0-5) /lpf Urine Bacteria (Auto) Negative (Negative) Administered Medications Lactated Ringer's (Lr) 1,000 mls @ 200 mls/hr IV .Q5H SAMI Stop: 06/11/20 12:31 Last Admin: 06/10/20 21:51 Dose: 200 mls/hr Documented by: [id number] Discontinued Medications Sodium Chloride (Nss 1000ml) 1,000 mls @ 999 mls/hr IV .Q1H1M SAMI Stop: 06/10/20 17:45 Last Infusion: 06/10/20 18:05 Dose: 0 mls/hr Documented by: [id number] Admin: 06/10/20 17:00 Dose: 999 mls/hr Documented by: [id number] Ioversol (Ioversol 100ml) 91 ml IV ONCE ONE Stop: 06/10/20 18:18 Last Admin: 06/10/20 18:17 Dose: 91 ml Documented by: [id number] Morphine Sulfate (Morphine Sulfate 4 Mg/Ml 1 Ml Carp\\Vial) 4 mg IV NOW STA Stop: 06/10/20 16:34 Last Admin: 06/10/20 17:00 Dose: 4 mg Documented by: [id number] Ondansetron HCl (Ondansetron Inj 2 Mg/Ml 2 Ml Vial) 4 mg IV NOW STA Stop: 06/10/20 16:34 Last Admin: 06/10/20 17:00 Dose: 4 mg Documented by: [id number] Discharge Plan Visit Data Chief Complaint: Abdominal Pain Stated Complaint: ABD PAIN ED Provider: Francisco Peralta Discharge Problem: Acute pancreatitis, Abdominal pain Patient Disposition: Admitted As Inpatient Discharge Instructions Interventions: ED Discharge Assessment Last Done: 06/10/20 21:15 Discharge Problem: Acute pancreatitis Qualifiers: Pancreatitis type: alcohol induced Acute pancreatitis complication: no infection or necrosis Qualified Code(s): K85.20 - Alcohol induced acute pancreatitis without necrosis or infection Abdominal pain Qualifiers: Abdominal location: epigastric Qualified Code(s): R10.13 - Epigastric pain
--- NOTE | 2020-06-10 18:38 | CT Scan Report ---
ABDOMEN AND PELVIS CT WITH IV CONTRAST CT DOSE: 600.88 mGy.cm HISTORY: epigastric/RUQ pain TECHNIQUE: Multiaxial CT images of the abdomen and pelvis were performed following the use of intrave nous contrast. A dose lowering technique was utilized adhering to the principles of ALARA. COMPARISON STUDY: Abdomen and pelvis CT 05/23/2018. FINDINGS: A few bibasilar linear densities consistent with subsegmental atelectasis. A 3 mm subpleura l nodule along the left major fissure on image 31 remains stable. This is likely benign. No pneumoper itoneum. No pneumatosis. There is a left-sided L5 pars defect. No suspicious lytic or blastic osseous lesions. Hepatic steatosis. The main portal vein is patent. The gallbladder, spleen, and adrenal gla nds are within normal limits. There are few subcentimeter hypodense lesions within the kidneys. These are technically too small to characterize but statistically represent cysts. No hydronephrosis. Ther e is mild inflammatory change surrounding the pancreatic head. This is consistent with acute pancreat itis. No abscess or pancreatic necrosis identified. No retroperitoneal lymphadenopathy. Normal calibe r abdominal aorta. Mild anterior bladder wall thickening. The punctate focus of gas within the bladde r lumen. Colonic diverticulosis. No evidence for acute diverticulitis. No bowel wall thickening or ob struction. Normal appendix. IMPRESSION: 1. Mild inflammatory change surrounding the pancreatic head consistent with acute pancreatitis. Recom mend correlation with pancreatic enzymes. 2. Mild thickening within the anterior bladder wall, unchanged. Therefore, this is likely chronic. Th ere is also a punctate focus of gas within the bladder lumen which could be due to recent catheteriza tion or an infectious process. Correlation with urinalysis is recommended to assess for a cystitis. 3. Hepatic steatosis. 4. Additional findings as described above. ACT 112: Negative or not required by law. Electronically signed by: Eliseo Mckinley M.D. 06/10/2020 6:37 PM
--- NOTE | 2020-06-10 19:56 | History & Physical Report ---
Date of Service June 10, 2020 Assessment & Plan (1) Acute pancreatitis: 59yo C male presenting with acute pancreatitis. +Abdominal pain and CT findings. Lipase is WNL. Patient reports increased EtOH intake since March which may be cause for his acute presentation today. Ca is normal. -Admit to medical floor -Keep NPO for now -LR at 200mL/hr x 3 liters -Check Lipid panel -Morphine 2mg IV q 2 hours as needed for pain -Zofran as needed for nausea -Colace as needed for constipation Present on Admission?: Yes (2) CAD (coronary artery disease): Stable CAD s/p stent placement in December 2016. Patient denies chest pain. No EKG evidence of ischemia -Continue ASA and Plavix -Continue Metoprolol -Continue Crestor -Continue Lisinopril Present on Admission?: Yes (3) Hypertension: Blood pressure stable at present -Continue Lisinopril 2.5mg po daily -Continue metoprolol 25mg po q AM -Continue to monitor Present on Admission?: Yes (4) Hyperlipidemia: Chronic -Check lipid panel with AM labs -Continue Crestor Present on Admission?: Yes (5) GERD without esophagitis: Chronic. Stable -Continue Lansoprazole F/E/N - LR at 200mL/hr x 2L, electrolytes WNL - check Mg and PO4 x 1 and replete as needed, NPO for now, advance diet as symptoms improve Ppx - Low risk for DVT Code - Full per discussion with patient Dispo - Admit to medical floor for management of acute pancreatitis Present on Admission?: Yes History of Present Illness Chief Complaint: abdominal pain Primary Care Provider: Roseann Murphy MD Dion Fitzpatrick is a pleasant 59yo C male with history of CAD s/p stent placement in December,, HTN, HLP, bladder CA and GERD presenting with acute pancreatitis. Patient reports developing severe epigastric discomfort yesterday around 10:00 with radiation to his back. Pain constant, associated with nausea. He denies fevers/chills/CP/SOB/cough/diarrhea/constipation. No prior history of pancreatitis. No personal history of gallstones. Patient's daughter one year ago - patient reports an increase in EtOH consumption since March 2020. He drinks approximately 6 beers 4 times per week. No history of withdrawals. No additional complaints at this time. On arrival to the ER patient found to be afebrile, HD stable, NAD. Pain is improved with Morphine. CT suggestive of acute pancreatitis. Lipase is normal. ER Course: Morphine 4mg, Zofran 4mg, NSS x 1L Allergies Allergy/AdvReac Type Severity Reaction Status Date / Time spironolactone AdvReac Unknown CHEST Verified 06/10/20 17:49 DISCOMFORT Home Medications Home Medications Medication Instructions Recorded Confirmed Type aspirin 81 mg tablet,delayed 81 mg PO QAM tab 05/29/19 06/10/20 History release nitroglycerin 0.4 mg sublingual 0.4 mg SL DIRECTED PRN #30 tab 05/29/19 06/10/20 History tablet tadalafil 10 mg tablet 10 mg PO DAILY PRN 05/29/19 06/10/20 History clopidogrel 75 mg PO QAM 07/05/19 06/10/20 History lansoprazole 30 mg PO HS 07/05/19 06/10/20 History metoprolol succinate 25 mg PO QAM 07/05/19 06/10/20 History lisinopril 2.5 mg tablet 2.5 mg PO QAM #90 tab 10/28/19 06/10/20 Rx icosapent ethyl 1 gram capsule 2 gm PO BID #360 cap 03/25/20 06/10/20 Rx rosuvastatin 5 mg PO 3XWK 06/10/20 06/10/20 History Past Med/Surg History Medical History Basal cell carcinoma of nose S/P MOH'S SURGERY Bladder cancer CAD (coronary artery disease) BENEDICTO TO MID LAD (2016) Cigar smoker Family history of colon cancer GERD (gastroesophageal reflux disease) CONTROLLED History of basal cell carcinoma History of smokeless tobacco use HLD (hyperlipidemia) Hypertension Hypotension Myocardial Infarction 2017 Surgical History History of bladder surgery REPAIR AFTER BLADDER TUMOR REMOVAL 2/2 BLADDER LACERATION History of cardiac cath 2017 X [address] URBAN History of colonoscopy 11/08/18: MAC SEDATION AT [facility] History of cystoscopy "BENIGN" BLADDER TUMOR REMOVAL History of tonsillectomy History of umbilical hernia repair History of wisdom tooth extraction S/P PTCA (percutaneous transluminal coronary angioplasty) Status post Mohs surgery for basal cell carcinoma X2 Family History Daughter Family history of diabetes mellitus Family history of spina bifida Grandmother (Maternal) Family hx of colon cancer Brother Myocardial infarction Sister Myocardial infarction Father Myocardial infarction Other No family history of adverse response to anesthesia Denies family history of Ovarian cancer Prostate cancer Breast cancer Colorectal cancer Social History Smoking Status: Never smoker Age Started Using Tobacco: 16; Age Quit Using Tobacco: 56; Number of Years Since Quit: 3; Second Hand Exposure: No; Hx Alcohol Use: No Hx Substance Use: No Preferred Language: Macedonian Communication Ability: Effective Visual Impairment: No Limitations Hearing Ability: Normal Inorganic Chemistry Professor Required: No Beliefs That Will Affect Care: None marital status: Current Living Situation: Spouse Current Living Situation Comment: Lives with and special needs daughter current occupational status: employed current occupation: [employer] Feels Safe at Home: Yes Childhood Exposure to Second-Hand Smoke: Yes Dental Care, Regularly: Yes Physical Activity Frequency: Does not Exercise Seatbelt Use: always Sunscreen Use: Yes Assistive Devices: Glasses Review of Systems Review of Systems: All systems reviewed & are unremarkable except as noted in HPI & below No concerns for COVID-19 at this time. Physical Exam Physical Exam: General: patient resting comfortably, NAD, non-toxic in appearance, AA&O x 4 Skin: warm, dry, intact, no rashes or lesions HEENT: NC/AT, PERRL, EOMI, anicteric sclera, conjunctiva without injection, external ear normal to inspection and nontender, nares patent, moist mucus membranes, dentition intact, no oropharyngeal lesions, neck supple, trachea midline, no LAD, no thyromegaly, no JVD Heart: +S1/S2, regular, no m/r/g Lungs: equal air entry bilaterally, no rales/rhonchi/wheezes Abd: +BS, soft, ND, tenderness in epigastric region, no masses/organomegaly/ascites Ext: warm, 2+ pulses in UE/LE bilaterally, no clubbing/cyanosis or edema Neuro: nonfocal, patient AA&O x 4, speech intact, no facial droop, moving all extremities on command with equal strength 5/5 Results & Data Results & Data ([facility]) Vital Signs (Past 12 Hours) Vital Signs Temp Pulse Resp BP Pulse Ox 06/10/20 18:01 66 16 94 06/10/20 18:00 65 17 119/80 94 06/10/20 17:50 66 17 94 06/10/20 17:40 70 18 96 06/10/20 17:38 65 17 95 06/10/20 17:34 99 06/10/20 17:30 68 19 136/84 95 06/10/20 15:55 37.6 C H 78 18 124/72 95 Laboratory Results Lab Results 06/10/20 06/10/20 06/10/20 Range/Units 16:24 16:47 16:47 WBC 11.05 H (4.8-10.8) K/uL RBC 4.80 (4.7-6.1) M/uL Hgb 15.6 (14.0-18.0) g/dL Hct 43.3 (42-52) % MCV 90.2 (80-100) fL MCH 32.5 (25-34) pg MCHC 36.0 (32-36) g/dL RDW Std Deviation 41.9 (36.4-46.3) fL RDW Coeff of Laura 12.7 (11.5-14.5) % Plt Count 248 (130-400) K/uL MPV 8.8 (7.4-10.4) fL Immature Gran % (Auto) 0.2 % Neut % (Auto) 60.2 % Lymph % (Auto) 24.7 % [place] % (Auto) 11.0 % Eos % (Auto) 3.6 % Baso % (Auto) 0.3 % Neut # (Auto) 6.65 H (1.4-6.5) K/uL Lymph # (Auto) 2.73 (1.2-3.4) K/uL [place] # (Auto) 1.22 H (0.11-0.59) K/uL Eos # (Auto) 0.40 (0-0.5) K/uL Baso # (Auto) 0.03 (0-0.2) K/uL Immature Gran # (Auto) 0.02 (0.00-0.02) K/uL Sodium 137 (136-145) mmol/L Potassium 3.7 (3.5-5.1) mmol/L Chloride 103 (98-107) mmol/L Carbon Dioxide 25 (21-32) mmol/L Anion Gap 9.0 (3-11) BUN 13 (7-18) mg/dl Creatinine 0.87 (0.6-1.4) mg/dl Est Cr Clr Drug Dosing 108.6 ml/min Est GFR ( Amer) 109.5 Est GFR (Non-Af Amer) 94.5 BUN/Creatinine Ratio 15.6 (10-20) Glucose 91 (70-99) mg/dl Calcium 8.9 (8.5-10.1) mg/dl Total Bilirubin 0.9 (0.2-1) mg/dl AST 26 (15-37) U/L ALT 50 (12-78) U/L Alkaline Phosphatase 70 (45-117) U/L Troponin I < 0.015 (0-0.045) ng/ml Total Protein 8.0 (6.4-8.2) gm/dl Albumin 4.1 (3.4-5.0) gm/dl Globulin 3.9 (2.5-4.0) gm/dl Albumin/Globulin Ratio 1.1 (0.9-2) Lipase 260 (73-393) U/L Urine Color Yellow Urine Appearance Clear (Clear) Urine pH 6.0 (4.5-7.5) Ur Specific [place] 1.015 (1.000-1.030) Urine Protein 1+ H (Negative) Urine Glucose (UA) Negative (Negative) Urine Ketones Negative (Negative) Urine Blood 1+ H (Negative) Urine Nitrite Negative (Negative) Urine Bilirubin Negative (Negative) Urine Urobilinogen Negative (Negative) Ur Leukocyte Esterase Negative (Negative) Urine WBC (Auto) 1-5 (0-5) /hpf Urine RBC (Auto) 0-4 (0-4) /hpf U Hyaline Cast (Auto) 0 (0-5) /lpf U Epithel Cells (Auto) 0-5 (0-5) /lpf Urine Bacteria (Auto) Negative (Negative) Diagnostic Findings ABDOMEN AND PELVIS CT WITH IV CONTRAST CT DOSE: 600.88 mGy.cm HISTORY: epigastric/RUQ pain TECHNIQUE: Multiaxial CT images of the abdomen and pelvis were performed following the use of intravenous contrast. A dose lowering technique was utilized adhering to the principles of ALARA. COMPARISON STUDY: Abdomen and pelvis CT 05/23/2018. FINDINGS: A few bibasilar linear densities consistent with subsegmental atelectasis. A 3 mm subpleural nodule along the left major fissure on image 31 remains stable. This is likely benign. No pneumoperitoneum. No pneumatosis. There is a left-sided L5 pars defect. No suspicious lytic or blastic osseous lesions. Hepatic steatosis. The main portal vein is patent. The gallbladder, spleen, and adrenal glands are within normal limits. There are few subcentimeter hypodense lesions within the kidneys. These are technically too small to characterize but statistically represent cysts. No hydronephrosis. There is mild inflammatory change surrounding the pancreatic head. This is consistent with acute pancreatitis. No abscess or pancreatic necrosis identified. No retroperitoneal lymphadenopathy. Normal caliber abdominal aorta. Mild anterior bladder wall thickening. The punctate focus of gas within the bladder lumen. Colonic diverticulosis. No evidence for acute diverticulitis. No bowel wall thickening or obstruction. Normal appendix. IMPRESSION: 1. Mild inflammatory change surrounding the pancreatic head consistent with acute pancreatitis. Recommend correlation with pancreatic enzymes. 2. Mild thickening within the anterior bladder wall, unchanged. Therefore, this is likely chronic. There is also a punctate focus of gas within the bladder lumen which could be due to recent catheterization or an infectious process. Correlation with urinalysis is recommended to assess for a cystitis. 3. Hepatic steatosis. 4. Additional findings as described above. ACT 112: Negative or not required by law. Electronically signed by: Eliseo Mckinley M.D. 06/10/2020 6:37 PM Dictated: 06/10/201830 Transcribed: 06/10/20 183 ECG Additional Comments: EKG wt NSR at 63, normal axis, DV=714, QRS=90, JDi=937, no acute ischemic changes, poor R-wave progression Code Status & VTE Plan Code Status Full PG Care Time/CCT Total # of Minutes Spent Total Time Spent with Patient: Total time spent is greater than 50% in coordination of care (as documented) at patient's floor/unit and/or counseling patient: Coding Level of Care Code 61176 Initial Inpt Care Lvl 3 Diagnoses Acute pancreatitis K85.20 Acute pancreatitis complication: no infection or necrosis Pancreatitis type: alcohol induced CAD (coronary artery disease) I25.10 Coronary Disease-Associated Artery/Lesion type: [place] artery [place] vs. transplanted heart: [place] heart Associated angina: without angina Hypertension I10 Hypertension type: essential hypertension Hyperlipidemia E78.5 Hyperlipidemia type: unspecified GERD without esophagitis K21.9 (1) Acute pancreatitis Acute pancreatitis complication: no infection or necrosis Pancreatitis type: alcohol induced Qualified Code(s): K85.20 - Alcohol induced acute pancreatitis without necrosis or infection (2) Hypertension Hypertension type: essential hypertension Qualified Code(s): I10 - Essential (primary) hypertension (3) CAD (coronary artery disease) Coronary Disease-Associated Artery/Lesion type: [place] artery [place] vs. transplanted heart: [place] heart Associated angina: without angina Qualified Code(s): I25.10 - Atherosclerotic heart disease of [place] coronary artery without angina pectoris (4) Hyperlipidemia Hyperlipidemia type: unspecified Qualified Code(s): E78.5 - Hyperlipidemia, unspecified
[2020-06-10] MEDS ORDERED: MoRPHine SULFATE 2 MG/ML CARP IV PRN (21:32)
[2020-06-10] MEDS ORDERED: DOCUSATE SODIUM 100 MG CAP PO PRN (21:32)
[2020-06-10] MEDS ORDERED: ONDANSETRON INJ 2 MG/ML 2 ML VIAL IV PRN (21:32)
[2020-06-10] MEDS ORDERED: LORazepam 1 MG TAB PO PRN (21:32)
[2020-06-10] MEDS: LACTATED RINGER'S 1,000 ML IV SCH (21:51)
[2020-06-10 22:15] LABS: Magnesium 2.3 mg/dl (1.8-2.4); Phosphorus 3.7 mg/dl (2.5-4.9)
[2020-06-10] MEDS: PANTOprazole 40 MG TAB PO SCH (23:31)
[2020-06-11] MEDS: LACTATED RINGER'S 1,000 ML IV SCH ×3 (02:53→14:42)
[2020-06-11 07:12] LABS: Basophils # (auto) 0.01 K/uL (0-0.2); Basophils % (auto) 0.1 %; Eosinophils # (auto) 0.45 K/uL (0-0.5); Eosinophils % (auto) 5.6 %; Hematocrit (blood only) 41.5 % (42-52); Hemoglobin 14.6 g/dL (14.0-18.0); Immature Granulocytes # (auto) 0.02 K/uL (0.00-0.02); Immature Granulocytes % (auto) 0.3 %; Lymphocytes # (auto) 2.15 K/uL (1.2-3.4); Lymphocytes % (auto) 26.9 %; Mean Corpuscular Hemoglobin 32.2 pg (25-34); Mean Corpuscular Hgb Conc 35.2 g/dL (32-36); Mean Corpuscular Volume 91.6 fL (80-100); Mean Platelet Volume 8.8 fL (7.4-10.4); Monocytes % (auto) 11.3 %; Neutrophils # (auto) 4.47 K/uL (1.4-6.5); Neutrophils % (auto) 55.8 %; Platelet Count 208 K/uL (130-400); RDW Coefficient of Variation 12.7 % (11.5-14.5); RDW Standard Deviation 42.7 fL (36.4-46.3); Red Blood Count 4.53 M/uL (4.7-6.1)
[2020-06-11] MEDS: METOPROLOL SUCC 25MG EXT REL TAB PO SCH (07:36)
[2020-06-11] MEDS: ASPIRIN 81 MG ECTAB PO SCH (07:36)
[2020-06-11] MEDS: CLOPIDOGREL BISULFATE 75 MG TAB PO SCH (07:36)
[2020-06-11 07:49] LABS: Albumin Level 3.5 gm/dl (3.4-5.0); BUN Creatinine Ratio 14.3 (10-20); Bilirubin Direct 0.2 mg/dl (0-0.2); Calcium 8.5 mg/dl (8.5-10.1); Creatinine Clr Calc Pharmacy 98.1 ml/min; Est GFR (African American) 108.5; Est GFR (Non-African American) 93.6; Potassium 3.9 mmol/L (3.5-5.1)
[2020-06-11 07:52] LABS: Total Protein 7.2 gm/dl (6.4-8.2)
--- NOTE | 2020-06-11 15:34 | Hospitalist Progress Note ---
Date of Service June 11, 2020 Assessment & Plan (1) Acute pancreatitis: 59yo C male presenting with acute pancreatitis. +Abdominal pain and CT findings. Lipase is WNL. Ca is normal. Tolerating clears, decrease IVF -TG 119 -Morphine 2mg IV q 2 hours as needed for pain -Zofran as needed for nausea -Colace as needed for constipation Likely related to increase in alcohol after the of his daughter earlier this year and then further increased stress with having his work hours cut due to COVID-19. Plan for clears again at dinner and tomorrow for breakfast. If eating is back to baseline, can have a second light breakfast tray advance to soft foods. Possible d/c home if tolerating PO. (2) CAD (coronary artery disease): Stable CAD s/p stent placement in December 2016. Patient denies chest pain. No EKG evidence of ischemia -Continue ASA and Plavix -Continue Metoprolol -Continue Crestor -Continue Lisinopril LDL is 91, which is slightly elevated in the setting of CAD hx, HDL 38 No changes at this time given pancreatitis, but will likely need d/w cards vs PCP on d/c (3) Hypertension: Blood pressure stable at present -Continue Lisinopril 2.5mg po daily -Continue metoprolol 25mg po q AM -Continue to monitor (4) Hyperlipidemia: Chronic -Continue Crestor LDL is 91, which is slightly elevated in the setting of CAD hx, HDL 38 No changes at this time given pancreatitis, but will likely need d/w cards vs PCP on d/c (5) GERD without esophagitis: Chronic. Stable -Continue Lansoprazole Ppx - Low risk for DVT Code - Full per discussion with patient Dispo - Admit to medical floor for management of acute pancreatitis Admission and Anticipated Discharge Date Admission Date: June 10, 2020 Subjective Pt was feeling much improved this AM and requested to eat. Trial of clears for lunch and pt states he could feel things moving around more than usual, but no roxy pain. No further n/v. No cramping. Pt denies fever, SOB, chest pain, c/d, LE pain or swelling. Pt states his alcohol use increased after the of his daughter earlier this year and then further increased stress with having his work hours cut due to COVID-19. He states he had a similar pain about a month ago that was less intense and resolved quickly. Review of Systems Review of Systems: Pertinent positives and negatives reviewed in HPI--all others negative Physical Exam Constitutional: WD/WN, vitals as above Eyes: normal visual [place] by confrontation and + anicteric sclerae Neck: normal visual inspection and trachea midline Respiratory: normal respiratory effort, lungs clear to auscultation Cardiovascular: Rate/Rhythm: regular rate and regular rhythm Gastrointestinal (Abdomen): Inspection/Auscultation: + abdomen distended Percussion/Palpation: abdomen soft; abdomen nontender Musculoskeletal: Head/Neck/Chest: normocephalic and head atraumatic negative for edema, peripheral pulses intact Skin: no rashes, warm and dry Neurologic: awake; not confused Speech / Cognition: normal speech Psychiatric: A+Ox3, euthymic affect Results & Data Results & Data ([facility]) Vital Signs (Past 12 Hours) Vital Signs Temp Pulse Resp BP Pulse Ox 06/11/20 11:48 36.7 C 66 17 112/74 95 06/11/20 07:49 36.8 C 93 H 18 112/75 93 PG Care Time/CCT Total # of Minutes Spent Total Time Spent with Patient: Total time spent is greater than 50% in coordination of care (as documented) at patient's floor/unit and/or counseling patient: Coding Level of Care Code 59706 Subseq Hosp Care Lvl 3 Diagnoses Acute pancreatitis K85.20 Acute pancreatitis complication: no infection or necrosis Pancreatitis type: alcohol induced CAD (coronary artery disease) I25.10 Coronary Disease-Associated Artery/Lesion type: [place] artery [place] vs. transplanted heart: [place] heart Associated angina: without angina Hypertension I10 Hypertension type: essential hypertension Hyperlipidemia E78.5 Hyperlipidemia type: unspecified GERD without esophagitis K21.9 (1) Acute pancreatitis Acute pancreatitis complication: no infection or necrosis Pancreatitis type: alcohol induced Qualified Code(s): K85.20 - Alcohol induced acute pancreatitis without necrosis or infection (2) CAD (coronary artery disease) Coronary Disease-Associated Artery/Lesion type: [place] artery [place] vs. transplanted heart: [place] heart Associated angina: without angina Qualified Code(s): I25.10 - Atherosclerotic heart disease of [place] coronary artery without angina pectoris (3) Hypertension Hypertension type: essential hypertension Qualified Code(s): I10 - Essential (primary) hypertension (4) Hyperlipidemia Hyperlipidemia type: unspecified Qualified Code(s): E78.5 - Hyperlipidemia, unspecified
[2020-06-11] MEDS: PANTOprazole 40 MG TAB PO SCH (21:17)
[2020-06-11 23:10] VITALS: TEMP 98.1; O2SAT 96
[2020-06-12] MEDS: LACTATED RINGER'S 1,000 ML IV SCH (00:25)
[2020-06-12] MEDS: METOPROLOL SUCC 25MG EXT REL TAB PO SCH (08:32)
[2020-06-12] MEDS: CLOPIDOGREL BISULFATE 75 MG TAB PO SCH (08:32)
[2020-06-12] MEDS: ASPIRIN 81 MG ECTAB PO SCH (08:32)
[2020-06-12] MEDS ORDERED: ROSUVASTATIN CALCIUM 5 MG TAB PO SCH (09:00)
[2020-06-12 09:58] VITALS: BP 119/78; PULSE 66
--- NOTE | 2020-06-12 11:15 | Discharge Summary ---
Date of Service June 12, 2020 Admission HPI Per Admitting Provider Dion Fitzpatrick is a pleasant 59yo C male with history of CAD s/p stent placement in December,, HTN, HLP, bladder CA and GERD presenting with acute pancreatitis. Patient reports developing severe epigastric discomfort yesterday around 10:00 with radiation to his back. Pain constant, associated with nausea. He denies fevers/chills/CP/SOB/cough/diarrhea/constipation. No prior history of pancreatitis. No personal history of gallstones. Patient's daughter one year ago - patient reports an increase in EtOH consumption since March 2020. He drinks approximately 6 beers 4 times per week. No history of withdrawals. No additional complaints at this time. On arrival to the ER patient found to be afebrile, HD stable, NAD. Pain is improved with Morphine. CT suggestive of acute pancreatitis. Lipase is normal. ER Course: Morphine 4mg, Zofran 4mg, NSS x 1L Principal Diagnosis Pt feels much improved today. He has tolerated clears since lunch yesterday and after doing well with clears from breakfast, he did tolerate a second light breakfast of toast and eggs. He is no longer having any unusual abd sensations s/p PO. No further nausea. Pt denies fever, SOB, chest pain, v/c/d, LE pain or swelling. Discharge Exam Constitutional WD/WN, vitals as above Eyes normal visual [place] by confrontation and + anicteric sclerae Neck normal visual inspection and trachea midline Respiratory normal respiratory effort, lungs clear to auscultation Cardiovascular Rate/Rhythm: regular rate and regular rhythm Gastrointestinal (Abdomen) Inspection/Auscultation: + abdomen distended (minimally and improved from yesterday) Percussion/Palpation: abdomen soft; abdomen nontender Musculoskeletal Head/Neck/Chest: normocephalic and head atraumatic Skin no rashes, warm and dry Neurologic awake; not confused Speech / Cognition: normal speech Psychiatric A+Ox3, euthymic affect Discharge Data Allergies Allergy/AdvReac Type Severity Reaction Status Date / Time spironolactone AdvReac Unknown CHEST Verified 06/10/20 17:49 DISCOMFORT Ordered Studies 06/10/20 16:33 CT abd pelvis IV con only Stat Hospital Course (1) Acute pancreatitis: 59yo C male presenting with acute pancreatitis. +Abdominal pain and CT findings c/w pancreatitis. Lipase is WNL. Ca is normal. Likely related to increase in alcohol after the of his daughter earlier this year and then further increased stress with having his work hours cut due to COVID-19. Tolerating clears x3 meals and no issues with light breakfast. (2) CAD (coronary artery disease): Stable CAD s/p stent placement in December 2016. Patient denies chest pain. No EKG evidence of ischemia -Continue ASA and Plavix -Continue Metoprolol -Continue Crestor -Continue Lisinopril LDL is 91, which is slightly elevated in the setting of CAD hx, HDL 38 No changes at this time given pancreatitis, but will likely need to d/w cards vs PCP on d/c (3) Hypertension: Blood pressure stable at present -Continue Lisinopril 2.5mg po daily -Continue metoprolol 25mg po q AM (4) Hyperlipidemia: Chronic -Continue Crestor LDL is 91, which is slightly elevated in the setting of CAD hx, HDL 38 No changes at this time given pancreatitis, but will likely need d/w cards vs PCP on d/c (5) GERD without esophagitis: Chronic. Stable -Continue Lansoprazole Total Time Total Time Spent Total Time Spent (In Minutes): >30 Total Time Includes: Examination of the Patient, Discharge Planning, Medication Reconciliation, Communication With Other Providers and Other Discharge Plan Discharge Items Patient Disposition: Home - Self-Care Reason For Visit: PANCREATITIS Discharge Diagnosis: Pancreatitis Activity: Resume your previous activity Non-emergency contact: Primary Care Provider Call non-emergency contact if: you have any medication questions, your symptoms worsen, your pain is not controlled and your pain is worsening Follow-up/Referrals: Roseann Murphy MD [Primary Care Provider] - 06/16/20 10:20 am Diet: Heart Healthy Addtl Attending Provider Instructions: You should eat a more bland diet over the next week. Specifically avoiding spicy, greasy, fatty, or fried foods. You should also avoid alcohol for the next 2 weeks and in general either completely avoid alcohol or severely decrease your intake. Pending Studies at Discharge: No Stand-Alone Forms: My [employer], Smoking Cessation Medications and DC Order Prescriptions: Continued lisinopril 2.5 mg tablet 2.5 mg PO QAM Qty: 90 RF: 3 Vascepa 1 gram capsule 2 gm PO BID Qty: 360 RF: 3 tadalafil 10 mg tablet 10 mg PO DAILY PRN (Reason: PRN) RF: 0 aspirin 81 mg tablet,delayed release (DR/EC) 81 mg PO QAM RF: 0 nitroglycerin 0.4 mg tablet, sublingual 0.4 mg SL DIRECTED PRN (Reason: Chest Pain) Qty: 30 RF: 0 clopidogrel 75 mg tablet 75 mg PO QAM RF: 0 lansoprazole 30 mg capsule,delayed release(DR/EC) 30 mg PO HS RF: 0 metoprolol succinate 25 mg tablet extended release 24 hr 25 mg PO QAM RF: 0 rosuvastatin 5 mg tablet 5 mg PO 3XWK RF: 0 Discharge Orders: Discharge Order (Routine); Ordered 06/12/20 Ordered By: Ene George Admission Data Admit Date/Time: 06/10/20 19:44 Attending Provider: Ene George Admit Provider: Aria Weir Primary Care Provider: Roseann Murphy Other Interventions: Discharge Summary Assessment (RN) Last Done: 06/12/20 11:17 Coding Level of Care Code D/C Day Management >30 mins Diagnoses Acute pancreatitis K85.20 Acute pancreatitis complication: no infection or necrosis Pancreatitis type: alcohol induced CAD (coronary artery disease) I25.10 Associated angina: without angina Coronary Disease-Associated Artery/Lesion type: [place] artery [place] vs. transplanted heart: [place] heart Hypertension I10 Hypertension type: essential hypertension Hyperlipidemia E78.5 Hyperlipidemia type: unspecified GERD without esophagitis K21.9
--- NOTE | 2020-06-12 12:21 | Electrocardiogram Report ---
Test Reason : Blood Pressure : / mmHG Vent. Rate : 063 BPM Atrial Rate : 063 BPM P-R Int : 168 ms QRS Dur : 090 ms QT Int : 428 ms P-R-T Axes : 062 051 078 degrees QTc Int : 437 ms Normal sinus rhythm Anterior infarct (cited on or before 16-NOV-2018) Abnormal ECG When compared with ECG of 16-NOV-2018 10:30, No significant change was found Confirmed by Daryl Peña ([id number]) on 06/12/2020 12:20:38 PM Referred By: REFERRED SELF Confirmed By:Daryl Peña
[2020-06-20] MEDS ORDERED: INFLUENZA ADMINISTRATION CHARGE ONE (09:00)
[2020-06-20] MEDS ORDERED: INFLUENZA VIRUS QUAD VACCINE 0.5 ML SYR IM ONE (09:00)
== END 2020-06-12 12:03 | disposition home or self-care (01) | DRG 440 ==
LOC: ED 15:31 → SUATTDRO 19:44 → 2N 19:44

== ENCOUNTER 2022-02-10 09:24 | Observation (INO) ==
[2022-02-10] MEDS ORDERED: ASPIRIN 81 MG CHEW PO STA (09:51)
--- NOTE | 2022-02-10 09:58 | Emergency Department Note ---
History of Present Illness General Chief complaint: Chest Pain Stated complaint: CHEST PAIN Time Seen by Provider: 02/10/22 09:34 Source: patient and family ( who is at the bedside) Mode of arrival: ambulatory Limitations: no limitations History of Present Illness Maximum Pain Intensity: 5 This patient is a 61-year-old male who comes in after having episode of chest pain. 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 He describes it as a dull pain in the center of his chest which was 4 out of 10 it hurt off and on for about 2 hours she says it is better now when he is laying down. He did try nitroglycerin and it may have helped a little bit. He did have an LAD stent about 5 years ago and has never used nitroglycerin. He thought his left arm felt tingly at one point. He did have some belching and burping. No shortness of breath. No pleurisy. No lower extremity pain or swelling. No nausea or vomiting. No focal numbness or weakness. Nothing particular made it better or worse. No recent illness. 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 Home Medications Medication Instructions Recorded Confirmed Type aspirin 81 mg tablet,delayed 81 mg PO QAM tab 05/29/19 02/10/22 History release nitroglycerin 0.4 mg sublingual 0.4 mg SL DIRECTED PRN #30 tab 05/29/19 02/10/22 History tablet tadalafil 10 mg tablet 10 mg PO DAILY PRN 05/29/19 02/10/22 History clopidogrel 75 mg tablet 75 mg PO QAM #90 tab 07/20/21 02/10/22 Rx metoprolol succinate 25 mg 25 mg PO QAM #90 tab 08/02/21 02/10/22 Rx tablet,extended release 24 hr lansoprazole 30 mg capsule,delayed 30 mg PO HS #90 cap 09/08/21 02/10/22 Rx release lisinopril 2.5 mg tablet 2.5 mg PO QAM #90 tab 09/09/21 02/10/22 Rx icosapent ethyl 1 gram capsule 2 g PO BID 02/10/22 02/10/22 History (Vasce[facility]) rosuvastatin 10 mg tablet 10 mg PO 3XWK 05/26/22 05/26/22 History Allergies Allergy/AdvReac Type Severity Reaction Status Date / Time spironolactone AdvReac Mild CHEST Verified 02/10/22 11:22 DISCOMFORT Past Med/Surg History Medical History Antiplatelet or antithrombotic long-term use Basal cell carcinoma of nose S/P MOH'S SURGERY Bladder cancer CAD (coronary artery disease) BENEDICTO TO MID LAD (2017) Cigar smoker Family history of colon cancer GERD (gastroesophageal reflux disease) CONTROLLED History of basal cell carcinoma History of smokeless tobacco use HLD (hyperlipidemia) Hypertension Hypotension Myocardial Infarction 2017 Surgical History (Updated 02/10/22 @ 16:34 by Cole Burr MD) History of bladder surgery REPAIR AFTER BLADDER TUMOR REMOVAL / BLADDER LACERATION History of bladder surgery (~07/2019) TURB, cystoscopy History of cardiac cath 2017 X [address] URBAN History of colonoscopy 11/08/18: MAC SEDATION AT [facility] History of cystoscopy "BENIGN" BLADDER TUMOR REMOVAL History of tonsillectomy History of umbilical hernia repair History of wisdom tooth extraction S/P coronary artery stent placement Status post Mohs surgery for basal cell carcinoma X2 Family History Daughter Family history of diabetes mellitus Family history of spina bifida Grandmother (Maternal) Family hx of colon cancer Brother Myocardial infarction Sister Myocardial infarction Father Myocardial infarction Other No family history of adverse response to anesthesia Denies family history of Ovarian cancer Prostate cancer Breast cancer Colorectal cancer Social History Smoking Status: Never smoker Age Started Using Tobacco: 16; Age Quit Using Tobacco: 56; Number of Years Since Quit: 3; Second Hand Exposure: No; Hx Alcohol Use: No Hx Substance Use: No Preferred Language: Sami Communication Ability: Effective Visual Impairment: No Limitations Hearing Ability: Normal Photo Tech Required: No Beliefs That Will Affect Care: None marital status: Current Living Situation: Spouse Current Living Situation Comment: Lives with and special needs daughter current occupational status: employed current occupation: [employer] Feels Safe at Home: Yes Childhood Exposure to Second-Hand Smoke: Yes Dental Care, Regularly: Yes Physical Activity Frequency: Daily Seatbelt Use: always Sunscreen Use: Yes Assistive Devices: Glasses Review of Systems A total of 10 systems reviewed and were otherwise negative Physical Exam Vital Signs Vital Signs - 24 hr 02/10/22 09:26 02/10/22 09:49 02/10/22 10:35 Temperature 36.8 C Temperature Source Oral Pulse Rate 67 60 Pulse Rate [Apical] 60 57 L Pulse Rhythm Regular Pulse Rhythm [Apical] Regular Regular Pulse Strength [Apical] Normal Normal Respiratory Rate 20 16 17 Respiratory Effort / Characteristics Non-Labored Spontaneous Non-Labored Spontaneous Non-Labored Spontaneous Respiratory Depth Normal Normal Normal Respiratory Pattern Regular Regular Regular Blood Pressure 117/78 Blood Pressure [Right Arm] 105/77 109/72 Blood Pressure Mean 91 Blood Pressure Mean [Right Arm] 86 84 Blood Pressure Position Sitting Blood Pressure Position [Right Arm] Sitting Sitting Pulse Oximetry 95 98 97 Oxygen Delivery Method Room Air Room Air Room Air Sepsis Recent Fever Within 48 Hours No Sepsis New/Unexplained Change in Mental Status No Sepsis Action Taken by Nursing No Action Required 02/10/22 10:55 Temperature Temperature Source Pulse Rate Pulse Rate [Apical] 54 L Pulse Rhythm Pulse Rhythm [Apical] Regular Pulse Strength [Apical] Normal Respiratory Rate 16 Respiratory Effort / Characteristics Non-Labored Spontaneous Respiratory Depth Normal Respiratory Pattern Regular Blood Pressure Blood Pressure [Right Arm] 172/85 H Blood Pressure Mean Blood Pressure Mean [Right Arm] 114 Blood Pressure Position Blood Pressure Position [Right Arm] Sitting Pulse Oximetry 97 Oxygen Delivery Method Room Air Sepsis Recent Fever Within 48 Hours Sepsis New/Unexplained Change in Mental Status Sepsis Action Taken by Nursing General: Well developed well nourished middle-age male who appears in no acute distress, breathing comfortably on room air. Normal speech HEENT: Normal cephalic atraumatic. Pupils are equal round and reactive to ligh t. Extraocular movements are intact. Oropharynx is pink with moist mucous membranes. No swelling of the mouth lips or tongue. Neck: Supple with a midline trachea. No meningeal signs or stiffness, no JVD or bruits. No Stridor. Chest: Clear to auscultation bilaterally. No wheezes or rhonchi. No increased work of breathing. Heart: Regular rate and rhythm without murmurs or gallops. Abdomen: Soft nontender, nondistended without rebound guarding or rigidity. Extremities: No cyanosis clubbing or edema. No calf tenderness or assymetry Spine/Back. Non tender to palpation. No CVA tenderness Skin: Good turgor without rashes. Neurologic exam: Cranial nerves two through 12 are intact. Motor and sensation are intact and symmetrical throughout. Procedures Free Text Procedures Start Time: 9:49 Reason: Patient with PMHx of coronary artery disease/LAD underwent ED Observation for chest pain. Fam Hx: Father who of a cardiac event SocHx: See Below Assessment(s): He was reassessed multiple times in the ED Summary: This patient comes in with a history of cardiac disease with cardiac a rrest. He has not had a stress test for 5 years or any cardiac work-up he is not taking nitroglycerin until today. Given these history he was observed in the ED. His initial EKG did not show any ischemic changes compared to old second EKG was also obtained and showed no change when compared to EKG #1 he had 2 troponins using her high-sensitivity troponin that were done 2 hours apart and they were both negative and there is no significant change. The patient was observed on a cardiac care nurse and had no significant arrhythmia and no significant chest pain while he was here I checked him multiple times. Although his work-up is negative thus far he is high risk given his history and I do th ink needs to be observed further in the hospital Disposition: Admitted to the hospital. 02/10/22. 1630 Total Time: 6 hours, 41 minutes Course Administered Medications Rosuvastatin Calcium (Rosuvastatin Calcium 10 Mg Tab) 10 mg PO MoThSa@0900 [facility] Stop: 03/12/22 13:59 Last Admin: 02/10/22 15:15 Dose: 10 mg Documented by: [id number] Discontinued Medications Aspirin (Aspirin 81 Mg Chew) 324 mg PO NOW STA Stop: 02/10/22 09:52 Last Admin: 02/10/22 10:03 Dose: 324 mg Documented by: [id number] Medical Decision Making Differential Diagnosis Acute coronary syndrome, arrhythmia, A. fib, bladder metabolic abnormality Medical Records Attestation: I reviewed the patient's medical records. Home Medications Current Medication List: was personally reviewed by me Laboratory Data Attestation: I reviewed the patient's lab results. Result diagrams: 02/10/22 09:49 02/10/22 09:49 Lab Results 02/10/22 02/10/22 02/10/22 Range/Units 09:49 09:49 09:49 WBC 9.12 (4.8-10.8) K/uL RBC 5.27 (4.7-6.1) M/uL Hgb 16.7 (14.0-18.0) g/dL Hct 47.2 (42-52) % MCV 89.6 (80-100) fL MCH 31.7 (25-34) pg MCHC 35.4 (32-36) g/dL RDW Std Deviation 42.0 (36.4-46.3) fL RDW Coeff of Laura 12.9 (11.5-14.5) % Plt Count 251 (130-400) K/uL MPV 8.9 (7.4-10.4) fL Immature Gran % (Auto) 0.2 % Neut % (Auto) 59.7 % Lymph % (Auto) 27.5 % [place] % (Auto) 7.8 % Eos % (Auto) 4.5 % Baso % (Auto) 0.3 % Neut # (Auto) 5.44 (1.4-6.5) K/uL Lymph # (Auto) 2.51 (1.2-3.4) K/uL Dupage # (Auto) 0.71 H (0.11-0.59) K/uL Eos # (Auto) 0.41 (0-0.5) K/uL Baso # (Auto) 0.03 (0-0.2) K/uL Immature Gran # (Auto) 0.02 (0.00-0.02) K/uL PT 10.8 (9.0-12.0) Seconds INR 1.0 (0.9-1.1) APTT 31.4 H (21.0-31.0) Seconds PTT Ratio 1.1 D-Dimer 250 (0-500) ug/L FEU Sodium 137 (136-145) mmol/L Potassium 3.8 (3.5-5.1) mmol/L Chloride 105 (98-107) mmol/L Carbon Dioxide 24 (21-32) mmol/L Anion Gap 8 (3-11) BUN 15 (6-23) mg/dl Creatinine 0.93 (0.6-1.4) mg/dl Est Cr Clr Drug Dosing Not Reportable Est GFR ( Amer) 102.3 ml/min Est GFR (Non-Af Amer) 88.3 ml/min BUN/Creatinine Ratio 16.1 (10-20) Glucose 102 H (70-99(Fasting)) mg/dl Calcium 9.4 (8.5-10.1) mg/dl Magnesium 2.1 (1.7-2.4) mg/dl Total Bilirubin 0.5 (0.2-1.0) mg/dl AST 21 (13-39) U/L ALT 26 (7-52) U/L Alkaline Phosphatase 56 (34-104) U/L Troponin I High Sens 5.1 (0-20) pg/ml Total Protein 7.2 (6.0-8.3) gm/dl Albumin 4.5 (3.4-5.0) gm/dl Globulin 2.7 (2.5-4.0) gm/dl Albumin/Globulin Ratio 1.7 (0.9-2) Lipase 33 (11-82) U/L SARS-CoV-2, RNA, NAAT (NEGATIVE) 02/10/22 Range/Units 10:30 WBC (4.8-10.8) K/uL RBC (4.7-6.1) M/uL Hgb (14.0-18.0) g/dL Hct (42-52) % MCV (80-100) fL MCH (25-34) pg MCHC (32-36) g/dL RDW Std Deviation (36.4-46.3) fL RDW Coeff of Laura (11.5-14.5) % Plt Count (130-400) K/uL MPV (7.4-10.4) fL Immature Gran % (Auto) % Neut % (Auto) % Lymph % (Auto) % Dup[place] % (Auto) % Eos % (Auto) % Baso % (Auto) % Neut # (Auto) (1.4-6.5) K/uL Lymph # (Auto) (1.2-3.4) K/uL Dupage # (Auto) (0.11-0.59) K/uL Eos # (Auto) (0-0.5) K/uL Baso # (Auto) (0-0.2) K/uL Immature Gran # (Auto) (0.00-0.02) K/uL PT (9.0-12.0) Seconds INR (0.9-1.1) APTT (21.0-31.0) Seconds PTT Ratio D-Dimer (0-500) ug/L FEU Sodium (136-145) mmol/L Potassium (3.5-5.1) mmol/L Chloride (98-107) mmol/L Carbon Dioxide (21-32) mmol/L Anion Gap (3-11) BUN (6-23) mg/dl Creatinine (0.6-1.4) mg/dl Est Cr Clr Drug Dosing Est GFR ( Amer) ml/min Est GFR (Non-Af Amer) ml/min BUN/Creatinine Ratio (10-20) Glucose (70-99(Fasting)) mg/dl Calcium (8.5-10.1) mg/dl Magnesium (1.7-2.4) mg/dl Total Bilirubin (0.2-1.0) mg/dl AST (13-39) U/L ALT (7-52) U/L Alkaline Phosphatase (34-104) U/L Troponin I High Sens (0-20) pg/ml Total Protein (6.0-8.3) gm/dl Albumin (3.4-5.0) gm/dl Globulin (2.5-4.0) gm/dl Albumin/Globulin Ratio (0.9-2) Lipase (11-82) U/L SARS-CoV-2, RNA, NAAT NEGATIVE (NEGATIVE) Imaging Data Attestation: I personally reviewed and interpreted this imaging study as follows: My Impression: Chest x-rayno acute infiltrate, failure, pneumothorax seen Radiologist's Impression: Chest X-Ray 02/10/22 09:49 XR chest 1V portable CLINICAL HISTORY: Atypical chest pain. COMPARISON STUDY: Chest radiograph November 16, 2018. FINDINGS: Lung volumes are normal. Lungs are clear. There is no pneumothorax or pleural effusion. Cardiac size is normal. Mediastinal contours are normal. There is no evidence for pulmonary edema. IMPRESSION: No acute cardiopulmonary findings. ACT 112: Negative or not required by law. Electronically signed by: Alban Emmanuel M.D. 02/10/2022 10:20 AM ECG Data Attestation: I personally reviewed and interpreted this ECG as follows: Indication: + chest pain Rate (beats per minute): 61 Rhythm: + normal sinus ECG Intervals/blocks: + Normal QRS, + Normal QT and + Normal ND ECG [place]: + Normal ECG ST segments: + Normal ST segments ECG Findings: + Poor R wave progression; no PACs or no PVCs Comparison ECG Date: from (06/10/20) Change: no significant change Additional Comments: EKG #2: Sinus bradycardia rate of 53. Poor R wave progression. No significant change compared to EKG #1 MDM Narrative This patient comes in as described above he has a history of cardiac disease with an LAD lesion 5 years ago at the time he actually did go into cardiac arrest and had to be shocked out. He has had no problems since then. This patient and his tell me that he had other lesions which were not stented at the time his symptoms today start around 7:00. He is asymptomatic at present he did take 81 mg of aspirin so I gave him additional full-strength aspirin here 324 mg. He he has stable vital signs EKG was obtained he was placed on a cardiac care nurse. Multiple blood testing was obtained. He was reassessed frequently. His EKG does not show any significant change compared to old or any other acute ischemic changes. His initial troponin was also within normal limits, chest x-ray is unremarkable and he no significant electrolyte or metabolic abnormality. He was observed in the ED while his work-up was done his second troponin 2 hours later was also negative. His cardiac work-up is reassuring however given his history I do think that he should be admitted/observed to the hospital for further cardiac work-up and evaluation. Have consulted Dr. Aponte to see him in the ER for these measures Continuous cardiac monitoring: An order was placed in EMR for continuous cardiac care nurse. On my interpretation patient was noted to be in normal sinus rhythm with a rate of 60 Impression & Plan Chest pain, Family history of coronary artery disease, H/O heart artery stent, Lab test negative for COVID-19 virus Discharge Plan Visit Data Chief Complaint: Chest Pain Stated Complaint: CHEST PAIN ED Provider: Cole Burr Discharge Problem: Chest pain, Family history of coronary artery disease, H/O heart artery stent, Lab test negative for COVID-19 virus Patient Disposition: Admitted As Inpatient Condition: Good Discharge Instructions Interventions: ED Discharge Assessment Last Done: 02/10/22 12:13 Discharge Problem: Chest pain Qualifiers: Chest pain type: precordial pain Qualified Code(s): R07.2 - Precordial pain
[2022-02-10 10:15] LABS: Basophils # (auto) 0.03 K/uL (0-0.2); Basophils % (auto) 0.3 %; Eosinophils # (auto) 0.41 K/uL (0-0.5); Eosinophils % (auto) 4.5 %; Hematocrit (blood only) 47.2 % (42-52); Hemoglobin 16.7 g/dL (14.0-18.0); Immature Granulocytes # (auto) 0.02 K/uL (0.00-0.02); Immature Granulocytes % (auto) 0.2 %; Lymphocytes # (auto) 2.51 K/uL (1.2-3.4); Lymphocytes % (auto) 27.5 %; Mean Corpuscular Hemoglobin 31.7 pg (25-34); Mean Corpuscular Hgb Conc 35.4 g/dL (32-36); Mean Corpuscular Volume 89.6 fL (80-100); Mean Platelet Volume 8.9 fL (7.4-10.4); Monocytes # (auto) 0.71 K/uL (0.11-0.59); Monocytes % (auto) 7.8 %; Neutrophils # (auto) 5.44 K/uL (1.4-6.5); Neutrophils % (auto) 59.7 %; Platelet Count 251 K/uL (130-400); RDW Coefficient of Variation 12.9 % (11.5-14.5); Red Blood Count 5.27 M/uL (4.7-6.1); White Blood Count 9.12 K/uL (4.8-10.8)
--- NOTE | 2022-02-10 10:21 | XRay Report ---
XR chest 1V portable CLINICAL HISTORY: Atypical chest pain. COMPARISON STUDY: Chest radiograph November 16, 2018. FINDINGS: Lung volumes are normal. Lungs are clear. There is no pneumothorax or pleural effusion. Car diac size is normal. Mediastinal contours are normal. There is no evidence for pulmonary edema. IMPRESSION: No acute cardiopulmonary findings. ACT 112: Negative or not required by law. Electronically signed by: Alban Emmanuel M.D. 02/10/2022 10:20 AM
[2022-02-10 10:26] LABS: D Dimer 250 ug/L FEU (0-500); Partial Thromboplastin Ratio 1.1; Partial Thromboplastin Time 31.4 Seconds (21.0-31.0); Prothrombin Time 10.8 Seconds (9.0-12.0)
[2022-02-10 10:41] LABS: Alanine Aminotransferase 26 U/L (7-52); Albumin Globulin Ratio 1.7 (0.9-2); Albumin Level 4.5 gm/dl (3.4-5.0); Alkaline Phosphatase 56 U/L (34-104); Anion Gap 8 (3-11); Aspartate Aminotransferase 21 U/L (13-39); BUN Creatinine Ratio 16.1 (10-20); Bilirubin,Total 0.5 mg/dl (0.2-1.0); Blood Urea Nitrogen 15 mg/dl (6-23); Calcium 9.4 mg/dl (8.5-10.1); Carbon Dioxide 24 mmol/L (21-32); Chloride 105 mmol/L (98-107); Est GFR (African American) 102.3 ml/min; Est GFR (Non-African American) 88.3 ml/min; Globulin 2.7 gm/dl (2.5-4.0); Glucose 102 mg/dl (70-99(Fasting)); Lipase 33 U/L (11-82); Magnesium 2.1 mg/dl (1.7-2.4); Potassium 3.8 mmol/L (3.5-5.1); Sodium 137 mmol/L (136-145); Total Protein 7.2 gm/dl (6.0-8.3)
[2022-02-10 10:46] LABS: Troponin I High Sensitivity 5.1 pg/ml (0-20)
--- NOTE | 2022-02-10 11:08 | History & Physical Report ---
Date of Service February 10, 2022 Assessment & Plan (1) Chest pain, rule out acute myocardial infarction: Plan: 2 hours of chest pain. Initial troponin negative, EKG non ischemic. Given duration suspect can be discharged if serial troponins negative however given prior cardiac arrest 2016 and known residual CAD (most notably distal RCA with 70% stenosis) will consult his cardiology group to determine if stress testing is warranted. ASA 324mg PO given in ER. Continue 81mg po daily with his other CAD medications Given chest pain free, lack of benefit from heparin IV for patients not undergoing cardiac catheterization and not clear pain is cardiac will defer anticoagulation on admission. D-dimer negative. Encouraged smoking cessation (2) GERD without esophagitis: Plan: Continue lansoprazole. Possible alternative explanation for pain as above. (3) Hyperlipidemia: Plan: LDL above goal November. Will repeat with AM labs. (4) CAD (coronary artery disease): Plan: Medtronic 2.75 x 18 mm BENEDICTO, placed due to total early mid LAD occlusion. Continue ASA, Clopidogrel, Metoprolol, Lisinopril, Rosuvastatin Plan: VTE Prophylaxis - low risk Diet - heart healthy Disposition - observation to med/tele Admission and Anticipated Discharge Date Admission Date: February 10, 2022 History of Present Illness Chief Complaint: Chest pain Primary Care Provider: Roseann Murphy MD Dion Fitzpatrick is a 61 year old male with history of [place] and cardiac arrest in 2017 who presents to the ER with chest pain. Chest pain started this morning at 7:15am and lasted for around 2 hours at the same severity /10. 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 He reports this is much milder and with no radiation like his heart attack in 2017, but it is substernal. He denies any recently anginal chest pain or shortness of breath worse on exertion. He reports thinking it could be reflux and tried to drink some coffee thinking this would help but it didn't change the pain. He took nitroglycerin but doesn't think this helped either. No worse on palpation. Appeared to help when he lied down but didn't feel it was any worse on exertion. Resolved in the ER prior to medications being given. He took all his usual medications this morning. Took lansoprazole as usual last night - no GERD exacerbating foods last night or this morning other than the coffee which he drank after the pain came on. He has a significant history of coronary artery disease status post anteroseptal myocardial infarction January 04, 2017. Total early-mid LAD occlusion on emergency cardiac catheterization. Treated with deployment of 2.75 x 18 millimeter drug- eluting stent. He had severe retrosternal chest pain and that time and during transport had a ventricular tachycardia/fibrillation cardiac arrest requiring x1 shock. More recently he was hospitalized in May 2021 for epigastric pain and CT findings concerning for pancreatitis - suspected secondary to alcohol use. He also recently had an essential normal EGD in Oct 2021 for GERD follow up with a small hiatal hernia present. He continues to smoke one cigar a week. In the ER initial high sensitivity troponin at 9:49 was 5.1 pg/ml. EKG without ischemic changes. D-simer was negative. He was referred to medicine for admission and ongoing management of chest pain. Allergies Allergy/AdvReac Type Severity Reaction Status Date / Time spironolactone AdvReac Mild CHEST Verified 02/10/22 11:22 DISCOMFORT Home Medications Medication Instructions Recorded Confirmed Type aspirin 81 mg tablet,delayed 81 mg PO QAM tab 05/29/19 02/10/22 History release nitroglycerin 0.4 mg sublingual 0.4 mg SL DIRECTED PRN #30 tab 05/29/19 02/10/22 History tablet tadalafil 10 mg tablet 10 mg PO DAILY PRN 05/29/19 02/10/22 History clopidogrel 75 mg tablet 75 mg PO QAM #90 tab 07/20/21 02/10/22 Rx metoprolol succinate 25 mg 25 mg PO QAM #90 tab 08/02/21 02/10/22 Rx tablet,extended release 24 hr lansoprazole 30 mg capsule,delayed 30 mg PO HS #90 cap 09/08/21 02/10/22 Rx release lisinopril 2.5 mg tablet 2.5 mg PO QAM #90 tab 09/09/21 02/10/22 Rx icosapent ethyl 1 gram capsule 2 g PO BID 02/10/22 02/10/22 History (Vascepa) rosuvastatin 10 mg tablet 10 mg PO 3XWK 02/10/22 02/10/22 History Past Med/Surg History Medical History Antiplatelet or antithrombotic long-term use Basal cell carcinoma of nose S/P MOH'S SURGERY Bladder cancer CAD (coronary artery disease) BENEDICTO TO MID LAD (2016) Cigar smoker Family history of colon cancer GERD (gastroesophageal reflux disease) CONTROLLED History of basal cell carcinoma History of smokeless tobacco use HLD (hyperlipidemia) Hypertension Hypotension Myocardial Infarction 2017 Surgical History History of bladder surgery REPAIR AFTER BLADDER TUMOR REMOVAL 2/2 BLADDER LACERATION History of bladder surgery (~07/2019) TURB, cystoscopy History of cardiac cath 2017 X [address] URBAN History of colonoscopy 11/08/18: MAC SEDATION AT [facility] History of cystoscopy "BENIGN" BLADDER TUMOR REMOVAL History of tonsillectomy History of umbilical hernia repair History of wisdom tooth extraction S/P PTCA (percutaneous transluminal coronary angioplasty) Status post Mohs surgery for basal cell carcinoma X2 Family History Daughter Family history of diabetes mellitus Family history of spina bifida Grandmother (Maternal) Family hx of colon cancer Brother Myocardial infarction Sister Myocardial infarction Father Myocardial infarction Other No family history of adverse response to anesthesia Denies family history of Ovarian cancer Prostate cancer Breast cancer Colorectal cancer Social History Smoking Status: Never smoker Age Started Using Tobacco: 16; Age Quit Using Tobacco: 56; Number of Years Since Quit: 3; Second Hand Exposure: No; Hx Alcohol Use: No Hx Substance Use: No Preferred Language: B[place]ian Communication Ability: Effective Visual Impairment: No Limitations Hearing Ability: Normal Layboy Operator Required: No Beliefs That Will Affect Care: None marital status: Current Living Situation: Spouse Current Living Situation Comment: Lives with and special needs daughter current occupational status: employed current occupation: [employer] Feels Safe at Home: Yes Childhood Exposure to Second-Hand Smoke: Yes Dental Care, Regularly: Yes Physical Activity Frequency: Daily Seatbelt Use: always Sunscreen Use: Yes Assistive Devices: Glasses Review of Systems Review of Systems: All systems reviewed & are unremarkable except as noted in HPI & below Physical Exam Constitutional: WD/WN, vitals as above Eyes: + anicteric sclerae; normal pupil size ENMT: external ear and nose normal, oropharynx normal Neck: trachea midline, no thyromegaly Respiratory: normal respiratory effort, lungs clear to auscultation Cardiovascular: RRR, no murmur, no edema Gastrointestinal (Abdomen): normal bowel sounds, soft, nontender, no hepatosplenomegaly Musculoskeletal: no cyanosis or clubbing, extremities motor strength 5/5 Skin: no rashes, warm and dry Neurologic: moves all extremities and awake; not confused Psychiatric: A+Ox3, euthymic affect Results & Data Results & Data ([facility]) Vital Signs (Past 12 Hours) Vital Signs Temp Pulse Pulse Resp BP BP Pulse Ox 02/10/22 10:35 57 L 17 109/72 97 02/10/22 09:49 60 60 16 105/77 98 02/10/22 09:26 36.8 C 67 20 117/78 95 Laboratory Results Abnormal lab results 02/10/22 02/10/22 02/10/22 Range/Units 09:49 09:49 09:49 [place] # (Auto) 0.71 H (0.11-0.59) K/uL APTT 31.4 H (21.0-31.0) Seconds Glucose 102 H (70-99(Fasting)) mg/dl Diagnostic Findings XR chest 1V portable CLINICAL HISTORY: Atypical chest pain. COMPARISON STUDY: Chest radiograph November 16, 2018. FINDINGS: Lung volumes are normal. Lungs are clear. There is no pneumothorax or pleural effusion. Cardiac size is normal. Mediastinal contours are normal. There is no evidence for pulmonary edema. IMPRESSION: No acute cardiopulmonary findings. Medications Administered ER Medications Given: Aspirin 324mg PO ECG Indication: chest pain Rate (beats per minute): 61 Rhythm: normal sinus Comparison ECG Date: from (June 10, 2020) Change: no significant change Code Status & VTE Plan Code Status Full VTE Prophylaxis Plan VTE Prophylaxis will be ordered: Yes PG Care Time/CCT Total # of Minutes Spent Total Time Spent with Patient: Total time spent is greater than 50% in coordination of care (as documented) at patient's floor/unit and/or counseling patient: Coding Level of Care Code INT OBSERVATION CARE 50M LVL 2 Diagnoses Chest pain, rule out acute myocardial infarction R07.9 GERD without esophagitis K21.9 Hyperlipidemia E78.5 Hyperlipidemia type: unspecified CAD (coronary artery disease) I25.10 Coronary Disease-Associated Artery/Lesion type: [place] artery [place] vs. transplanted heart: [place] heart Associated angina: without angina (1) Hyperlipidemia Hyperlipidemia type: unspecified Qualified Code(s): E78.5 - Hyperlipidemia, unspecified (2) CAD (coronary artery disease) Coronary Disease-Associated Artery/Lesion type: [place] artery [place] vs. transplanted heart: [place] heart Associated angina: without angina Qualified Code(s): I25.10 - Atherosclerotic heart disease of [place] coronary artery without angina pectoris
[2022-02-10] MEDS ORDERED: ROSUVASTATIN CALCIUM 10 MG TAB PO SCH (14:00)
--- NOTE | 2022-02-10 15:54 | Cardiology Consultation ---
Date of Consultation February 10, 2022 Assessment & Plan (1) Atypical chest pain: (2) CAD (coronary artery disease): (3) Hypertension: (4) Hyperlipidemia: (5) S/P coronary artery stent placement: ASSESSMENT/PLAN: 1. Atypical chest pain: He states that his chest pain was completely different than prior angina. There were no dynamic ST changes on ECG and high sensitivity troponin was negative and actually when repeating, was even lower. Second high sensitivity troponin was over 4 hours from initial chest discomfort onset. He is interested in going home. Today's chest discomfort was unlikely to be cardiac in nature. We discussed the fact that if he should have recurrent issues or different symptoms, he should once again be evaluated. 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 Urban. Consider outpatient noninvasive ischemic evaluation such as stress echo. 2. CAD s/p LAD PCI: Continue anti-platelet therapy, beta-ryan, and statin therapy. He has not tolerated higher doses of statin therapy per Dr. Urban documentation. Consider non statin therapy to supplement 3 days per week rosuvastatin, such as PCSK9 inhibitor or Zetia. 3. Hypertension: Blood pressure adequately controlled. No changes made at this time. 4. Dyslipidemia: Goal LDL < 70. Consider PCSK9 inhibitor or Zetia in addition to current statin therapy. This can be arranged by his outpatient providers. 5. Disposition: Close follow-up with Dr. Urban, his primary wind projects supervisor. He was advised to seek immediate medical attention for recurrent or worsened symptoms. He very much wishes to be discharged home. Patient care and plan c ommunicated with Dr. Aponte of the primary hospitalist service. Thank you for allowing me to participate in the care of your patient. Please call for any other questions or concerns. Sincerely, Andre Mahajan M.D. History of Present Illness Reason for Consultation: Chest pain Requesting Physician: Yovani Aponte MD Attending Physician: Yovani Aponte MD History of Present Illness Mr. Fitzpatrick is a very pleasant 61-year-old gentleman with a history significant for CAD and LAD infarct s/p PCI an VFib arrest, hypertension, dyslipidemia, and bladder cancer. His primary wind projects supervisor is Dr. Urban. He has had the following studies/procedures: 1. Cardiac catheterization 01/04/2017: Proximal LAD 30%. Mid LAD 100%. Distal LAD 20%. Distal RCA 70%. Underwent PCI of mid LAD with 2.75 x 18 mm BENEDICTO. 2. Echo 11/16/2018: Low-normal LV systolic function. EF 50-55%. Hypokinetic anterior apex and septum. Mild asymmetric LVH. No LVOT obstruction. No significant valvular abnormalities. He presented to the emergency department on 02/10/2022 after experiencing chest discomfort. He was seen by the hospitalist service and admitted to observation. He had been on folding cafeteria tables and had a substernal chest discomfort as though something was inside his chest pushing outward both to his chest and at times intrascapular. There was no associated shortness of breath or diaphoresis. The pain persisted for 2 hours without relief despite taking nitroglycerin x1 before coming to the emergency department. After 2 hours, the pain spontaneously resolved and has not recurred. He states that this feels completely different than his prior CT. He had not consumed any food thus far today. He denies shortness of breath, syncope, near-syncope, palpitations, edema, or bleeding. He walks approximately [id number] steps per day and is very active in general. Despite this, he has not had any exertional symptoms. Today's chest discomfort occurred after completing cafeteria set up. He was resting comfortably in bed without further chest pain. He was interested in going home with possible. Review of systems: As above. Review of systems otherwise negative/unremarkable. Family history: Father had CAD and underwent PCI and CABG before passing away from CT at the age of 77. Extensive CAD on his father side of the family. Social history: He smokes approximately 5 cigars per month. No alcohol. No drugs. Lives at home with his . Has 3 children however his daughter, Ya, at the age of 30 with spina bifida, hydrocephalus, Johns syndrome. He has 4 grandchildren. 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 He was unaccompanied. Allergies Allergy/AdvReac Type Severity Reaction Status Date / Time spironolactone AdvReac Mild CHEST Verified 02/10/22 11:22 DISCOMFORT Home Medications Medication Instructions Recorded Confirmed Type aspirin 81 mg tablet,delayed 81 mg PO QAM tab 05/29/19 02/10/22 History release nitroglycerin 0.4 mg sublingual 0.4 mg SL DIRECTED PRN #30 tab 05/29/19 02/10/22 History tablet tadalafil 10 mg tablet 10 mg PO DAILY PRN 05/29/19 02/10/22 History clopidogrel 75 mg tablet 75 mg PO QAM #90 tab 07/20/21 02/10/22 Rx metoprolol succinate 25 mg 25 mg PO QAM #90 tab 08/02/21 02/10/22 Rx tablet,extended release 24 hr lansoprazole 30 mg capsule,delayed 30 mg PO HS #90 cap 09/08/21 02/10/22 Rx release lisinopril 2.5 mg tablet 2.5 mg PO QAM #90 tab 09/09/21 02/10/22 Rx icosapent ethyl 1 gram capsule 2 g PO BID 02/10/22 02/10/22 History (Vascepa) rosuvastatin 10 mg tablet 10 mg PO 3XWK 02/10/22 02/10/22 History Patient History Medical History Antiplatelet or antithrombotic long-term use Basal cell carcinoma of nose S/P MOH'S SURGERY Bladder cancer CAD (coronary artery disease) BENEDICTO TO MID LAD (2016) Cigar smoker Family history of colon cancer GERD (gastroesophageal reflux disease) CONTROLLED History of basal cell carcinoma History of smokeless tobacco use HLD (hyperlipidemia) Hypertension Hypotension Myocardial Infarction 2017 Surgical History (Updated 02/10/22 @ 15:46 by Cholo Mahajan MD) History of bladder surgery REPAIR AFTER BLADDER TUMOR REMOVAL 2/2 BLADDER LACERATION History of bladder surgery (~07/2019) TURB, cystoscopy History of cardiac cath 2017 X [address] URBAN History of colonoscopy 11/08/18: MAC SEDATION AT [facility] History of cystoscopy "BENIGN" BLADDER TUMOR REMOVAL History of tonsillectomy History of umbilical hernia repair History of wisdom tooth extraction S/P coronary artery stent placement Status post Mohs surgery for basal cell carcinoma X2 Family History Daughter Family history of diabetes mellitus Family history of spina bifida Grandmother (Maternal) Family hx of colon cancer Brother Myocardial infarction Sister Myocardial infarction Father Myocardial infarction Other No family history of adverse response to anesthesia Denies family history of Ovarian cancer Prostate cancer Breast cancer Colorectal cancer Social History Smoking Status: Never smoker Age Started Using Tobacco: 16; Age Quit Using Tobacco: 56; Number of Years Since Quit: 3; Second Hand Exposure: No; Hx Alcohol Use: No Hx Substance Use: No Preferred Language: Persian Communication Ability: Effective Visual Impairment: No Limitations Hearing Ability: Normal Marketing Communications Associate Required: No Beliefs That Will Affect Care: None marital status: Current Living Situation: Spouse Current Living Situation Comment: Lives with and special needs daughter current occupational status: employed current occupation: [employer] Feels Safe at Home: Yes Childhood Exposure to Second-Hand Smoke: Yes Dental Care, Regularly: Yes Physical Activity Frequency: Daily Seatbelt Use: always Sunscreen Use: Yes Assistive Devices: Glasses Physical Exam Physical Exam: Gen.: No acute distress. Alert and oriented. HEENT: Anicteric sclera. Neck: No JVD. No bruits. Normal carotid upstrokes bilaterally. Cardiac: PMI was nondisplaced. No ventricular heave. Regular. Normal S1-S2. No murmurs, rubs, or gallops. Pulmonary: Clear to auscultation bilaterally without wheezes, rales, or rhonchi. Abdomen: Soft, nontender, nondistended, with normoactive bowel sounds. No bruits noted. Extremities: 2+ radial pulses bilaterally. 2+ posterior tibialis pulses bilaterally. No edema or cyanosis. Psychiatric: Affect appears appropriate. Chest: Nontender to palpation. Results & Data ([facility]) Vital Signs (Past 12 Hours) Vital Signs Temp Pulse Pulse Resp BP BP Pulse Ox 02/10/22 15:00 62 16 130/83 95 02/10/22 12:52 57 L 16 117/70 98 02/10/22 12:13 57 L 18 110/70 98 02/10/22 11:41 58 L 16 110/71 98 02/10/22 10:55 54 L 16 172/85 H 97 02/10/22 10:35 57 L 17 109/72 97 02/10/22 09:49 60 60 16 105/77 98 02/10/22 09:26 36.8 C 67 20 117/78 95 Pulse Ox 02/10/22 15:00 02/10/22 12:52 98 02/10/22 12:13 02/10/22 11:41 02/10/22 10:55 02/10/22 10:35 02/10/22 09:49 02/10/22 09:26 Laboratory Results Laboratory Results - last 24 hr 02/10/22 02/10/22 02/10/22 09:49 09:49 09:49 WBC 9.12 RBC 5.27 Hgb 16.7 Hct 47.2 MCV 89.6 MCH 31.7 MCHC 35.4 RDW Std Deviation 42.0 RDW Coeff of Laura 12.9 Plt Count 251 MPV 8.9 Immature Gran % (Auto) 0.2 Neut % (Auto) 59.7 Lymph % (Auto) 27.5 [place] % (Auto) 7.8 Eos % (Auto) 4.5 Baso % (Auto) 0.3 Neut # (Auto) 5.44 Lymph # (Auto) 2.51 [place] # (Auto) 0.71 H Eos # (Auto) 0.41 Baso # (Auto) 0.03 Immature Gran # (Auto) 0.02 PT 10.8 INR 1.0 APTT 31.4 H PTT Ratio 1.1 D-Dimer 250 Sodium 137 Potassium 3.8 Chloride 105 Carbon Dioxide 24 Anion Gap 8 BUN 15 Creatinine 0.93 Est Cr Clr Drug Dosing Not Reportable Est GFR ( Amer) 102.3 Est GFR (Non-Af Amer) 88.3 BUN/Creatinine Ratio 16.1 Glucose 102 H Calcium 9.4 Magnesium 2.1 Total Bilirubin 0.5 AST 21 ALT 26 Alkaline Phosphatase 56 Troponin I High Sens 5.1 Total Protein 7.2 Albumin 4.5 Globulin 2.7 Albumin/Globulin Ratio 1.7 Lipase 33 SARS-CoV-2, RNA, NAAT 02/10/22 02/10/22 10:30 11:37 WBC RBC Hgb Hct MCV MCH MCHC RDW Std Deviation RDW Coeff of Laura Plt Count MPV Immature Gran % (Auto) Neut % (Auto) Lymph % (Auto) [place] % (Auto) Eos % (Auto) Baso % (Auto) Neut # (Auto) Lymph # (Auto) [place] # (Auto) Eos # (Auto) Baso # (Auto) Immature Gran # (Auto) PT INR APTT PTT Ratio D-Dimer Sodium Potassium Chloride Carbon Dioxide Anion Gap BUN Creatinine Est Cr Clr Drug Dosing Est GFR ( Amer) Est GFR (Non-Af Amer) BUN/Creatinine Ratio Glucose Calcium Magnesium Total Bilirubin AST ALT Alkaline Phosphatase Troponin I High Sens 4.4 Total Protein Albumin Globulin Albumin/Globulin Ratio Lipase SARS-CoV-2, RNA, NAAT NEGATIVE Diagnostic Findings ECGs personally reviewed: ECG 02/10/2022 at 11:30 a.m.: Sinus bradycardia 53 beats per minute. Possible anterior infarct. ECG 02/10/2022 at 9:39 a.m.: Sinus rhythm 61 beats per minute. Anterior infarct. Cardiac catheterization and echo report reviewed as noted above in HPI. Medications Administered Current Inpatient Medications Aspirin (Aspirin 81 Mg Ectab) 81 mg PO [facility] Stop: 03/13/22 08:59 Clopidogrel Bisulfate (Clopidogrel Bisulfate 75 Mg Tab) 75 mg PO [facility] Stop: 03/13/22 08:59 Lisinopril (Lisinopril 2.5 Mg Tab) 2.5 mg PO [facility] Stop: 03/13/22 08:59 Metoprolol Succinate (Metoprolol Succ 25mg Ext Rel Tab) 25 mg PO [facility] Stop: 03/13/22 08:59 Pantoprazole Sodium (Pantoprazole 40 Mg Tab) 40 mg PO [facility] Stop: 03/12/22 20:59 Rosuvastatin Calcium (Rosuvastatin Calcium 10 Mg Tab) 10 mg PO MoThSa@0900 [facility] Stop: 03/12/22 13:59 Last Admin: 02/10/22 15:15 Dose: 10 mg Documented by: PG Care Time/CCT Total # of Minutes Spent Total Time Spent with Patient: Total time spent is greater than 50% in coordination of care (as documented) at patient's floor/unit and/or counseling patient: Coding Level of Care Code 46311 Office/OBS Consult Lvl 4 Diagnoses Atypical chest pain R07.89 CAD (coronary artery disease) I25.10 Coronary Disease-Associated Artery/Lesion type: [place] artery [place] vs. transplanted heart: [place] heart Associated angina: without angina Hypertension I10 Hypertension type: essential hypertension Hyperlipidemia E78.5 Hyperlipidemia type: unspecified S/P coronary artery stent placement Z95.5 (1) CAD (coronary artery disease) Coronary Disease-Associated Artery/Lesion type: [place] artery [place] vs. transplanted heart: [place] heart Associated angina: without angina Qualified Code(s): I25.10 - Atherosclerotic heart disease of [place] coronary artery without angina pectoris (2) Hypertension Hypertension type: essential hypertension Qualified Code(s): I10 - Essential (primary) hypertension (3) Hyperlipidemia Hyperlipidemia type: unspecified Qualified Code(s): E78.5 - Hyperlipidemia, unspecified
--- NOTE | 2022-02-10 16:04 | Discharge Summary ---
Date of Service February 10, 2022 Admission HPI Per Admitting Provider Dion Fitzpatrick is a 61 year old male with history of ID and cardiac arrest in 2016 who presents to the ER with chest pain. Chest pain started this morning at 7:15am and lasted for around 2 hours at the same severity 12/26. 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 He reports this is much milder and with no radiation like his heart attack in 2017, but it is substernal. He denies any recently anginal chest pain or shortness of breath worse on exertion. He reports thinking it could be reflux and tried to drink some coffee thinking this would help but it didn't change the pain. He took nitroglycerin but doesn't think this helped either. No worse on palpation. Appeared to help when he lied down but didn't feel it was any worse on exertion. Resolved in the ER prior to medications being given. He took all his usual medications this morning. Took lansoprazole as usual last night - no GERD exacerbating foods last night or this morning other than the coffee which he drank after the pain came on. He has a significant history of coronary artery disease status post anteroseptal myocardial infarction January 04, 2017. Total early-mid LAD occlusion on emergency cardiac catheterization. Treated with deployment of 2.75 x 18 millimeter drug- eluting stent. He had severe retrosternal chest pain and that time and during transport had a ventricular tachycardia/fibrillation cardiac arrest requiring x1 shock. More recently he was hospitalized in May 2021 for epigastric pain and CT findings concerning for pancreatitis - suspected secondary to alcohol use. He also recently had an essential normal EGD in Oct 2021 for GERD follow up with a small hiatal hernia present. He continues to smoke one cigar a week. In the ER initial high sensitivity troponin at 9:49 was 5.1 pg/ml. EKG without ischemic changes. D-simer was negative. He was referred to medicine for admission and ongoing management of chest pain. Admission Exam Per Admitting Provider Constitutional: WD/WN, vitals as above Eyes: + anicteric sclerae; normal pupil size ENMT: external ear and nose normal, oropharynx normal Neck: trachea midline, no thyromegaly Respiratory: normal respiratory effort, lungs clear to auscultation Cardiovascular: RRR, no murmur, no edema Gastrointestinal (Abdomen): normal bowel sounds, soft, nontender, no hepatosplenomegaly Musculoskeletal: no cyanosis or clubbing, extremities motor strength 5/5 Skin: no rashes, warm and dry Neurologic: moves all extremities and awake; not confused Psychiatric: A+Ox3, euthymic affect Principal Diagnosis Atypical chest pain Discharge Exam See admission exam from same day Discharge Data Allergies Allergy/AdvReac Type Severity Reaction Status Date / Time spironolactone AdvReac Mild CHEST Verified 02/10/22 11:22 DISCOMFORT Consultations 02/10/22 11:32 ED Decision to Admit Stat 02/10/22 12:52 Consult Cardiology Routine Hospital Course (1) Chest pain, rule out acute myocardial infarction: Dion Fitzpatrick is a 61 year old male observed at [facility] on February 10 for chest pain. D-dimer negative. Repeat high sensitivity troponins were negative at 0 and 2 hours. On review by cardiology given his symptoms are atypical recommended close follow up with his outpatient customer management specialist. Given he was moving tables at the time most likely this was musculoskeletal although could not be reproduced while in the emergency room, however his pain had resolved at that time. Alternative explanation would be his GERD however symptoms [facility] No changes to his medications were made. (2) GERD without esophagitis: (3) Hyperlipidemia: (4) CAD (coronary artery disease): Total Time Total Time Spent Total Time Spent (In Minutes): 15 Discharge Plan Discharge Items Patient Disposition: Home - Self-Care Reason For Visit: CHEST PAIN Discharge Diagnosis: Atypical chest pain Condition on Discharge: Good Activity: Resume your previous activity Non-emergency contact: Special Collections Librarian Call non-emergency contact if: you have any medication questions and your symptoms worsen Follow-up/Referrals: Isidro Schofield Jr, MD, FACC [Physician] - (Follow up chest pain in the next 1-2 weeks) Roseann Murphy MD [Primary Care Provider] - Diet: Heart Healthy Addtl Attending Provider Instructions: You were observed at [facility] for chest pain. Repeat high sensitivity troponins were negative therefore this was not a heart attack. On review by cardiology given your symptoms are atypical recommend just close follow up with your customer management specialist at this time. Please continue your usual medications, no changes to your medications were made. Pending Studies at Discharge: No Stand-Alone Forms: [facility], Smoking Cessation Medications and DC Order Prescriptions: Continued clopidogrel 75 mg tablet 75 mg PO QAM Qty: 90 RF: 3 metoprolol succinate 25 mg tablet extended release 24 hr 25 mg PO QAM Qty: 90 RF: 3 lansoprazole 30 mg capsule,delayed release(DR/EC) 30 mg PO HS Qty: 90 RF: 3 lisinopril 2.5 mg tablet 2.5 mg PO QAM Qty: 90 RF: 3 tadalafil 10 mg tablet 10 mg PO DAILY PRN (Reason: PRN) RF: 0 aspirin 81 mg tablet,delayed release (DR/EC) 81 mg PO QAM RF: 0 nitroglycerin 0.4 mg tablet, sublingual 0.4 mg SL DIRECTED PRN (Reason: Chest Pain) Qty: 30 RF: 0 icosapent ethyl [Vascepa] 1 gram capsule 2 g PO BID RF: 0 rosuvastatin 10 mg tablet 10 mg PO 3XWK RF: 0 Discharge Orders: Discharge Order (Routine); Ordered 02/10/22 Ordered By: Yovani Aponte Admission Data Admit Date/Time: 02/10/22 11:34 Attending Provider: Jacky Velarde Admit Provider: Yovani Aponte Primary Care Provider: Roseann Murphy Other Providers: Yovani Aponte ; Cholo Mahajan Other Interventions: Discharge Summary Assessment (RN) Last Done: 02/10/22 16:15 Coding Level of Care Code None Diagnoses Chest pain, rule out acute myocardial infarction R07.9 GERD without esophagitis K21.9 Hyperlipidemia E78.5 Hyperlipidemia type: unspecified CAD (coronary artery disease) I25.10 Associated angina: without angina Coronary Disease-Associated Artery/Lesion type: [place] artery Craig vs. transplanted heart: [place] heart
[2022-02-10] MEDS ORDERED: PANTOprazole 40 MG TAB PO SCH (21:00)
--- NOTE | 2022-02-11 06:24 | Electrocardiogram Report ---
Test Reason : Blood Pressure : / mmHG Vent. Rate : 061 BPM Atrial Rate : 061 BPM P-R Int : 164 ms QRS Dur : 092 ms QT Int : 414 ms P-R-T Axes : 074 072 085 degrees QTc Int : 416 ms Normal sinus rhythm Anterior infarct (cited on or before 16-NOV-2018) Abnormal ECG When compared with ECG of 10-JUN-2020 17:31, No significant change was found Confirmed by Cholo Mahajan ([id number]) on 02/11/2022 6:24:07 AM Referred By: Isidro Schofield Confirmed By:Cholo Mahajan
--- NOTE | 2022-02-11 06:29 | Electrocardiogram Report ---
Test Reason : Blood Pressure : / mmHG Vent. Rate : 053 BPM Atrial Rate : 053 BPM P-R Int : 174 ms QRS Dur : 090 ms QT Int : 446 ms P-R-T Axes : 061 053 083 degrees QTc Int : 418 ms Poor data quality, interpretation may be adversely affected Sinus bradycardia Anterior infarct (cited on or before 16-NOV-2018) Abnormal ECG When compared with ECG of 10-FEB-2022 09:39, No significant change was found Confirmed by Cholo Mahajan ([id number]) on 02/11/2022 6:28:51 AM Referred By: Isidro Schofield Confirmed By:Cholo Mahajan
[2022-02-11] MEDS ORDERED: METOPROLOL SUCC 25MG EXT REL TAB PO SCH (09:00)
[2022-02-11] MEDS ORDERED: ASPIRIN 81 MG ECTAB PO SCH (09:00)
[2022-02-11] MEDS ORDERED: lisinopril 2.5 MG TAB PO SCH (09:00)
[2022-02-11] MEDS ORDERED: CLOPIDOGREL BISULFATE 75 MG TAB PO SCH (09:00)
== END 2022-02-10 16:15 | disposition home or self-care (01) ==
LOC: EDINP 09:24 → ED 09:24 → SUATTDRO 11:34 → EDINP 12:13

== ENCOUNTER 2025-04-08 07:33 | Inpatient (IN) ==
--- NOTE | 2025-04-08 07:47 | Emergency Department Note ---
Impression & Plan Unstable angina, History of CAD (coronary artery disease) ED Provider Note NAME: BARB PAGAN AGE: 64 SEX: M : 1960 ARRIVES VIA: Ambulance INFORMANT: Patient, ED PROVIDER(S): Francisco Peralta MD CHIEF COMPLAINT: Chest pain MEDICAL DECISION MAKING: Patient presents for feeling "off" but the patient does have significant cardiac history and feels improved after nitro and does report recent all exertional chest tightness the last several days. IV was established and blood work was obtained. EKG obtained along with a chest x-ray. Initial EKG without any significant changes. Blood work shows a normal white count H&H and platelet count kidney function unremarkable. BSG 117 nonfasting not DKA initial troponin negative. I did speak with on-call cardiology. Patient is already taken full dose aspirin and took his morning Plavix. Patient was heparinized. Patient was admitted by the medicine service and further discussion about additional testing. Critical Care: I have personally spent 35 minutes of critical care time in direct management of this patient. This includes bedside care, interpretation of diagnostic studies, and testing, discussion with consultants, patient, and family members, and other require inpatient management activities. This 35 minutes is in excess of all separately billable procedures. Discussion w/ other healthcare providers: Dr. Mathews cardiology Dr. Estrada inpatient medicine service Prior /Outside records reviewed: None Differential diagnosis: Cardiac ischemia, aortic dissection, pulmonary embolism, pneumothorax, pneumonia, pericarditis, myocarditis, GERD, cholecystitis, pancreatitis, musculoskeletal, as well as other pathologies were considered. Diagnostics, as interpreted by me: ECG: Sinus, rate of 63, normal intervals, normal axis no ST elevations, T wave inversion in aVL and V2. EKG looks grossly unchanged from comparison 05/13/2022. Cardiac monitoring: An order was placed for continuous cardiac monitoring. The monitor shows a rate of 65 with sinus rhythm. Patient was placed on pulse oximetry Medical decision rules: Heart score Imaging studies: I informally interpreted the patient's chest x-ray does not show obvious pneumonia or pneumothorax with formal report to follow. HPI: Patient presents due to concern for feeling generally unwell. He reports that he woke up this morning around 4:35 and just felt "off." Patient reports that he does have a prior history of PA in the initial 1 was quite severe where he could not talk the next 1 was very mild pressure and tingling in the hand. Patient states that he has had some chest tightness Monday and Monday. 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 Patient denies any cough or fever. He does follow with Dr. Eisenberg. Last time he had a cath or his stent was in 2016. Patient denies any active pain at this time. He did receive 4 aspirin as well as nitro and route he does feel as though this feeling of off is resolved. He denies any leg swelling or calf pain. PAST MEDICAL HISTORY: See Below PAST SURGICAL HISTORY: See Below SOCIAL HISTORY: See Below HOME MEDICATIONS: See Below ALLERGIES: See Below VITALS: See Below PHYSICAL EXAMINATION: GENERAL: NAD, non-toxic. EYE EXAM: Normal conjunctiva. PERRL, no anisocoria and EOM's grossly intact w/o pain. OROPHARYNX: Moist mucus membranes, grossly normal dentition. NECK: Trachea midline, no stridor. LUNGS: Clear to auscultation. Normal chest wall mechanics. HEART: NSR, no MRG. ABDOMEN: Abdomen soft, non-tender, no masses, no rebound or guarding. BACK: No CVA TTP. SKIN: No rashes and no bruising. UPPER EXTREMITIES: Upper extremities are grossly normal. LOWER EXTREMITIES: Grossly normal, no edema. Negative Homans' sign bilaterally. NEURO EXAM: Awake and alert, follows commands, no obvious facial asymmetry, normal speech, moves all 4 extremities. Past Med/Surg History Problem List Unstable angina Peyronie's disease Sensorineural hearing loss (SNHL) of both ears Presence of drug-eluting stent in anterior descending branch of left coronary artery Antiplatelet or antithrombotic long-term use BPH without urinary obstruction (Acute) Erectile dysfunction (Acute) CAD (coronary artery disease) BENEDICTO TO MID LAD (2017) GERD (gastroesophageal reflux disease) CONTROLLED Hypertension Hyperlipidemia Diverticulosis (Acute) Medical History Tinnitus, bilateral Plantar fasciitis Urinary frequency Hematuria Kidney stones Arthralgia of multiple sites History of colon polyps History of PA (myocardial infarction) 2017 History of bladder cancer Family history of coronary artery disease Hx of renal calculi Hypertension GERD (gastroesophageal reflux disease) controlled Diverticulosis CAD (coronary artery disease) BENEDICTO TO MID LAD (2017) follows w/ Dr Schofield BPH (benign prostatic hyperplasia) Antiplatelet or antithrombotic long-term use History of basal cell carcinoma History of smokeless tobacco use HLD (hyperlipidemia) Basal cell carcinoma of nose S/P MOH'S SURGERY Surgical History S/P coronary artery stent placement History of bladder surgery (~07/2019) TURB, cystoscopy History of colonoscopy 11/08/18: MAC SEDATION AT [facility] History of umbilical hernia repair Status post Mohs surgery for basal cell carcinoma X2 History of cystoscopy "BENIGN" BLADDER TUMOR REMOVAL History of bladder surgery REPAIR AFTER BLADDER TUMOR REMOVAL 10/20 BLADDER LACERATION History of wisdom tooth extraction History of tonsillectomy History of cardiac cath 2017 X 1 drug-eluting stent Family History Daughter Family history of diabetes mellitus Family history of spina bifida Grandmother (Maternal) Family hx of colon cancer Cancer UNSURE OF TYPE Brother Myocardial infarction Sister Myocardial infarction Father Myocardial infarction Heart disease Family/Other Hypertension Mother No problems noted. Daughter No problems noted. Daughter No problems noted. Other No family history of adverse response to anesthesia No family history of bleeding disorder Denies family history of Ovarian cancer Prostate cancer Breast cancer Colorectal cancer Social History Smoking Status: Never smoker Tobacco Type: Cigars Age Started Using Tobacco: 16; Age Quit Using Tobacco: 56; Cigarettes Per Day: Only smoked cigars [place] at the beach; Second Hand Exposure: No; Do You Dip or Chew Tobacco: No (quit 2015); Hx Alcohol Use: Yes Alcohol type: beer Alcohol Intake Frequency: Monthly or Less Hx Substance Use: No Preferred Language: Urdu Communication Ability: Effective Visual Impairment: No Limitations Hearing Ability: Normal Special Education Paraeducator Required: No Beliefs That Will Affect Care: None marital status: Current Living Situation: Spouse Current Living Situation Comment: Lives with current occupational status: employed 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 - [employer] How many Children do You have: 3 Other Information That Helps Us Care for You: No Feels Safe at Home: Yes Safety Concerns: Feels Safe At This Time Childhood Exposure to Second-Hand Smoke: Yes Diet: regular caffeine: Yes during the past year weight has: remained stable Dental Care, Regularly: Yes Physical Activity Frequency: Daily Seatbelt Use: always Sunscreen Use: Yes Assistive Devices: Glasses and Hearing Aid - Bilateral Allergies Allergies Allergy/AdvReac Type Severity Reaction Status Date / Time spironolactone AdvReac Mild CHEST Verified 12/24/24 10:31 DISCOMFORT Home Meds Home Medications Medication Instructions Recorded Confirmed aspirin 81 mg tablet,delayed 81 mg PO QAM 05/29/19 04/08/25 release nitroglycerin 0.4 mg sublingual 0.4 mg sublingual DIRECTED PRN 05/29/19 04/08/25 tablet Chest Pain #30 tabs tadalafil 10 mg tablet 10 mg PO DAILY PRN PRN 05/29/19 04/08/25 rosuvastatin 20 mg tablet 10 mg PO .MON,THURS,SAT 04/08/25 04/08/25 Previous Rx's Medication Instructions Recorded sildenafil 100 mg tablet 100 mg PO DAILY PRN sexual 04/08/24 activity #18 tabs clopidogrel 75 mg tablet 75 mg PO QAM #90 tabs 04/18/24 lansoprazole 30 mg capsule,delayed 30 mg PO HS #90 caps 07/15/24 release icosapent ethyl 1 gram capsule 2 g (2 x 1 gram) PO BID #360 caps 08/21/24 (Vascepa) metoprolol succinate 25 mg 25 mg PO QAM #90 tabs 08/21/24 tablet,extended release 24 hr lisinopril 2.5 mg tablet 2.5 mg PO QAM #90 tabs 10/15/24 Results & Data (ED) Vital Signs Vital Signs - 24 hr 04/08/25 07:38 04/08/25 07:42 04/08/25 08:12 Temperature 36.5 C Temperature Source Oral Pulse Rate 65 58 L 56 L Pulse Rate [Apical] Pulse Rhythm Regular Regular Respiratory Rate 18 Respiratory Effort / Characteristics Non-Labored Spontaneous Respiratory Depth Normal Respiratory Pattern Regular Blood Pressure 117/72 Blood Pressure [Left Arm] Blood Pressure Mean 87 Blood Pressure Mean [Left Arm] Blood Pressure Position Sitting Blood Pressure Position [Left Arm] Pulse Oximetry 96 94 Oxygen Delivery Method Room Air Room Air Sepsis Recent Fever Within 48 Hours No Sepsis New/Unexplained Change in Mental Status No Sepsis Action Taken by Nursing No Action Required 04/08/25 09:00 Temperature Temperature Source Pulse Rate Pulse Rate [Apical] 56 L Pulse Rhythm Respiratory Rate 17 Respiratory Effort / Characteristics Non-Labored Spontaneous Respiratory Depth Normal Respiratory Pattern Blood Pressure Blood Pressure [Left Arm] 130/78 Blood Pressure Mean Blood Pressure Mean [Left Arm] 95 Blood Pressure Position Blood Pressure Position [Left Arm] Semi-fowlers Pulse Oximetry 94 Oxygen Delivery Method Room Air Sepsis Recent Fever Within 48 Hours Sepsis New/Unexplained Change in Mental Status Sepsis Action Taken by Penitentiary Medications Current Medication List: was personally reviewed by me Laboratory Data Attestation: I reviewed the patient's lab results. 04/08/25 07:40 04/08/25 07:40 Lab Results 04/08/25 Range/Units 07:40 WBC 7.29 (4.8-10.8) K/ul RBC 4.79 (4.70-6.10) M/uL Hgb 15.4 (14.0-18.0) g/dl Hct 43.6 (42.0-52.0) % MCV 91.0 (80.0-100.0) fL MCH 32.2 (25.0-34.0) pg MCHC 35.3 (32.0-36.0) g/dL RDW Std Deviation 40.2 (36.4-46.3) fL RDW Coeff of Laura 12.1 (11.5-14.5) % Plt Count 242 (130-400) K/uL MPV 8.6 L (9.4-12.4) fL Immature Gran % (Auto) 0.1 % Neut % (Auto) 45.5 % Lymph % (Auto) 38.0 % [place] % (Auto) 8.5 % Eos % (Auto) 7.4 % Baso % (Auto) 0.5 % Neut # (Auto) 3.31 (1.40-6.50) K/uL Lymph # (Auto) 2.77 (1.20-3.40) K/uL [place] # (Auto) 0.62 H (0.11-0.59) K/uL Eos # (Auto) 0.54 H (0.00-0.50) K/uL Baso # (Auto) 0.04 (0.00-0.20) K/uL Immature Gran # (Auto) 0.01 (0.01-0.20) K/uL PT 10.9 (9.0-12.0) Seconds INR 1.0 (0.9-1.1) APTT 27 (21-31) Seconds PTT Ratio 1.0 Sodium 138 (136-145) mmol/L Potassium 3.8 (3.5-5.1) mmol/L Chloride 105 (98-107) mmol/L Carbon Dioxide 25 (21-32) mmol/L Anion Gap 8 (3-11) BUN 14 (6-23) mg/dl Creatinine 0.96 (0.6-1.4) mg/dl Est Cr Clr Drug Dosing 94.2 ml/min eGFR 88.27 BUN/Creatinine Ratio 14.6 (10-20) Glucose 117 H (70-99(Fasting)) mg/dl Calcium 9.2 (8.6-10.3) mg/dl Total Bilirubin 0.4 (0.2-1.0) mg/dl AST 24 (13-39) U/L ALT 25 (7-52) U/L Alkaline Phosphatase 61 (34-104) U/L Troponin I High Sens 5.8 (0-20) pg/ml Total Protein 7.1 (6.0-8.3) gm/dl Albumin 4.4 (3.4-5.0) gm/dl Globulin 2.7 (2.5-4.0) gm/dl Albumin/Globulin Ratio 1.6 (0.9-2) Lipase 26 (11-82) U/L Administered Medications Heparin Sodium/Dextrose (Heparin 21770 Unit/500 Ml D5w) 25,000 units in 500 mls @ 20 mls/hr IV .Q24H SAMI; Protocol Stop: 05/08/25 08:59 Last Titration: 04/08/25 11:00 Dose: 1,000 units/hr, 20 mls/hr Documented By: AISLINN Co-signed By: MARION Admin: 04/08/25 09:07 Dose: 1,000 units/hr, 20 mls/hr Documented By: ROSIE Co-signed By: ES Discontinued Medications Heparin Sodium/Dextrose (Heparin Iv Adult Wt-Based Low-Dose *No* Initial Bolus Protocol) 1 each IV ONE STA; Protocol Stop: 04/08/25 08:37 Last Admin: 04/08/25 09:18 Dose: 1 each Documented By: AMS Imaging Data Radiologist's Impression: Chest X-Ray 04/08/25 07:42 XR chest 1V portable CLINICAL HISTORY: Chest pain, nonspecific COMPARISON STUDY: 03/24/2025 FINDINGS: Heart size and pulmonary vasculature are normal. No consolidation or pleural effusion. No pneumothorax. IMPRESSION: No acute findings. ACT 112: Negative or not required by law. Electronically signed by: Marlon Torres M.D. 04/08/2025 8:41 AM Discharge Plan Visit Data Chief Complaint: Chest Pain Stated Complaint: chest pain ED Provider: Francisco Peralta Discharge Problem: Unstable angina, History of CAD (coronary artery disease) Patient Disposition: Admitted As Inpatient Condition: Good Discharge Instructions Interventions: ED Discharge Assessment Last Done: 04/08/25 09:40
[2025-04-08 07:56] LABS: Hematocrit (blood only) 43.6 % (42.0-52.0); Hemoglobin 15.4 g/dl (14.0-18.0); Immature Granulocytes # (auto) 0.01 K/uL (0.01-0.20); Immature Granulocytes % (auto) 0.1 %; Mean Corpuscular Hemoglobin 32.2 pg (25.0-34.0); Mean Corpuscular Volume 91.0 fL (80.0-100.0); Platelet Count 242 K/uL (130-400); RDW Standard Deviation 40.2 fL (36.4-46.3); Red Blood Count 4.79 M/uL (4.70-6.10); White Blood Count 7.29 K/ul (4.8-10.8)
[2025-04-08 08:18] LABS: Alanine Aminotransferase 25.0 U/L (7-52); Albumin Globulin Ratio 1.6 (0.9-2); Alkaline Phosphatase 61.0 U/L (34-104); Anion Gap 8.0 (3-11); Bilirubin,Total 0.4 mg/dl (0.2-1.0); Blood Urea Nitrogen 14.0 mg/dl (6-23); Calcium 9.2 mg/dl (8.6-10.3); Carbon Dioxide 25.0 mmol/L (21-32); Chloride 105.0 mmol/L (98-107); Creatinine Clr Calc Pharmacy 94.2 ml/min; Globulin 2.7 gm/dl (2.5-4.0); Glucose 117.0 mg/dl (70-99(Fasting)); Lipase 26.0 U/L (11-82); Potassium 3.8 mmol/L (3.5-5.1); Sodium 138.0 mmol/L (136-145); Total Protein 7.1 gm/dl (6.0-8.3)
[2025-04-08 08:22] LABS: INR 1.0 (0.9-1.1); Partial Thromboplastin Time 27 Seconds (21-31); Prothrombin Time 10.9 Seconds (9.0-12.0)
--- NOTE | 2025-04-08 08:43 | XRay Report ---
XR chest 1V portable CLINICAL HISTORY: Chest pain, nonspecific COMPARISON STUDY: 03/24/2025 FINDINGS: Heart size and pulmonary vasculature are normal. No consolidation or pleural effusion. No p neumothorax. IMPRESSION: No acute findings. ACT 112: Negative or not required by law. Electronically signed by: Marlon Torres M.D. 04/08/2025 8:41 AM
--- NOTE | 2025-04-08 08:59 | History & Physical Report ---
Date of Service April 08, 2025 Assessment & Plan (1) CAD (coronary artery disease): Plan: 64-year-old male with a history of total mid LAD occlusion s/p PCI 2016 who presents with 4 episodes of progressively worsening exertional chest pain followed by 1 episode of chest pain at rest morning of admission. He has normal troponin x 2 and no territorial EKG changes. Due to story concerning for crescendo angina with an episode of unstable angina has been admitted on heparin GTT with cardiology consult pending cardiac catheterization versus stress test. Unstable angina, history of CAD s/p BENEDICTO to LAD Patient with 4 separate episodes of progressively worsening exertional angina in the previous week which resolved with rest but which occurred with progressively less exertion. 04/08 he did have a episode of chest pain at rest lasting for approximately an hour to 90 minutes associated with some dyspnea which completely resolved after receiving full dose aspirin and nitro by EMS prehospital. Initial troponin normal, EKG sinus rhythm with PVCs and similar morphology to prior no acute territorial ischemia History of near-total LAD occlusion/CAD + story consistent with crescendo angina with an unstable episode day of admission. --> Placed on heparin GTT. C ardiology consulted. -N.p.o. at midnight in anticipation of possible catheterization. Prior history of PCI to total mid LAD occlusion in 2016 Continue aspirin 81 mg daily, Plavix 75 mg daily, metoprolol, МАРИЯ, MRA Patient had myalgias on atorvastatin daily, and rosuvastatin daily. Currently tolerates rosuvastatin 10 mg 3 times weekly. Will continue this dose without up titration due to history of statin myalgias TTE 11/2018: Grade 1 diastolic dysfunction, LV SF normal, mild asymmetric LVH. EF 50-55%.Had episode of chest pain in 2018 and 2021. Stress echo 02/2022 negative for ischemia, EF 45%. 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 Continue monitoring GERD Lansoprazole converted to Protonix while inpatient Hypertension Metoprolol, lisinopril continued Hyperlipidemia Rosuvastatin 3 times weekly as noted Intolerant of statins at higher dosesdifferent formulations Repeat lipid panel pending DVT prophylaxis: Anticoagulated Disposition: PCU CODE STATUS: Full code Diet: N.p.o. at midnight (2) Unstable angina: (3) GERD (gastroesophageal reflux disease): (4) Hypertension: (5) Hyperlipidemia: History of Present Illness Primary Care Provider: Roseann Murphy MD Dion is a 64-year-old male with a past medical history of CAD s/p PCI, BPH, GERD, hypertension, hyperlipidemia who presents with chest pain. Sanju reports he noticed chest pain last week. 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 Lasted ~30 minutes Went away with rest. No sweating, but did feel like he had to take deeper breaths and was a little short of breath; this resoled along with the chest pain after 30 minutes. Monday occurred again while working, 30 minutes and with similar shortness of breath. Alevism on Monday occured with minimal exertion walking, went away with rest but occured with much less activity than the prior days. 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 This mornign woke up with chest pressure AT REST. Did have some heaviness breathing and dyspnea today. Lasted longer today for over an hour and a half, and called the ambulance. Was given full dose aspirin and nitro which resolved his symptoms. Remains chest pain free in the emergency department. Pain feels more like a tight band which was different from his ND in 2017 which was pain in the center of the chest as well but went to both shoulders and was very intensive/severe (total mid-LAD occlusion at that time) No recent illness. No fevers, chills, sweats. No cough Endorses hx of prior ND 2017. At that time severe pain. no fluid retention or clinical heart failure. 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 ETOH few nights per week. (15 per week total). Went 4-5 days the week before last, no signs of withdrawal and went on a trip in February with no alcohol for 7 days no withdrawal. No tremors/shakes/tachycardia. Code Status: Full Code Allergies Allergy/AdvReac Type Severity Reaction Status Date / Time spironolactone AdvReac Mild CHEST Verified 12/24/24 10:31 DISCOMFORT Home Medications Medication Instructions Recorded Confirmed Type aspirin 81 mg tablet,delayed 81 mg PO QAM 05/29/19 04/08/25 History release nitroglycerin 0.4 mg sublingual 0.4 mg sublingual DIRECTED PRN 05/29/19 04/08/25 History tablet Chest Pain #30 tabs tadalafil 10 mg tablet 10 mg PO DAILY PRN PRN 05/29/19 04/08/25 History sildenafil 100 mg tablet 100 mg PO DAILY PRN sexual 04/08/24 04/08/25 Rx activity #18 tabs clopidogrel 75 mg tablet 75 mg PO QAM #90 tabs 04/18/24 04/08/25 Rx lansoprazole 30 mg capsule,delayed 30 mg PO HS #90 caps 07/15/24 04/08/25 Rx release icosapent ethyl 1 gram capsule 2 g (2 x 1 gram) PO BID #360 caps 08/21/24 04/08/25 Rx (Vascepa) metoprolol succinate 25 mg 25 mg PO QAM #90 tabs 08/21/24 04/08/25 Rx tablet,extended release 24 hr lisinopril 2.5 mg tablet 2.5 mg PO QAM #90 tabs 10/15/24 04/08/25 Rx rosuvastatin 20 mg tablet 10 mg PO .MON,URS,SAT 04/08/25 04/08/25 History Past Med/Surg History Problem List (Updated 04/08/25 @ 09:48 by Damian Estrada MD) Unstable angina Peyronie's disease Sensorineural hearing loss (SNHL) of both ears Presence of drug-eluting stent in anterior descending branch of left coronary artery Antiplatelet or antithrombotic long-term use BPH without urinary obstruction (Acute) Erectile dysfunction (Acute) CAD (coronary artery disease) BENEDICTO TO MID LAD (2016) GERD (gastroesophageal reflux disease) CONTROLLED Hypertension Hyperlipidemia Diverticulosis (Acute) Medical History (Updated 04/08/25 @ 09:48 by Damian Estrada MD) Tinnitus, bilateral Plantar fasciitis Urinary frequency Hematuria Kidney stones Arthralgia of multiple sites History of colon polyps History of ND (myocardial infarction) 2017 History of bladder cancer Family history of coronary artery disease Hx of renal calculi Hypertension GERD (gastroesophageal reflux disease) controlled Diverticulosis CAD (coronary artery disease) BENEDICTO TO MID LAD (2016) follows w/ Dr Schofield BPH (benign prostatic hyperplasia) Antiplatelet or antithrombotic long-term use History of basal cell carcinoma History of smokeless tobacco use HLD (hyperlipidemia) Basal cell carcinoma of nose S/P MOH'S SURGERY Surgical History (Updated 04/08/25 @ 09:46 by Damian Estrada MD) S/P coronary artery stent placement History of bladder surgery (~07/2019) TURB, cystoscopy History of colonoscopy 11/08/18: MAC SEDATION AT [facility] History of umbilical hernia repair Status post Mohs surgery for basal cell carcinoma X2 History of cystoscopy "BENIGN" BLADDER TUMOR REMOVAL History of bladder surgery REPAIR AFTER BLADDER TUMOR REMOVAL 2/2 BLADDER LACERATION History of wisdom tooth extraction History of tonsillectomy History of cardiac cath 2017 X 1 drug-eluting stent Family History Daughter Family history of diabetes mellitus Family history of spina bifida Grandmother (Maternal) Family hx of colon cancer Cancer UNSURE OF TYPE Brother Myocardial infarction Sister Myocardial infarction Father Myocardial infarction Heart disease Family/Other Hypertension Mother No problems noted. Daughter No problems noted. Daughter No problems noted. Other No family history of adverse response to anesthesia No family history of bleeding disorder Denies family history of Ovarian cancer Prostate cancer Breast cancer Colorectal cancer Social History Smoking Status: Former smoker Tobacco Type: Cigars Age Started Using Tobacco: 16; Age Quit Using Tobacco: 56; Cigarettes Per Day: Only smoked cigars occasionally when at the beach; Second Hand Exposure: No; Do You Dip or Chew Tobacco: No (quit 2015); Hx Alcohol Use: Yes Alcohol type: beer Alcohol Intake Frequency: Monthly or Less Hx Substance Use: No Preferred Language: German Communication Ability: Effective Visual Impairment: No Limitations Hearing Ability: Normal Heating And Ventilating Drafter Required: No Beliefs That Will Affect Care: None marital status: Current Living Situation: Spouse Current Living Situation Comment: Lives with current occupational status: employed current occupation: [employer] How many Children do You have: 3 Feels Safe at Home: Yes Childhood Exposure to Second-Hand Smoke: Yes Diet: regular caffeine: Yes during the past year weight has: remained stable Dental Care, Regularly: Yes Physical Activity Frequency: Daily Seatbelt Use: always Sunscreen Use: Yes Assistive Devices: Glasses and Hearing Aid - Bilateral Physical Exam Physical Exam: General: A&Ox3. NAD. Cooperative. HEENT: Atraumatic, normocephalic. vision/hearing grossly intact. PERLAA. Pulm: CTAB A&P. -wheezes, -rales, -rhonchi. Symmetrical chest rise. No increased work of breathing. No respiratory distress. Cardiac: RRR, -mrg. Radial pulses intact and symmetrical. Abdominal: Nontender, nondistended, soft. BS present. Ext: Warm, dry. NO edema. Results & Data Results & Data Vital Signs (Past 12 Hours) Vital Signs Temp Pulse Resp BP Pulse Ox O2 Del Method 04/08/25 08:12 56 L 04/08/25 07:42 58 L 94 Room Air 04/08/25 07:38 36.5 C 65 18 117/72 96 Room Air PG Care Time/CCT Total # of Minutes Spent Total Time Spent with Patient: Total time spent is greater than 50% in coordination of care (as documented) at patient's floor/unit and/or counseling patient: Coding Level of Care Code 79123 INT INP/OBS CARE 3/75MIN Diagnoses Coronary artery disease involving [place] coronary artery of [place] heart without angina pectoris I25.10 Coronary Disease-Associated Artery/Lesion type: [place] artery [place] vs. transplanted heart: [place] heart Associated angina: without angina Unstable angina I20.0 GERD (gastroesophageal reflux disease) K21.9 Primary hypertension I10 Hypertension type: primary hypertension Hyperlipidemia, unspecified hyperlipidemia type E78.5 Hyperlipidemia type: unspecified (1) CAD (coronary artery disease) Coronary Disease-Associated Artery/Lesion type: [place] artery [place] vs. transplanted heart: [place] heart Associated angina: without angina Qualified Code(s): I25.10 - Atherosclerotic heart disease of [place] coronary artery without angina pectoris (4) Hypertension Hypertension type: primary hypertension Qualified Code(s): I10 - Essential (primary) hypertension (5) Hyperlipidemia Hyperlipidemia type: unspecified Qualified Code(s): E78.5 - Hyperlipidemia, unspecified
[2025-04-08] MEDS: HEPARIN 25000 UNIT/500 ML D5W 25,000 UNITS/500 ML BAG IV SCH (09:07)
[2025-04-08] MEDS: Heparin IV Adult Wt-Based Low-Dose *NO* INITIAL Bolus Protocol IV STA (09:18)
[2025-04-08] MEDS ORDERED: ACETAMINOPHEN 325 MG TAB PO PRN (10:47)
[2025-04-08] MEDS ORDERED: ONDANSETRON INJ 2 MG/ML 2 ML VIAL IV PRN (10:47)
[2025-04-08] MEDS ORDERED: NITROGLYCERIN SL 0.4 MG/TAB TAB SL PRN (10:47)
--- NOTE | 2025-04-08 15:52 | Cardiology Consultation ---
Date of Consultation April 08, 2025 Assessment & Plan (1) Chest pain: (2) CAD (coronary artery disease): (3) Hyperlipidemia: (4) Hypertension: Plan 1. Chest pain: His chest pain does have some characteristics of angina, but there are some atypical characteristics as well. 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 His echo shows wall motion abnormalities but they are unchanged. I am going to continue to monitor enzymes, will repeat the electrocardiogram in the morning and if these are abnormal he will need catheterization. If they are normal it may be better to do a stress test, although if that is abnormal (especially if he develops chest discomfort) then we may need to proceed to catheterization. 2. Coronary disease: He has known coronary artery disease so we do not need to do testing for diagnosis, but to look for ischemia. I would continue risk factor modification including platelet inhibition, blood pressure control and cholesterol management. 3. Hyperlipidemia: He is on rosuvastatin only 10 mg Monday and Monday, liver function tests are normal this admission and his total cholesterol March 11, 2025 is quite good at 145 with an HDL of 31, this yields a non-HDL cholesterol which is a little bit elevated at 114. We prefer this to be under 100. Unfortunately he has side effects on higher doses so remains on low- dose rosuvastatin. Perhaps this is sufficient. 4. Hypertension: He carries a diagnosis of hypertension and on presentation his blood pressure was elevated, but it has normalized and that may have been stress related. For the most part his blood pressure appears to be well- controlled. History of Present Illness Reason for Consultation: Exertional chest pain Attending Physician: Damian Estrada MD History of Present Illness This is a 64-year-old male with a history of hypertension, dyslipidemia and longstanding coronary artery disease. He had an anteroseptal IN on January 04, 2017 and was taken urgently to the laboratory where a mid LAD occlusion was identified and he had intervention and stent placement. At this time he had symptoms of nausea, diaphoresis, weakness and dyspnea and an electrocardiogram showed an acute anteroapical infarction and he had ventricular tachycardia and route, developed ventricular fibrillation and was cardioverted. An echocardiogram February 20, 2017 showed normal left ventricular size with a left ventricular ejection fraction 40 to 45% with anteroseptal hypokinesis. He has had several presentation with chest discomfort since, most recently before this visit on February 10, 2022 with a different type of chest discomfort and evaluation was negative for ischemia including troponin measurements and a stress echo on March 17, 2022. He presents now with intermittent exertional chest discomfort over the last week, felt to be progressive and occurring with progressively less exertion. 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 Once this was relieved he washed several houses without having further discomfort. He then had another episode a day later, and another 1 today with less discomfort and the 1 today also lasted about an hour. He therefore came to the emergency room. Evaluation here included an electrocardiogram showing no ST segment change and no T wave abnormalities, high-sensitivity troponin x 2 was normal. His echocardiogram showed moderate to severe hypokinesis of the anterior and anteroseptal bowles, with apical akinesis. Similar to prior with an ejection fraction of 45 to 50%. Allergies Allergy/AdvReac Type Severity Reaction Status Date / Time spironolactone AdvReac Mild CHEST Verified 12/24/24 10:31 DISCOMFORT Home Medications Medication Instructions Recorded Confirmed Type aspirin 81 mg tablet,delayed 81 mg PO QAM 05/29/19 04/08/25 History release nitroglycerin 0.4 mg sublingual 0.4 mg sublingual DIRECTED PRN 05/29/19 04/08/25 History tablet Chest Pain #30 tabs tadalafil 10 mg tablet 10 mg PO DAILY PRN PRN 05/29/19 04/08/25 History sildenafil 100 mg tablet 100 mg PO DAILY PRN sexual 04/08/24 04/08/25 Rx activity #18 tabs clopidogrel 75 mg tablet 75 mg PO QAM #90 tabs 04/18/24 04/08/25 Rx lansoprazole 30 mg capsule,delayed 30 mg PO HS #90 caps 07/15/24 04/08/25 Rx release icosapent ethyl 1 gram capsule 2 g (2 x 1 gram) PO BID #360 caps 08/21/24 04/08/25 Rx (Vascepa) metoprolol succinate 25 mg 25 mg PO QAM #90 tabs 08/21/24 04/08/25 Rx tablet,extended release 24 hr lisinopril 2.5 mg tablet 2.5 mg PO QAM #90 tabs 10/15/24 04/08/25 Rx rosuvastatin 20 mg tablet 10 mg PO .MON,TH,SAT 04/08/25 04/08/25 History Patient History Medical History Tinnitus, bilateral Plantar fasciitis Urinary frequency Hematuria Kidney stones Arthralgia of multiple sites History of colon polyps History of IN (myocardial infarction) 2017 History of bladder cancer Family history of coronary artery disease Hx of renal calculi Hypertension GERD (gastroesophageal reflux disease) controlled Diverticulosis CAD (coronary artery disease) BENEDICTO TO MID LAD (2016) follows w/ Dr Schofield BPH (benign prostatic hyperplasia) Antiplatelet or antithrombotic long-term use History of basal cell carcinoma History of smokeless tobacco use HLD (hyperlipidemia) Basal cell carcinoma of nose S/P MOH'S SURGERY Surgical History S/P coronary artery stent placement History of bladder surgery (~07/2019) TURB, cystoscopy History of colonoscopy 11/08/18: MAC SEDATION AT [facility] History of umbilical hernia repair Status post Mohs surgery for basal cell carcinoma X2 History of cystoscopy "BENIGN" BLADDER TUMOR REMOVAL History of bladder surgery REPAIR AFTER BLADDER TUMOR REMOVAL 2 BLADDER LACERATION History of wisdom tooth extraction History of tonsillectomy History of cardiac cath 2017 X 1 drug-eluting stent Family History Daughter Family history of diabetes mellitus Family history of spina bifida Grandmother (Maternal) Family hx of colon cancer Cancer UNSURE OF TYPE Brother Myocardial infarction Sister Myocardial infarction Father Myocardial infarction Heart disease Family/Other Hypertension Mother No problems noted. Daughter No problems noted. Daughter No problems noted. Other No family history of adverse response to anesthesia No family history of bleeding disorder Denies family history of Ovarian cancer Prostate cancer Breast cancer Colorectal cancer Social History Smoking Status: Never smoker Tobacco Type: Cigars Age Started Using Tobacco: 16; Age Quit Using Tobacco: 56; Cigarettes Per Day: Only smoked cigars occasionally when at the beach; Second Hand Exposure: No; Do You Dip or Chew Tobacco: No (quit 2016); Hx Alcohol Use: Yes Alcohol type: beer Alcohol Intake Frequency: Monthly or Less Hx Substance Use: No Preferred Language: Syriac Communication Ability: Effective Visual Impairment: No Limitations Hearing Ability: Normal Record Librarian Required: No Beliefs That Will Affect Care: None marital status: Current Living Situation: Spouse Current Living Situation Comment: Lives with current occupational status: employed current occupation: [employer] How many Children do You have: 3 Other Information That Helps Us Care for You: No Feels Safe at Home: Yes Safety Concerns: Feels Safe At This Time Childhood Exposure to Second-Hand Smoke: Yes Diet: regular caffeine: Yes during the past year weight has: remained stable Dental Care, Regularly: Yes Physical Activity Frequency: Daily Seatbelt Use: always Sunscreen Use: Yes Assistive Devices: Glasses and Hearing Aid - Bilateral Review of Systems Review of Systems: All systems reviewed & are unremarkable except as noted in HPI & below Physical Exam Physical Exam: Constitutional: Alert, cooperative and in no distress. HEENT: Unremarkable Neck: No jugular venous distention, carotid pulses are normal and equal bilaterally without bruits. Pulmonary: Clear to auscultation bilaterally. Cardiac: Regular rhythm with no murmur, gallop or rub. Abdomen: Soft, nontender with normal bowel sounds. Extremities: No edema. Distal pulses intact. Neurologic: No focal findings. Gait is steady. Skin: No rash, ecchymoses or petechiae. Results & Data Vital Signs (Past 12 Hours) Vital Signs Temp Pulse Pulse Resp BP BP Pulse Ox 04/08/25 10:49 04/08/25 10:40 36.3 C L 56 L 20 146/82 H 96 04/08/25 09:40 58 L 17 146/72 H 95 04/08/25 09:00 56 L 17 130/78 94 04/08/25 08:12 56 L 04/08/25 07:42 58 L 94 04/08/25 07:38 36.5 C 65 18 117/72 96 O2 Del Method 04/08/25 10:49 Room Air 04/08/25 10:40 Room Air 04/08/25 09:40 Room Air 04/08/25 09:00 Room Air 04/08/25 08:12 04/08/25 07:42 Room Air 04/08/25 07:38 Room Air Laboratory Results Cardiac Enzymes 04/08/25 04/08/25 Range/Units 07:40 10:05 AST 24 (13-39) U/L Troponin I High Sens 5.8 5.5 (0-20) pg/ml Coagulation 04/08/25 Range/Units 07:40 PT 10.9 (9.0-12.0) Seconds APTT 27 (21-31) Seconds CBC 04/08/25 Range/Units 07:40 WBC 7.29 (4.8-10.8) K/ul RBC 4.79 (4.70-6.10) M/uL Hgb 15.4 (14.0-18.0) g/dl Hct 43.6 (42.0-52.0) % Plt Count 242 (130-400) K/uL Neut # (Auto) 3.31 (1.40-6.50) K/uL Lymph # (Auto) 2.77 (1.20-3.40) K/uL [place] # (Auto) 0.62 H (0.11-0.59) K/uL Eos # (Auto) 0.54 H (0.00-0.50) K/uL Baso # (Auto) 0.04 (0.00-0.20) K/uL Comprehensive Metabolic Panel 04/08/25 Range/Units 07:40 Sodium 138 (136-145) mmol/L Potassium 3.8 (3.5-5.1) mmol/L Chloride 105 (98-107) mmol/L Carbon Dioxide 25 (21-32) mmol/L BUN 14 (6-23) mg/dl Creatinine 0.96 (0.6-1.4) mg/dl Glucose 117 H (70-99(Fasting)) mg/dl Calcium 9.2 (8.6-10.3) mg/dl AST 24 (13-39) U/L ALT 25 (7-52) U/L Alkaline Phosphatase 61 (34-104) U/L Total Protein 7.1 (6.0-8.3) gm/dl Albumin 4.4 (3.4-5.0) gm/dl Intake and Output 04/08/25 04/08/25 04/08/25 06:59 14:59 22:59 Intake Total 37.667 / 37.667 Balance 37.667 / 37.667 Intake: IV 37.667 / 37.667 Heparin 97950 Unit/500 ml D5w 37.667 / 37.667 25,000 units In 500 ml @ 1,000 UNITS/HR 20 mls/hr IV .Q24H SAMI Rx#:[id number] Other: # Unmeasured Voids 2 Weight 94 kg Weight Measurement Method Stated by Patient Patient Weight 04/09/25 06:59 Weight 94 kg PG Care Time/CCT Total # of Minutes Spent Total Time Spent with Patient: Total time spent is greater than 50% in coordination of care (as documented) at patient's floor/unit and/or counseling patient: Coding Level of Care Code 73994 INT INP/OBS CARE 3/75MIN Diagnoses Chest pain R07.9 Chest pain type: unspecified Coronary artery disease involving [place] coronary artery of [place] heart without angina pectoris I25.10 Associated angina: without angina Coronary Disease-Associated Artery/Lesion type: [place] artery [place] vs. transplanted heart: [place] heart Hyperlipidemia, unspecified hyperlipidemia type E78.5 Hyperlipidemia type: unspecified Primary hypertension I10 Hypertension type: primary hypertension (1) Chest pain Chest pain type: unspecified Qualified Code(s): R07.9 - Chest pain, unspecified (2) CAD (coronary artery disease) Associated angina: without angina Coronary Disease-Associated Artery/Lesion type: [place] artery [place] vs. transplanted heart: [place] heart Qualified Code(s): I25.10 - Atherosclerotic heart disease of [place] coronary artery without angina pectoris (3) Hyperlipidemia Hyperlipidemia type: unspecified Qualified Code(s): E78.5 - Hyperlipidemia, unspecified (4) Hypertension Hypertension type: primary hypertension Qualified Code(s): I10 - Essential (primary) hypertension
[2025-04-08 16:56] LABS: ANTI-Xa, UFH(UnfractionatedHep 0.24 IU/ml (0.3-0.7)
--- NOTE | 2025-04-08 18:15 | XCELERA ---
[id number] \\[id number]
[2025-04-09 00:24] LABS: ANTI-Xa, UFH(UnfractionatedHep 0.29 IU/ml (0.3-0.7)
[2025-04-09 07:03] LABS: Hematocrit (blood only) 42.7 % (42.0-52.0); Hemoglobin 15.4 g/dl (14.0-18.0); Immature Granulocytes # (auto) 0.02 K/uL (0.01-0.20); Immature Granulocytes % (auto) 0.3 %; Mean Corpuscular Hemoglobin 32.6 pg (25.0-34.0); Mean Corpuscular Volume 90.3 fL (80.0-100.0); Platelet Count 233 K/uL (130-400); RDW Standard Deviation 39.8 fL (36.4-46.3); Red Blood Count 4.73 M/uL (4.70-6.10); White Blood Count 6.39 K/ul (4.8-10.8)
[2025-04-09 07:24] LABS: Anion Gap 8.0 (3-11); Blood Urea Nitrogen 12.0 mg/dl (6-23); Calcium 9.0 mg/dl (8.6-10.3); Carbon Dioxide 25.0 mmol/L (21-32); Chloride 104.0 mmol/L (98-107); Creatinine Clr Calc Pharmacy 103.2 ml/min; Glucose 104.0 mg/dl (70-99(Fasting)); Potassium 4.0 mmol/L (3.5-5.1); Sodium 137.0 mmol/L (136-145)
[2025-04-09 07:28] LABS: ANTI-Xa, UFH(UnfractionatedHep 0.34 IU/ml (0.3-0.7)
--- NOTE | 2025-04-09 07:59 | Cardiology Progress Note ---
Date of Service April 09, 2025 Assessment & Plan (1) Chest pain: (2) CAD (coronary artery disease): (3) Hyperlipidemia: (4) Hypertension: Plan 1. Chest pain: His chest pain does have some characteristics of angina, but there are some atypical characteristics as well. 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 His echo shows wall motion abnormalities but they are unchanged. His high-sensitivity troponin remains normal, his electrocardiogram is unchanged. I am going to schedule a stress test rather than a catheterization, although if that is abnormal (especially if he develops chest discomfort) then we may need to proceed to catheterization. On my review in the room the stress echo images look quite good however he did have his known wall motion abnormalities. I would wait for the official reading. 2. Coronary disease: He has known coronary artery disease so we do not need to do testing for diagnosis, but to look for ischemia. I would continue risk factor modification including platelet inhibition, blood pressure control and cholesterol management. 3. Hyperlipidemia: He is on rosuvastatin only 10 mg Monday and Monday, liver function tests are normal this admission and his total cholesterol March 11, 2025 is quite good at 145 with an HDL of 31, this yields a non-HDL cholesterol which is a little bit elevated at 114. We prefer this to be under 100. Unfortunately he has side effects on higher doses so remains on low- dose rosuvastatin. Perhaps this is sufficient but adding an injectable might be a consideration. 4. Hypertension: He carries a diagnosis of hypertension and on presentation his blood pressure was elevated, but it has normalized and that may have been stress related. For the most part his blood pressure appears to be well- controlled. Admission and Anticipated Discharge Date Admission Date: April 08, 2025 Subjective I saw him during his stress test, he was feeling well, he exercised quite well without cardiovascular symptoms. He had none of his presenting chest discomfort on the stress test and he did reach target heart rate. Physical Exam Physical Exam: Constitutional: Alert, cooperative and in no distress. HEENT: Unremarkable Neck: No jugular venous distention, carotid pulses are normal and equal bilaterally without bruits. Pulmonary: Clear to auscultation bilaterally. Cardiac: Regular rhythm with no murmur, gallop or rub. Abdomen: Soft, nontender with normal bowel sounds. Extremities: No edema. Neurologic: No focal findings. Gait is steady. Skin: No rash, ecchymoses or petechiae. Results & Data Vital Signs (Past 12 Hours) Vital Signs Temp Pulse Pulse Resp BP Pulse Ox O2 Del Method 04/09/25 07:30 36.4 C L 58 L 21 131/80 94 Room Air 04/09/25 02:37 36.6 C 55 L 18 121/74 96 Room Air 04/09/25 00:00 56 L 04/08/25 22:29 36.6 C 62 18 119/70 94 Room Air Laboratory Results Cardiac Enzymes 04/08/25 04/08/25 04/08/25 Range/Units 07:40 10:05 17:40 AST 24 (13-39) U/L Troponin I High Sens 5.8 5.5 6.3 (0-20) pg/ml Coagulation 04/08/25 Range/Units 07:40 PT 10.9 (9.0-12.0) Seconds APTT 27 (21-31) Seconds CBC 04/09/25 Range/Units 06:29 WBC 6.39 (4.8-10.8) K/ul RBC 4.73 (4.70-6.10) M/uL Hgb 15.4 (14.0-18.0) g/dl Hct 42.7 (42.0-52.0) % Plt Count 233 (130-400) K/uL Neut # (Auto) 2.57 (1.40-6.50) K/uL Lymph # (Auto) 2.63 (1.20-3.40) K/uL [place] # (Auto) 0.61 H (0.11-0.59) K/uL Eos # (Auto) 0.52 H (0.00-0.50) K/uL Baso # (Auto) 0.04 (0.00-0.20) K/uL Comprehensive Metabolic Panel 04/08/25 04/09/25 Range/Units 07:40 06:29 Sodium 138 137 (136-145) mmol/L Potassium 3.8 4.0 (3.5-5.1) mmol/L Chloride 105 104 (98-107) mmol/L Carbon Dioxide 25 25 (21-32) mmol/L BUN 14 12 (6-23) mg/dl Creatinine 0.96 0.86 (0.6-1.4) mg/dl Glucose 117 H 104 H (70-99(Fasting)) mg/dl Calcium 9.2 9.0 (8.6-10.3) mg/dl AST 24 (13-39) U/L ALT 25 (7-52) U/L Alkaline Phosphatase 61 (34-104) U/L Total Protein 7.1 (6.0-8.3) gm/dl Albumin 4.4 (3.4-5.0) gm/dl Intake and Output 04/08/25 04/09/25 04/09/25 22:59 06:59 14:59 Intake Total 361.766 / 524.466 125.033 / 524.466 167.6 / 167.6 Balance 361.766 / 524.466 125.033 / 524.466 167.6 / 167.6 Intake: IV 161.766 / 324.466 125.033 / 324.466 167.6 / 167.6 Heparin 16787 Unit/500 ml D5w 161.766 / 324.466 125.033 / 324.466 167.6 / 167.6 25,000 units In 500 ml @ 1,100 UNITS/HR 22 mls/hr IV .[id number] [facility] Rx#:[id number] Oral 200 / 200 Other: Other Intake Source npo Weight 93.9 kg Diagnostic Findings Telemetry: Sinus rhythm rate 50 to 60 bpm. 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 PG Care Time/CCT Total # of Minutes Spent Total Time Spent with Patient: Total time spent is greater than 50% in coordination of care (as documented) at patient's floor/unit and/or counseling patient: Coding Level of Care Code 14170 SUB INP/OBS CARE 2/35MIN Diagnoses Chest pain R07.9 Chest pain type: unspecified Coronary artery disease involving [place] coronary artery of [place] heart without angina pectoris I25.10 Associated angina: without angina Coronary Disease-Associated Artery/Lesion type: [place] artery [place] vs. transplanted heart: [place] heart Hyperlipidemia, unspecified hyperlipidemia type E78.5 Hyperlipidemia type: unspecified Primary hypertension I10 Hypertension type: primary hypertension (1) Chest pain Chest pain type: unspecified Qualified Code(s): R07.9 - Chest pain, unspecified (2) CAD (coronary artery disease) Associated angina: without angina Coronary Disease-Associated Artery/Lesion type: [place] artery [place] vs. transplanted heart: [place] heart Qualified Code(s): I25.10 - Atherosclerotic heart disease of [place] coronary artery without angina pectoris (3) Hyperlipidemia Hyperlipidemia type: unspecified Qualified Code(s): E78.5 - Hyperlipidemia, unspecified (4) Hypertension Hypertension type: primary hypertension Qualified Code(s): I10 - Essential (primary) hypertension
[2025-04-09] MEDS: ASPIRIN 81 MG ECTAB PO SCH (09:11)
[2025-04-09] MEDS: METOPROLOL SUCC 25MG EXT REL TAB PO SCH (09:11)
[2025-04-09] MEDS: CLOPIDOGREL BISULFATE 75 MG TAB PO SCH (09:11)
--- NOTE | 2025-04-09 17:21 | Hospitalist Progress Note ---
Date of Service April 09, 2025 Assessment & Plan (1) CAD (coronary artery disease): Plan: 64-year-old male with a history of total mid LAD occlusion s/p PCI 2016 who presents with 4 episodes of progressively worsening exertional chest pain followed by 1 episode of chest pain at rest morning of admission. He has normal troponin x 2 and no territorial EKG changes. Unstable angina, history of CAD s/p BENEDICTO to LAD Patient was seen in consultation by cardiology Even though his story is convincing but there are a few atypical characteristics. Cardiology decided to do a stress test. Stress test results pending Continue aspirin, Plavix, metoprolol, МАРИЯ BPH No acute symptoms. Continue monitoring GERD Lansoprazole converted to Protonix while inpatient Hypertension Metoprolol, lisinopril continued Hyperlipidemia Rosuvastatin 3 times weekly as noted Intolerant of statins at higher dosesdifferent formulations CODE STATUS: Full code (2) Unstable angina: (3) GERD (gastroesophageal reflux disease): (4) Hypertension: (5) Hyperlipidemia: Admission and Anticipated Discharge Date Admission Date: April 08, 2025 Subjective Patient feels well overall. Does not have any chest pain, shortness of breath, palpitations, dizziness. Review of Systems Review of Systems: All systems reviewed & are unremarkable except as noted in Subjective Physical Exam Physical Exam: General: Awake, conversant Heart: S1, S2/regular rate and rhythm, no murmur rubs or gallops Lungs: Clear to auscultation bilaterally. Normal effort Abdomen: Soft/nontender/nondistended. No hepatosplenomegaly Extremities: No clubbing/cyanosis. No edema Behavior: Appropriate, cooperative Results & Data Results & Data Vital Signs (Past 12 Hours) Vital Signs Temp Pulse Pulse Resp BP Pulse Ox O2 Del Method 04/09/25 16:34 36.5 C 58 L 18 123/73 93 Room Air 04/09/25 15:34 56 L 04/09/25 11:32 36.4 C L 60 17 125/80 95 Room Air 04/09/25 09:58 56 L 04/09/25 07:30 36.4 C L 58 L 21 131/80 94 Room Air Laboratory Results Abnormal lab results 04/10/25 Range/Units 05:35 MPV 8.7 L (9.4-12.4) fL [place] # (Auto) 0.68 H (0.11-0.59) K/uL Diagnostic Findings Chest X-Ray 04/08/25 07:42 XR chest 1V portable CLINICAL HISTORY: Chest pain, nonspecific COMPARISON STUDY: 03/24/2025 FINDINGS: Heart size and pulmonary vasculature are normal. No consolidation or pleural effusion. No pneumothorax. IMPRESSION: No acute findings. ACT 112: Negative or not required by law. Electronically signed by: Marlon Torres M.D. 04/08/2025 8:41 AM PG Care Time/CCT Total # of Minutes Spent Total Time Spent with Patient: Total time spent is greater than 50% in coordination of care (as documented) at patient's floor/unit and/or counseling patient: Coding Level of Care Code 76697 SUB INP/OBS CARE 235MIN Diagnoses Coronary artery disease involving [place] coronary artery of [place] heart without angina pectoris I25.10 Associated angina: without angina Coronary Disease-Associated Artery/Lesion type: [place] artery [place] vs. transplanted heart: z[place] heart Unstable angina I20.0 GERD (gastroesophageal reflux disease) K21.9 Primary hypertension I10 Hypertension type: primary hypertension Hyperlipidemia, unspecified hyperlipidemia type E78.5 Hyperlipidemia type: unspecified (1) CAD (coronary artery disease) Associated angina: without angina Coronary Disease-Associated Artery/Lesion type: [place] artery [place] vs. transplanted heart: zuni heart Qualified Code(s): I25.10 - Atherosclerotic heart disease of [place] coronary artery w ithout angina pectoris (4) Hypertension Hypertension type: primary hypertension Qualified Code(s): I10 - Essential (primary) hypertension (5) Hyperlipidemia Hyperlipidemia type: unspecified Qualified Code(s): E78.5 - Hyperlipidemia, unspecified
[2025-04-10 05:59] LABS: Hematocrit (blood only) 44.4 % (42.0-52.0); Hemoglobin 15.5 g/dl (14.0-18.0); Immature Granulocytes # (auto) 0.01 K/uL (0.01-0.20); Immature Granulocytes % (auto) 0.2 %; Mean Corpuscular Hemoglobin 32.0 pg (25.0-34.0); Mean Corpuscular Volume 91.5 fL (80.0-100.0); Platelet Count 222 K/uL (130-400); RDW Standard Deviation 40.7 fL (36.4-46.3); Red Blood Count 4.85 M/uL (4.70-6.10); White Blood Count 6.23 K/ul (4.8-10.8)
[2025-04-10 06:17] LABS: Anion Gap 8.0 (3-11); Blood Urea Nitrogen 15.0 mg/dl (6-23); Calcium 9.1 mg/dl (8.6-10.3); Carbon Dioxide 24.0 mmol/L (21-32); Chloride 105.0 mmol/L (98-107); Creatinine Clr Calc Pharmacy 93.4 ml/min; Glucose 99.0 mg/dl (70-99(Fasting)); Potassium 4.1 mmol/L (3.5-5.1); Sodium 137.0 mmol/L (136-145)
[2025-04-10] MEDS: ROSUVASTATIN CALCIUM 10 MG TAB PO SCH (07:22)
[2025-04-10 07:54] VITALS: BP 143/83; RESP 19; TEMP 97.3; O2SAT 97
[2025-04-10] MEDS: POLYETHYLENE (MIRALAX) 17 GM PACK PO PRN (08:30)
--- NOTE | 2025-04-10 12:35 | XCELERA ---
[id number]\[id number]
--- NOTE | 2025-04-10 13:11 | Discharge Summary ---
Date of Service April 10, 2025 Admission HPI Per Admitting Provider Dion is a 64-year-old male with a past medical history of CAD s/p PCI, BPH, GERD, hypertension, hyperlipidemia who presents with chest pain. Sanju reports he noticed chest pain last week. 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 Lasted ~30 minutes Went away with rest. No sweating, but did feel like he had to take deeper breaths and was a little short of breath; this resoled along with the chest pain after 30 minutes. Monday occurred again while working, 30 minutes and with similar shortness of breath. Gnosticist on Monday occured with minimal exertion walking, went away with rest but occured with much less activity than the prior days. 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 This mornign woke up with chest pressure AT REST. Did have some heaviness breathing and dyspnea today. Lasted longer today for over an hour and a half, and called the ambulance. Was given full dose aspirin and nitro which resolved his symptoms. Remains chest pain free in the emergency department. Pain feels more like a tight band which was different from his MD in 2017 which was pain in the center of the chest as well but went to both shoulders and was very intensive/severe (total mid-LAD occlusion at that time) No recent illness. No fevers, chills, sweats. No cough Endorses hx of prior MD 2017. At that time severe pain. no fluid retention or clinical heart failure. 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 ETOH few nights per week. (15 per week total). Went 4-5 days the week before last, no signs of withdrawal and went on a trip in February with no alcohol for 7 days no withdrawal. No tremors/shakes/tachycardia. Code Status: Full Code Principal Diagnosis -Atypical chest pain, likely anxiety related Discharge Exam General: Awake, conversant Heart: S1, S2/regular rate and rhythm, no murmur rubs or gallops Lungs: Clear to auscultation bilaterally. Normal effort Abdomen: Soft/nontender/nondistended. No hepatosplenomegaly Extremities: No clubbing/cyanosis. No edema Behavior: Appropriate, cooperative Discharge Data Allergies Allergy/AdvReac Type Severity Reaction Status Date / Time spironolactone AdvReac Mild CHEST Verified 12/24/24 10:31 DISCOMFORT Consultations 04/08/25 08:38 Consult Cardiology Routine 04/08/25 08:39 ED Decision to Admit Stat Ordered Studies Chest X-Ray 04/08/25 07:42 XR chest 1V portable CLINICAL HISTORY: Chest pain, nonspecific COMPARISON STUDY: 03/24/2025 FINDINGS: Heart size and pulmonary vasculature are normal. No consolidation or pleural effusion. No pneumothorax. IMPRESSION: No acute findings. ACT 112: Negative or not required by law. Electronically signed by: Marlon Torres M.D. 04/08/2025 8:41 AM Hospital Course (1) CAD (coronary artery disease): 64-year-old male with a history of total mid LAD occlusion s/p PCI 2016 who presents with 4 episodes of progressively worsening exertional chest pain followed by 1 episode of chest pain at rest morning of admission. He has normal troponin x 2 and no territorial EKG changes. Atypical chest pain History of CAD s/p BENEDICTO to LAD Patient was seen in consultation by cardiology Even though his story is convincing but there are a few atypical characteristics. Cardiology decided to do a stress test. Stress echo was n egative Continue aspirin, Plavix, metoprolol, МАРИЯ Chest pain was most likely anxiety or musculoskeletal related BPH No acute symptoms. Continue monitoring GERD Lansoprazole converted to Protonix while inpatient Hypertension Metoprolol, lisinopril continued Hyperlipidemia Rosuvastatin 3 times weekly as noted Intolerant of statins at higher dosesdifferent formulations CODE STATUS: Full code Discharge to home today (2) Unstable angina: (3) GERD (gastroesophageal reflux disease): (4) Hypertension: (5) Hyperlipidemia: Total Time Total Time Spent Total Time Spent (In Minutes): 35 Discharge Plan Discharge Items Patient Disposition: Home - Self-Care Reason For Visit: chest pain Discharge Diagnosis: -Atypical chest pain, likely anxiety related Condition on Discharge: Good Activity: Resume your previous activity Non-emergency contact: Primary Care Provider Call non-emergency contact if: you have any medication questions and your symptoms worsen Follow-up/Referrals: Hlaey Quintero CRNP [Nurse Practitioner] - 04/17/25 3:40 pm (Haley Quintero is a Nurse Practitioner that works with Dr. Murphy. She will see you for your hospital follow up. Please arrive 15 min. prior to your scheduled appointment. Thank you!) Diet: Heart Healthy Addtl Attending Provider Instructions: - Advised to followup with PCP in 1 week Pending Studies at Discharge: No Stand-Alone Forms: [facility] Medications and DC Order Prescriptions: Continued clopidogrel 75 mg tablet 75 mg PO QAM Qty: 90 3RF Rx Instructions: PER 1ST lansoprazole 30 mg capsule,delayed release(DR/EC) 30 mg PO HS Qty: 90 3RF Rx Instructions: PER 1ST icosapent ethyl [Vascepa] 1 gram capsule 2 g PO BID Qty: 360 3RF Rx Instructions: PER 1ST metoprolol succinate 25 mg tablet extended release 24 hr 25 mg PO QAM Qty: 90 3RF Rx Instructions: PER 1ST lisinopril 2.5 mg tablet 2.5 mg PO QAM Qty: 90 3RF Rx Instructions: PER 1ST sildenafil 100 mg tablet 100 mg PO DAILY PRN (Reason: sexual activity) Qty: 18 11RF Rx Instructions: administer 30 minutes to 4 hours before activity tadalafil 10 mg tablet 10 mg PO DAILY PRN (Reason: PRN) aspirin 81 mg tablet,delayed release (DR/EC) 81 mg PO QAM nitroglycerin 0.4 mg tablet, sublingual 0.4 mg SL DIRECTED PRN (Reason: Chest Pain) Qty: 30 Rx Instructions: PLACE ONE TABLET UNDER THE TONGUE EVERY 5 MINUTES FOR UP TO 3 DOSES OVER 15 MINUTES IF NEEDED FOR CHEST PAIN rosuvastatin 20 mg tablet 10 mg PO .MON,,SAT Rx Instructions: orally Mon,, Sat; Discharge Orders: Discharge Order (Routine); Ordered 04/10/25 Ordered By: Jhonny Medina Admission Data Admit Date/Time: 04/08/25 09:06 Attending Provider: Jhonny Medina Admit Provider: Damian Estrada Primary Care Provider: Roseann Murphy Other Providers: Daryl Peña; Damian Estrada
[2025-04-10 13:20] VITALS: PULSE 52
--- NOTE | 2025-04-11 14:49 | Electrocardiogram Report ---
Test Reason : Blood Pressure : */* mmHG Vent. Rate : 61 BPM Atrial Rate : 61 BPM P-R Int : 168 ms QRS Dur : 88 ms QT Int : 446 ms P-R-T Axes : 69 53 87 degrees QTcB Int : 448 ms Normal sinus rhythm Septal infarct (cited on or before 04-Jan-2017) Abnormal ECG When compared with ECG of 08-Apr-2025 07:38, (unconfirmed) Premature ventricular complexes are no longer Present Confirmed by Daryl Peña ([id number]) on 04/11/2025 2:49:38 PM Referred By: REFERRED SELF Confirmed By: Daryl Peña
--- NOTE | 2025-04-12 07:04 | Electrocardiogram Report ---
Test Reason : Blood Pressure : */* mmHG Vent. Rate : 63 BPM Atrial Rate : 63 BPM P-R Int : 168 ms QRS Dur : 92 ms QT Int : 420 ms P-R-T Axes : 68 72 79 degrees QTcB Int : 429 ms Sinus rhythm with occasional Premature ventricular complexes Possible Anteroseptal infarct (cited on or before 04-Jan-2017) Abnormal ECG When compared with ECG of 10-Feb-2022 11:38, Premature ventricular complexes are now Present Nonspecific T wave abnormality has replaced inverted T waves in Anterior leads Confirmed by Daryl Peña ([id number]) on 04/12/2025 7:04:17 AM Referred By: Confirmed By: Daryl Peña
== END 2025-04-10 14:09 | disposition home or self-care (01) | DRG 313 ==
LOC: ED 07:33 → SUATTDRO 09:06 → 4W 09:06